=== PATIENT | male | born 1965 | race Caucasian/White ===

== ENCOUNTER 2017-04-04 15:56 | Inpatient (IN) | payer BC, OTHER ==
[2017-04-04] MEDS ORDERED: SODIUM CHLORIDE 0.9% 1,000 ML IV STA (15:59)
[2017-04-04 16:21] LABS: Basophils % (A) 1 %; CH 29.9; CHCM 32.4; Eosinophils # (A) 0.3 k/uL (0-0.7); Eosinophils % (A) 4 %; HCT 36.8 % (39.0-53.0); HDW 2.66; HGB 12.3 gm/dL (13.0-17.5); Luc # (Auto) 0.16; Luc % (Auto) 2; Lymphocytes # (A) 2.4 k/uL (1.0-4.8); Lymphocytes % (A) 33 %; MCHC 33.4 g/dL (31.0-37.0); MCV 92.6 fL (80.0-100.0); Mean Platelet Volume 8.9; Monocytes # (A) 0.3 k/uL (0-1.0); Monocytes % (A) 4 %; Neutrophils % (A) 56 %; RBC 3.97 m/uL (4.30-5.90); RDW 15.3 % (11.5-15.5); WBC 7.1 k/uL (3.8-10.6); WBC (Perox) 7.21
[2017-04-04 16:31] LABS: Prothrombin Time 10.4 sec (9.0-12.0)
[2017-04-04 16:39] LABS: Creatine Kinase 34 U/L (55-170)
[2017-04-04 16:41] LABS: ALT 45 U/L (21-72); AST 43 U/L (17-59); Alkaline Phosphatase 102 U/L (38-126); Anion Gap 13 mmol/L; Blood Urea Nitrogen 21 mg/dL (9-20); Calcium 9.8 mg/dL (8.4-10.2); Carbon Dioxide 24 mmol/L (22-30); Chloride 104 mmol/L (98-107); Glucose 313 mg/dL (74-99); Magnesium 1.5 mg/dL (1.6-2.3); Non-African American GFR(MDRD) >60 (>60 ml/min/1.73 sqM); Potassium 4.3 mmol/L (3.5-5.1); Sodium 141 mmol/L (137-145); Total Bilirubin 0.4 mg/dL (0.2-1.3); Total Protein 6.8 g/dL (6.3-8.2)
--- NOTE | 2017-04-04 16:51 | CT ---
EXAMINATION TYPE: CT brain wo con DATE OF EXAM: 04/04/2017 COMPARISON: 08/04/2016 HISTORY: History of stroke. Increased weakness. CT DLP: 1108.20 mGycm Automated exposure control for dose reduction was used. FINDINGS: There is cerebral cortical atrophy. There is enlargement of the ventricles and more on the left side. There is old left parietal infarct. There is no mass effect norming line shift. There is no sign of intracranial hemorrhage. There is some hypodensity in the anterior left internal capsule. IMPRESSION: CEREBRAL ATROPHY. OLD LEFT PARIETAL LARGE CORTICAL INFARCT. OLD LACUNAR INFARCT LEFT INTERNAL CAPSULE . NO ACUTE INTRACRANIAL ABNORMALITY. NO ADVERSE CHANGE COMPARED TO OLD EXAM.
[2017-04-04 16:52] LABS: Creatine Kinase MB <0.2 ng/mL (0.0-2.4); Troponin I <0.012 ng/mL (0.000-0.034)
--- NOTE | 2017-04-04 16:52 | XR ---
EXAMINATION TYPE: XR chest 2V DATE OF EXAM: 04/04/2017 COMPARISON: 09/04/2016 HISTORY: Short of breath. Weakness. TECHNIQUE: Frontal and lateral views of the chest are obtained. FINDINGS: There is a poor inspiration. There is coarsening of interstitial markings. There is no tin ss heart failure. There are chest leads. I see no definite pleural effusion. IMPRESSION: Poor inspiration. There is clearing of the pulmonary vascular congestion compared to old exam.
[2017-04-04 17:37] LABS: Appearance,Urine Clear (Clear); Bilirubin,Urine Negative (Negative); Glucose,Urine (UA) 3+ (Negative); Ketones,Urine Negative (Negative); Leukocyte Esterase,Urine Negative (Negative); Nitrite,Urine Negative (Negative); PH, Urine 6.5 (5.0-8.0); Protein,Urine Trace (Negative); Specific Gravity,Urine 1.022 (1.001-1.035); UA Billing (MACRO vs. MICRO) CHEM
--- NOTE | 2017-04-04 17:50 | ED ---
Neuro HPI - General Chief Complaint: Neuro Symptoms/Deficit Stated Complaint: POSS CVA Time Seen by Provider: 04/04/17 15:56 Source: patient, family, EMS, RN notes reviewed, old records reviewed Mode of arrival: EMS - History of Present Illness Is the patient presenting with stroke symptoms?: No Last Known Well Date: 03/28/17 Initial Comments: This is a 51-year-old male with a history of 2 previous CVAs first one he had residual right-sided deficit psychological left-sided but was is deficits and cleared up except for expressive aphasia over last week or so she developed some lower extremity weakness. He had medications were changed recently for his dosages. This morning he was slumped over and was very weak and could not support his weight apparently. He has improved somewhat. He is noted have an increased pulse rate per his family. He also complained of a headache morning. No fevers chills sweats or other symptoms at this time. - Related Data Home Medications: Home Medications Medication Instructions Recorded Confirmed Furosemide [Lasix] 40 mg PO DAILY@0900 04/13/16 04/04/17 Metoprolol Tartrate [Lopressor] 25 mg PO BID 07/23/16 04/04/17 Polyethylene Glycol 3350 [Miralax] 17 gm PO HS 07/23/16 04/04/17 Atorvastatin [Lipitor] 20 mg PO HS 08/04/16 04/04/17 Rivaroxaban [Xarelto] 20 mg PO DAILY@1700 09/05/16 04/04/17 Aspirin EC [Ecotrin Low Dose] 81 mg PO DAILY 04/04/17 04/04/17 Docusate [Colace] 100 mg PO BID 04/04/17 04/04/17 Furosemide [Lasix] 20 mg PO DAILY@1400 04/04/17 04/04/17 HYDROcodone/APAP 10-325MG [[place] 1 tab PO Q4HR PRN 04/04/17 04/04/17 10-325] LORazepam [Ativan] 1 mg PO BID PRN 04/04/17 04/04/17 Lactulose 10 gm PO BID 04/04/17 04/04/17 Mirtazapine [Remeron] 15 mg PO HS 04/04/17 04/04/17 Potassium Chloride [Klor-Con 20] 20 meq PO DAILY 04/04/17 04/04/17 lamoTRIgine [LaMICtal] 100 mg PO DAILY@0900 04/04/17 04/04/17 metFORMIN HCL 1,000 mg PO BID 04/04/17 04/04/17 Allergies/Adverse Reactions: Allergies Allergy/AdvReac Type Severity Reaction Status Date / Time hydromorphone [From Dilaudid] AdvReac Confusion Verified 04/04/17 15:58 Review of Systems ROS Statement: Those systems with pertinent positive or pertinent negative responses have been documented in the HPI. ROS Other: All systems not noted in ROS Statement are negative. Limitations: ROS unobtainable due to patients medical condition General Exam - General Exam Comments Initial Comments: This is a well-developed well-nourished awake alert but somewhat lethargic male General appearance: alert, lethargic Head exam: Present: atraumatic, normocephalic, normal inspection Eye exam: Present: normal appearance, PERRL, EOMI. Absent: scleral icterus, conjunctival injection, periorbital swelling ENT exam: Present: mucous membranes dry Neck exam: Present: normal inspection, other (Well-healed left carotid endarterectomy scar). Absent: tenderness, meningismus, lymphadenopathy Respiratory exam: Present: normal lung sounds bilaterally. Absent: respiratory distress, wheezes, rales, rhonchi, stridor Cardiovascular Exam: Present: normal rhythm, tachycardia GI/Abdominal exam: Present: soft, normal bowel sounds. Absent: distended, tenderness, guarding, rebound, rigid Rectal exam: Present: deferred Extremities exam: Present: normal inspection, normal capillary refill. Absent: full ROM Back exam: Present: normal inspection Neurological exam: Present: alert, oriented X3, motor sensory deficit ( Consistent with the previous strokes). Absent: CN II-XII intact Psychiatric exam: Present: normal affect, normal mood Skin exam: Present: warm, dry, intact, normal color. Absent: rash Stroke MDM - Lab Data Result diagrams: 04/04/17 16:10 04/04/17 16:10 Lab Results 04/04/17 04/04/17 04/04/17 Range/Units 16:10 16:10 16:10 WBC 7.1 (3.8-10.6) k/uL RBC 3.97 L (4.30-5.90) m/uL Hgb 12.3 L (13.0-17.5) gm/dL Hct 36.8 L (39.0-53.0) % MCV 92.6 (80.0-100.0) fL MCH 31.0 (25.0-35.0) pg MCHC 33.4 (31.0-37.0) g/dL RDW 15.3 (11.5-15.5) % Plt Count 231 (150-450) k/uL Neutrophils % 56 % Lymphocytes % 33 % Monocytes % 4 % Eosinophils % 4 % Basophils % 1 % Neutrophils # 4.0 (1.3-7.7) k/uL Lymphocytes # 2.4 (1.0-4.8) k/uL Monocytes # 0.3 (0-1.0) k/uL Eosinophils # 0.3 (0-0.7) k/uL Basophils # 0.0 (0-0.2) k/uL PT (9.0-12.0) sec INR (<1.1) APTT (22.0-30.0) sec Sodium 141 (137-145) mmol/L Potassium 4.3 (3.5-5.1) mmol/L Chloride 104 (98-107) mmol/L Carbon Dioxide 24 (22-30) mmol/L Anion Gap 13 mmol/L BUN 21 H (9-20) mg/dL Creatinine 0.80 (0.66-1.25) mg/dL Est GFR (MDRD) Af Amer >60 (>60 ml/min/1.73 sqM) Est GFR (MDRD) Non-Af >60 (>60 ml/min/1.73 sqM) Glucose 313 H (74-99) mg/dL Calcium 9.8 (8.4-10.2) mg/dL Magnesium 1.5 L (1.6-2.3) mg/dL Total Bilirubin 0.4 (0.2-1.3) mg/dL AST 43 (17-59) U/L ALT 45 (21-72) U/L Alkaline Phosphatase 102 (38-126) U/L Total Creatine Kinase 34 L (55-170) U/L CK-MB (CK-2) <0.2 (0.0-2.4) ng/mL CK-MB (CK-2) Rel Index Troponin I <0.012 (0.000-0.034) ng/mL Total Protein 6.8 (6.3-8.2) g/dL Albumin 3.9 (3.5-5.0) g/dL Urine Color Urine Appearance (Clear) Urine pH (5.0-8.0) Ur Specific [place] (1.001-1.035) Urine Protein (Negative) Urine Glucose (UA) (Negative) Urine Ketones (Negative) Urine Blood (Negative) Urine Nitrite (Negative) Urine Bilirubin (Negative) Urine Urobilinogen (<2.0) mg/dL Ur Leukocyte Esterase (Negative) Acetone, Qual Negative (Negative) 04/04/17 04/04/17 Range/Units 16:10 17:31 WBC (3.8-10.6) k/uL RBC (4.30-5.90) m/uL Hgb (13.0-17.5) gm/dL Hct (39.0-53.0) % MCV (80.0-100.0) fL MCH (25.0-35.0) pg MCHC (31.0-37.0) g/dL RDW (11.5-15.5) % Plt Count (150-450) k/uL Neutrophils % % Lymphocytes % % Monocytes % % Eosinophils % % Basophils % % Neutrophils # (1.3-7.7) k/uL Lymphocytes # (1.0-4.8) k/uL Monocytes # (0-1.0) k/uL Eosinophils # (0-0.7) k/uL Basophils # (0-0.2) k/uL PT 10.4 (9.0-12.0) sec INR 1.0 (<1.1) APTT 22.0 (22.0-30.0) sec Sodium (137-145) mmol/L Potassium (3.5-5.1) mmol/L Chloride (98-107) mmol/L Carbon Dioxide (22-30) mmol/L Anion Gap mmol/L BUN (9-20) mg/dL Creatinine (0.66-1.25) mg/dL Est GFR (MDRD) Af Amer (>60 ml/min/1.73 sqM) Est GFR (MDRD) Non-Af (>60 ml/min/1.73 sqM) Glucose (74-99) mg/dL Calcium (8.4-10.2) mg/dL Magnesium (1.6-2.3) mg/dL Total Bilirubin (0.2-1.3) mg/dL AST (17-59) U/L ALT (21-72) U/L Alkaline Phosphatase (38-126) U/L Total Creatine Kinase (55-170) U/L CK-MB (CK-2) (0.0-2.4) ng/mL CK-MB (CK-2) Rel Index Troponin I (0.000-0.034) ng/mL Total Protein (6.3-8.2) g/dL Albumin (3.5-5.0) g/dL Urine Color Yellow Urine Appearance Clear (Clear) Urine pH 6.5 (5.0-8.0) Ur Specific [place] 1.022 (1.001-1.035) Urine Protein Trace H (Negative) Urine Glucose (UA) 3+ H (Negative) Urine Ketones Negative (Negative) Urine Blood Negative (Negative) Urine Nitrite Negative (Negative) Urine Bilirubin Negative (Negative) Urine Urobilinogen 2.0 (<2.0) mg/dL Ur Leukocyte Esterase Negative (Negative) Acetone, Qual (Negative) - NIH Stroke Scale 1a. Level of Consciousness: (0) alert 1b. LOC Questions: (1) answers 1 question correctly 1c. LOC Commands: (0) performs tasks correctly 2. Best Gaze: (0) normal 3. Visual: (0) no visual loss 4. Facial Palsy: (0) normal symmetrical movement 5a. Motor Arm Left: (0) no drift 5b. Motor Arm Right: (3) no gravity effort 6a. Motor Leg Left: (0) no drift 6b. Motor Leg Right: (4) no movement 7. Limb Ataxia: (1) present 1 limb 8. Sensory: (0) normal 9. Best Language: (1) mild/moderate aphasia 10. Dysarthria: (1) mild/moderate dysarthria 11. Extinction/Inattention: (0) no abnormality - Thrombolytic Inclusion/Exclusion Thrombolytic Exclusion Criteria: Symptom Onset > 3 Hours - Medical Decision Making Reevaluation patient reveals no overt change though he is improved per his . The current presentation is not consistent with an acute stroke. His neuro deficits currently are consistent with his earlier stroke. He will be admitted with neurological consultation. Patient does see Dr. Quintana. Past Medical History Past Medical History: Coronary Artery Disease (CAD), CVA/TIA, Diabetes Mellitus , GERD/Reflux, Hyperlipidemia, Hypertension Additional Past Medical History / Comment(s): hx polyps, osteoporosis, past hx. sepsis related to a fall-affected hip, had stroke 2015 after carotid surg.-partial paralysis right side, blood in stool, expressive aphasia History of Any Multi-Drug Resistant Organisms: None Reported Past Surgical History: Joint Replacement Additional Past Surgical History / Comment(s): Right-sided carotid endarterectomy, multiple surgeries hips-Right 3 times and left 1. right hip had a [place] resurfacing done-currently just a spacer in joint, colonoscopy 2, right hip I&D. Past Anesthesia/Blood Transfusion Reactions: Previous Problems w/ Anesthesia Additional Past Anesthesia/Blood Transfusion Reaction / Comment(s): woke during a procedure, some kind of swelling in throat during a surgery post intubation- thinks it might have been due to having been intubated for procedures close together Past Psychological History: No Psychological Hx Reported Smoking Status: Former smoker Past Alcohol Use History: Daily Past Drug Use History: None Reported - Past Family History Sister(s) Family Medical History: Cancer, CVA/TIA Brother(s) Family Medical History: Cancer, CVA/TIA, Liver Disease Additional Family Medical History / Comment(s): lung cancer Father Family Medical History: Diabetes Mellitus, Myocardial Infarction ([place]) Mother Family Medical History: CVA/TIA Course Vital Signs 04/04/17 04/04/17 04/04/17 15:58 16:12 16:28 Temperature 99.3 F Pulse Rate 104 H 96 103 H Respiratory 20 16 18 Rate Blood Pressure 148/75 141/75 135/75 O2 Sat by Pulse 93 L 94 L 100 Oximetry 04/04/17 04/04/17 16:58 17:13 Temperature Pulse Rate 101 H 101 H Respiratory 18 18 Rate Blood Pressure 123/72 133/73 O2 Sat by Pulse 100 95 Oximetry Disposition Clinical Impression: Transient cerebral ischemia, Weakness generalized Disposition: [facility] Condition: Stable Referrals: Waldemar Grey MD [Primary Care Provider] - 1-2 days
[2017-04-04] MEDS ORDERED: RIVAROXABAN 10 MG TAB PO STA (18:00)
[2017-04-04] MEDS ORDERED: METOPROLOL TARTRATE 25 MG TAB PO STA (18:00)
[2017-04-04] MEDS ORDERED: DOCUSATE 100 MG CAP PO STA (18:00)
[2017-04-04 20:38] VITALS: BMI 34.8
[2017-04-04] MEDS: POLYETHYLENE GLYCOL 3350 17 GM POWD.PACK PO SCH (20:40)
[2017-04-04] MEDS: DOCUSATE 100 MG CAP PO SCH (20:40)
[2017-04-04] MEDS: MIRTAZAPINE 15 MG TAB PO SCH (20:40)
[2017-04-04] MEDS: LACTULOSE 20 GM/30 ML CUP PO SCH (20:41)
[2017-04-04] MEDS: SODIUM CHLORIDE 0.9% 1,000 ML IV SCH (20:42)
[2017-04-04] MEDS: ATORVASTATIN 40 MG TAB PO SCH (20:42)
[2017-04-04] MEDS: HYDROcodone/APAP 10-325MG 1 EACH TAB PO PRN (20:44)
[2017-04-04] MEDS ORDERED: ATORVASTATIN 20 MG TAB PO SCH (21:00)
[2017-04-04 21:04] LABS: Glucose,Whole Blood 264 mg/dL (75-99)
[2017-04-04] MEDS: INSULIN LISPRO (humaLOG) 300 UNIT/3 ML VIAL SQ SCH (21:28)
[2017-04-05] MEDS: SODIUM CHLORIDE 0.9% 1,000 ML IV SCH ×2 (04:30→15:07)
[2017-04-05 05:59] LABS: Glucose,Whole Blood 166 mg/dL (75-99)
[2017-04-05] MEDS: INSULIN LISPRO (humaLOG) 300 UNIT/3 ML VIAL SQ SCH ×4 (06:20→20:52)
[2017-04-05 06:41] LABS: Cholesterol 171 mg/dL (<200); HDL Cholesterol 35 mg/dL (40-60); Triglycerides 220 mg/dL (<150)
[2017-04-05 08:18] LABS: Glucose,Whole Blood 283 mg/dL (75-99)
[2017-04-05] MEDS: DOCUSATE 100 MG CAP PO SCH ×2 (08:20→20:44)
[2017-04-05] MEDS: LACTULOSE 20 GM/30 ML CUP PO SCH ×2 (08:20→20:43)
[2017-04-05] MEDS: ASPIRIN 81 MG CHEW PO SCH (08:20)
[2017-04-05] MEDS: FUROSEMIDE 40 MG TAB PO SCH (08:20)
[2017-04-05] MEDS: lamoTRIgine 100 MG TAB PO SCH (08:20)
[2017-04-05] MEDS: METOPROLOL TARTRATE 25 MG TAB PO SCH ×2 (08:21→20:44)
[2017-04-05] MEDS: POTASSIUM CHLORIDE ER 20 MEQ TAB.ER PO SCH (08:21)
--- NOTE | 2017-04-05 09:36 | US ---
EXAMINATION TYPE: US carotid duplex BILAT DATE OF EXAM: 04/05/2017 COMPARISON: US CLINICAL HISTORY: 51-year-old male Stenosis. TIA, weakness, stenosis, known right ICA occlusion, exam done portable. TECHNIQUE: Carotid duplex ultrasound examination. Indirect Doppler criteria was utilized. FINDINGS: Redemonstrated occlusion of the right ICA just above the bulb. Moderate irregular apical scarring gris nges are present within the bulb. Postendarterectomy changes at the left bifurcation. EXAM MEASUREMENTS: RIGHT: Peak Systolic Velocity (PSV) cm/sec ----- Right CCA: 112.7 ----- Right ICA: --- ----- Right ECA: 141.9 ICA/CCA ratio: --- RIGHT: End Diastole cm/sec ----- Right CCA: 20.4 ----- Right ICA: --- ----- Right ECA: 21.6 LEFT: Peak Systolic Velocity (PSV) cm/sec ----- Left CCA: 66.1 ----- Left ICA: 148.3 ----- Left ECA: --- ICA/CCA ratio: 2.2 LEFT: End Diastole cm/sec ----- Left CCA: 27.9 ----- Left ICA: 43.2 ----- Left ECA: --- VERTEBRALS (direction of flow): Right Vertebral: Antegrade Left Vertebral: Antegrade SENIOR INFORMATION SECURITY CONSULTANT NOTES: Right side: ICA occluded, Left side: only one vessel seen coming from bulb, possible graft, with highest velocity within this v essel at 148.3cm/s, unable to visualize left ECA. IMPRESSION: 1. Redemonstrated occluded right ICA. 2. Post endarterectomy changes on the left. There are elevated velocities within the proximal left IC A that could reflect a moderate (50-69%) stenosis. Criteria for Assigning % of Stenosis / Diameter reduction (Estimation based on the indirect measurements of the internal carotid artery velocities (ICA PSV). 1. Normal (no stenosis)=ICA PSV < 125 cm/s: ratio < 2.0: ICA EDV<40 cm/s. 2. Less than 50% stenosis=ICA PSV < 125 cm/s: ratio < 2.0: ICA EDV<40 cm/s. 3. 50 to 69% stenosis=ICA PSV of 125 to 230 cm/s: ration 2.0 ? 4.0: ICA EDV 40-100 cm/s. 4. Greater than 70% stenosis to near occlusion= ICA PSV > 230 cm/s: ratio > 4.0: ICA EDV > 100 cm/s. 5. Near occlusion= ICA PSV velocities may be low or undetectable: variable ratio and ICA EDV. 6. Total occlusion=unable to detect flow.
[2017-04-05 12:02] LABS: Glucose,Whole Blood 245 mg/dL (75-99)
[2017-04-05 14:33] LABS: Hemoglobin A1C 8.7 % (4.2-6.1)
[2017-04-05] MEDS: HYDROcodone/APAP 10-325MG 1 EACH TAB PO PRN ×2 (15:03→20:45)
[2017-04-05] MEDS: FUROSEMIDE 20 MG TAB PO SCH (15:05)
--- NOTE | 2017-04-05 15:07 | P.CNNES ---
History of Present Illness Consult date: 04/05/17 Requesting physician: Tab Ash Reason for Consult: CVA History of Present Illness: Patient is a 51-year-old male who is being evaluated by the neurology service on 04/05/2017 per the request of Dr. Ash for CVA. Patient has a history of 2 previous CVAs for which he had residual right-sided deficit. Patient also had expressive aphasia and was pretty much bedbound in the home setting. Patient was working with physical therapy and speech therapy in the home setting. noticed patient to be weaker and poor emotional than usual. reports patient had recent medication changes which she noticed he was having reactions to. states patient was becoming very sedated with Remeron. Patient states he was weaker and slumped over in his chair and she decided he needed to be evaluated at [facility]. Vital signs on admission for pulse 96, respiratory rate 16, blood pressure 141/75, O2 sat 94% on 2 L nasal cannula. Labs on admission were hemoglobin 12.3, hematocrit 36.8, RBCs 3.97, and a PVC 7.1. Patient was taking Xarelto 20 mg daily in the home setting. Patient also is taking low-dose aspirin of 81 mg by mouth daily. CT of the brain was done on admission which showed cerebral atrophy. Also showed left parietal large cortical infarct. Old lacunar infarct left internal capsule. No acute intracranial abnormality. No adverse change compared to old exam. Carotid Dopplers were done and showed redemonstration of occluded right ICA. Carotid Doppler also showed post endarterectomy changes on the left. At the time of my exam patient is resting comfortably in bed and appears to be in no acute distress. Family is at the bedside. Review of Systems REVIEW OF SYSTEMS: Otherwise unremarkable and noncontributory. Past Medical History Past Medical History: Coronary Artery Disease (CAD), CVA/TIA, Diabetes Mellitus , GERD/Reflux, Hyperlipidemia, Hypertension Additional Past Medical History / Comment(s): hx polyps, osteoporosis, past hx. sepsis related to a fall-affected hip, had stroke 2015 after carotid surg.-partial paralysis right side, blood in stool, expressive aphasia History of Any Multi-Drug Resistant Organisms: None Reported Past Surgical History: Joint Replacement Additional Past Surgical History / Comment(s): Right-sided carotid endarterectomy, multiple surgeries hips-Right 3 times and left 1. right hip had a [place] resurfacing done-currently just a spacer in joint, colonoscopy 2, right hip I&D. Past Anesthesia/Blood Transfusion Reactions: Previous Problems w/ Anesthesia Additional Past Anesthesia/Blood Transfusion Reaction / Comment(s): woke during a procedure, some kind of swelling in throat during a surgery post intubation- thinks it might have been due to having been intubated for procedures close together Past Psychological History: No Psychological Hx Reported Smoking Status: Former smoker Past Alcohol Use History: Daily Past Drug Use History: None Reported - Past Family History Sister(s) Family Medical History: Cancer, CVA/TIA Brother(s) Family Medical History: Cancer, CVA/TIA, Liver Disease Additional Family Medical History / Comment(s): lung cancer Father Family Medical History: Diabetes Mellitus, Myocardial Infarction ([place]) Mother Family Medical History: CVA/TIA Medications and Allergies Home Medications Medication Instructions Recorded Confirmed Type Furosemide [Lasix] 40 mg PO DAILY@0900 04/13/16 04/04/17 History Metoprolol Tartrate [Lopressor] 25 mg PO BID 07/23/16 04/04/17 History Polyethylene Glycol 3350 [Miralax] 17 gm PO HS 07/23/16 04/04/17 History Atorvastatin [Lipitor] 20 mg PO HS 08/04/16 04/04/17 History Rivaroxaban [Xarelto] 20 mg PO DAILY@1700 09/05/16 04/04/17 History Aspirin EC [Ecotrin Low Dose] 81 mg PO DAILY 04/04/17 04/04/17 History Docusate [Colace] 100 mg PO BID 04/04/17 04/04/17 History Furosemide [Lasix] 20 mg PO DAILY@1400 04/04/17 04/04/17 History HYDROcodone/APAP 10-325MG [[place] 1 tab PO Q4HR PRN 04/04/17 04/04/17 History 10-325] LORazepam [Ativan] 1 mg PO BID PRN 04/04/17 04/04/17 History Lactulose 10 gm PO BID 04/04/17 04/04/17 History Mirtazapine [Remeron] 15 mg PO HS 04/04/17 04/04/17 History Potassium Chloride [Klor-Con 20] 20 meq PO DAILY 04/04/17 04/04/17 History lamoTRIgine [LaMICtal] 100 mg PO DAILY@0900 04/04/17 04/04/17 History metFORMIN HCL 1,000 mg PO BID 04/04/17 04/04/17 History Allergies Allergy/AdvReac Type Severity Reaction Status Date / Time hydromorphone [From Dilaudid] AdvReac Confusion Verified 04/04/17 15:58 Physical Examination - Vital Signs Vital Signs: Vital Signs Temp Pulse Pulse Resp BP BP Pulse Ox 04/05/17 04:00 97.1 F L 88 18 113/73 96 04/04/17 22:11 99 18 128/75 96 04/04/17 20:03 97.3 F L 86 18 132/76 04/04/17 18:40 85 20 125/78 96 04/04/17 18:00 101 H 20 129/76 04/04/17 17:13 101 H 18 133/73 95 04/04/17 16:58 101 H 18 123/72 100 04/04/17 16:28 103 H 18 135/75 100 04/04/17 16:12 96 16 141/75 94 L 04/04/17 15:58 99.3 F 104 H 20 148/75 93 L Intake and Output 04/04/17 04/05/17 04/05/17 22:59 06:59 14:59 Intake Total 700 185 Output Total 1900 400 Balance -1200 -215 Intake: IV 700 Sodium Chloride 0.9% 1, 700 000 ml @ 100 mls/hr IV . Q10H [facility] Rx#:[id number] Oral 185 Output: Urine 1900 400 Other: Voiding Method Urinal # Bowel Movements 1 Weight 113.398 kg 122.5 kg PHYSICAL EXAM: GENERAL APPEARANCE: Patient is a well-developed, male who appears to be in no acute distress. HEENT: Normocephalic, atraumatic, no facial asymmetry is seen. Neck is supple with no masses felt. CARDIOVASCULAR: Regular rate and rhythm. ABDOMEN: Nontender, nondistended. EXTREMITIES: Show no edema or clubbing. NEUROLOGICAL EXAM: Patient is awake, alert, and oriented 3. Speech is slowed and dysarthric. This is residual from prior stroke. Patient has right upper extremity weakness of 1/5 and 3+/5 in all other extremities. Sensory exam is normal to light touch in all 4 extremities. No facial asymmetry is noted on cranial nerve testing. No tremors or seizure-like activity is noted. Results - Laboratory Findings CBC and BMP: 04/04/17 16:10 04/04/17 16:10 Abnormal Lab Findings: Abnormal Labs 04/04/17 04/04/17 04/04/17 15:57 16:10 16:10 RBC 3.97 L Hgb 12.3 L Hct 36.8 L BUN Glucose POC Glucose (mg/dL) 283 H Magnesium Total Creatine Kinase 34 L Triglycerides HDL Cholesterol Urine Protein Urine Glucose (UA) 04/04/17 04/04/17 04/04/17 16:10 17:31 21:02 RBC Hgb Hct BUN 21 H Glucose 313 H POC Glucose (mg/dL) 264 H Magnesium 1.5 L Total Creatine Kinase Triglycerides HDL Cholesterol Urine Protein Trace H Urine Glucose (UA) 3+ H 04/05/17 04/05/17 04/05/17 05:54 06:11 12:00 RBC Hgb Hct BUN Glucose POC Glucose (mg/dL) 166 H 245 H Magnesium Total Creatine Kinase Triglycerides 220 H HDL Cholesterol 35 L Urine Protein Urine Glucose (UA) Assessment and Plan (1) Transient cerebral ischemia Status: Acute (2) Weakness generalized Status: Acute Plan: Patient was admitted for possible CVA. I do recall this patient from prior admission. Family is at the bedside. does say symptoms are unchanged from prior stroke. Upon my exam his neuro deficits are consistent with his earlier stroke. His emotional changes and increased weakness seems to be consistent with medication changes. Due to his significant history for CVA, I will order an MRI of the brain, and EEG, fasting lipid panel, and serum homocysteine level. As mentioned above, CT of the brain was consistent with prior CVA. No acute process was noted on CT. Carotid Dopplers were unchanged from last admission. I would continue Xarelto and aspirin. Continue neurological checks. I recommend PT OT to evaluate and treat. I recommend speech therapy for swallow eval. I will continue to follow with you. Further recommendations to follow. Thank you for allowing me to participate in the care of your patient. Feel free to call with any questions or concerns. I performed an examination of the patient and discussed the management with the QUILL REAMER. I have reviewed the QUILL REAMER notes and agree with the findings and plan of care.
--- NOTE | 2017-04-05 17:01 | MR ---
EXAMINATION TYPE: MR brain wo con DATE OF EXAM: 04/05/2017 COMPARISON: CT brain from yesterday. MRI brain April 14, 2016. HISTORY: Rt side weakness, history of stroke TECHNIQUE: Multiplanar, multisequence imaging of the brain and brainstem is performed without IV cont rast. FINDINGS: Diffusion weighted images demonstrate no evidence of a recent infarct or other diffusion abnormality. There is no new worrisome extra-axial fluid collection. There is redemonstration of diffuse ventricul ar prominence including prominent fourth ventricle without corresponding sulcal effacement suggesting fairly moderate hydrocephalus. There is ex vacuo dilatation of left sided ventricular system due to asymmetric occipital lobe atrophy or encephalomalacia. Old infarct superior left MCA distribution is redemonstrated. T2 hyperintense areas involving jennifer bilaterally slightly more prominent versus prior MRI without restricted diffusion suggesting progression of chronic small vessel ischemic change. Midline structures demonstrate marked thinning of the corpus callosum. The craniocervical junction a ppears within normal limits. Normal vascular flow voids are present. The visualized sinuses are clear and the globes are intact. IMPRESSION: 1. No evidence of a recent infarct. 2. Left-sided infarct redemonstrated. Suspect moderate underlying hydrocephalus redemonstrated. No si gnificant change in these findings from prior studies. Progression of chronic small vessel ischemic c hange in the jennifer is felt present.
[2017-04-05 17:11] LABS: Glucose,Whole Blood 173 mg/dL (75-99)
[2017-04-05] MEDS: RIVAROXABAN 10 MG TAB PO SCH (17:12)
--- NOTE | 2017-04-05 17:43 | P.HPIM ---
History of Present Illness H&P Date: 04/05/17 Chief Complaint: Weakness This is a pleasant 51-year-old patient of Dr. Grey. History is mainly obtained by the at the bedside. Patient has no rather extensive medical history. Chronic stable medical conditions include hypertension, hyperlipidemia , GERD, diabetes mellitus type 2, chronically occluded right carotid artery and obesity. The patient since January of this year has been home from an ECF. Patient chronically is got right arm weakness able to lift at some and some left -sided weakness from old stroke patient also got limited vision in the right eye.. Patient's speech is recovered some from therapy though patient sometimes still slow. Last couple of days patient had an episode of increasing heart rate , getting flushed. Yesterday patient became groggy and hunched over. Of late patient has been crying, getting rather depressed. Patient was noted to become more weak in his legs. Patient is able to walk about 15 feet with some support. Also of last couple days responded that patient may be choking. Most of the history is obtained by the at the bedside. Significant past medical history: Stroke with chronic weakness of the right arm left side, chronically occluded right carotid artery, chronically decreased vision in the right eye, dysarthria , diabetes type II, GERD, hyperlipidemia, essential hypertension, gait dysfunction. Review of Systems GEN.: Tired EYES: None HEENT: None NECK: None RESPIRATORY: None CARDIOVASCULAR: None GASTROINTESTINAL: As above GENITOURINARY: None MUSCULOSKELETAL: None LYMPHATICS: None HEMATOLOGICAL: None PSYCHIATRY: Depressed NEUROLOGICAL: As above Past Medical History Past Medical History: Coronary Artery Disease (CAD), CVA/TIA, Diabetes Mellitus , GERD/Reflux, Hyperlipidemia, Hypertension Additional Past Medical History / Comment(s): hx polyps, osteoporosis, past hx. sepsis related to a fall-affected hip, had stroke 2015 after carotid surg.-partial paralysis right side, blood in stool, expressive aphasia History of Any Multi-Drug Resistant Organisms: None Reported Past Surgical History: Joint Replacement Additional Past Surgical History / Comment(s): Right-sided carotid endarterectomy, multiple surgeries hips-Right 3 times and left 1. right hip had a [place] resurfacing done-currently just a spacer in joint, colonoscopy 2, right hip I&D. Past Anesthesia/Blood Transfusion Reactions: Previous Problems w/ Anesthesia Additional Past Anesthesia/Blood Transfusion Reaction / Comment(s): woke during a procedure, some kind of swelling in throat during a surgery post intubation- thinks it might have been due to having been intubated for procedures close together Past Psychological History: No Psychological Hx Reported Smoking Status: Former smoker Past Alcohol Use History: Daily Past Drug Use History: None Reported - Past Family History Sister(s) Family Medical History: Cancer, CVA/TIA Brother(s) Family Medical History: Cancer, CVA/TIA, Liver Disease Additional Family Medical History / Comment(s): lung cancer Father Family Medical History: Diabetes Mellitus, Myocardial Infarction ([place]) Mother Family Medical History: CVA/TIA Medications and Allergies Home Medications Medication Instructions Recorded Confirmed Type Furosemide [Lasix] 40 mg PO DAILY@0900 04/13/16 04/04/17 History Metoprolol Tartrate [Lopressor] 25 mg PO BID 07/23/16 04/04/17 History Polyethylene Glycol 3350 [Miralax] 17 gm PO HS 07/23/16 04/04/17 History Atorvastatin [Lipitor] 20 mg PO HS 08/04/16 04/04/17 History Rivaroxaban [Xarelto] 20 mg PO DAILY@1700 09/05/16 04/04/17 History Aspirin EC [Ecotrin Low Dose] 81 mg PO DAILY 04/04/17 04/04/17 History Docusate [Colace] 100 mg PO BID 04/04/17 04/04/17 History Furosemide [Lasix] 20 mg PO DAILY@1400 04/04/17 04/04/17 History HYDROcodone/APAP 10-325MG [[place] 1 tab PO Q4HR PRN 04/04/17 04/04/17 History 10-325] LORazepam [Ativan] 1 mg PO BID PRN 04/04/17 04/04/17 History Lactulose 10 gm PO BID 04/04/17 04/04/17 History Mirtazapine [Remeron] 15 mg PO HS 04/04/17 04/04/17 History Potassium Chloride [Klor-Con 20] 20 meq PO DAILY 04/04/17 04/04/17 History lamoTRIgine [LaMICtal] 100 mg PO DAILY@0900 04/04/17 04/04/17 History metFORMIN HCL 1,000 mg PO BID 04/04/17 04/04/17 History Allergies Allergy/AdvReac Type Severity Reaction Status Date / Time hydromorphone [From Dilaudid] AdvReac Confusion Verified 04/04/17 15:58 Physical Exam VITAL SIGNS: [Upon presentation, temperature 99.3, 104, respiration 20 140/75, 93% room air] GENERAL: [Average built, sitting up, comfortable]. EYES: [Pupils equal. Conjunctiva michael]l. HEENT: [External appearance of nose and ears normal, oral cavity grossly normal] . NECK: [JVD not raised; masses not palpable]. HEART: [First and second heart sounds are normal; no edema]. LUNGS:[ Respiratory rate normal; decreased breath sounds]. ABDOMEN: [Soft, nontender, liver spleen not palpable, no masses palpable]. LYMPHATICS: [No lymph nodes palpable in the axilla and neck]. PSYCH: [Alert and oriented x3; mood and affect low appearing]l. NEUROLOGICAL: [Cranial nerves grossly intact; , speech is slow, power in the right arm is 3/5 power in the left arm is 4 x 5, lower extremity weakness power 4/5, sensation grossly preserved Results CBC & Chem 7: 04/04/17 16:10 04/04/17 16:10 Labs: Labs: white count 7.1, hemoglobin 12.3, platelets 231, potassium 4.3, beer and 21, creatinine 0.8, Accu-Cheks noted Computed tomography scan of the brain shows old left parietal large cortical infarct, old lacunar infarct in the left internal capsule no new changes noted Carotid Doppler-occluded right ICA and post-endarterectomy changes on the left MRI brain-no new change reported Assessment and Plan Plan: Assessment: -New weakness in the lower extremity, otherwise acute stroke cannot be ruled out -Old strokes manifesting as weakness on the right arm left side Chronically occluded right internal carotid artery -Chronically decreased vision in the right eye new -Chronic 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 Plan: Neuro checks are in place. Neurology was consulted. Also will get a psychiatry evaluation. Care was discussed with the patient and at the bedside will also get a modified barium swallow in view of patient choking. Patient oriented aspirin Lipitor Xarelto continue with the same
[2017-04-05] MEDS: MAG HYDROX/AL HYDROX/SIMETH 30 ML CUP PO PRN (20:43)
[2017-04-05] MEDS: POLYETHYLENE GLYCOL 3350 17 GM POWD.PACK PO SCH (20:44)
[2017-04-05] MEDS: ATORVASTATIN 40 MG TAB PO SCH (20:44)
[2017-04-05] MEDS: MIRTAZAPINE 15 MG TAB PO SCH (20:45)
[2017-04-05 21:04] LABS: Glucose,Whole Blood 179 mg/dL (75-99)
[2017-04-06] MEDS: SODIUM CHLORIDE 0.9% 1,000 ML IV SCH ×3 (01:20→20:27)
[2017-04-06 06:33] LABS: Glucose,Whole Blood 165 mg/dL (75-99)
[2017-04-06] MEDS: INSULIN LISPRO (humaLOG) 300 UNIT/3 ML VIAL SQ SCH ×4 (07:03→20:24)
[2017-04-06] MEDS: DOCUSATE 100 MG CAP PO SCH ×2 (08:05→20:21)
[2017-04-06] MEDS: HYDROcodone/APAP 10-325MG 1 EACH TAB PO PRN ×4 (08:05→20:20)
[2017-04-06] MEDS: FUROSEMIDE 40 MG TAB PO SCH (08:06)
[2017-04-06] MEDS: METOPROLOL TARTRATE 25 MG TAB PO SCH ×2 (08:06→20:22)
[2017-04-06] MEDS: POTASSIUM CHLORIDE ER 20 MEQ TAB.ER PO SCH (08:07)
[2017-04-06] MEDS: ASPIRIN 81 MG CHEW PO SCH (08:07)
[2017-04-06] MEDS: lamoTRIgine 100 MG TAB PO SCH (08:15)
[2017-04-06] MEDS: LACTULOSE 20 GM/30 ML CUP PO SCH ×2 (08:15→20:21)
[2017-04-06 12:22] LABS: Glucose,Whole Blood 369 mg/dL (75-99)
[2017-04-06] MEDS: LORazepam 1 MG TAB PO PRN ×2 (14:07→14:12)
--- NOTE | 2017-04-06 14:48 | P.CN ---
Psychiatric Consult - . Consult date: 04/06/17 Consult:: 04/06/17 14:48 DATE OF SERVICE: 04/06/2017 IDENTIFYING DATA: This patient is a 51-year-old . male admitted to the medical floor after a possible CVA. Patient had been home since January after he was discharged from [facility]. Patient with history of 2 previous CVAs, the first stroke was October 2015, he was able to regain a significant amount of his weakness on the left side. He was in [facility] when he suffered his second CVA in June 2016. Patient has a phase and his gives the history although he will shake his head or current to some questions. . HISTORY OF PRESENT ILLNESS: The patient presents with [ states that patient has never been depressed in the past there is no history of bipolar disorder, anxiety. After the first CVA she reports that he was still doing okay he was laughing getting around with some difficulty but was not depressed. After his second CVA and after he came home in January she began to notice depression getting angry and crying. His primary care doctor put him on Lexapro but it was stopped when he was noted to be flushed and sweating. His primary care doctor was also worried about possible seizures during the night, and also whether or not he had developed bipolar disorder. He was started on Lamictal 100 mg daily , and Remeron 15 mg daily at bedtime. He has been assessed by neurology who is working him up for possible CVA, seizure disorder, with EEG pending. reports that prior to starting of Remeron he did have some problems but after Remeron was started on April 03 he was more sedated during the daytime and then on the day of admission he slumped over in his wheelchair, was weak was asking to be laid down. Asked patient if he was depressed and he cleared his throat, became red in the face, then asked if he had any thoughts of wanting to end his life and he choked up. PAST PSYCHIATRIC HISTORY: [By report of no past history PAST MEDICAL HISTORY: [Significant medical problems with 2 CVAs, CT of the brain shows cerebral atrophy ALLERGIES: [Hydromorphone CHEMICAL DEPENDENCY HISTORY: Unknown FAMILY PSYCHIATRIC HISTORY: Sisters have depression FAMILY CHEMICAL DEPENDENCY HISTORY: Unknown SOCIAL HISTORY: Patient is the youngest of 16 children. Patient lives with his Trina, they have adult children and grandchildren. 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 MENTAL STATUS EXAM: Unable to examine IMPRESSIONS: 51-year-old with extensive medical problems, 2 previous CVAs with residual right-sided deficit, expressive aphasia. Was bedbound in the home setting. over the past month according to he has become depressed, angry, and today possibly with thoughts of wanting to . No evidence of psychosis. It is unlikely that someone would develop a bipolar disorder at the age of 51, with no past history of depression or other psychiatric disorders. However there are a few case reports of patient's developing manic episodes after suffering strokes. This does not appear to be a manic episode. I will defer any recommendations regarding Lamictal to the neurologist, but with respect to depression, it is only indicated in Bipolar II, depression which is unlikely. Depression, due to medical illness PLAN: If EEG is negative for seizures, I would recommend a low dose of Welbutrin , 50mg qam, in part because the sweating and flushing with Lexapro could be nothing, but also could possibly have been serotonergic syndrome. Remeron is good for sleep but for depression would need to increase the dose. Will follow with you. 04/06/17 15:12
[2017-04-06] MEDS: FUROSEMIDE 20 MG TAB PO SCH (15:45)
[2017-04-06] MEDS: RIVAROXABAN 10 MG TAB PO SCH (15:46)
--- NOTE | 2017-04-06 15:54 | FL ---
MODIFIED SWALLOW / DEGLUTITION STUDY Total fluoroscopy time: 1.03 minutes. DATE OF EXAM: 04/06/2017 CLINICAL HISTORY: 51-year-old male with a recent strokes and trouble swallowing, recent choking. TECHNIQUE: Deglutition study is performed utilizing thin liquid barium, honey and nectar thick liqui d barium, barium thick applesauce, and barium coated cracker. COMPARISON: None. FINDINGS: The oral and pharyngeal phases show satisfactory initiation and propagation with all modalities teste d. However, there is sluggish epiglottic inversion and mild to moderate vallecular residuals. Normal mastication is seen with solid modalities tested. There is no evidence of penetration or aspiration with any modality tested. IMPRESSION: 1. Sluggish epiglottic inversion and mild to moderate vallecular residuals. 2. No evidence for penetration or aspiration. 3. Please refer to speech therapist notes for further details if necessary.
[2017-04-06 17:28] LABS: Glucose,Whole Blood 246 mg/dL (75-99)
--- NOTE | 2017-04-06 17:29 | P.PN ---
Progress Note - Text DATE OF SERVICE: 04/06/2017 PRESENTING COMPLAINT: Weakness INTERVAL HISTORY: Sulfa 51-year-old male who has chronic right arm weakness and some left-sided weakness from an old stroke also limited vision in the right eye. Over the previous days patient developed increasing heart rate and flushing, yesterday patient found groggy and hunched over. Concerns for acute stroke. 04/06/2017: Patient lying in bed appears comfortable, has a known history of aphasia and is able to speak some however not all of his thoughts and ideas cannot clearly. Became moderately angry and began swearing, as he wanted to be discharged. Follows simple commands, EEG performed await results, swallow eval also performed await results. REVIEW OF SYSTEMS: Done for constitutional ,cardiovascular, GI, pulmonary with relevant findings as above. CURRENT MEDICATIONS [place], Lipitor, Colace, aspirin, Lasix, Humalog, lactulose, Ativan, Xarelto PHYSICAL EXAM VITAL SIGNS: Temperature 98.3, pulse 81, respiratory rate 18, blood pressure 136/74, oxygen saturation 97% on room air. GENERAL APPEARANCE: Lying in bed, not in distress. EYES: Pupils equal. Conjunctiva normal. NECK: JVD not raised. Mass not palpable. RESPIRATORY: Respiratory effort normal. Lungs clear to auscultation. CARDIOVASCULAR: First and second sounds normal. No edema. ABDOMEN: Soft. Liver and spleen not palpable. No tenderness. No mass palpable. PSYCHIATRY: Alert and oriented x2-3. Mood and affect irritable. NEUROLOGICAL: Cranial nerves grossly intact. Speech is slow, known history of aphasia does have some difficulty with words, No facial asymmetry. Power in right arm is 3/5, power in the left arm is 4/5, lower extremity power 4/5 and sensation grossly served INVESTIGATIONS: LABS: None new Swallow evaluation: No evidence of penetration or aspiration. 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 PLAN: Continue with neuro checks, await additional input from neurology, await psychiatry evaluation. Plan of care discussed with the patient and the at the bedside, all questions answered. We'll follow closely JAVASCRIPT WEB DEVELOPER statement: Patient was seen and examined by nurse practitioner Anai Lorenzo and all elements of the case discussed with attending Dr. Ash
[2017-04-06] MEDS: MAG HYDROX/AL HYDROX/SIMETH 30 ML CUP PO PRN (20:20)
[2017-04-06] MEDS: ATORVASTATIN 40 MG TAB PO SCH (20:21)
[2017-04-06] MEDS: MIRTAZAPINE 15 MG TAB PO SCH (20:22)
[2017-04-06 20:32] LABS: Glucose,Whole Blood 256 mg/dL (75-99)
--- NOTE | 2017-04-06 21:00 | P.PN ---
Subjective Principal diagnosis: Possible CVA/altered mental status Patient is a 51-year-old male being followed by neurology for evaluation possible CVA. Patient has a history of 2 previous CVAs with residual right-sided deficits. Patient is known to have expressive aphasia and was confined to bed while in home. Physical therapy and speech therapy are actively treating the patient in the home setting. Spouse noted patient to be weaker physically with progressively declining mood while also becoming increasingly sedated with the addition of Remeron. The patient's weakness, demeanor and noted psychosocial changes, caused the spouse to have the patient evaluated in ED at [facility]. At admission patient's hemoglobin was 12.3, hematocrit 36.8, RBCs 3.97. Patient was on Xarelto 20 mg daily at home. He was also using [address] of the brain at admission showed cerebral atrophy, large left parietal cortical infarct. Old lacunar infarct left internal capsule. No acute intracranial abnormality. No adverse change compared to old exam. Carotid Dopplers were completed and showed redemonstration of occluded right ICA. Carotid Doppler also showed endarterectomy changes on the left. At the time of the exam patient was resting comfortably in bed and in no acute distress with his spouse at the bedside. Patient did have an MRI of the brain on April 05, 2017 which noted no evidence of recent infarct. Left-sided infarct redemonstrated. Radiology noted possible underlying hydrocephalus redemonstrated. No significant changes in findings from prior studies. Progression of chronic small vessel ischemic changes in the jennifer is felt present. MRI was reviewed by neurologist. Objective - Vital Signs Vital signs: Vital Signs Temp 98.3 F 04/06/17 16:00 Pulse 81 04/06/17 16:00 Resp 18 04/06/17 16:00 BP 136/74 04/06/17 16:00 Pulse Ox 97 04/06/17 16:00 Intake & Output 04/06/17 04/06/17 04/07/17 06:59 18:59 06:59 Intake Total 525 Output Total 1150 800 Balance -1150 -275 Weight 116 kg Intake: IV 50 Sodium Chloride 0.9% 1, 50 000 ml @ 100 mls/hr IV . Q10H SARA Rx#:[id number] Oral 475 Output: Urine 1150 800 Other: Voiding Method Urinal Urinal # Voids 2 - Exam Constitutional: AOx3, cooperative HEENT: NC/AT, no facial asymmetry is seen. Throat: Supple, no masses Respiratory: No increased work of breathing Cardiac: Regular rate and Rhythm GI: non tender, non distended Musculoskeletal: Patient Admitting Clerk strengths Are unequal bilaterally: Upper extremities right 1 out of 5, left 3 out of 5, lower extremities right 3 out of 5, left 3 out of 5 Neurological: AOx3, speech slow and dysarthric, unilateralizing weakness from previous stroke as noted., no seizure activity note on physical exam. Sensation was normal. Integementary: no rash, no erythema - Labs CBC & Chem 7: 04/04/17 16:10 04/04/17 16:10 Labs: Abnormal Lab Results - Last 24 Hours (Table) 04/05/17 04/06/17 04/06/17 Range/Units 20:51 06:18 12:08 POC Glucose (mg/dL) 179 H 165 H 369 H (75-99) mg/dL 04/06/17 04/06/17 Range/Units 17:11 20:07 POC Glucose (mg/dL) 246 H 256 H (75-99) mg/dL Assessment and Plan (1) Transient cerebral ischemia Status: Acute (2) Weakness generalized Status: Acute (3) Dysphagia Status: Acute (4) History of stroke Status: Acute Plan: Patient was admitted for possible CVA. Patient is known to previous practice provider managing patient's care. Symptoms appear to be unchanged from prior CVA. No deficits are consistent with earlier stroke. Emotional changes, increased weakness and associated psychosocial decline appeared to be associated with medication changes. Due to the history of multiple past CVAs, MRI of the brain was requested and revealed no acute intracranial process. Radiology noted possible hydrocephalus. MRI was reviewed by neurologist and further workup can be conducted outpatient for any valuation treatment for possible hydrocephalus. At this time the patient's symptoms do not appear consistent with hydrocephalus as previously stated. Serum homocysteine level is pending at this time. Patient did have swallow study which returned negative. Carotid Dopplers are noted to be unchanged from last admission. Continue on 81 mg aspirin daily, xarelto. Continue PT and OT evaluation and treatment both inpatient and in the outpatient setting. Patient's EEG was within normal limits. In the outpatient setting, we may need to consider pseudobulbar affect within the patient's long-term care plan. Further workup and evaluation for pseudobulbar can also be conducted in the outpatient setting. Additionally, patient's blood glucose levels are extremely high. Recommend surveillance by hospitalist and/or endocrinology for ongoing management. Status: From a neurological standpoint, the patient can be cleared to discharge to rehabilitation facility or home with continued care. Medications at discharge are continued consistent with the current medication regimen. Patient to follow up with our office within 10-14 days post discharge. I discussed the patient's pertinent medical information with Dr. Norton. He agrees with the plan of care as implemented.
[2017-04-06] MEDS: POLYETHYLENE GLYCOL 3350 17 GM POWD.PACK PO SCH (21:23)
[2017-04-06] MEDS ORDERED: NA PHOS,M-B/NA PHOS,DI-BA 133 ML ENEMA RECTAL STA (23:36)
--- NOTE | 2017-04-07 05:00 | EEG ---
DATE OF SERVICE: 04/06/2017 REASON FOR TESTING: Stroke. DESCRIPTION OF THE PROCEDURE: This EEG was performed using a 21 channel digital electroencephalograph, following international 10-20 system. DESCRIPTION OF THE RECORDING: From the beginning of the tracing, and with the patient's eyes closed, the background rhythm was mostly consisting of 8 Hz alpha frequency in the posterior occipital leads. No obvious asymmetry is seen. Frequent movement artifacts are seen. Photic stimulation was performed with a minimal driving response seen. No pathological waves were elicited. Hyperventilation was not performed. Occasional lead artifacts are seen. The patient remains awake throughout the tracing. No epileptiform discharges were seen. His EKG lead showed a regular rate and rhythm. INTERPRETATION: This awake EEG can be considered within normal limits. There was no asymmetry seen. No epileptiform discharges were noticed. The absence of epileptiform discharges does not rule out the diagnosis of epilepsy, therefore, clinical correlation is recommended. CAROLED
[2017-04-07 06:17] LABS: Glucose,Whole Blood 197 mg/dL (75-99)
[2017-04-07 06:38] LABS: Basophils % (A) 1 %; CH 29.7; CHCM 32.4; Eosinophils # (A) 0.3 k/uL (0-0.7); Eosinophils % (A) 4 %; HCT 35.7 % (39.0-53.0); HDW 2.57; HGB 12.3 gm/dL (13.0-17.5); Luc # (Auto) 0.15; Luc % (Auto) 2; Lymphocytes # (A) 2.2 k/uL (1.0-4.8); Lymphocytes % (A) 35 %; MCH 31.6 pg (25.0-35.0); MCHC 34.3 g/dL (31.0-37.0); Monocytes # (A) 0.4 k/uL (0-1.0); Monocytes % (A) 6 %; Neutrophils # (A) 3.4 k/uL (1.3-7.7); Neutrophils % (A) 53 %; RBC 3.88 m/uL (4.30-5.90); RDW 15.1 % (11.5-15.5); WBC 6.4 k/uL (3.8-10.6); WBC (Perox) 6.45
[2017-04-07 06:44] VITALS: TEMP 97.5
[2017-04-07 06:46] LABS: Anion Gap 10 mmol/L; Blood Urea Nitrogen 17 mg/dL (9-20); Calcium 9.7 mg/dL (8.4-10.2); Carbon Dioxide 25 mmol/L (22-30); Chloride 105 mmol/L (98-107); Glucose 200 mg/dL (74-99); Non-African American GFR(MDRD) >60 (>60 ml/min/1.73 sqM); Potassium 4.4 mmol/L (3.5-5.1); Sodium 140 mmol/L (137-145)
[2017-04-07] MEDS: INSULIN LISPRO (humaLOG) 300 UNIT/3 ML VIAL SQ SCH ×3 (06:46→17:22)
[2017-04-07] MEDS: HYDROcodone/APAP 10-325MG 1 EACH TAB PO PRN ×3 (09:42→17:27)
[2017-04-07] MEDS: METOPROLOL TARTRATE 25 MG TAB PO SCH (09:42)
[2017-04-07] MEDS: DOCUSATE 100 MG CAP PO SCH (09:42)
[2017-04-07] MEDS: LACTULOSE 20 GM/30 ML CUP PO SCH (09:43)
[2017-04-07] MEDS: lamoTRIgine 100 MG TAB PO SCH (09:43)
[2017-04-07] MEDS: POTASSIUM CHLORIDE ER 20 MEQ TAB.ER PO SCH (09:43)
[2017-04-07] MEDS: ASPIRIN 81 MG CHEW PO SCH (09:44)
[2017-04-07] MEDS: FUROSEMIDE 40 MG TAB PO SCH (09:44)
--- NOTE | 2017-04-07 09:53 | P.CN ---
Psychiatric Consult - . Consult date: 04/07/17 Consult:: Reviewed chart, EEG was normal no evidence of seizure activity. Met with patient and , spoke to about recommendations. She stated that the neurologist did not feel Lamictal was too high or started to high overdose so he does not see any problem with that. He also told her that he thought Kennedy may actually have pseudobulbar palsy. Agree with him that that's a very likely possibility and that there is certain medication for that that his neurologist would be able to start him on. Reviewed with her that since he does not have any seizure activity that a low dose Wellbutrin could be started in the morning to help with depressed mood as well as energy. He can continue taking the Remeron at bedtime for sleep as long as it is not too sedating form in the daytime. We wrote down the names of these medicines for her to discuss with her primary care/but she will be seeing the neurologist also. Patient is being discharged today Depression, unspecified R/O pseudobulbar palsy Consider WelbutrinIR 50mg QAM and if tolerates w/o increase of DBP or anxiety increase to 50mg AM and Qnoon, and then switch to Welbutrin SR 50-100mg bid. 04/07/17 09:49 04/07/17 09:52
[2017-04-07 11:33] LABS: Glucose,Whole Blood 292 mg/dL (75-99)
[2017-04-07] MEDS: SODIUM CHLORIDE 0.9% 1,000 ML IV SCH (12:17)
[2017-04-07 13:23] VITALS: BP 152/91; PULSE 80; RESP 16
--- NOTE | 2017-04-07 14:01 | PN ---
DATE OF SERVICE: 04/06/17 ATTENDING NOTE: This patient was seen and examined by me. I reviewed the note of nurse practitioner, Ms. Lorenzo, discussed additional findings as below. The patient admitted with what appears to be possible TIA. is at the bedside. Workup is in place. The patient looks a bit more rested today. On examination, blood pressure 133/74. Pulse ox 97% on room air. Some weakness in the lower extremities and old weakness in the right arm. INVESTIGATIONS: Modified barium swallow, did not show any obvious aspiration. MRI of the brain showed chronic changes, carotid Doppler showed chronically occluded right ICA. ASSESSMENT: 1. Possible transient ischemic attack. 2. Depression. PLAN: At this point, pending EEG as per psychiatry, the patient to be started on Wellbutrin if the EEG is negative. Care was discussed with the patient and . Await EEG. CAROLED
[2017-04-07 16:46] LABS: Glucose,Whole Blood 292 mg/dL (75-99)
[2017-04-07] MEDS: RIVAROXABAN 10 MG TAB PO SCH (17:21)
[2017-04-07] MEDS: FUROSEMIDE 20 MG TAB PO SCH (17:22)
--- NOTE | 2017-04-07 19:38 | P.DS ---
Providers Date of admission: 04/04/17 18:07 Expected date of discharge: 04/07/17 Attending physician: Tab Ash Consults: 04/04/17 18:01 Consult Physician Routine Consulting Provider: Savannah Montenegro Consult Reason/Comments: Weakness history of CVA possible TIA or recent med change Do you want consulting provider notified?: Yes 04/05/17 18:24 Consult Physician Routine Consulting Provider: Nan Huang Consult Reason/Comments: Depression Do you want consulting provider notified?: Yes Primary care physician: [facility] Course: FINAL DIAGNOSES: -New weakness in the lower extremity, possible acute stroke -Old strokes manifesting as weakness on the right arm left side -Chronically occluded right internal carotid artery -Chronically decreased vision in the right eye new -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 HOSPTIAL COURSE: This is a 51-year-old patient with history of stroke who presented with increasing heart rate flushing groggy and hunched over increased crying and episode of depression. Legs were significantly more weak, patient appeared to possibly be choking. Patient admitted with concerns for possibility of a new stroke. Neurology and psychiatry consulted. Carotid Doppler occluded right ICA ,, MRI no evidence of a recent infarct, although left-sided infarct is redemonstrated. Speech was consulted and performed a fluoroscopic swallow eval which revealed sluggish epiglottis no evidence for penetration or aspiration. EEG was within normal limits. Psychiatry suggested addition of Wellbutrin t, for which patient was reluctant to add another medication at this time, wanted to hold off until patient seen again by neurology and by primary care provider. Patient's mood improved, more participatory and more alert, tolerating his diet, and as such is stable for discharge. PHYSICAL EXAM: CARDIOVASCULAR: First and second sounds noted, no edema RESPIRATORY: Respiratory effort normal, diminished breath sounds bilaterally GI: Abdomen soft nontender liver and spleen not palpable MUSKULOSKELETAL: Right arm power is 3/5, left arm is 4/5 lower extremity weakness bilaterally is 4/5 NEUROLOGIC: Speech is slow, sensation grossly preserved, aphasic Patient was seen and examined by nurse practitioner Anai Lorenzo in all elements of the case discussed with attending Dr. Ash DISPOSITION: Discharge home to the care of his with home care Pertinent Studies: MRI of the brain: No evidence of a recent infarct, left-sided infarct redemonstrated. Carotid Doppler: Redemonstrated occlusion of the right ICA Swallowing evaluation: Sluggish epiglottis, no evidence of penetration or aspiration. EEG: Normal study Plan - Discharge Summary New Discharge Prescriptions: New Atorvastatin [Lipitor] 40 mg PO HS #30 tab Continue Furosemide [Lasix] 40 mg PO DAILY@0900 Polyethylene Glycol 3350 [Miralax] 17 gm PO HS Metoprolol Tartrate [Lopressor] 25 mg PO BID Rivaroxaban [Xarelto] 20 mg PO DAILY@1700 Mirtazapine [Remeron] 15 mg PO HS Potassium Chloride [Klor-Con 20] 20 meq PO DAILY Aspirin EC [Ecotrin Low Dose] 81 mg PO DAILY Furosemide [Lasix] 20 mg PO DAILY@1400 lamoTRIgine [LaMICtal] 100 mg PO DAILY@0900 Docusate [Colace] 100 mg PO BID Lactulose 10 gm PO BID HYDROcodone/APAP 10-325MG [[place] 10-325] 1 tab PO Q4HR PRN PRN Reason: Pain metFORMIN HCL 1,000 mg PO BID LORazepam [Ativan] 1 mg PO BID PRN PRN Reason: Agitation/Anxiety Discontinued Atorvastatin [Lipitor] 20 mg PO HS Discharge Medication List Furosemide [Lasix] 40 mg PO DAILY@0900 04/13/16 [History] Metoprolol Tartrate [Lopressor] 25 mg PO BID 07/23/16 [History] Polyethylene Glycol 3350 [Miralax] 17 gm PO HS 07/23/16 [History] Rivaroxaban [Xarelto] 20 mg PO DAILY@1700 09/05/16 [History] Aspirin EC [Ecotrin Low Dose] 81 mg PO DAILY 04/04/17 [History] Docusate [Colace] 100 mg PO BID 04/04/17 [History] Furosemide [Lasix] 20 mg PO DAILY@1400 04/04/17 [History] HYDROcodone/APAP 10-325MG [[place] 10-325] 1 tab PO Q4HR PRN 04/04/17 [History] LORazepam [Ativan] 1 mg PO BID PRN 04/04/17 [History] Lactulose 10 gm PO BID 04/04/17 [History] Mirtazapine [Remeron] 15 mg PO HS 04/04/17 [History] Potassium Chloride [Klor-Con 20] 20 meq PO DAILY 04/04/17 [History] lamoTRIgine [LaMICtal] 100 mg PO DAILY@0900 04/04/17 [History] metFORMIN HCL 1,000 mg PO BID 04/04/17 [History] Atorvastatin [Lipitor] 40 mg PO HS #30 tab 04/07/17 [Rx] Follow up Appointment(s)/Referral(s): [facility], [NON-STAFF] - As Needed Savannah Montenegro MD [STAFF PHYSICIAN] - 1 Week Waldemar Grey MD [Primary Care Provider] - 1-2 days Patient Instructions/Handouts: Transient Ischemic Attack (DC) Discharge Disposition: HOME WITH HOME HEALTH SERVICES
== END 2017-04-07 18:09 | disposition home health service (06) | DRG 65 ==
LOC: EC 15:56 → 6SEL 18:07
PROVIDERS: ADMIT Hospitalist; ATTEND Hospitalist
DX: I63.9 Cerebral infarction, unspecified (principal); G81.94 Hemiplegia, unspecified affecting left nondominant side; I69.354 Hemiplegia and hemiparesis following cerebral infarction affecting left non-dominant side; I10 Essential (primary) hypertension; E11.9 Type 2 diabetes mellitus without complications; E66.9 Obesity, unspecified; E78.5 Hyperlipidemia, unspecified; F32.9 Major depressive disorder, single episode, unspecified; I25.10 Atherosclerotic heart disease of native coronary artery without angina pectoris; K21.9 Gastro-esophageal reflux disease without esophagitis; M81.0 Age-related osteoporosis without current pathological fracture; R13.10 Dysphagia, unspecified; I69.920 Aphasia following unspecified cerebrovascular disease; I69.998 Other sequelae following unspecified cerebrovascular disease; H53.8 Other visual disturbances; R26.9 Unspecified abnormalities of gait and mobility; I69.922 Dysarthria following unspecified cerebrovascular disease; Z68.37 Body mass index [BMI] 37.0-37.9, adult; Z87.891 Personal history of nicotine dependence; Z96.60 Presence of unspecified orthopedic joint implant; Z79.01 Long term (current) use of anticoagulants; Z79.82 Long term (current) use of aspirin; Z79.899 Other long term (current) drug therapy; Z79.84 Long term (current) use of oral hypoglycemic drugs; Z88.5 Allergy status to narcotic agent; Z82.49 Family history of ischemic heart disease and other diseases of the circulatory system
CPT/HCPCS: 36415; 70450; 70551; 71020; 74230; 80048; 80053; 80061; 81003; 82009; 82550; 82553; 83036; 83090; 83735; 84484; 85025; 85610; 85730; 93005; 93880; 95819; 99285

== ENCOUNTER 2017-04-13 17:43 | Inpatient (IN) | payer OTHER ==
[2017-04-13] MEDS ORDERED: IPRATROPIUM-ALBUTEROL 3 ML NEB INHALATION STA (18:16)
--- NOTE | 2017-04-13 18:52 | ED ---
General Adult HPI - General Chief complaint: Weakness Stated complaint: weakness Time Seen by Provider: 04/13/17 18:06 Source: family, EMS Mode of arrival: EMS Limitations: altered mental status - History of Present Illness Initial comments: This 51-year-old white male presents with with a complaint of some low oxygenation. The relates that she has had physical therapy out as well as home visiting nursing and that they have noticed that his pulse oximeter runs down into the 88% area. He is had occasional cough with yellowish production. She states that he had a significant coughing episode this past evening in the middle of the night. He has a history of previous stroke with right-sided paralysis and aphasia and is unable to communicate well himself. All history is obtained per the . There is no known fever at home. There is no history of DVT or PE. There is no leg pain or swelling. There is no known associated chest pain. He was just in the hospital this past week for possible additional stroke. No other complaints or modifying factors. - Related Data Home Medications Medication Instructions Recorded Confirmed Furosemide [Lasix] 40 mg PO DAILY@0900 04/13/16 04/13/17 Metoprolol Tartrate [Lopressor] 25 mg PO BID@0900,1700 07/23/16 04/13/17 Polyethylene Glycol 3350 [Miralax] 17 gm PO HS 07/23/16 04/13/17 Rivaroxaban [Xarelto] 20 mg PO DAILY@1700 09/05/16 04/13/17 Aspirin EC [Ecotrin Low Dose] 81 mg PO DAILY@1400 04/04/17 04/13/17 Docusate [Colace] 100 mg PO BID 04/04/17 04/13/17 Furosemide [Lasix] 20 mg PO DAILY@1400 04/04/17 04/13/17 HYDROcodone/APAP 10-325MG [[employer] 1 tab PO Q4HR PRN 04/04/17 04/13/17 10-325] LORazepam [Ativan] 1 mg PO BID PRN 04/04/17 04/13/17 Lactulose 10 gm PO BID@0900,2100 04/04/17 04/13/17 Mirtazapine [Remeron] 15 mg PO HS 04/04/17 04/13/17 Potassium Chloride [Klor-Con 20] 20 meq PO DAILY@1400 07//17 07/18/17 metFORMIN HCL 1,000 mg PO BID@0700,2100 04/04/17 04/13/17 Atorvastatin [Lipitor] 40 mg PO HS@2100 04/13/17 04/13/17 Famotidine [Pepcid] 20 mg PO DAILY@0900 04/13/17 04/13/17 Allergies Allergy/AdvReac Type Severity Reaction Status Date / Time hydromorphone [From Dilaudid] AdvReac Confusion Verified 04/13/17 18:41 Review of Systems ROS Statement: Those systems with pertinent positive or pertinent negative responses have been documented in the HPI. ROS Other: All systems not noted in ROS Statement are negative. Past Medical History Past Medical History: Coronary Artery Disease (CAD), CVA/TIA, Diabetes Mellitus , GERD/Reflux, Hyperlipidemia, Hypertension Additional Past Medical History / Comment(s): hx polyps, osteoporosis, past hx. sepsis related to a fall-affected hip, had stroke 2015 after carotid surg.-partial paralysis right side, blood in stool, expressive aphasia History of Any Multi-Drug Resistant Organisms: None Reported Past Surgical History: Joint Replacement Additional Past Surgical History / Comment(s): Right-sided carotid endarterectomy, multiple surgeries hips-Right 3 times and left 1. right hip had a Kerkhoven resurfacing done-currently just a spacer in joint, colonoscopy 2, right hip I&D. Past Anesthesia/Blood Transfusion Reactions: Previous Problems w/ Anesthesia Additional Past Anesthesia/Blood Transfusion Reaction / Comment(s): woke during a procedure, some kind of swelling in throat during a surgery post intubation- thinks it might have been due to having been intubated for procedures close together Past Psychological History: No Psychological Hx Reported Smoking Status: Former smoker Past Alcohol Use History: Daily Past Drug Use History: None Reported - Past Family History Sister(s) Family Medical History: Cancer, CVA/TIA Brother(s) Family Medical History: Cancer, CVA/TIA, Liver Disease Additional Family Medical History / Comment(s): lung cancer Father Family Medical History: Diabetes Mellitus, Myocardial Infarction (DC) Mother Family Medical History: CVA/TIA General Exam - General Exam Comments Initial Comments: GENERAL: The patient is well nourished and well hydrated. VITAL SIGNS: Heart rate, blood pressure, respiratory rate reviewed as recorded in nurse's notes. EYES: Pupils are round and reactive. Extraocular movements are intact. No conjunctival / lid redness or swelling. ENT: No external evidence of injury, swelling, or ecchymosis. Airway is patent. Throat is clear. NECK: Nontender. No swelling or evidence of injury. No subcutaneous emphysema. Trachea is midline. No thyroid mass. HEART: Regular rate and rhythm. Good peripheral pulses. No leg swelling, tenderness, or edema. LUNGS/CHEST: Breath sounds clear and equal bilaterally. No rales, rhonchi, or wheezes. No ecchymosis, subcutaneous emphysema, or tenderness. ABDOMEN: Abdomen soft without tenderness. No palpable masses or organomegaly. No peritoneal signs. No abdominal wall swelling or ecchymosis. EXTREMITIES: No extremity tenderness. Normal muscle tone and function. No thoracolumbar tenderness. NEUROLOGIC: The patient has an aphasia and does not communicate well. He also has right-sided paralysis. SKIN: No abrasions or ecchymosis is noted. No induration or masses noted. There is mild skin breakdown in the decubitus region. PSYCHIATRIC: Alert and in no distress. Limitations: altered mental status Course Vital Signs 04/13/17 04/13/17 04/13/17 18:00 18:40 18:54 Temperature 99.1 F 99.1 F Pulse Rate 105 H 100 97 Respiratory 18 18 16 Rate Blood Pressure 165/115 141/87 157/96 O2 Sat by Pulse 95 96 98 Oximetry 04/13/17 04/13/17 04/13/17 19:15 19:21 19:33 Temperature Pulse Rate 84 85 89 Respiratory 18 Rate Blood Pressure 124/80 O2 Sat by Pulse 97 Oximetry Medical Decision Making - Medical Decision Making The patient was seen and examined. All diagnostics were reviewed. The EKG shows a normal sinus rhythm at a rate of 95. No acute ST-T wave changes are identified. The NH interval is 170, QRS duration is 96, and QTC intervals 457. The chest x-ray does not show any acute processes. There is a degree of poor inspiration. The patient is mildly anemic as well as mildly hyperglycemic. The exact cause of his current symptomatology is not definitively determined. An ABG was done in case the possibility of a hypercapnia is noted but his pCO2 is noted be 36. The remainder of the ABG is essentially normal. It is felt as though his symptoms certainly could be related to to some bronchitis. The possibility of some COPD certainly is possible as well. A d-dimer is negative. He will be started on some antibiotics and continued with breathing treatments and steroids. The family is agreeable with this plan. Case was discussed with internal medicine and he will be admitted for further treatment. - Lab Data Result diagrams: 04/13/17 18:30 04/13/17 18:30 Lab Results 04/13/17 04/13/17 04/13/17 Range/Units 18:30 18:30 18:30 WBC 7.9 (3.8-10.6) k/uL RBC 3.99 L (4.30-5.90) m/uL Hgb 12.2 L (13.0-17.5) gm/dL Hct 36.8 L (39.0-53.0) % MCV 92.2 (80.0-100.0) fL MCH 30.6 (25.0-35.0) pg MCHC 33.2 (31.0-37.0) g/dL RDW 15.4 (11.5-15.5) % Plt Count 237 (150-450) k/uL Neutrophils % 57 % Lymphocytes % 31 % Monocytes % 5 % Eosinophils % 5 % Basophils % 1 % Neutrophils # 4.5 (1.3-7.7) k/uL Lymphocytes # 2.4 (1.0-4.8) k/uL Monocytes # 0.4 (0-1.0) k/uL Eosinophils # 0.4 (0-0.7) k/uL Basophils # 0.1 (0-0.2) k/uL PT (9.0-12.0) sec INR (<1.2) APTT (22.0-30.0) sec D-Dimer (<0.60) mg/L FEU Sample Site ABG pH (7.35-7.45) ABG pCO2 (35-45) mmHg ABG pO2 (83-108) mmHg ABG HCO3 (21-25) mmol/L ABG Total CO2 (19-24) mmol/L ABG O2 Saturation (94-97) % ABG Base Excess mmol/L FiO2 % Sodium 138 (137-145) mmol/L Potassium 4.3 (3.5-5.1) mmol/L Chloride 100 (98-107) mmol/L Carbon Dioxide 25 (22-30) mmol/L Anion Gap 13 mmol/L BUN 15 (9-20) mg/dL Creatinine 0.71 (0.66-1.25) mg/dL Est GFR (MDRD) Af Amer >60 (>60 ml/min/1.73 sqM) Est GFR (MDRD) Non-Af >60 (>60 ml/min/1.73 sqM) Glucose 265 H (74-99) mg/dL Calcium 9.3 (8.4-10.2) mg/dL Total Bilirubin 0.6 (0.2-1.3) mg/dL AST 26 (17-59) U/L ALT 46 (21-72) U/L Alkaline Phosphatase 102 (38-126) U/L Total Creatine Kinase 46 L (55-170) U/L CK-MB (CK-2) 0.2 (0.0-2.4) ng/mL CK-MB (CK-2) Rel Index 0.4 Troponin I <0.012 (0.000-0.034) ng/mL NT-Pro-B Natriuret Pep pg/mL Total Protein 7.3 (6.3-8.2) g/dL Albumin 4.2 (3.5-5.0) g/dL 04/13/17 04/13/17 04/13/17 Range/Units 18:30 18:30 19:09 WBC (3.8-10.6) k/uL RBC (4.30-5.90) m/uL Hgb (13.0-17.5) gm/dL Hct (39.0-53.0) % MCV (80.0-100.0) fL MCH (25.0-35.0) pg MCHC (31.0-37.0) g/dL RDW (11.5-15.5) % Plt Count (150-450) k/uL Neutrophils % % Lymphocytes % % Monocytes % % Eosinophils % % Basophils % % Neutrophils # (1.3-7.7) k/uL Lymphocytes # (1.0-4.8) k/uL Monocytes # (0-1.0) k/uL Eosinophils # (0-0.7) k/uL Basophils # (0-0.2) k/uL PT 11.1 (9.0-12.0) sec INR 1.1 (<1.2) APTT 20.8 L (22.0-30.0) sec D-Dimer 0.48 (<0.60) mg/L FEU Sample Site rrad ABG pH 7.45 (7.35-7.45) ABG pCO2 36 (35-45) mmHg ABG pO2 105 (83-108) mmHg ABG HCO3 25 (21-25) mmol/L ABG Total CO2 26 H (19-24) mmol/L ABG O2 Saturation 98.0 H (94-97) % ABG Base Excess 1.5 mmol/L FiO2 32 % Sodium (137-145) mmol/L Potassium (3.5-5.1) mmol/L Chloride (98-107) mmol/L Carbon Dioxide (22-30) mmol/L Anion Gap mmol/L BUN (9-20) mg/dL Creatinine (0.66-1.25) mg/dL Est GFR (MDRD) Af Amer (>60 ml/min/1.73 sqM) Est GFR (MDRD) Non-Af (>60 ml/min/1.73 sqM) Glucose (74-99) mg/dL Calcium (8.4-10.2) mg/dL Total Bilirubin (0.2-1.3) mg/dL AST (17-59) U/L ALT (21-72) U/L Alkaline Phosphatase (38-126) U/L Total Creatine Kinase (55-170) U/L CK-MB (CK-2) (0.0-2.4) ng/mL CK-MB (CK-2) Rel Index Troponin I (0.000-0.034) ng/mL NT-Pro-B Natriuret Pep 14 pg/mL Total Protein (6.3-8.2) g/dL Albumin (3.5-5.0) g/dL Disposition Clinical Impression: Dyspnea, Hypertension, Anemia, Hyperglycemia, History of CVA (cerebrovascular accident), Hypoxia, Bronchitis Disposition: ADMITTED IP TO THIS [facility] Condition: Fair Time of Disposition: 19:47 Decision Date: 04/13/17 Decision Time: 19:47
[2017-04-13 18:58] LABS: Basophils # (A) 0.1 k/uL (0-0.2); Basophils % (A) 1 %; CH 30.2; CHCM 32.8; Eosinophils # (A) 0.4 k/uL (0-0.7); Eosinophils % (A) 5 %; HCT 36.8 % (39.0-53.0); HDW 2.73; HGB 12.2 gm/dL (13.0-17.5); Luc # (Auto) 0.15; Luc % (Auto) 2; Lymphocytes # (A) 2.4 k/uL (1.0-4.8); Lymphocytes % (A) 31 %; MCH 30.6 pg (25.0-35.0); MCHC 33.2 g/dL (31.0-37.0); MCV 92.2 fL (80.0-100.0); Mean Platelet Volume 8.3; Monocytes # (A) 0.4 k/uL (0-1.0); Monocytes % (A) 5 %; Neutrophils # (A) 4.5 k/uL (1.3-7.7); Neutrophils % (A) 57 %; RBC 3.99 m/uL (4.30-5.90); RDW 15.4 % (11.5-15.5); WBC 7.9 k/uL (3.8-10.6); WBC (Perox) 7.54
[2017-04-13 19:08] LABS: ALT 46 U/L (21-72); AST 26 U/L (17-59); Alkaline Phosphatase 102 U/L (38-126); Anion Gap 13 mmol/L; Blood Urea Nitrogen 15 mg/dL (9-20); Calcium 9.3 mg/dL (8.4-10.2); Carbon Dioxide 25 mmol/L (22-30); Chloride 100 mmol/L (98-107); Glucose 265 mg/dL (74-99); Non-African American GFR(MDRD) >60 (>60 ml/min/1.73 sqM); Potassium 4.3 mmol/L (3.5-5.1); Sodium 138 mmol/L (137-145); Total Bilirubin 0.6 mg/dL (0.2-1.3); Total Protein 7.3 g/dL (6.3-8.2)
[2017-04-13 19:09] LABS: INR 1.1 (<1.2); Partial Thromboplastin Time 20.8 sec (22.0-30.0); Prothrombin Time 11.1 sec (9.0-12.0)
--- NOTE | 2017-04-13 19:11 | XR ---
EXAMINATION TYPE: XR chest 1V portable DATE OF EXAM: 04/13/2017 COMPARISON: 04/04/2017 HISTORY: Weakness and short of breath TECHNIQUE: Single frontal view of the chest is obtained. FINDINGS: Heart and mediastinum are normal. Lungs are clear of consolidation. There are chest leads. There is no sign of pleural effusion. IMPRESSION: No active cardiopulmonary disease. Poor inspiration. There is improved inspiration norma red to last exam.
[2017-04-13 19:20] LABS: Creatine Kinase 46 U/L (55-170)
[2017-04-13 19:26] LABS: ABG Base Excess 1.5 mmol/L; ABG HCO3 25 mmol/L (21-25); ABG PCO2 36 mmHg (35-45); ABG PH 7.45 (7.35-7.45); ABG PO2 105 mmHg (83-108); ABG TCO2 26 mmol/L (19-24)
[2017-04-13 19:31] LABS: Creatine Kinase MB 0.2 ng/mL (0.0-2.4); Troponin I <0.012 ng/mL (0.000-0.034)
[2017-04-13] MEDS ORDERED: LEVOFLOXACIN 750MG-D5W PMX 750 MG in DEXTROSE/WATER 1 150ML.BAG IVPB STA (19:48)
[2017-04-13] MEDS ORDERED: methylPREDNISolone SOD SUCCI 125 MG/2 ML VIAL IV STA (19:49)
[2017-04-13] MEDS ORDERED: MIRTAZAPINE 15 MG TAB PO SCH (21:00)
[2017-04-13] MEDS ORDERED: ATORVASTATIN 40 MG TAB PO SCH (21:00)
[2017-04-13] MEDS ORDERED: POLYETHYLENE GLYCOL 3350 17 GM POWD.PACK PO SCH (21:00)
[2017-04-13 21:34] LABS: Glucose,Whole Blood 273 mg/dL (75-99)
[2017-04-13] MEDS: DOCUSATE 100 MG CAP PO SCH (21:38)
[2017-04-13] MEDS: LACTULOSE 20 GM/30 ML CUP PO SCH (21:38)
[2017-04-13] MEDS: INSULIN LISPRO (humaLOG) 300 UNIT/3 ML VIAL SQ SCH (21:38)
[2017-04-13] MEDS: metFORMIN 500 MG TAB PO SCH (21:39)
[2017-04-13 21:42] LABS: Hemoglobin A1C 8.6 % (4.2-6.1)
[2017-04-13] MEDS: HYDROcodone/APAP 10-325MG 1 EACH TAB PO PRN (21:43)
[2017-04-13 21:58] LABS: Appearance,Urine Clear (Clear); Bilirubin,Urine Negative (Negative); Glucose,Urine (UA) 2+ (Negative); Ketones,Urine Negative (Negative); Leukocyte Esterase,Urine Negative (Negative); Nitrite,Urine Negative (Negative); Protein,Urine Trace (Negative); Specific Gravity,Urine 1.024 (1.001-1.035); UA Billing (MACRO vs. MICRO) CHEM
[2017-04-13] MEDS: methylPREDNISolone SOD SUCCI 125 MG/2 ML VIAL IV SCH (23:21)
[2017-04-14] MEDS: LORazepam 1 MG TAB PO PRN ×3 (00:33→15:46)
[2017-04-14 00:53] LABS: Creatine Kinase 52 U/L (55-170)
[2017-04-14 01:07] LABS: Creatine Kinase MB 0.3 ng/mL (0.0-2.4); Troponin I <0.012 ng/mL (0.000-0.034)
[2017-04-14] MEDS: methylPREDNISolone SOD SUCCI 125 MG/2 ML VIAL IV SCH (06:17)
[2017-04-14 07:19] LABS: Glucose,Whole Blood 364 mg/dL (75-99)
[2017-04-14 07:27] LABS: Creatine Kinase 45 U/L (55-170)
[2017-04-14 07:39] LABS: Creatine Kinase MB 0.2 ng/mL (0.0-2.4); Troponin I <0.012 ng/mL (0.000-0.034)
[2017-04-14] MEDS: IPRATROPIUM-ALBUTEROL 3 ML NEB INHALATION PRN ×2 (07:43→11:52)
[2017-04-14] MEDS: INSULIN LISPRO (humaLOG) 300 UNIT/3 ML VIAL SQ SCH ×2 (08:04→13:06)
[2017-04-14] MEDS: metFORMIN 500 MG TAB PO SCH (08:05)
[2017-04-14] MEDS: DOCUSATE 100 MG CAP PO SCH (08:06)
[2017-04-14] MEDS: LACTULOSE 20 GM/30 ML CUP PO SCH (08:06)
[2017-04-14] MEDS: HYDROcodone/APAP 10-325MG 1 EACH TAB PO PRN ×2 (08:26→13:17)
[2017-04-14] MEDS ORDERED: FUROSEMIDE 40 MG TAB PO SCH (09:00)
[2017-04-14] MEDS ORDERED: FAMOTIDINE 20 MG TAB PO SCH (09:00)
[2017-04-14] MEDS ORDERED: METOPROLOL TARTRATE 25 MG TAB PO SCH (09:00)
[2017-04-14] MEDS ORDERED: INSULIN LISPRO (humaLOG) 300 UNIT/3 ML VIAL SQ ONE (09:52)
--- NOTE | 2017-04-14 11:24 | ECHOF ---
Referral Reason:sob MEASUREMENTS -------- HEIGHT: 182.9 cm WEIGHT: 122.5 kg BP: 123/71 IVSd: 1.4 cm (0.6 - 1.1) LVIDd: 3.9 cm (3.9 - 5.3) LVPWd: 1.3 cm (0.6 - 1.1) IVSs: 2.0 cm LVIDs: 1.5 cm LVPWs: 1.8 cm Ao Diam: 3.2 cm (2.0 - 3.7) AV Cusp: 1.4 cm (1.5 - 2.6) LA Diam: 3.4 cm (2.7 - 3.8) MV EXCURSION: 13.883 mm (> 18.000) MV EF SLOPE: 68 mm/s (70 - 150) EPSS: 0.2 cm MV E Serjio: 0.94 m/s MV DecT: 147 ms MV A Serjio: 0.47 m/s MV E/A Ratio: 1.98 RAP: 5.00 mmHg RVSP: 20.80 mmHg FINDINGS -------- Sinus rhythm. Resting tachycardia (HR>100bpm). This was a technically difficult study with suboptimal views. There is mild concentric left ventricular hypertrophy. Overall left ventricular systolic function is normal with, an EF between 55 - 60 %. The right ventricle is normal in size and function. The left atrium is normal in size. The right atrium is normal in size. 1.5mg of Definity was utilized for enhancement of images The aortic valve is trileaflet, and appears structurally normal. No aortic stenosis or regurgitation. The mitral valve is normal. Mild mitral regurgitation is present. Mild tricuspid regurgitation present. There is no evidence of pulmonary hypertension. The right ventricular systolic pressure, as measured by Doppler, is 20.80mmHg. There is no pulmonic regurgitation present. The aortic root size is normal. The pericardium is normal. CONCLUSIONS -------- 1. Sinus rhythm. 2. Mild tricuspid regurgitation present. 3. There is no pulmonic regurgitation present. 4. The aortic root size is normal. 5. The pericardium is normal. 6. Resting tachycardia (HR>100bpm). 7. This was a technically difficult study with suboptimal views. 8. There is mild concentric left ventricular hypertrophy. 9. Overall left ventricular systolic function is normal with, an EF between 55 - 60 %. 10. The left atrium is normal in size. 11. 1.5mg of Definity was utilized for enhancement of images 12. The aortic valve is trileaflet, and appears structurally normal. No aortic stenosis or regurgitation. 13. Mild mitral regurgitation is present. [employer] MANAGER: Dee Pascal RDCS
[2017-04-14 11:46] LABS: Glucose,Whole Blood 381 mg/dL (75-99)
[2017-04-14] MEDS ORDERED: METOPROLOL TARTRATE 50 MG TAB PO SCH (13:00)
[2017-04-14] MEDS ORDERED: POTASSIUM CHLORIDE ER 20 MEQ TAB.ER PO SCH (14:00)
[2017-04-14] MEDS ORDERED: methylPREDNISolone SOD SUCCI 40 MG/ML 1 ML VIAL IV SCH (14:00)
[2017-04-14] MEDS ORDERED: FUROSEMIDE 20 MG TAB PO SCH (14:00)
[2017-04-14] MEDS ORDERED: ASPIRIN 81 MG CHEW PO SCH (14:00)
[2017-04-14 15:42] VITALS: BP 98/61; PULSE 110; RESP 20; TEMP 97.3
--- NOTE | 2017-04-14 16:04 | P.DS ---
Providers Date of admission: 04/13/17 19:52 Attending physician: Paris Erazo Primary care physician: [facility] Course: Please refer to HPI Patient Condition at Discharge: Fair Plan - Discharge Summary New Discharge Prescriptions: No Action Furosemide [Lasix] 40 mg PO DAILY@0900 Polyethylene Glycol 3350 [Miralax] 17 gm PO HS Metoprolol Tartrate [Lopressor] 25 mg PO BID@0900,1700 Rivaroxaban [Xarelto] 20 mg PO DAILY@1700 Mirtazapine [Remeron] 15 mg PO HS Potassium Chloride [Klor-Con 20] 20 meq PO DAILY@1400 Aspirin EC [Ecotrin Low Dose] 81 mg PO DAILY@1400 Furosemide [Lasix] 20 mg PO DAILY@1400 Docusate [Colace] 100 mg PO BID Lactulose 10 gm PO BID@0900,2100 HYDROcodone/APAP 10-325MG [[place] 10-325] 1 tab PO Q4HR PRN PRN Reason: Pain metFORMIN HCL 1,000 mg PO BID@0700,2100 LORazepam [Ativan] 1 mg PO BID PRN PRN Reason: Agitation/Anxiety Famotidine [Pepcid] 20 mg PO DAILY@0900 Atorvastatin [Lipitor] 40 mg PO HS@2100 Discharge Medication List Furosemide [Lasix] 40 mg PO DAILY@0900 04/13/16 [History] Metoprolol Tartrate [Lopressor] 25 mg PO BID@0900,1700 07/23/16 [History] Polyethylene Glycol 3350 [Miralax] 17 gm PO HS 07/23/16 [History] Rivaroxaban [Xarelto] 20 mg PO DAILY@1700 09/05/16 [History] Aspirin EC [Ecotrin Low Dose] 81 mg PO DAILY@1400 04/04/17 [History] Docusate [Colace] 100 mg PO BID 04/04/17 [History] Furosemide [Lasix] 20 mg PO DAILY@1400 04/04/17 [History] HYDROcodone/APAP 10-325MG [[place] 10-325] 1 tab PO Q4HR PRN 04/04/17 [History] LORazepam [Ativan] 1 mg PO BID PRN 04/04/17 [History] Lactulose 10 gm PO BID@0900,2100 04/04/17 [History] Mirtazapine [Remeron] 15 mg PO HS 04/04/17 [History] Potassium Chloride [Klor-Con 20] 20 meq PO DAILY@1400 04/04/17 [History] metFORMIN HCL 1,000 mg PO BID@0700,2100 04/04/17 [History] Atorvastatin [Lipitor] 40 mg PO HS@2100 04/13/17 [History] Famotidine [Pepcid] 20 mg PO DAILY@0900 04/13/17 [History] Follow up Appointment(s)/Referral(s): [facility], [NON-STAFF] - Waldemar Grey MD [Primary Care Provider] - 1 Week (Office closed, please call for appointment. ) Patient Instructions/Handouts: Acute Bronchitis (GEN) Activity/Diet/Wound Care/Special Instructions: Echocardiogram results showed Ejection Fraction 55-60% Cardiac, diabetic diet. Fall precautions, up with assist for transfers.
--- NOTE | 2017-04-14 16:04 | P.HPIM ---
History of Present Illness This 51-year-old white male presents with with a complaint of some low oxygenation. The relates that she has had physical therapy out as well as home visiting nursing and that they have noticed that his pulse oximeter runs down into the 88% area. He is had occasional cough with yellowish production. She states that he had a significant coughing episode this past evening in the middle of the night. He has a history of previous stroke with right-sided paralysis and aphasia and is unable to communicate well himself. All history is obtained per the . There is no known fever at home. There is no history of DVT or PE. There is no leg pain or swelling. There is no known associated chest pain. He was just in the hospital this past week for possible additional stroke. No other complaints or modifying factors. I had a I did get extensive history from the patient. Patient on exam does not appear to have any COPD exacerbation. Patient all the workup is negative. Patient never desaturated here in the hospital. Patient has normal echocardiac exam. Patient does not have any pulmonary edema on the chest x-ray. And patient does not have any pneumonia. Patient d-dimer is negative and patient is also on the anticoagulation with Xarelto. I believe his low oxygen saturations are secondary to nonfunctional pulse oximeter at home. Patient also is morbidly obese does may have sleep apnea. Patient will need sleep study. Patient will not need any antibiotics or any systemic steroids patient will be discharged today patient on exam has good air entry bilateral lung bailey. Family has concerns about her tachycardia patient is in metoprolol dose of which will be increased to 250 twice a day and patient will be discharged. From 25 twice a day. Patient had stroke on the right as well as left with residual weakness on both sides. And patient uses Lasix for peripheral edema. Review of Systems REVIEW OF SYSTEMS: CONSTITUTIONAL: No fever, no malaise, no fatigue. HEENT: No recent visual problems or hearing problems. Denied any sore throat. CARDIOVASCULAR: No chest pain, orthopnea, PND, no palpitations, no syncope. PULMONARY: No shortness of breath, no cough, no hemoptysis. GASTROINTESTINAL: No diarrhea, no nausea, no vomiting, no abdominal pain. Normoactive bowel sounds. NEUROLOGICAL: No headaches, no weakness, no numbness. HEMATOLOGICAL: Denies any bleeding or petechiae. GENITOURINARY: Denies any burning micturition, frequency, or urgency. MUSCULOSKELETAL/RHEUMATOLOGICAL: Denies any joint pain, swelling, or any muscle pain. ENDOCRINE: Denies any polyuria or polydipsia. The rest of the 14-point review of systems is negative. Past Medical History Past Medical History: Coronary Artery Disease (CAD), CVA/TIA, Diabetes Mellitus , GERD/Reflux, Hyperlipidemia, Hypertension Additional Past Medical History / Comment(s): hx polyps, osteoporosis, past hx. sepsis related to a fall-affected hip, had stroke 2015 after carotid surg.-partial paralysis right side, blood in stool, expressive aphasia History of Any Multi-Drug Resistant Organisms: None Reported Past Surgical History: Joint Replacement Additional Past Surgical History / Comment(s): Right-sided carotid endarterectomy, multiple surgeries hips-Right 3 times and left 1. right hip had a [place] resurfacing done-currently just a spacer in joint, colonoscopy 2, right hip I&D. Past Anesthesia/Blood Transfusion Reactions: Previous Problems w/ Anesthesia Additional Past Anesthesia/Blood Transfusion Reaction / Comment(s): woke during a procedure, some kind of swelling in throat during a surgery post intubation- thinks it might have been due to having been intubated for procedures close together Past Psychological History: Depression Smoking Status: Former smoker Past Alcohol Use History: Daily Past Drug Use History: None Reported - Past Family History Sister(s) Family Medical History: Cancer, CVA/TIA Brother(s) Family Medical History: Cancer, CVA/TIA, Liver Disease Additional Family Medical History / Comment(s): lung cancer Father Family Medical History: Diabetes Mellitus, Myocardial Infarction ([place]) Mother Family Medical History: CVA/TIA Medications and Allergies Home Medications Medication Instructions Recorded Confirmed Type Furosemide [Lasix] 40 mg PO DAILY@0900 04/13/16 04/13/17 History Metoprolol Tartrate [Lopressor] 25 mg PO BID@0900,1700 07/23/16 04/13/17 History Polyethylene Glycol 3350 [Miralax] 17 gm PO HS 07/23/16 04/13/17 History Rivaroxaban [Xarelto] 20 mg PO DAILY@1700 09/05/16 04/13/17 History Aspirin EC [Ecotrin Low Dose] 81 mg PO DAILY@1400 04/04/17 04/13/17 History Docusate [Colace] 100 mg PO BID 04/04/17 04/13/17 History Furosemide [Lasix] 20 mg PO DAILY@1400 04/04/17 04/13/17 History HYDROcodone/APAP 10-325MG [[place] 1 tab PO Q4HR PRN 04/04/17 04/13/17 History 10-325] LORazepam [Ativan] 1 mg PO BID PRN 04/04/17 04/13/17 History Lactulose 10 gm PO BID@0900,2100 04/04/17 04/13/17 History Mirtazapine [Remeron] 15 mg PO HS 04/04/17 04/13/17 History Potassium Chloride [Klor-Con 20] 20 meq PO DAILY@1400 04/04/17 04/13/17 History metFORMIN HCL 1,000 mg PO BID@0700,2100 04/04/17 04/13/17 History Atorvastatin [Lipitor] 40 mg PO HS@2100 04/13/17 04/13/17 History Famotidine [Pepcid] 20 mg PO DAILY@0900 04/13/17 04/13/17 History Allergies Allergy/AdvReac Type Severity Reaction Status Date / Time hydromorphone [From Dilaudid] AdvReac Confusion Verified 04/13/17 18:41 Physical Exam Vitals: Vital Signs Temp Pulse Pulse Resp BP BP Pulse Ox 04/14/17 15:00 97.3 F L 110 H 20 98/61 93 L 04/14/17 12:05 88 04/14/17 11:53 88 04/14/17 07:55 96 04/14/17 07:43 98 04/14/17 07:00 97.1 F L 115 H 14 135/81 94 L 04/13/17 23:00 20 98 04/13/17 21:26 97.9 F 87 18 123/71 97 04/13/17 20:19 97.4 F L 84 20 133/60 97 04/13/17 19:33 89 04/13/17 19:21 85 04/13/17 19:15 84 18 124/80 97 04/13/17 18:54 97 16 157/96 98 04/13/17 18:40 99.1 F 100 18 141/87 96 04/13/17 18:00 99.1 F 105 H 18 165/115 95 Intake and Output 04/14/17 04/14/17 04/14/17 06:59 14:59 22:59 Intake Total 350 200 Output Total 500 650 Balance -150 -450 Intake: Oral 350 200 Output: Urine 500 650 Other: Voiding Method Urinal # Voids 2 PHYSICAL EXAMINATION: GENERAL: The patient is alert and oriented x3, not in any acute distress. Well developed, well nourished. HEENT: Pupils are round and equally reacting to light. EOMI. No scleral icterus. No conjunctival pallor. Normocephalic, atraumatic. No pharyngeal erythema. No thyromegaly. CARDIOVASCULAR: S1 and S2 present. No murmurs, rubs, or gallops. PULMONARY: Chest is clear to auscultation, no wheezing or crackles. ABDOMEN: Soft, nontender, nondistended, normoactive bowel sounds. No palpable organomegaly. MUSCULOSKELETAL: No joint swelling or deformity. EXTREMITIES: No cyanosis, clubbing, or pedal edema. NEUROLOGICAL: Gross neurological examination did not reveal any new focal deficits. SKIN: No rashes. Results CBC & Chem 7: 04/13/17 18:30 04/13/17 18:30 Labs: Abnormal Lab Results - Last 24 Hours (Table) 04/13/17 04/13/17 04/13/17 Range/Units 18:30 18:30 18:30 RBC 3.99 L (4.30-5.90) m/uL Hgb 12.2 L (13.0-17.5) gm/dL Hct 36.8 L (39.0-53.0) % APTT (22.0-30.0) sec ABG Total CO2 (19-24) mmol/L ABG O2 Saturation (94-97) % Glucose 265 H (74-99) mg/dL POC Glucose (mg/dL) (75-99) mg/dL Hemoglobin A1c (4.2-6.1) % Total Creatine Kinase 46 L (55-170) U/L Urine Protein (Negative) Urine Glucose (UA) (Negative) 04/13/17 04/13/17 04/13/17 Range/Units 18:30 18:30 19:09 RBC (4.30-5.90) m/uL Hgb (13.0-17.5) gm/dL Hct (39.0-53.0) % APTT 20.8 L (22.0-30.0) sec ABG Total CO2 26 H (19-24) mmol/L ABG O2 Saturation 98.0 H (94-97) % Glucose (74-99) mg/dL POC Glucose (mg/dL) (75-99) mg/dL Hemoglobin A1c 8.6 H (4.2-6.1) % Total Creatine Kinase (55-170) U/L Urine Protein (Negative) Urine Glucose (UA) (Negative) 04/13/17 04/13/17 04/14/17 Range/Units 21:13 21:30 00:08 RBC (4.30-5.90) m/uL Hgb (13.0-17.5) gm/dL Hct (39.0-53.0) % APTT (22.0-30.0) sec ABG Total CO2 (19-24) mmol/L ABG O2 Saturation (94-97) % Glucose (74-99) mg/dL POC Glucose (mg/dL) 273 H (75-99) mg/dL Hemoglobin A1c (4.2-6.1) % Total Creatine Kinase 52 L (55-170) U/L Urine Protein Trace H (Negative) Urine Glucose (UA) 2+ H (Negative) 04/14/17 04/14/17 04/14/17 Range/Units 06:31 07:18 11:40 RBC (4.30-5.90) m/uL Hgb (13.0-17.5) gm/dL Hct (39.0-53.0) % APTT (22.0-30.0) sec ABG Total CO2 (19-24) mmol/L ABG O2 Saturation (94-97) % Glucose (74-99) mg/dL POC Glucose (mg/dL) 364 H 381 H (75-99) mg/dL Hemoglobin A1c (4.2-6.1) % Total Creatine Kinase 45 L (55-170) U/L Urine Protein (Negative) Urine Glucose (UA) (Negative) Microbiology - Last 24 Hours (Table) 04/13/17 21:30 Urine Culture - Preliminary Urine,Voided Thrombosis Risk Factor Assmnt - Choose All That Apply Each Factor Represents 1 point: Age 41-60 years, Obesity (BMI >25) Thrombosis Risk Factor Assessment Total Risk Factor Score: 2 Thrombosis Risk Factor Assessment Level: Low Risk Assessment and Plan Plan: 1 hypoxemia: Secondary to above-mentioned reasons in HPI. #2 sinus tachycardia: Due to his obesity. We will obtain TSH. Patient will be discharged on increased dose of metoprolol. 3 history of cerebrovascular accident: Physical therapy as an outpatient patient has a subdural weakness on both sides. #4 type 2 diabetes mellitus: Continue his home regimen. 5 hyperlipidemia 6 hypertension 7 gastroesophageal reflux disease.
[2017-04-14] MEDS ORDERED: RIVAROXABAN 10 MG TAB PO SCH (17:00)
[2017-04-14] MEDS ORDERED: LEVOFLOXACIN 750MG-D5W PMX 750 MG in DEXTROSE/WATER 1 150ML.BAG IVPB SCH (20:00)
[2017-04-15] MEDS ORDERED: LEVOFLOXACIN 750 MG TAB PO SCH (20:00)
== END 2017-04-14 16:17 | disposition home health service (06) | DRG 202 ==
LOC: EC 17:43 → 4MS4W 19:52
PROVIDERS: ADMIT Internal Medicine; ATTEND Internal Medicine
DX: J40 Bronchitis, not specified as acute or chronic (principal); I69.351 Hemiplegia and hemiparesis following cerebral infarction affecting right dominant side; E11.65 Type 2 diabetes mellitus with hyperglycemia; I10 Essential (primary) hypertension; R47.01 Aphasia; D64.9 Anemia, unspecified; E66.01 Morbid (severe) obesity due to excess calories; E78.5 Hyperlipidemia, unspecified; F32.9 Major depressive disorder, single episode, unspecified; I25.10 Atherosclerotic heart disease of native coronary artery without angina pectoris; K21.9 Gastro-esophageal reflux disease without esophagitis; M81.0 Age-related osteoporosis without current pathological fracture; R09.02 Hypoxemia; Z79.01 Long term (current) use of anticoagulants; Z79.899 Other long term (current) drug therapy; Z80.1 Family history of malignant neoplasm of trachea, bronchus and lung; Z82.49 Family history of ischemic heart disease and other diseases of the circulatory system; Z83.3 Family history of diabetes mellitus; Z87.891 Personal history of nicotine dependence; Z79.82 Long term (current) use of aspirin
CPT/HCPCS: 36415; 36600; 71010; 80053; 81003; 82550; 82553; 82805; 83036; 83880; 84484; 85025; 85379; 85610; 85730; 87040; 87086; 93005; 93306; 94640; 96365; 96375; 99285

== ENCOUNTER 2017-05-06 19:53 | Inpatient (IN) | payer OTHER ==
[2017-05-06] MEDS ORDERED: ONDANSETRON 4 MG/2 ML VIAL IVP STA (20:05)
[2017-05-06] MEDS ORDERED: SODIUM CHLORIDE 0.9% 500 ML IV STA (20:05)
[2017-05-06] MEDS ORDERED: MORPHINE SULFATE 4 MG/ML SYRINGE IV STA ×2 (20:06→22:19)
[2017-05-06] MEDS ORDERED: RX INFO: IV CONTRAST WAS GIVEN 1 EACH MISC MISCELLANE PRN (20:06)
--- NOTE | 2017-05-06 20:35 | ED ---
General Adult HPI - General Source: EMS, RN notes reviewed Mode of arrival: EMS <Nina Decker - Last Filed: 05/06/17 23:49> <Shaw Wu - Last Filed: 05/07/17 07:26> - General Chief complaint: Abdominal Pain Stated complaint: abd pain Time Seen by Provider: 05/06/17 19:55 - History of Present Illness Initial comments: 51 yo male presents to the emergency Department chief complaint of abdominal pain. Patient had this abdominal pain about one week ago when his accidentally touched his abdomen that side. Then the pain resolved. Tonight he said the pain reoccurred and he had episodes of vomiting. Patient does suffer from aphasia his legs gave most of the history. He has had multiple strokes in the past. Denies abdominal surgeries. They state he's been struggling with a lot of gas and constipation recently but this was different due to the vomiting. They were concerned due to his symptoms without that they should be evaluated. They state they have visiting nurses who states that his abdomen is more distended than they are used to. Per the . Patient is requesting pain medication.Patient denies any recent fever, chills, shortness of breath, chest pain, back pain, numbness or tingling, dysuria or hematuria, constipation or diarrhea, headaches or visual changes, or any other current symptoms. (Nina Decker) - Related Data Home Medications Medication Instructions Recorded Confirmed Metoprolol Tartrate [Lopressor] 25 mg PO BID@0900,1700 07/23/16 05/06/17 Polyethylene Glycol 3350 [Miralax] 17 gm PO HS 07/23/16 05/06/17 Rivaroxaban [Xarelto] 20 mg PO DAILY@1700 09/05/16 05/06/17 Aspirin EC [Ecotrin Low Dose] 81 mg PO DAILY@1400 04/04/17 05/06/17 Docusate [Colace] 100 mg PO BID@0900,1700 04/04/17 05/06/17 Furosemide [Lasix] 20 mg PO DAILY@1400 04/04/17 05/06/17 HYDROcodone/APAP 10-325MG [[place] 1 tab PO Q4HR PRN 04/04/17 05/06/17 10-325] LORazepam [Ativan] 1 mg PO BID PRN 04/04/17 05/06/17 Lactulose 10 gm PO BID@0900,2100 04/04/17 05/06/17 Potassium Chloride [Klor-Con 20] 20 meq PO DAILY@1400 04/04/17 05/06/17 Atorvastatin [Lipitor] 40 mg PO HS@2100 04/13/17 05/06/17 Famotidine [Pepcid] 20 mg PO DAILY@0900 04/13/17 05/06/17 Furosemide [Lasix] 40 mg PO DAILY@0900 05/06/17 05/06/17 buPROPion XL [Wellbutrin Xl] 150 mg PO DAILY@0700 05/06/17 05/06/17 metFORMIN HCL [Glucophage] 500 mg PO BID@0700,2100 05/06/17 05/06/17 Allergies Allergy/AdvReac Type Severity Reaction Status Date / Time metformin [From Sepumet] Allergy Unknown Verified 05/06/17 20:13 sitagliptin [From Janumet] Allergy Unknown Verified 05/06/17 20:13 hydromorphone [From Dilaudid] AdvReac Confusion Verified 05/06/17 20:13 Review of Systems ROS Other: All systems not noted in ROS Statement are negative. <Nina Decker - Last Filed: 05/06/17 23:49> ROS Other: All systems not noted in ROS Statement are negative. <Shaw Wu - Last Filed: 05/07/17 07:26> ROS Statement: Those systems with pertinent positive or pertinent negative responses have been documented in the HPI. Past Medical History Past Medical History: Coronary Artery Disease (CAD), CVA/TIA, Diabetes Mellitus , GERD/Reflux, Hyperlipidemia, Hypertension Additional Past Medical History / Comment(s): hx polyps, osteoporosis, past hx. sepsis related to a fall-affected hip, had stroke 2015 after carotid surg.-partial paralysis right side, blood in stool, expressive aphasia History of Any Multi-Drug Resistant Organisms: None Reported Past Surgical History: Joint Replacement Additional Past Surgical History / Comment(s): Right-sided carotid endarterectomy, multiple surgeries hips-Right 3 times and left 1. right hip had a [place] resurfacing done-currently just a spacer in joint, colonoscopy 2, right hip I&D. Past Anesthesia/Blood Transfusion Reactions: Previous Problems w/ Anesthesia Additional Past Anesthesia/Blood Transfusion Reaction / Comment(s): woke during a procedure, some kind of swelling in throat during a surgery post intubation- thinks it might have been due to having been intubated for procedures close together Past Psychological History: Depression Smoking Status: Former smoker Past Alcohol Use History: Daily Past Drug Use History: None Reported - Past Family History Sister(s) Family Medical History: Cancer, CVA/TIA Brother(s) Family Medical History: Cancer, CVA/TIA, Liver Disease Additional Family Medical History / Comment(s): lung cancer Father Family Medical History: Diabetes Mellitus, Myocardial Infarction ([place]) Mother Family Medical History: CVA/TIA <Nina Decker - Last Filed: 05/06/17 23:49> General Exam <Nina Decker - Last Filed: 05/06/17 23:49> <Shaw Wu - Last Filed: 05/07/17 07:26> - General Exam Comments Initial Comments: General: The patient is awake and alert, in no distress, and does not appear acutely ill. Eye: Pupils are equal, round and reactive to light, extra-ocular movements are intact; there is normal conjunctiva bilaterally. No signs of icterus. Ears, nose, mouth and throat: There are moist mucous membranes. Neck: The neck is supple, there is no tenderness. Cardiovascular: There is a regular rate and rhythm. No murmur, rub or gallop is appreciated. Respiratory: Lungs are clear to auscultation, respirations are non-labored, breath sounds are equal. No wheezes, stridor, rales, or rhonchi. Gastrointestinal: distended, non-tender abdomen without masses or organomegaly noted. There is no rebound or guarding present. No CVA tenderness. Bowel sounds are unremarkable. Back: There is no tenderness to palpation in the midline. There is no obvious deformity. No rashes noted. Musculoskeletal: Normal ROM, no tenderness, There is no pedal edema. There is no calf tenderness or swelling. Sensation intact. Pulses equal bilaterally 2+. Neurological: CN II-XII intact, There are no obvious motor or sensory deficits. Coordination appears grossly intact. Speech is normal. Skin: Skin is warm and dry and no rashes or lesions are noted. Psychiatric: Cooperative, appropriate mood & affect, normal judgment. (Nina Decker) EKG Findings - EKG Comments: EKG Findings:: normal sinus rhythm 69 bpm, normal axis, no atopy, no S-T depressions or elevations, <Nina Decker - Last Filed: 05/06/17 23:49> Medical Decision Making - Lab Data Result diagrams: 05/06/17 21:09 05/06/17 21:09 - Radiology Data Radiology results: report reviewed, image reviewed <Nina Decker - Last Filed: 05/06/17 23:49> - Lab Data Result diagrams: 05/06/17 21:09 05/06/17 21:09 <Shaw Wu - Last Filed: 05/07/17 07:26> - Medical Decision Making 51-year-old male presents emergency 5 chief complaint of right-sided abdominal pain. This time patient's lab work and imaging is reviewed. There is concern for some fluid on the lung at this time. This time due to patient's acute pancreatitis he does require fluid hydration. We will give him a bolus and then we will call at a more relaxed face of fluids. Patient does appear to have acute pancreatitis. We will acute pain and nausea medication. There is sludge in the gallbladder we did contact the on-call surgery regardless or for any recommendations. This time we will admit the patient to [facility] and have Dr. Smith on consult. Family and patient are negative plan. (Nina Decker) I saw this patient in conjunction with the physician sales assistant displays. I performed independent history and physical exam. Agree with case management. (Shaw Wu) - Lab Data Lab Results 05/06/17 05/06/17 05/06/17 Range/Units 20:45 21:09 21:09 WBC (3.8-10.6) k/uL RBC (4.30-5.90) m/uL Hgb (13.0-17.5) gm/dL Hct (39.0-53.0) % MCV (80.0-100.0) fL MCH (25.0-35.0) pg MCHC (31.0-37.0) g/dL RDW (11.5-15.5) % Plt Count (150-450) k/uL Neutrophils % % Lymphocytes % % Monocytes % % Eosinophils % % Basophils % % Neutrophils # (1.3-7.7) k/uL Lymphocytes # (1.0-4.8) k/uL Monocytes # (0-1.0) k/uL Eosinophils # (0-0.7) k/uL Basophils # (0-0.2) k/uL PT (9.0-12.0) sec INR (<1.2) APTT (22.0-30.0) sec Sodium 139 (137-145) mmol/L Potassium 4.0 (3.5-5.1) mmol/L Chloride 98 (98-107) mmol/L Carbon Dioxide 27 (22-30) mmol/L Anion Gap 14 mmol/L BUN 19 (9-20) mg/dL Creatinine 0.76 (0.66-1.25) mg/dL Est GFR (MDRD) Af Amer >60 (>60 ml/min/1.73 sqM) Est GFR (MDRD) Non-Af >60 (>60 ml/min/1.73 sqM) Glucose 281 H (74-99) mg/dL Calcium 9.8 (8.4-10.2) mg/dL Magnesium 1.2 L (1.6-2.3) mg/dL Total Bilirubin 0.7 (0.2-1.3) mg/dL AST 182 H (17-59) U/L ALT 111 H (21-72) U/L Alkaline Phosphatase 132 H (38-126) U/L Total Creatine Kinase 27 L (55-170) U/L CK-MB (CK-2) <0.2 (0.0-2.4) ng/mL CK-MB (CK-2) Rel Index Troponin I <0.012 (0.000-0.034) ng/mL NT-Pro-B Natriuret Pep pg/mL Total Protein 7.3 (6.3-8.2) g/dL Albumin 4.3 (3.5-5.0) g/dL Amylase 2618 H* (30-110) U/L Lipase >93344 H (23-300) U/L Urine Color Yellow Urine Appearance Clear (Clear) Urine pH 5.5 (5.0-8.0) Ur Specific [place] 1.013 (1.001-1.035) Urine Protein 2+ H (Negative) Urine Glucose (UA) Negative (Negative) Urine Ketones Negative (Negative) Urine Blood Negative (Negative) Urine Nitrite Negative (Negative) Urine Bilirubin Negative (Negative) Urine Urobilinogen <2.0 (<2.0) mg/dL Ur Leukocyte Esterase Negative (Negative) Urine WBC 2 (0-5) /hpf Urine Mucus Rare H (None) /hpf Urine Sperm Rare (None) /hpf 05/06/17 05/06/17 05/06/17 Range/Units 21:09 21:09 21:09 WBC 14.2 H (3.8-10.6) k/uL RBC 4.34 (4.30-5.90) m/uL Hgb 13.1 (13.0-17.5) gm/dL Hct 40.5 (39.0-53.0) % MCV 93.2 (80.0-100.0) fL MCH 30.3 (25.0-35.0) pg MCHC 32.5 (31.0-37.0) g/dL RDW 15.3 (11.5-15.5) % Plt Count 284 (150-450) k/uL Neutrophils % 81 % Lymphocytes % 12 % Monocytes % 4 % Eosinophils % 2 % Basophils % 0 % Neutrophils # 11.5 H (1.3-7.7) k/uL Lymphocytes # 1.7 (1.0-4.8) k/uL Monocytes # 0.6 (0-1.0) k/uL Eosinophils # 0.2 (0-0.7) k/uL Basophils # 0.1 (0-0.2) k/uL PT 10.7 (9.0-12.0) sec INR 1.1 (<1.2) APTT 21.4 L (22.0-30.0) sec Sodium (137-145) mmol/L Potassium (3.5-5.1) mmol/L Chloride (98-107) mmol/L Carbon Dioxide (22-30) mmol/L Anion Gap mmol/L BUN (9-20) mg/dL Creatinine (0.66-1.25) mg/dL Est GFR (MDRD) Af Amer (>60 ml/min/1.73 sqM) Est GFR (MDRD) Non-Af (>60 ml/min/1.73 sqM) Glucose (74-99) mg/dL Calcium (8.4-10.2) mg/dL Magnesium (1.6-2.3) mg/dL Total Bilirubin (0.2-1.3) mg/dL AST (17-59) U/L ALT (21-72) U/L Alkaline Phosphatase (38-126) U/L Total Creatine Kinase (55-170) U/L CK-MB (CK-2) (0.0-2.4) ng/mL CK-MB (CK-2) Rel Index Troponin I (0.000-0.034) ng/mL NT-Pro-B Natriuret Pep 33 pg/mL Total Protein (6.3-8.2) g/dL Albumin (3.5-5.0) g/dL Amylase (30-110) U/L Lipase (23-300) U/L Urine Color Urine Appearance (Clear) Urine pH (5.0-8.0) Ur Specific [place] (1.001-1.035) Urine Protein (Negative) Urine Glucose (UA) (Negative) Urine Ketones (Negative) Urine Blood (Negative) Urine Nitrite (Negative) Urine Bilirubin (Negative) Urine Urobilinogen (<2.0) mg/dL Ur Leukocyte Esterase (Negative) Urine WBC (0-5) /hpf Urine Mucus (None) /hpf Urine Sperm (None) /hpf Disposition Time of Disposition: 23:33 Decision Date: 05/06/17 Decision Time: 23:33 <Nina Decker - Last Filed: 05/06/17 23:49> <Shaw Wu - Last Filed: 05/07/17 07:26> Clinical Impression: Acute pancreatitis, Sludge in gallbladder Disposition: ADMITTED IP TO THIS [facility] Condition: Stable
[2017-05-06 20:58] LABS: Appearance,Urine Clear (Clear); Bilirubin,Urine Negative (Negative); Glucose,Urine (UA) Negative (Negative); Ketones,Urine Negative (Negative); Leukocyte Esterase,Urine Negative (Negative); Mucus,Urine Rare /hpf; Nitrite,Urine Negative (Negative); PH, Urine 5.5 (5.0-8.0); Particle Count 1170; Protein,Urine 2+ (Negative); Specific Gravity,Urine 1.013 (1.001-1.035); Sperm,Urine Rare /hpf; UA Billing (MACRO vs. MICRO) MICRO; Urobilinogen,Urine <2.0 mg/dL (<2.0); WBC,Urine 2 /hpf (0-5)
[2017-05-06 21:18] LABS: Basophils # (A) 0.1 k/uL (0-0.2); Basophils % (A) 0 %; CH 30.7; Eosinophils # (A) 0.2 k/uL (0-0.7); Eosinophils % (A) 2 %; HCT 40.5 % (39.0-53.0); HDW 2.78; HGB 13.1 gm/dL (13.0-17.5); Luc # (Auto) 0.15; Luc % (Auto) 1; Lymphocytes # (A) 1.7 k/uL (1.0-4.8); Lymphocytes % (A) 12 %; MCH 30.3 pg (25.0-35.0); MCHC 32.5 g/dL (31.0-37.0); MCV 93.2 fL (80.0-100.0); Mean Platelet Volume 9.2; Monocytes # (A) 0.6 k/uL (0-1.0); Monocytes % (A) 4 %; Neutrophils # (A) 11.5 k/uL (1.3-7.7); Neutrophils % (A) 81 %; RBC 4.34 m/uL (4.30-5.90); RDW 15.3 % (11.5-15.5); WBC 14.2 k/uL (3.8-10.6); WBC (Perox) 14.29
[2017-05-06 21:27] LABS: INR 1.1 (<1.2); Prothrombin Time 10.7 sec (9.0-12.0)
[2017-05-06 21:32] LABS: ALT 111 U/L (21-72); AST 182 U/L (17-59); Alkaline Phosphatase 132 U/L (38-126); Anion Gap 14 mmol/L; Blood Urea Nitrogen 19 mg/dL (9-20); Calcium 9.8 mg/dL (8.4-10.2); Carbon Dioxide 27 mmol/L (22-30); Chloride 98 mmol/L (98-107); Glucose 281 mg/dL (74-99); Magnesium 1.2 mg/dL (1.6-2.3); Non-African American GFR(MDRD) >60 (>60 ml/min/1.73 sqM); Sodium 139 mmol/L (137-145); Total Bilirubin 0.7 mg/dL (0.2-1.3); Total Protein 7.3 g/dL (6.3-8.2)
[2017-05-06 21:41] LABS: Creatine Kinase 27 U/L (55-170)
[2017-05-06 21:50] LABS: Partial Thromboplastin Time 21.4 sec (22.0-30.0)
[2017-05-06 21:54] LABS: Creatine Kinase MB <0.2 ng/mL (0.0-2.4); Troponin I <0.012 ng/mL (0.000-0.034)
[2017-05-06 22:16] LABS: Amylase 2618 U/L (30-110)
[2017-05-06] MEDS ORDERED: METOCLOPRAMIDE 5 MG/ML 2 ML VIAL IVP STA (22:19)
[2017-05-06] MEDS ORDERED: SODIUM CHLORIDE 0.9% 1,000 ML IV STA (22:19)
--- NOTE | 2017-05-06 22:19 | XR ---
EXAMINATION TYPE: XR chest 2V DATE OF EXAM: 05/06/2017 COMPARISON: 04/13/2017 HISTORY: Pain TECHNIQUE: Frontal and lateral views of the chest are obtained. FINDINGS: There is a fine reticular pattern of increased density bilaterally and symmetrically, moder ately obscuring the pulmonary vasculature when compared to the prior study. These findings are consis tent with mild interstitial phase coronary edema, presumably cardiogenic given the mild/moderate enla rgement of the cardiac silhouette. The mediastinum is midline. There are no abnormal gas collections evident. Hemidiaphragms are elevated consistent with relatively low lung inflation state at the moment of x-ra y exposure. IMPRESSION: INTERVAL DEVELOPMENT OF MILD/MODERATE INTERSTITIAL PHASE PULMONARY EDEMA, PRESUMABLY CARD IOGENIC ETIOLOGY.
--- NOTE | 2017-05-06 23:21 | CT ---
EXAM: CT Abdomen and Pelvis With Intravenous Contrast CLINICAL HISTORY: Reason: Pain TECHNIQUE: Axial computed tomography images of the abdomen and pelvis with intravenous contrast. CTDI is 42.91 mGy and DLP is 2067 mGy-cm. This CT exam was performed using one or more of the following dose reduction techniques: automated exposure control, adjustment of the mA and/or kV according to patient size, and/or use of iterative reconstruction technique. Coronal and sagittal reconstructions are performed COMPARISON: No relevant prior studies available. FINDINGS: Lower thorax: No acute findings. ABDOMEN: Liver: Unremarkable. No mass. Gallbladder and bile ducts: 1 cm layer of sludge, possibly mixed with tiny stones in the dependent portion of gallbladder. Pancreas: Moderate amount of mesenteric inflammatory change surrounding the pancreas, suggest acute pancreatitis. Spleen: Unremarkable. No splenomegaly. Adrenals: Unremarkable. No mass. Kidneys and ureters: Unremarkable. No solid mass. No hydronephrosis. Stomach and bowel: Unremarkable. No obstruction. No mucosal thickening. Appendix: Normal appendix. PELVIS: Bladder: Unremarkable. No mass. Reproductive: Unremarkable as visualized. ABDOMEN and PELVIS: Intraperitoneal space: Unremarkable. No free air. No significant fluid collection. Bones/joints: Mild degenerative changes in the visualized osseous structures. Bilateral total hip replacement prosthesis cause large amount of streak artifact, decreases the sensitivity on associated images. No acute fracture. No dislocation. Soft tissues: Unremarkable. Vasculature: Unremarkable. No abdominal aortic aneurysm. Lymph nodes: Unremarkable. No enlarged lymph nodes. IMPRESSION: 1. Moderate amount of mesenteric inflammatory change surrounding the pancreas, suggest acute pancreatitis. Please correlate with clinical and laboratory findings. 2. 1 cm layer of sludge, possibly mixed with tiny stones in the dependent portion of gallbladder.
[2017-05-06] MEDS ORDERED: NALOXONE 0.4 MG/ML 1 ML VIAL IV PRN (23:50)
[2017-05-06] MEDS ORDERED: ONDANSETRON 4 MG/2 ML VIAL IVP PRN (23:50)
[2017-05-07] MEDS: SODIUM CHLORIDE 0.9% 1,000 ML IV SCH ×2 (00:47→12:18)
[2017-05-07] MEDS: HYDROcodone/APAP 10-325MG 1 EACH TAB PO PRN ×2 (01:50→19:14)
[2017-05-07] MEDS: LORazepam 1 MG TAB PO PRN ×2 (01:50→12:17)
[2017-05-07 04:57] LABS: Creatine Kinase 23 U/L (55-170)
[2017-05-07 05:08] LABS: Creatine Kinase MB <0.2 ng/mL (0.0-2.4); Troponin I <0.012 ng/mL (0.000-0.034)
[2017-05-07 07:30] LABS: Glucose,Whole Blood 324 mg/dL (75-99)
[2017-05-07] MEDS: buPROPion XL 150 MG TAB.ER.24H PO SCH (08:12)
[2017-05-07] MEDS: METOPROLOL TARTRATE 25 MG TAB PO SCH ×2 (08:12→17:35)
[2017-05-07] MEDS: DOCUSATE 100 MG CAP PO SCH ×2 (08:12→17:35)
[2017-05-07] MEDS: FUROSEMIDE 20 MG TAB PO SCH (08:12)
[2017-05-07] MEDS: metFORMIN 500 MG TAB PO SCH ×2 (08:12→22:25)
[2017-05-07] MEDS: FAMOTIDINE 20 MG TAB PO SCH (08:12)
[2017-05-07] MEDS: LACTULOSE 20 GM/30 ML CUP PO SCH (08:12)
[2017-05-07] MEDS: INSULIN LISPRO (humaLOG) 300 UNIT/3 ML VIAL SQ SCH ×3 (09:16→17:36)
[2017-05-07] MEDS: MORPHINE SULFATE 4 MG/ML SYRINGE IV PRN ×2 (09:32→14:56)
[2017-05-07 09:45] LABS: Basophils % (A) 0 %; CH 29.6; CHCM 31.6; Eosinophils % (A) 0 %; HCT 39.2 % (39.0-53.0); HDW 2.67; HGB 12.8 gm/dL (13.0-17.5); Hypochromasia Slight; Luc # (Auto) 0.07; Luc % (Auto) 1; Lymphocytes % (A) 9 %; MCH 30.8 pg (25.0-35.0); MCHC 32.7 g/dL (31.0-37.0); Mean Platelet Volume 8.1; Monocytes # (A) 0.3 k/uL (0-1.0); Monocytes % (A) 3 %; Neutrophils # (A) 9.4 k/uL (1.3-7.7); Neutrophils % (A) 87 %; RBC 4.17 m/uL (4.30-5.90); RDW 14.6 % (11.5-15.5); WBC 10.9 k/uL (3.8-10.6)
[2017-05-07 09:54] LABS: ALT 89 U/L (21-72); AST 60 U/L (17-59); Alkaline Phosphatase 106 U/L (38-126); Anion Gap 14 mmol/L; Blood Urea Nitrogen 16 mg/dL (9-20); Calcium 9.3 mg/dL (8.4-10.2); Carbon Dioxide 25 mmol/L (22-30); Chloride 101 mmol/L (98-107); Glucose 341 mg/dL (74-99); Non-African American GFR(MDRD) >60 (>60 ml/min/1.73 sqM); Potassium 4.8 mmol/L (3.5-5.1); Sodium 140 mmol/L (137-145); Total Bilirubin 0.6 mg/dL (0.2-1.3); Total Protein 6.9 g/dL (6.3-8.2)
[2017-05-07 09:59] LABS: Amylase 341 U/L (30-110)
[2017-05-07 10:03] LABS: Creatine Kinase 23 U/L (55-170)
[2017-05-07 10:16] LABS: Creatine Kinase MB <0.2 ng/mL (0.0-2.4); Troponin I <0.012 ng/mL (0.000-0.034)
[2017-05-07 11:44] LABS: Glucose,Whole Blood 290 mg/dL (75-99)
--- NOTE | 2017-05-07 11:58 | P.PN ---
Progress Note - Text Patient's at the bedside indicate that they have seen Dr. Judge in the past are requesting Dr. Judge be evaluated if there is any surgical issues patient will not be seen by Dr. Andre defer to Dr. Judge service if needed
[2017-05-07 12:34] LABS: Hemoglobin A1C 9.8 % (4.2-6.1)
[2017-05-07] MEDS: amLODIPine 5 MG TAB PO SCH (13:06)
[2017-05-07] MEDS ORDERED: FUROSEMIDE 20 MG TAB PO SCH (14:00)
--- NOTE | 2017-05-07 14:08 | P.CRDCN ---
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 He also has a history of hypertension, peripheral vascular disease, left carotid endarterectomy, coronary artery disease, diabetes mellitus, GERD, hyperlipidemia and is currently admitted for pancreatitis. We have been consulted due to the patient's history of diastolic heart failure. He had a echocardiogram done within the previous month shows an ejection fraction of 55-60% with mild MR, mild TR and mild concentric left ventricular hypertrophy. Upon examination and discussion with the he has no complaints of chest pain, shortness of breath, dizziness, palpitations or increased swelling. His blood pressure has been elevated since admission this morning 170/97. Patient is currently nothing by mouth awaiting surgical evaluation ProBNP is 33. Troponins negative 3. Review of Systems REVIEW OF SYSTEMS: Patient denies any chest discomfort. No shortness of breath. No diaphoresis. Denies headache, dizziness, blurred vision, double vision. No dyspnea on exertion. No hematochezia. No hematemesis. Denies any black stools or blood in his stools. No syncope. No palpitations. No cough. No recent fever or chills. Denies dysuria or hematuria. No muscle weakness or numbness. Past Medical History Past Medical History: Coronary Artery Disease (CAD), CVA/TIA, Diabetes Mellitus , GERD/Reflux, Hyperlipidemia, Hypertension Additional Past Medical History / Comment(s): hx polyps, osteoporosis, past hx. sepsis related to a fall-affected hip, had stroke 2015 after carotid surg.-partial paralysis right side, blood in stool, expressive aphasia History of Any Multi-Drug Resistant Organisms: None Reported Past Surgical History: Joint Replacement Additional Past Surgical History / Comment(s): Right-sided carotid endarterectomy, multiple surgeries hips-Right 3 times and left 1. right hip had a [place] resurfacing done-currently just a spacer in joint, colonoscopy 2, right hip I&D. Past Anesthesia/Blood Transfusion Reactions: Previous Problems w/ Anesthesia Additional Past Anesthesia/Blood Transfusion Reaction / Comment(s): woke during a procedure, some kind of swelling in throat during a surgery post intubation- thinks it might have been due to having been intubated for procedures close together Past Psychological History: Depression Smoking Status: Former smoker Past Alcohol Use History: Daily Additional Past Alcohol Use History / Comment(s): quit drinking and smoking 2015, Prior to that he was a 1- 1.5 pack a day smoker and drank approximately 3 drinks per day. Past Drug Use History: None Reported - Past Family History Sister(s) Family Medical History: Cancer, CVA/TIA Brother(s) Family Medical History: Cancer, CVA/TIA, Liver Disease Additional Family Medical History / Comment(s): lung cancer Father Family Medical History: Diabetes Mellitus, Myocardial Infarction ([place]) Mother Family Medical History: CVA/TIA Medications and Allergies Home Medications Medication Instructions Recorded Confirmed Type Metoprolol Tartrate [Lopressor] 25 mg PO BID@0900,1700 07/23/16 05/06/17 History Polyethylene Glycol 3350 [Miralax] 17 gm PO HS 07/23/16 05/06/17 History Rivaroxaban [Xarelto] 20 mg PO DAILY@17009/05/16 05/06/17 History Aspirin EC [Ecotrin Low Dose] 81 mg PO DAILY@139904/04/17 05/06/17 History Docusate [Colace] 100 mg PO BID@0900,1700 04/04/17 05/06/17 History Furosemide [Lasix] 20 mg PO DAILY@139904/04/17 05/06/17 History HYDROcodone/APAP 10-325MG [[place] 1 tab PO Q4HR PRN 04/04/17 05/06/17 History 10-325] LORazepam [Ativan] 1 mg PO BID PRN 04/04/17 05/06/17 History Lactulose 10 gm PO BID@0900,209904/04/17 05/06/17 History Potassium Chloride [Klor-Con 20] 20 meq PO DAILY@139904/04/17 05/06/17 History Atorvastatin [Lipitor] 40 mg PO HS@209904/13/17 05/06/17 History Famotidine [Pepcid] 20 mg PO DAILY@89904/13/17 05/06/17 History Furosemide [Lasix] 40 mg PO DAILY@89905/06/17 05/06/17 History buPROPion XL [Wellbutrin Xl] 150 mg PO DAILY@69905/06/17 05/06/17 History metFORMIN HCL [Glucophage] 500 mg PO BID@0700,2100 05/06/17 05/06/17 History Allergies Allergy/AdvReac Type Severity Reaction Status Date / Time metformin [From Sepumet] Allergy Unknown Verified 05/06/17 20:13 sitagliptin [From Janumet] Allergy Unknown Verified 05/06/17 20:13 hydromorphone [From Dilaudid] AdvReac Confusion Verified 05/06/17 20:13 Physical Exam Vitals: Vital Signs Temp Pulse Pulse Resp BP BP Pulse Ox 05/07/17 10:28 170/97 93 L 05/07/17 07:55 98.2 F 83 16 182/85 95 05/07/17 03:00 90 163/76 05/07/17 02:15 96.1 F L 81 20 172/94 93 L 05/07/17 02:00 20 05/07/17 00:03 98.8 F 92 17 167/95 98 05/06/17 22:38 86 16 163/92 96 05/06/17 20:02 97.8 F 70 16 160/102 98 Intake and Output 05/06/17 05/07/17 05/07/17 22:59 06:59 14:59 Intake Total 480 Output Total 452 Balance 28 Intake: Intake, IV Titration 480 Amount Sodium Chloride 0.9% 1, 480 000 ml @ 80 mls/hr IV . [id number] [facility] Rx#:[id number] Output: Urine 152 Other 300 Other: Voiding Method Urinal Urinal # Voids 1 Weight 113.398 kg GENERAL: This is a 51-year-old male in no apparent distress at the time of my examination. HEENT: Head is atraumatic, normocephalic. Pupils are equal, round. Sclerae anicteric. Conjunctivae are clear. Mucous membranes of the mouth are moist. Neck is supple. There is no jugular venous distention. No carotid bruit is heard. LUNGS: Clear to auscultation no wheezes, rales or rhonchi. No chest wall tenderness is noted on palpation or with deep breathing. HEART: Regular rate and rhythm with mild systolic murmur, no rubs or gallops. S1 and S2 heard. ABDOMEN: Soft, tender. Bowel sounds are heard. No organomegaly noted. EXTREMITIES: 2+ peripheral pulses with evidence of mild peripheral edema and no calf tenderness noted. NEUROLOGIC: Patient is awake, alert and oriented x3. Results 05/07/17 09:16 05/07/17 09:16 Cardiac Enzymes 05/06/17 05/06/17 05/07/17 Range/Units 21:09 21:09 03:29 AST 182 H (17-59) U/L CK-MB (CK-2) <0.2 <0.2 (0.0-2.4) ng/mL Troponin I <0.012 <0.012 (0.000-0.034) ng/mL 05/07/17 05/07/17 Range/Units 09:16 09:21 AST 60 H (17-59) U/L CK-MB (CK-2) <0.2 (0.0-2.4) ng/mL Troponin I <0.012 (0.000-0.034) ng/mL Coagulation 05/06/17 Range/Units 21:09 PT 10.7 (9.0-12.0) sec APTT 21.4 L (22.0-30.0) sec CBC 05/06/17 05/07/17 Range/Units 21:09 09:16 WBC 14.2 H 10.9 H (3.8-10.6) k/uL RBC 4.34 4.17 L (4.30-5.90) m/uL Hgb 13.1 12.8 L (13.0-17.5) gm/dL Hct 40.5 39.2 (39.0-53.0) % Plt Count 284 261 (150-450) k/uL Comprehensive Metabolic Panel 05/06/17 05/07/17 Range/Units 21:09 09:16 Sodium 139 140 (137-145) mmol/L Potassium 4.0 4.8 (3.5-5.1) mmol/L Chloride 98 101 (98-107) mmol/L Carbon Dioxide 27 25 (22-30) mmol/L BUN 19 16 (9-20) mg/dL Creatinine 0.76 0.81 (0.66-1.25) mg/dL Glucose 281 H 341 H (74-99) mg/dL Calcium 9.8 9.3 (8.4-10.2) mg/dL AST 182 H 60 H (17-59) U/L ALT 111 H 89 H (21-72) U/L Alkaline Phosphatase 132 H 106 (38-126) U/L Total Protein 7.3 6.9 (6.3-8.2) g/dL Albumin 4.3 4.0 (3.5-5.0) g/dL Current Medications Generic Name Dose Route Start Last Admin Trade Name Freq PRN Reason Stop Dose Admin Hydrocodone Bitart/Acetaminophen 1 each 05/07/17 00:04 05/07/17 01:50 Harned 10 PO 1 each Q4HR PRN Administration MODERATE Pain Amlodipine Besylate 5 mg 05/07/17 13:00 05/07/17 13:06 Norvasc PO 5 mg DAILY SARA Administration Aspirin 81 mg 05/07/17 14:00 Aspirin PO DAILY@1400 [facility] Atorvastatin Calcium 40 mg 05/07/17 21:00 Lipitor PO HS@2100 SARA Bupropion HCl 150 mg 05/07/17 07:00 05/07/17 08:12 Wellbutrin Xl PO 150 mg DAILY@0700 [facility] Administration Docusate Sodium 100 mg 05/07/17 09:00 05/07/17 08:12 Colace PO 100 mg BID@0900,1700 [facility] Administration Famotidine 20 mg 05/07/17 09:00 05/07/17 08:12 Pepcid PO 20 mg DAILY@0900 SARA Administration Furosemide 20 mg 05/07/17 14:00 Lasix PO DAILY@1400 SARA Furosemide 40 mg 05/07/17 09:00 05/07/17 08:12 Lasix PO 40 mg DAILY@0900 [facility] Administration Sodium Chloride 1,000 mls @ 80 mls/hr 05/06/17 23:45 05/07/17 12:18 Saline 0.9% IV Not Given .[id number] [facility] Insulin Human Lispro 0 unit 05/07/17 09:05 05/07/17 13:06 Humalog SQ 7 unit ACHS [facility] Administration Protocol Lactulose 10 gm 05/07/17 09:00 05/07/17 08:12 Cephulac PO 10 gm BID@0900,2100 [facility] Administration Lorazepam 1 mg 05/07/17 00:04 05/07/17 12:17 Ativan PO 1 mg BID PRN Administration Agitation/Anxiety Metformin HCl 500 mg 05/07/17 07:00 05/07/17 08:12 Glucophage PO 500 mg BID@0700,2100 SARA Administration Metoprolol Tartrate 25 mg 05/07/17 09:00 05/07/17 08:12 Lopressor PO 25 mg BID@0900,1700 SARA Administration Miscellaneous Information 1 each 05/06/17 20:06 Rx Info: Iv Contrast Was Given MISCELLANE 05/08/17 20:06 DAILY PRN Per Protocol Morphine Sulfate 4 mg 05/06/17 23:50 05/07/17 09:32 Morphine Sulfate (Inj) IV 4 mg Q4HR PRN Administration Severe Pain Naloxone HCl 0.2 mg 05/06/17 23:50 Narcan IV Q2M PRN Opioid Reversal Ondansetron HCl 4 mg 05/06/17 23:50 Zofran IVP Q8HR PRN Nausea And Vomiting Polyethylene Glycol 17 gm 05/07/17 21:00 Miralax PO HS [facility] Potassium Chloride 20 meq 05/07/17 14:00 K-Dur 20 PO DAILY@1400 SARA Rivaroxaban 20 mg 05/07/17 17:00 Xarelto PO DAILY@1700 [facility] Intake and Output 05/06/17 05/07/17 05/07/17 22:59 06:59 14:59 Intake Total 480 Output Total 452 Balance 28 Intake: Intake, IV Titration 480 Amount Sodium Chloride 0.9% 1, 480 000 ml @ 80 mls/hr IV . [id number] [facility] Rx#:[id number] Output: Urine 152 Other 300 Other: Voiding Method Urinal Urinal # Voids 1 Weight 113.398 kg 05/07/17 09:16 05/07/17 09:16 Assessment and Plan Plan: ASSESSMENT 1. Essential hypertension 2. Acute pancreatitis with biliary sludge 3. History of CVA 2 with right-sided paralysis 4. History of diabetes mellitus 5. History of diastolic heart failure PLAN We will add Norvasc 5 mg by mouth daily to optimize blood pressure control. The patient shows no overt signs of heart failure at this time with a normal echocardiogram in March. Thank you for this consultation. We will continue to see the patient on an as-needed basis. Nurse Practitioner note has been reviewed, I agree with a documented findings and plan of care. Patient was seen and examined.
--- NOTE | 2017-05-07 15:31 | P.HPIM ---
History of Present Illness Patient is a pleasant 51-year-old gentleman came in with complaints of abdominal pain epigastric area unsure of the exact duration. As patient is a poor historian. Patient the pain appears to be has been going on for about a week multiple episodes of nausea vomiting yesterday. Patient is found to have highly elevated lipase. Patient still has his gallbladder. Patient is not an alcohol. Patient's abdomen is mildly distended. Inpatient the has pulmonary edema on the chest x-ray. Because of his IV fluids of dyspnea and patient was restarted back on his home insulin. Patient does have chronic diastolic dysfunction. Review of Systems REVIEW OF SYSTEMS: CONSTITUTIONAL: No fever, no malaise, no fatigue. HEENT: No recent visual problems or hearing problems. Denied any sore throat. CARDIOVASCULAR: No chest pain, orthopnea, PND, no palpitations, no syncope. PULMONARY: No shortness of breath, no cough, no hemoptysis. GASTROINTESTINAL: As in HPI NEUROLOGICAL: No headaches, no weakness, no numbness. HEMATOLOGICAL: Denies any bleeding or petechiae. GENITOURINARY: Denies any burning micturition, frequency, or urgency. MUSCULOSKELETAL/RHEUMATOLOGICAL: Denies any joint pain, swelling, or any muscle pain. ENDOCRINE: Denies any polyuria or polydipsia. The rest of the 14-point review of systems is negative. Past Medical History Past Medical History: Coronary Artery Disease (CAD), CVA/TIA, Diabetes Mellitus , GERD/Reflux, Hyperlipidemia, Hypertension Additional Past Medical History / Comment(s): hx polyps, osteoporosis, past hx. sepsis related to a fall-affected hip, had stroke 2015 after carotid surg.-partial paralysis right side, blood in stool, expressive aphasia History of Any Multi-Drug Resistant Organisms: None Reported Past Surgical History: Joint Replacement Additional Past Surgical History / Comment(s): Right-sided carotid endarterectomy, multiple surgeries hips-Right 3 times and left 1. right hip had a Roland resurfacing done-currently just a spacer in joint, colonoscopy 2, right hip I&D. Past Anesthesia/Blood Transfusion Reactions: Previous Problems w/ Anesthesia Additional Past Anesthesia/Blood Transfusion Reaction / Comment(s): woke during a procedure, some kind of swelling in throat during a surgery post intubation- thinks it might have been due to having been intubated for procedures close together Past Psychological History: Depression Smoking Status: Former smoker Past Alcohol Use History: Daily Additional Past Alcohol Use History / Comment(s): quit drinking and smoking 2015, Prior to that he was a 1- 1.5 pack a day smoker and drank approximately 3 drinks per day. Past Drug Use History: None Reported - Past Family History Sister(s) Family Medical History: Cancer, CVA/TIA Brother(s) Family Medical History: Cancer, CVA/TIA, Liver Disease Additional Family Medical History / Comment(s): lung cancer Father Family Medical History: Diabetes Mellitus, Myocardial Infarction ([place]) Mother Family Medical History: CVA/TIA Medications and Allergies Home Medications Medication Instructions Recorded Confirmed Type Metoprolol Tartrate [Lopressor] 25 mg PO BID@0900,1700 07/23/16 05/06/17 History Polyethylene Glycol 3350 [Miralax] 17 gm PO HS 07/23/16 05/06/17 History Rivaroxaban [Xarelto] 20 mg PO DAILY@169909/05/16 05/06/17 History Aspirin EC [Ecotrin Low Dose] 81 mg PO DAILY@139904/04/17 05/06/17 History Docusate [Colace] 100 mg PO BID@0900,1700 04/04/17 05/06/17 History Furosemide [Lasix] 20 mg PO DAILY@139904/04/17 05/06/17 History HYDROcodone/APAP 10-325MG [[place] 1 tab PO Q4HR PRN 04/04/17 05/06/17 History 10-325] LORazepam [Ativan] 1 mg PO BID PRN 04/04/17 05/06/17 History Lactulose 10 gm PO BID@0900,209904/04/17 05/06/17 History Potassium Chloride [Klor-Con 20] 20 meq PO DAILY@139904/04/17 05/06/17 History Atorvastatin [Lipitor] 40 mg PO HS@209904/13/17 05/06/17 History Famotidine [Pepcid] 20 mg PO DAILY@89904/13/17 05/06/17 History Furosemide [Lasix] 40 mg PO DAILY@89905/06/17 05/06/17 History buPROPion XL [Wellbutrin Xl] 150 mg PO DAILY@0700 05/06/17 05/06/17 History metFORMIN HCL [Glucophage] 500 mg PO BID@0700,2100 05/06/17 05/06/17 History Allergies Allergy/AdvReac Type Severity Reaction Status Date / Time metformin [From Sepumet] Allergy Unknown Verified 05/06/17 20:13 sitagliptin [From Janumet] Allergy Unknown Verified 05/06/17 20:13 hydromorphone [From Dilaudid] AdvReac Confusion Verified 05/06/17 20:13 Physical Exam Vitals: Vital Signs Temp Pulse Pulse Resp BP BP Pulse Ox 05/07/17 10:28 170/97 93 L 05/07/17 07:55 98.2 F 83 16 182/85 95 05/07/17 03:00 90 163/76 05/07/17 02:15 96.1 F L 81 20 172/94 93 L 05/07/17 02:00 20 05/07/17 00:03 98.8 F 92 17 167/95 98 05/06/17 22:38 86 16 163/92 96 05/06/17 20:02 97.8 F 70 16 160/102 98 Intake and Output 05/07/17 05/07/17 05/07/17 06:59 14:59 22:59 Intake Total 480 Output Total 452 Balance 28 Intake: Intake, IV Titration 480 Amount Sodium Chloride 0.9% 1, 480 000 ml @ 80 mls/hr IV . [id number] [facility] Rx#:[id number] Output: Urine 152 Other 300 Other: Voiding Method Urinal Urinal # Voids 1 PHYSICAL EXAMINATION: GENERAL: The patient is alert and oriented x3, not in any acute distress. Well developed, well nourished. HEENT: Pupils are round and equally reacting to light. EOMI. No scleral icterus. No conjunctival pallor. Normocephalic, atraumatic. No pharyngeal erythema. No thyromegaly. CARDIOVASCULAR: S1 and S2 present. No murmurs, rubs, or gallops. PULMONARY: Chest is clear to auscultation, no wheezing or crackles. ABDOMEN: Distended, tympanic no rebound or rigidity minimal epigastric abdominal tenderness was appreciated. MUSCULOSKELETAL: No joint swelling or deformity. EXTREMITIES: No cyanosis, clubbing, or pedal edema. NEUROLOGICAL: Gross neurological examination did not reveal any focal deficits. SKIN: No rashes. Results CBC & Chem 7: 05/07/17 09:16 05/07/17 09:16 Labs: Abnormal Lab Results - Last 24 Hours (Table) 05/06/17 05/06/17 05/06/17 Range/Units 20:45 21:09 21:09 WBC (3.8-10.6) k/uL RBC (4.30-5.90) m/uL Hgb (13.0-17.5) gm/dL Neutrophils # (1.3-7.7) k/uL APTT (22.0-30.0) sec Glucose 281 H (74-99) mg/dL POC Glucose (mg/dL) (75-99) mg/dL Hemoglobin A1c (4.2-6.1) % Magnesium 1.2 L (1.6-2.3) mg/dL AST 182 H (17-59) U/L ALT 111 H (21-72) U/L Alkaline Phosphatase 132 H (38-126) U/L Total Creatine Kinase 27 L (55-170) U/L Amylase 2618 H* (30-110) U/L Lipase >58627 H (23-300) U/L Urine Protein 2+ H (Negative) Urine Mucus Rare H (None) /hpf 05/06/17 05/06/17 05/07/17 Range/Units 21:09 21:09 03:29 WBC 14.2 H (3.8-10.6) k/uL RBC (4.30-5.90) m/uL Hgb (13.0-17.5) gm/dL Neutrophils # 11.5 H (1.3-7.7) k/uL APTT 21.4 L (22.0-30.0) sec Glucose (74-99) mg/dL POC Glucose (mg/dL) (75-99) mg/dL Hemoglobin A1c (4.2-6.1) % Magnesium (1.6-2.3) mg/dL AST (17-59) U/L ALT (21-72) U/L Alkaline Phosphatase (38-126) U/L Total Creatine Kinase 23 L (55-170) U/L Amylase (30-110) U/L Lipase (23-300) U/L Urine Protein (Negative) Urine Mucus (None) /hpf 05/07/17 05/07/17 05/07/17 Range/Units 07:26 09:16 09:16 WBC 10.9 H (3.8-10.6) k/uL RBC 4.17 L (4.30-5.90) m/uL Hgb 12.8 L (13.0-17.5) gm/dL Neutrophils # 9.4 H (1.3-7.7) k/uL APTT (22.0-30.0) sec Glucose 341 H (74-99) mg/dL POC Glucose (mg/dL) 324 H (75-99) mg/dL Hemoglobin A1c (4.2-6.1) % Magnesium (1.6-2.3) mg/dL AST 60 H (17-59) U/L ALT 89 H (21-72) U/L Alkaline Phosphatase (38-126) U/L Total Creatine Kinase (55-170) U/L Amylase 341 H* (30-110) U/L Lipase 2456 H (23-300) U/L Urine Protein (Negative) Urine Mucus (None) /hpf 05/07/17 05/07/17 05/07/17 Range/Units 09:16 09:21 09:21 WBC (3.8-10.6) k/uL RBC (4.30-5.90) m/uL Hgb (13.0-17.5) gm/dL Neutrophils # (1.3-7.7) k/uL APTT (22.0-30.0) sec Glucose (74-99) mg/dL POC Glucose (mg/dL) (75-99) mg/dL Hemoglobin A1c 9.8 H (4.2-6.1) % Magnesium 1.3 L (1.6-2.3) mg/dL AST (17-59) U/L ALT (21-72) U/L Alkaline Phosphatase (38-126) U/L Total Creatine Kinase 23 L (55-170) U/L Amylase (30-110) U/L Lipase (23-300) U/L Urine Protein (Negative) Urine Mucus (None) /hpf 05/07/17 Range/Units 11:37 WBC (3.8-10.6) k/uL RBC (4.30-5.90) m/uL Hgb (13.0-17.5) gm/dL Neutrophils # (1.3-7.7) k/uL APTT (22.0-30.0) sec Glucose (74-99) mg/dL POC Glucose (mg/dL) 290 H (75-99) mg/dL Hemoglobin A1c (4.2-6.1) % Magnesium (1.6-2.3) mg/dL AST (17-59) U/L ALT (21-72) U/L Alkaline Phosphatase (38-126) U/L Total Creatine Kinase (55-170) U/L Amylase (30-110) U/L Lipase (23-300) U/L Urine Protein (Negative) Urine Mucus (None) /hpf Thrombosis Risk Factor Assmnt - Choose All That Apply Any of the Below Risk Factors Present?: Yes Each Factor Represents 1 point: Age 41-60 years, Obesity (BMI >25) Thrombosis Risk Factor Assessment Total Risk Factor Score: 2 Thrombosis Risk Factor Assessment Level: Low Risk Assessment and Plan Plan: 1 abdominal pain: Related to pancreatitis: Will opt cannot is unavailable gallbladder to assess for any cholelithiasis. And the patient will be on pain medications patient nausea improved patient will be started on clear liquid diet advance as tolerated. Patient will be resumed on oral medications. #2 congestive heart failure chronic diastolic dysfunction with minimal exacerbation patient was resumed on oral Lasix IV fluids were dyspnea. #3 history of previous stroke with the residual weakness in the right side. 4 type 2 diabetes mellitus: Continue with his home regimen along with sliding scale insulin. Hyperlipidemia Hypertension gastric esophageal reflux disease For above-mentioned chronic medical problems patient will continued on home medications. Will advance her diet as tolerated and possibility of discharge tomorrow if he is able to tolerate oral light.
--- NOTE | 2017-05-07 15:36 | US ---
EXAMINATION TYPE: US gallbladder DATE OF EXAM: 05/07/2017 COMPARISON: CT from yesterday. CLINICAL HISTORY: r/o gall stones. EXAM MEASUREMENTS: Liver Length: 18.3 cm Gallbladder Wall: 0.1 cm CBD: 0.3 cm Right Kidney: 11.3 x 6.9 x 6.4 cm Pancreas: Obscured by bowel gas Liver: Obscured by overlying bowel gas, Increased attenuation Gallbladder: with sludge and tiny echogenic foci Evidence for sonographic Dunn's sign: No CBD: wnl Right Kidney: wnl Sup optimal and limited exam overall due to large body habitus, patient unable to obey commands, and large amounts of bowel gas. Exam noted suboptimal per technologist's as detailed above. Visualized liver is heterogeneously hyper echoic in appearance consistent with diffuse fatty infiltration. No gross hydronephrosis is seen in t he right kidney. Corresponding to CT there are nonshadowing mobile hyperechoic foci dependently in ga llbladder felt to reflect small stones or gallbladder sludge. There is no pericholecystic fluid colle ction or abnormal gallbladder wall thickening. IMPRESSION: Gallbladder sludge or small stones is confirmed. There is no secondary ultrasound evidenc e for acute cholecystitis. Diffuse fatty infiltration of liver is redemonstrated.
[2017-05-07] MEDS: ASPIRIN 81 MG CHEW PO SCH (15:40)
[2017-05-07] MEDS: POTASSIUM CHLORIDE ER 20 MEQ TAB.ER PO SCH (15:40)
[2017-05-07 16:48] LABS: Glucose,Whole Blood 249 mg/dL (75-99)
[2017-05-07] MEDS: RIVAROXABAN 10 MG TAB PO SCH (17:35)
[2017-05-07] MEDS ORDERED: FUROSEMIDE 10 MG/ML 4 ML VIAL IV STA (21:35)
[2017-05-07] MEDS ORDERED: RX INFO: IV CONTRAST WAS GIVEN 1 EACH MISC MISCELLANE PRN (21:36)
[2017-05-07] MEDS ORDERED: LORazepam 2 MG/ML SYRINGE ONE (21:41)
[2017-05-07 22:30] LABS: Glucose,Whole Blood 261 mg/dL (75-99)
[2017-05-07 22:54] LABS: CH 30.8; CHCM 32.7; HDW 2.62; HGB 13.2 gm/dL (13.0-17.5); MCH 30.5 pg (25.0-35.0); MCHC 32.2 g/dL (31.0-37.0); MCV 94.7 fL (80.0-100.0); Mean Platelet Volume 8.6; RBC 4.33 m/uL (4.30-5.90); RDW 15.7 % (11.5-15.5); WBC 14.8 k/uL (3.8-10.6)
[2017-05-07 23:04] LABS: Anion Gap 16 mmol/L; Blood Urea Nitrogen 14 mg/dL (9-20); Calcium 9.3 mg/dL (8.4-10.2); Carbon Dioxide 24 mmol/L (22-30); Chloride 98 mmol/L (98-107); Glucose 278 mg/dL (74-99); Non-African American GFR(MDRD) >60 (>60 ml/min/1.73 sqM); Potassium 4.4 mmol/L (3.5-5.1); Sodium 138 mmol/L (137-145)
--- NOTE | 2017-05-07 23:06 | CT ---
EXAM: CT Abdomen and Pelvis With Intravenous Contrast CLINICAL HISTORY: abdominal distention,pain,shortness of breath TECHNIQUE: Axial computed tomography images of the abdomen and pelvis with intravenous contrast. CTDI is 72.90 mGy and DLP is 3308.70 mGy-cm. This CT exam was performed using one or more of the following dose reduction techniques: automated exposure control, adjustment of the mA and/or kV according to patient size, and/or use of iterative reconstruction technique. COMPARISON: CT of the abdomen/pelvis dated 05/06/2017 FINDINGS: Lower thorax: Dependent atelectasis is seen involving both lower lobes, interval worsening since prior study. Cannot exclude the possibility of superimposed infection. Trace new left pleural effusion, new since prior study. ABDOMEN: Liver: Evidence of hepatic steatosis. Gallbladder and bile ducts: Vicarious excretion of contrast is seen within the gallbladder from prior study. No calcified stones. No ductal dilation. Pancreas: Moderate amount of mesenteric inflammatory changes are again seen surrounding the pancreas, slight interval worsening is suggested, consistent with acute pancreatitis. No ductal dilation. Spleen: Unremarkable. No splenomegaly. Adrenals: Unremarkable. No mass. Kidneys and ureters: Unremarkable. No solid mass. No hydronephrosis. Stomach and bowel: Unremarkable. No obstruction. No mucosal thickening. Appendix: No findings to suggest acute appendicitis. PELVIS: Bladder: Unremarkable. No mass. Reproductive: Unremarkable as visualized. ABDOMEN and PELVIS: Intraperitoneal space: Mild ascites is present, likely secondary to the pancreatic findings. No free air. Bones/joints: Patient is status post bilateral total hip replacements. Degenerative changes. No acute fracture. No dislocation. Soft tissues: Bilateral small fat-containing inguinal hernias, left greater than right. Vasculature: Mild atherosclerotic vascular calcifications are seen in the aorta and its proximal branches. No abdominal aortic aneurysm. Lymph nodes: Unremarkable. No enlarged lymph nodes. IMPRESSION: 1. Moderate amount of mesenteric inflammatory changes are again seen surrounding the pancreas, slight interval worsening is suggested, consistent with acute pancreatitis. Correlate with clinical and laboratory findings. 2. Dependent atelectasis involving both lower lobes, interval worsening since prior study. Trace new left pleural effusion. Cannot exclude the possibility of superimposed infection.
[2017-05-08] MEDS: LACTULOSE 20 GM/30 ML CUP PO SCH ×3 (00:34→20:06)
[2017-05-08] MEDS: ATORVASTATIN 40 MG TAB PO SCH ×2 (00:34→20:06)
[2017-05-08] MEDS: POLYETHYLENE GLYCOL 3350 17 GM POWD.PACK PO SCH ×2 (00:35→20:07)
[2017-05-08 00:53] LABS: Glucose,Whole Blood 271 mg/dL (75-99)
[2017-05-08] MEDS: INSULIN LISPRO (humaLOG) 300 UNIT/3 ML VIAL SQ SCH ×4 (00:57→20:05)
[2017-05-08] MEDS: PIPERACILLIN-TAZOBACTAM 3.375 GM in DEXTROSE/WATER 1 50ML.BAG IVPB SCH ×4 (01:07→23:26)
[2017-05-08] MEDS: ALBUTEROL NEBULIZED 2.5 MG/3 ML INHALATION PRN ×2 (01:15→08:19)
[2017-05-08] MEDS ORDERED: Magnesium Replacement Protocol 1 EACH MISC MISCELLANE PRN (02:28)
[2017-05-08] MEDS: MORPHINE SULFATE 4 MG/ML SYRINGE IV PRN (02:48)
[2017-05-08] MEDS: SODIUM CHLORIDE 0.9% 500 ML IV SCH ×3 (02:50→05:54)
[2017-05-08] MEDS: MAGNESIUM SULFATE-D5W PMX 1 GM in DEXTROSE/WATER 1 100ML.BAG IVPB SCH ×3 (02:54→05:53)
[2017-05-08 06:12] LABS: Glucose,Whole Blood 275 mg/dL (75-99)
[2017-05-08] MEDS: HYDROcodone/APAP 10-325MG 1 EACH TAB PO PRN ×4 (06:13→20:12)
[2017-05-08 06:49] LABS: CH 30.6; CHCM 31.7; HCT 40.8 % (39.0-53.0); HDW 2.52; HGB 12.3 gm/dL (13.0-17.5); Hypochromasia Slight; MCH 29.3 pg (25.0-35.0); MCHC 30.3 g/dL (31.0-37.0); MCV 96.8 fL (80.0-100.0); Mean Platelet Volume 8.2; RBC 4.21 m/uL (4.30-5.90); RDW 15.5 % (11.5-15.5); WBC 13.2 k/uL (3.8-10.6)
[2017-05-08 07:04] LABS: Anion Gap 12 mmol/L; Blood Urea Nitrogen 10 mg/dL (9-20); Calcium 8.5 mg/dL (8.4-10.2); Carbon Dioxide 22 mmol/L (22-30); Chloride 103 mmol/L (98-107); Glucose 288 mg/dL (74-99); Non-African American GFR(MDRD) >60 (>60 ml/min/1.73 sqM); Potassium 3.8 mmol/L (3.5-5.1); Sodium 137 mmol/L (137-145)
[2017-05-08] MEDS: metFORMIN 500 MG TAB PO SCH (07:04)
[2017-05-08] MEDS: buPROPion XL 150 MG TAB.ER.24H PO SCH (07:05)
[2017-05-08] MEDS: amLODIPine 5 MG TAB PO SCH (08:02)
[2017-05-08] MEDS: FAMOTIDINE 20 MG TAB PO SCH (08:02)
[2017-05-08] MEDS: DOCUSATE 100 MG CAP PO SCH ×2 (08:02→16:45)
[2017-05-08] MEDS: FUROSEMIDE 20 MG TAB PO SCH (08:02)
[2017-05-08] MEDS: METOPROLOL TARTRATE 50 MG TAB PO SCH ×2 (08:18→20:07)
[2017-05-08] MEDS ORDERED: LORazepam 2 MG/ML SYRINGE IV SCH (09:00)
[2017-05-08 10:02] LABS: Glucose,Whole Blood 311 mg/dL (75-99)
--- NOTE | 2017-05-08 10:17 | XR ---
EXAMINATION TYPE: XR chest 1V DATE OF EXAM: 05/08/2017 COMPARISON: 05/06/2017 HISTORY: 51 year-old male shortness of breath TECHNIQUE: Single frontal view of the chest is obtained. FINDINGS: Lung volumes are low. NG tube is present. Heart appears borderline to mildly enlarged. Diffuse inters titial and vascular prominence. Some patchy bibasilar opacities are present. Dextroconvex scoliosis. IMPRESSION: 1. Hypoventilatory changes. 2. Correlate for CHF and pulmonary vascular congestion/interstitial edema 3. Patchy bibasilar atelectasis/infiltrates.
--- NOTE | 2017-05-08 11:00 | P.GSCN ---
History of Present Illness Consult date: 05/08/17 Reason for Consult: Pancreatitis History of present illness: this is a 51-year-old male who was admitted to the medical service for treatment of pericarditis. The patient had complaints of increased abdominal pain and shortness of breath. I was called by the nurses morning and transfer him to the ICU. Patient is unable to give any significant medical history. He is noted to have large and gallstones on ultrasound Past Medical History Past Medical History: Coronary Artery Disease (CAD), CVA/TIA, Diabetes Mellitus , GERD/Reflux, Hyperlipidemia, Hypertension Additional Past Medical History / Comment(s): hx polyps, osteoporosis, past hx. sepsis related to a fall-affected hip, had stroke 2015 after carotid surg.-partial paralysis right side, blood in stool, expressive aphasia History of Any Multi-Drug Resistant Organisms: None Reported Past Surgical History: Joint Replacement Additional Past Surgical History / Comment(s): Right-sided carotid endarterectomy, multiple surgeries hips-Right 3 times and left 1. right hip had a [employer] resurfacing done-currently just a spacer in joint, colonoscopy 2, right hip I&D. Past Anesthesia/Blood Transfusion Reactions: Previous Problems w/ Anesthesia Additional Past Anesthesia/Blood Transfusion Reaction / Comm: woke during a procedure, some kind of swelling in throat during a surgery post intubation- thinks it might have been due to having been intubated for procedures close together Past Psychological History: Depression Smoking Status: Former smoker Past Alcohol Use History: Daily Additional Past Alcohol Use History / Comment(s): quit drinking and smoking 2015, Prior to that he was a 1- 1.5 pack a day smoker and drank approximately 3 drinks per day. Past Drug Use History: None Reported - Past Family History Sister(s) Family Medical History: Cancer, CVA/TIA Brother(s) Family Medical History: Cancer, CVA/TIA, Liver Disease Additional Family Medical History / Comment(s): lung cancer Father Family Medical History: Diabetes Mellitus, Myocardial Infarction ([place]) Mother Family Medical History: CVA/TIA Medications and Allergies Home Medications Medication Instructions Recorded Confirmed Type Metoprolol Tartrate [Lopressor] 25 mg PO BID@0900,1700 07/23/16 05/06/17 History Polyethylene Glycol 3350 [Miralax] 17 gm PO HS 07/23/16 05/06/17 History Rivaroxaban [Xarelto] 20 mg PO DAILY@1700 09/05/16 05/06/17 History Aspirin EC [Ecotrin Low Dose] 81 mg PO DAILY@1400 04/04/17 05/06/17 History Docusate [Colace] 100 mg PO BID@0900,1700 04/04/17 05/06/17 History Furosemide [Lasix] 20 mg PO DAILY@1400 04/04/17 05/06/17 History HYDROcodone/APAP 10-325MG [[place] 1 tab PO Q4HR PRN 04/04/17 05/06/17 History 10-325] LORazepam [Ativan] 1 mg PO BID PRN 04/04/17 05/06/17 History Lactulose 10 gm PO BID@0900,209904/04/17 05/06/17 History Potassium Chloride [Klor-Con 20] 20 meq PO DAILY@1400 04/04/17 05/06/17 History Atorvastatin [Lipitor] 40 mg PO HS@209904/13/17 05/06/17 History Famotidine [Pepcid] 20 mg PO DAILY@0900 04/13/17 05/06/17 History Furosemide [Lasix] 40 mg PO DAILY@0900 05/06/17 05/06/17 History buPROPion XL [Wellbutrin Xl] 150 mg PO DAILY@0700 05/06/17 05/06/17 History metFORMIN HCL [Glucophage] 500 mg PO BID@0700,2100 05/06/17 05/06/17 History Allergies Allergy/AdvReac Type Severity Reaction Status Date / Time metformin [From Sepumet] Allergy Unknown Verified 05/06/17 20:13 sitagliptin [From Janumet] Allergy Unknown Verified 05/06/17 20:13 hydromorphone [From Dilaudid] AdvReac Confusion Verified 05/06/17 20:13 Surgical - Exam Vital Signs Temp Pulse Resp BP Pulse Ox 97.8 F 70 16 160/102 98 05/06/17 20:02 05/06/17 20:02 05/06/17 20:02 05/06/17 20:02 05/06/17 20:02 - General well developed, no distress - Eyes PERRL - ENT normal pinna - Respiratory normal expansion - Abdomen There is mild epigastric tenderness. There is no rebound or guarding. Her some mild abdominal distention. Abdomen: soft Results - Labs 05/08/17 06:20 05/08/17 06:20 Abnormal Lab Results - Last 24 Hours (Table) 05/07/17 05/07/17 05/07/17 Range/Units 09:16 09:21 11:37 WBC (3.8-10.6) k/uL RBC (4.30-5.90) m/uL Hgb (13.0-17.5) gm/dL MCHC (31.0-37.0) g/dL RDW (11.5-15.5) % Glucose (74-99) mg/dL POC Glucose (mg/dL) 290 H (75-99) mg/dL Hemoglobin A1c 9.8 H (4.2-6.1) % Plasma Lactic Acid Tomi (0.7-2.0) mmol/L Magnesium 1.3 L (1.6-2.3) mg/dL 05/07/17 05/07/17 05/07/17 Range/Units 16:47 22:27 22:45 WBC 14.8 H (3.8-10.6) k/uL RBC (4.30-5.90) m/uL Hgb (13.0-17.5) gm/dL MCHC (31.0-37.0) g/dL RDW 15.7 H (11.5-15.5) % Glucose (74-99) mg/dL POC Glucose (mg/dL) 249 H 261 H (75-99) mg/dL Hemoglobin A1c (4.2-6.1) % Plasma Lactic Acid Tomi (0.7-2.0) mmol/L Magnesium (1.6-2.3) mg/dL 05/07/17 05/07/17 05/08/17 Range/Units 22:45 22:45 00:52 WBC (3.8-10.6) k/uL RBC (4.30-5.90) m/uL Hgb (13.0-17.5) gm/dL MCHC (31.0-37.0) g/dL RDW (11.5-15.5) % Glucose 278 H (74-99) mg/dL POC Glucose (mg/dL) 271 H (75-99) mg/dL Hemoglobin A1c (4.2-6.1) % Plasma Lactic Acid Tomi 3.3 H* (0.7-2.0) mmol/L Magnesium (1.6-2.3) mg/dL 05/08/17 05/08/17 05/08/17 Range/Units 02:47 06:10 06:20 WBC 13.2 H (3.8-10.6) k/uL RBC 4.21 L (4.30-5.90) m/uL Hgb 12.3 L (13.0-17.5) gm/dL MCHC 30.3 L (31.0-37.0) g/dL RDW (11.5-15.5) % Glucose (74-99) mg/dL POC Glucose (mg/dL) 275 H (75-99) mg/dL Hemoglobin A1c (4.2-6.1) % Plasma Lactic Acid Tomi 2.7 H* (0.7-2.0) mmol/L Magnesium (1.6-2.3) mg/dL 05/08/17 05/08/17 Range/Units 06:20 10:00 WBC (3.8-10.6) k/uL RBC (4.30-5.90) m/uL Hgb (13.0-17.5) gm/dL MCHC (31.0-37.0) g/dL RDW (11.5-15.5) % Glucose 288 H (74-99) mg/dL POC Glucose (mg/dL) 311 H (75-99) mg/dL Hemoglobin A1c (4.2-6.1) % Plasma Lactic Acid Tomi (0.7-2.0) mmol/L Magnesium (1.6-2.3) mg/dL Diabetes panel 05/07/17 05/07/17 05/08/17 Range/Units 09:21 22:45 06:20 Sodium 138 137 (137-145) mmol/L Potassium 4.4 3.8 (3.5-5.1) mmol/L Chloride 98 103 (98-107) mmol/L Carbon Dioxide 24 22 (22-30) mmol/L BUN 14 10 (9-20) mg/dL Creatinine 0.70 0.78 (0.66-1.25) mg/dL Glucose 278 H 288 H (74-99) mg/dL Hemoglobin A1c 9.8 H (4.2-6.1) % Calcium 9.3 8.5 (8.4-10.2) mg/dL Calcium panel 05/07/17 05/08/17 Range/Units 22:45 06:20 Calcium 9.3 8.5 (8.4-10.2) mg/dL Pituitary panel 05/07/17 05/08/17 Range/Units 22:45 06:20 Sodium 138 137 (137-145) mmol/L Potassium 4.4 3.8 (3.5-5.1) mmol/L Chloride 98 103 (98-107) mmol/L Carbon Dioxide 24 22 (22-30) mmol/L BUN 14 10 (9-20) mg/dL Creatinine 0.70 0.78 (0.66-1.25) mg/dL Glucose 278 H 288 H (74-99) mg/dL Calcium 9.3 8.5 (8.4-10.2) mg/dL Adrenal panel 05/07/17 05/08/17 Range/Units 22:45 06:20 Sodium 138 137 (137-145) mmol/L Potassium 4.4 3.8 (3.5-5.1) mmol/L Chloride 98 103 (98-107) mmol/L Carbon Dioxide 24 22 (22-30) mmol/L BUN 14 10 (9-20) mg/dL Creatinine 0.70 0.78 (0.66-1.25) mg/dL Glucose 278 H 288 H (74-99) mg/dL Calcium 9.3 8.5 (8.4-10.2) mg/dL - Imaging US - abdomen: pending (gall stones) Assessment and Plan Plan: Gallstone pancreas. Patient will undergo laparoscopic cholecystectomy when stable.
[2017-05-08] MEDS: LORazepam 2 MG/ML SYRINGE IV SCH ×2 (11:30→20:10)
[2017-05-08] MEDS: SODIUM CHLORIDE 0.9% 1,000 ML IV SCH ×2 (11:30→20:06)
[2017-05-08] MEDS: INSULIN GLARGINE 100 UNIT/ML 10 ML VIAL SQ SCH ×2 (11:35→20:10)
[2017-05-08 12:01] LABS: Amylase 156 U/L (30-110)
[2017-05-08 12:12] LABS: ABG HCO3 22 mmol/L (21-25); ABG PCO2 32 mmHg (35-45); ABG PH 7.46 (7.35-7.45); ABG PO2 88 mmHg (83-108); ABG TCO2 23 mmol/L (19-24)
[2017-05-08 13:42] LABS: Glucose,Whole Blood 280 mg/dL (75-99)
--- NOTE | 2017-05-08 13:57 | P.CNPUL ---
History of Present Illness Consult date: 05/08/17 Reason for consult: dyspnea Chief complaint: Shortness of breath, acute pancreatitis History of present illness: A 51-year-old male patient, a young male patient with multiple medical problems and comorbidities who is currently suffering from right-sided hemiplegia and expressive aphasia. 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 The patient also is known to have coronary artery disease, diabetes mellitus hypertension and hyperlipidemia. The patient is an ex-smoker. The patient started developing abdominal pain and distention and he was unable to tolerate his feeds. At one point he got nauseated and he threw up and there is a potential also respiration. Based on that he was brought into the hospital and immediately he was diagnosed having an acute pancreatitis. Amylase lipase were significantly elevated. This confirmed the diagnosis. Based on this, a CAT scan of the abdomen and pelvis was done that showed moderate amount of mesenteric inflammatory changes around the pancreas consistent with an acute pancreatitis. This is in accordance with his clinical history. There is also dependent atelectasis involving the lower lung lobes and a tiny left-sided pleural effusion. Ultrasound of the gallbladder was done and showed no dilatation of the common bile duct. There is evidence of bilious sludge and small stones are confirmed. There is no radiographic evidence of an acute pancreatitis. The patient was diagnosed having a gallstone pancreatitis. He is not an alcohol drinker. NG tube was inserted. Output is minimal at this point. Abdomen is slightly distended and it remains tender. This morning, the patient got further as transferred to the intensive care unit as the patient was having he shortness of breath. He was placed on 40s about 2 by nasal cannula. He is awake and alert. He is having some noisy breathing and I suspect an underlying obstructive sleep apnea based on clinical grounds. His chest x-ray shows pulmonary vessel congestion and some infiltration of the lung bases bilaterally. No. Fever. Slightly tachycardic. Blood pressure is well maintained. His blood gases was performed and it showed a pH of 7.46 with a pCO2 of 32 and pO2 of 88. Elevated lipase of declining. Amylase is down to 156. Lipase is down to 519. His serum ammonia level is less than 9. Blood sugars are elevated and the most recent blood sugar readings at 280. Denies having any chest pain at this point. He is on IV Zosyn covering for an aspiration pneumonia. Review of Systems Constitutional: Reports fatigue, Reports lethargy, Reports malaise, Reports weakness Eyes: denies blurred vision, denies bulging eye, denies decreased vision Ears: deny: decreased hearing, ear discharge, earache Ears, nose, mouth and throat: Reports as per HPI Cardiovascular: Reports shortness of breath Respiratory: Reports cough, Reports dyspnea Gastrointestinal: Reports abdominal pain, Reports nausea, Reports vomiting Genitourinary: Reports as per HPI Musculoskeletal: Denies myalgias Musculoskeletal: absent: ankle pain, ankle stiffness, ankle swelling Integumentary: Denies pruritus, Denies rash Neurological: Reports aphasia, Reports gait dysfunction, Reports paralysis, Reports spasticity, Reports weakness Psychiatric: Reports depression, Reports mood swings Endocrine: Denies fatigue, Denies weight change Past Medical History Past Medical History: Coronary Artery Disease (CAD), CVA/TIA, Diabetes Mellitus , GERD/Reflux, Hyperlipidemia, Hypertension Additional Past Medical History / Comment(s): Coronary artery disease, CVA with right-sided hemiplegia and expressive aphasia, diabetes mellitus, hypertension, hyperlipidemia, obesity , polyps, osteoporosis, past hx. sepsis related to a fall-affected hip, had stroke 2015 after carotid surg.-partial paralysis right side, peripheral vascular disease, cardiac artery disease, History of Any Multi-Drug Resistant Organisms: None Reported Past Surgical History: Joint Replacement Additional Past Surgical History / Comment(s): Right-sided carotid endarterectomy, multiple surgeries hips-Right 3 times and left 1. right hip had a [employer] resurfacing done-currently just a spacer in joint, colonoscopy 2, right hip I&D. Past Anesthesia/Blood Transfusion Reactions: Previous Problems w/ Anesthesia Additional Past Anesthesia/Blood Transfusion Reaction / Comment(s): woke during a procedure, some kind of swelling in throat during a surgery post intubation- thinks it might have been due to having been intubated for procedures close together Past Psychological History: Depression Smoking Status: Former smoker Past Alcohol Use History: Daily Additional Past Alcohol Use History / Comment(s): quit drinking and smoking 2015, Prior to that he was a 1- 1.5 pack a day smoker and drank approximately 3 drinks per day. Past Drug Use History: None Reported - Past Family History Sister(s) Family Medical History: Cancer, CVA/TIA Brother(s) Family Medical History: Cancer, CVA/TIA, Liver Disease Additional Family Medical History / Comment(s): lung cancer Father Family Medical History: Diabetes Mellitus, Myocardial Infarction ([place]) Mother Family Medical History: CVA/TIA Medications and Allergies Home Medications Medication Instructions Recorded Confirmed Type Metoprolol Tartrate [Lopressor] 25 mg PO BID@0900,1700 07/23/16 05/06/17 History Polyethylene Glycol 3350 [Miralax] 17 gm PO HS 07/23/16 05/06/17 History Rivaroxaban [Xarelto] 20 mg PO DAILY@1700 09/05/16 05/06/17 History Aspirin EC [Ecotrin Low Dose] 81 mg PO DAILY@1400 04/04/17 05/06/17 History Docusate [Colace] 100 mg PO BID@0900,1700 04/04/17 05/06/17 History Furosemide [Lasix] 20 mg PO DAILY@1400 04/04/17 05/06/17 History HYDROcodone/APAP 10-325MG [[place] 1 tab PO Q4HR PRN 04/04/17 05/06/17 History 10-325] LORazepam [Ativan] 1 mg PO BID PRN 04/04/17 05/06/17 History Lactulose 10 gm PO BID@0900,2100 04/04/17 05/06/17 History Potassium Chloride [Klor-Con 20] 20 meq PO DAILY@1400 04/04/17 05/06/17 History Atorvastatin [Lipitor] 40 mg PO HS@209904/13/17 05/06/17 History Famotidine [Pepcid] 20 mg PO DAILY@0900 04/13/17 05/06/17 History Furosemide [Lasix] 40 mg PO DAILY@0900 05/06/17 05/06/17 History buPROPion XL [Wellbutrin Xl] 150 mg PO DAILY@0700 05/06/17 05/06/17 History metFORMIN HCL [Glucophage] 500 mg PO BID@0700,2100 05/06/17 05/06/17 History Allergies Allergy/AdvReac Type Severity Reaction Status Date / Time metformin [From Janumet] Allergy Unknown Verified 05/06/17 20:13 sitagliptin [From Janumet] Allergy Unknown Verified 05/06/17 20:13 hydromorphone [From Dilaudid] AdvReac Confusion Verified 05/06/17 20:13 Physical Exam Vitals: Vital Signs Temp Pulse Pulse Resp BP BP Pulse Ox 05/08/17 13:00 107 H 23 143/76 96 05/08/17 12:00 98.9 F 106 H 22 145/78 96 05/08/17 11:00 107 H 26 H 150/88 96 05/08/17 10:30 108 H 22 136/86 96 05/08/17 10:15 113 H 26 H 136/86 96 05/08/17 08:33 150 H 05/08/17 08:24 146 H 92 L 05/08/17 08:00 20 05/08/17 07:58 97.0 F L 156 H 20 164/97 88 L 05/08/17 04:00 98.5 F 106 H 17 176/88 93 L 05/08/17 01:41 138 H 05/08/17 01:40 99.1 F 140 H 20 169/89 94 L 05/08/17 01:28 135 H 20 151/89 94 L 05/08/17 01:25 97.4 F L 130 H 28 H 151/89 97 05/08/17 01:16 130 H 05/07/17 22:30 99.1 F 109 H 18 166/85 05/07/17 20:02 99.3 F 95 16 165/83 95 05/07/17 20:00 20 05/07/17 17:50 95 05/07/17 15:54 97.6 F 89 16 165/93 95 Intake and Output 05/07/17 05/08/17 05/08/17 22:59 06:59 14:59 Intake Total 3300 750 Output Total 425 Balance 3300 325 Intake: IV 350 Piperacillin-Tazobactam 3 50 .375 gm In Dextrose/Water 1 50ml.bag @ 12.5 mls/hr IVPB Q8HR [facility] Rx#: [id number] Sodium Chloride 0.9% 1, 300 000 ml @ 100 mls/hr IV . Q10H [facility] Rx#:[id number] Intake, IV Titration 3300 Amount Magnesium Sulfate-D5w Pmx 300 1 gm In Dextrose/Water 1 100ml.bag @ 100 mls/hr IVPB Q1H [facility] Rx#: [id number] Sodium Chloride 0.9% 500 3000 ml @ 2000 mls/hr IV Q20M COUNTS INCLUDE 234 BEDS AT THE [facility] Rx#:[id number] Oral 400 Output: Urine 425 Other: Voiding Method Urinal Urinal Urinal Weight 113.398 kg Patient Weight 05/09/17 06:59 Weight 113.398 kg Obese, calm, and mild degree of respiratory distress.Head exam was generally normal. There was no scleral icterus or corneal arcus. Mucous membranes were moist. Neck is short and supple and there is significant crowding of the posterior oropharynx and there is a facial asymmetry related to previous CVA. Neck is supple and there is no JVDs no goiter or neck masses. Mallampati class IV. Lung sounds are diminished bilaterally along with that there is some soft crackles in lung bases bilaterally.Cardiac exam revealed the PMI to be normally situated and sized. The rhythm was regular and no extrasystoles were noted during several minutes of auscultation. The first and second heart sounds were normal and physiologic splitting of the second heart sound was noted. There were no murmurs, rubs, clicks, or gallops. Abdomen is distended and bowel sounds are hypoactive. NG tube is in place. Mild direct tenderness. No rebound tensile guarding. Extremities reveal trace edema no cyanosis or clubbing. Neurologically the patient has expressive aphasia, facial asymmetry and right-sided hemiplegia with contractures and spasticity. He is nonambulatory at this point. Results - Laboratory Findings CBC and BMP: 05/08/17 06:20 05/08/17 06:20 ABG ABG pH 7.46 (7.35-7.45) H 05/08/17 11:33 ABG pCO2 32 mmHg (35-45) L 05/08/17 11:33 ABG pO2 88 mmHg (83-108) 05/08/17 11:33 ABG O2 Saturation 97.0 % (94-97) 05/08/17 11:33 PT/INR, D-dimer PT 10.7 sec (9.0-12.0) 05/06/17 21:09 INR 1.1 (<1.2) 05/06/17 21:09 Abnormal lab findings: Abnormal Labs 05/06/17 05/06/17 05/06/17 20:45 21:09 21:09 WBC RBC Hgb MCHC RDW Neutrophils # APTT ABG pH ABG pCO2 Glucose 281 H POC Glucose (mg/dL) Hemoglobin A1c Plasma Lactic Acid Tomi Magnesium 1.2 L AST 182 H ALT 111 H Alkaline Phosphatase 132 H Total Creatine Kinase 27 L Amylase 2618 H* Lipase >43437 H Urine Protein 2+ H Urine Mucus Rare H 05/06/17 05/06/17 05/07/17 21:09 21:09 03:29 WBC 14.2 H RBC Hgb MCHC RDW Neutrophils # 11.5 H APTT 21.4 L ABG pH ABG pCO2 Glucose POC Glucose (mg/dL) Hemoglobin A1c Plasma Lactic Acid Tomi Magnesium AST ALT Alkaline Phosphatase Total Creatine Kinase 23 L Amylase Lipase Urine Protein Urine Mucus 05/07/17 05/07/17 05/07/17 07:26 09:16 09:16 WBC 10.9 H RBC 4.17 L Hgb 12.8 L MCHC RDW Neutrophils # 9.4 H APTT ABG pH ABG pCO2 Glucose 341 H POC Glucose (mg/dL) 324 H Hemoglobin A1c Plasma Lactic Acid Tomi Magnesium AST 60 H ALT 89 H Alkaline Phosphatase Total Creatine Kinase Amylase 341 H* Lipase 2456 H Urine Protein Urine Mucus 05/07/17 05/07/17 05/07/17 09:16 09:21 09:21 WBC RBC Hgb MCHC RDW Neutrophils # APTT ABG pH ABG pCO2 Glucose POC Glucose (mg/dL) Hemoglobin A1c 9.8 H Plasma Lactic Acid Tomi Magnesium 1.3 L AST ALT Alkaline Phosphatase Total Creatine Kinase 23 L Amylase Lipase Urine Protein Urine Mucus 05/07/17 05/07/17 05/07/17 11:37 16:47 22:27 WBC RBC Hgb MCHC RDW Neutrophils # APTT ABG pH ABG pCO2 Glucose POC Glucose (mg/dL) 290 H 249 H 261 H Hemoglobin A1c Plasma Lactic Acid Tomi Magnesium AST ALT Alkaline Phosphatase Total Creatine Kinase Amylase Lipase Urine Protein Urine Mucus 05/07/17 05/07/17 05/07/17 22:45 22:45 22:45 WBC 14.8 H RBC Hgb MCHC RDW 15.7 H Neutrophils # APTT ABG pH ABG pCO2 Glucose 278 H POC Glucose (mg/dL) Hemoglobin A1c Plasma Lactic Acid Tomi 3.3 H* Magnesium AST ALT Alkaline Phosphatase Total Creatine Kinase Amylase Lipase Urine Protein Urine Mucus 05/08/17 05/08/17 05/08/17 00:52 02:47 06:10 WBC RBC Hgb MCHC RDW Neutrophils # APTT ABG pH ABG pCO2 Glucose POC Glucose (mg/dL) 271 H 275 H Hemoglobin A1c Plasma Lactic Acid Tomi 2.7 H* Magnesium AST ALT Alkaline Phosphatase Total Creatine Kinase Amylase Lipase Urine Protein Urine Mucus 05/08/17 05/08/17 05/08/17 06:20 06:20 10:00 WBC 13.2 H RBC 4.21 L Hgb 12.3 L MCHC 30.3 L RDW Neutrophils # APTT ABG pH ABG pCO2 Glucose 288 H POC Glucose (mg/dL) 311 H Hemoglobin A1c Plasma Lactic Acid Tomi Magnesium AST ALT Alkaline Phosphatase Total Creatine Kinase Amylase Lipase Urine Protein Urine Mucus 05/08/17 05/08/17 05/08/17 11:15 11:33 13:42 WBC RBC Hgb MCHC RDW Neutrophils # APTT ABG pH 7.46 H ABG pCO2 32 L Glucose POC Glucose (mg/dL) 280 H Hemoglobin A1c Plasma Lactic Acid Tomi Magnesium AST ALT Alkaline Phosphatase Total Creatine Kinase Amylase 156 H Lipase 590 H Urine Protein Urine Mucus - Diagnostic Findings Chest x-ray: image reviewed Assessment and Plan Plan: Assessment 1 acute pancreatitis. This is likely a gallstone pancreatitis nontender the patient has shown evidence of biliary sludge and small gallbladder stones. The patient has no dilatation of the common bile duct. The liver function tests are within normal limits and the amylase and lipase are improving. Currently nothing by mouth. NG tube is in place. 2 acute hypoxic respiratory failure. The patient is having progressive increasing dyspnea. Rule out aspiration. Rule out a component of an acute lung injury in the setting of an acute pancreatitis. 3 CVA with right-sided hemiplegia and expressive aphasia. 4 carotid artery disease with a previous endarterectomy on the left 5 obesity with clinical features of obstructive sleep apnea 6 diabetes was poorly controlled blood sugar. 7 coronary artery disease 8 hypertension 9 hyperlipidemia 10 suspected episode of aspiration, rule out underlying aspiration pneumonia Plan Keep the patient by mouth. Keep NG tube in place. Continue fluid resuscitation. May need Lasix if the patient is found to be more short of breath or going into fluid overload. Continue IV Zosyn. Monitor amylase and lipase. Blood gases was noted and there is no signs of any respiratory acidosis or significant hypoxemia. Repeat chest x-ray with next 24 hours. General surgeries on the case. Start the patient on Lantus 15 units along with sliding scale insulin coverage every 4 hours. Rest of the oral medication be continued including the antihypertensive medication and anticoagulants. The family was explained on his condition. His condition is critical and the patient will be kept in ICU for now. General surgeries on the case. Gastroenterology was also consulted. Cholecystectomy once the patient is fully recovered based on cholelithiasis and history of pancreatitis. We'll check a lipid profile in a.m. in addition.
[2017-05-08] MEDS: POTASSIUM CHLORIDE ER 20 MEQ TAB.ER PO SCH (16:00)
[2017-05-08] MEDS: RIVAROXABAN 10 MG TAB PO SCH (16:44)
[2017-05-08] MEDS: ASPIRIN 81 MG CHEW PO SCH (16:44)
[2017-05-08 16:56] LABS: Glucose,Whole Blood 243 mg/dL (75-99)
--- NOTE | 2017-05-08 17:29 | P.PN ---
Subjective Patient was admitted with with pancreatitis. Pancreatic that is improved patient had abdominal distention. Because of which patient underwent repeat CAT scan patient had cholelithiasis as well possibly of cholecystitis patient had lactic acidosis with the tachypnea tachycardia subsequently transferred to ICU for possibility of severe sepsis secondary to cholecystitis. Patient was started on Zosyn. Patient had an NG tube now. Patient's Lasix was discontinued and patient was started on IV normal saline. Patient does have some pulmonary edema on the acute lung injury. We will get much of the history from the patient although he feels little bit better than earlier today. Objective - Vital Signs Vital signs: Vital Signs Temp 98.9 F 05/08/17 12:00 Pulse 107 H 05/08/17 13:00 Resp 23 05/08/17 13:00 BP 143/76 05/08/17 13:00 Pulse Ox 96 05/08/17 13:00 Intake & Output 05/07/17 05/08/17 05/08/17 18:59 06:59 18:59 Intake Total 3300 750 Output Total 425 Balance 3300 325 Weight 113.398 kg Intake: IV 350 Piperacillin-Tazobactam 3 50 .375 gm In Dextrose/Water 1 50ml.bag @ 12.5 mls/hr IVPB Q8HR [facility] Rx#: [id number] Sodium Chloride 0.9% 1, 300 000 ml @ 100 mls/hr IV . Q10H [facility] Rx#:[id number] Intake, IV Titration 3300 Amount Magnesium Sulfate-D5w Pmx 300 1 gm In Dextrose/Water 1 100ml.bag @ 100 mls/hr IVPB Q1H [facility] Rx#: [id number] Sodium Chloride 0.9% 500 3000 ml @ 2000 mls/hr IV Q20M [facility] Rx#:[id number] Oral 400 Output: Urine 425 Other: Voiding Method Urinal Urinal Urinal # Voids 3 - Exam GENERAL: The patient is alert and oriented x3, not in any acute distress. Well developed, well nourished. HEENT: Pupils are round and equally reacting to light. EOMI. No scleral icterus. No conjunctival pallor. Normocephalic, atraumatic. No pharyngeal erythema. No thyromegaly. CARDIOVASCULAR: S1 and S2 present. No murmurs, rubs, or gallops. PULMONARY: Chest is clear to auscultation, no wheezing or crackles. ABDOMEN: Distended, tympanic no rebound or rigidity minimal epigastric abdominal tenderness was appreciated. MUSCULOSKELETAL: No joint swelling or deformity. EXTREMITIES: No cyanosis, clubbing, or pedal edema. NEUROLOGICAL: Gross neurological examination did not reveal any focal deficits. SKIN: No rashes. - Labs CBC & Chem 7: 05/08/17 06:20 05/08/17 06:20 Labs: Abnormal Lab Results - Last 24 Hours (Table) 05/07/17 05/07/17 05/07/17 Range/Units 22:27 22:45 22:45 WBC 14.8 H (3.8-10.6) k/uL RBC (4.30-5.90) m/uL Hgb (13.0-17.5) gm/dL MCHC (31.0-37.0) g/dL RDW 15.7 H (11.5-15.5) % ABG pH (7.35-7.45) ABG pCO2 (35-45) mmHg Glucose 278 H (74-99) mg/dL POC Glucose (mg/dL) 261 H (75-99) mg/dL Plasma Lactic Acid Tomi (0.7-2.0) mmol/L Amylase (30-110) U/L Lipase (23-300) U/L 05/07/17 05/08/17 05/08/17 Range/Units 22:45 00:52 02:47 WBC (3.8-10.6) k/uL RBC (4.30-5.90) m/uL Hgb (13.0-17.5) gm/dL MCHC (31.0-37.0) g/dL RDW (11.5-15.5) % ABG pH (7.35-7.45) ABG pCO2 (35-45) mmHg Glucose (74-99) mg/dL POC Glucose (mg/dL) 271 H (75-99) mg/dL Plasma Lactic Acid Tomi 3.3 H* 2.7 H* (0.7-2.0) mmol/L Amylase (30-110) U/L Lipase (23-300) U/L 05/08/17 05/08/17 05/08/17 Range/Units 06:10 06:20 06:20 WBC 13.2 H (3.8-10.6) k/uL RBC 4.21 L (4.30-5.90) m/uL Hgb 12.3 L (13.0-17.5) gm/dL MCHC 30.3 L (31.0-37.0) g/dL RDW (11.5-15.5) % ABG pH (7.35-7.45) ABG pCO2 (35-45) mmHg Glucose 288 H (74-99) mg/dL POC Glucose (mg/dL) 275 H (75-99) mg/dL Plasma Lactic Acid Tomi (0.7-2.0) mmol/L Amylase (30-110) U/L Lipase (23-300) U/L 05/08/17 05/08/17 05/08/17 Range/Units 10:00 11:15 11:33 WBC (3.8-10.6) k/uL RBC (4.30-5.90) m/uL Hgb (13.0-17.5) gm/dL MCHC (31.0-37.0) g/dL RDW (11.5-15.5) % ABG pH 7.46 H (7.35-7.45) ABG pCO2 32 L (35-45) mmHg Glucose (74-99) mg/dL POC Glucose (mg/dL) 311 H (75-99) mg/dL Plasma Lactic Acid Tomi (0.7-2.0) mmol/L Amylase 156 H (30-110) U/L Lipase 590 H (23-300) U/L 05/08/17 05/08/17 Range/Units 13:42 16:55 WBC (3.8-10.6) k/uL RBC (4.30-5.90) m/uL Hgb (13.0-17.5) gm/dL MCHC (31.0-37.0) g/dL RDW (11.5-15.5) % ABG pH (7.35-7.45) ABG pCO2 (35-45) mmHg Glucose (74-99) mg/dL POC Glucose (mg/dL) 280 H 243 H (75-99) mg/dL Plasma Lactic Acid Tomi (0.7-2.0) mmol/L Amylase (30-110) U/L Lipase (23-300) U/L Assessment and Plan Plan: 1 abdominal pain: Secondary to gallstone pancreatitis, I cannot rule out cholecystitis and sepsis related to cholecystitis. #2 congestive heart failure chronic diastolic dysfunction patient does have pulmonary edema not sure whether it secondary to acute lung injury R Romero pulmonary edema. Anyways because of lactic acidosis we cannot continue Lasix patient will require IV fluids which will be continued and patient will need is close clinical monitoring and his overall clinical condition is extremely guarded #3 history of previous stroke with the residual weakness in the right side. 4 type 2 diabetes mellitus: Continue with his home regimen along with sliding scale insulin and Lantus. Hyperlipidemia Hypertension gastric esophageal reflux disease possible obstructive sleep apnea For above-mentioned chronic medical problems patient will continued on home medications. Critical care time spent is about 35 minutes
[2017-05-08 20:05] LABS: Glucose,Whole Blood 218 mg/dL (75-99)
[2017-05-08] MEDS ORDERED: ACETAMINOPHEN IV (For NPO) 1,000 MG in EMPTY BAG 1 BAG IVPB ONE (21:59)
[2017-05-09] MEDS: HYDROcodone/APAP 10-325MG 1 EACH TAB PO PRN ×4 (00:15→22:14)
[2017-05-09] MEDS: INSULIN LISPRO (humaLOG) 300 UNIT/3 ML VIAL SQ SCH ×7 (00:19→23:55)
[2017-05-09 00:21] LABS: Glucose,Whole Blood 164 mg/dL (75-99)
[2017-05-09 04:47] LABS: Glucose,Whole Blood 162 mg/dL (75-99)
[2017-05-09] MEDS: SODIUM CHLORIDE 0.9% 1,000 ML IV SCH ×2 (04:53→17:57)
[2017-05-09] MEDS ORDERED: ACETAMINOPHEN TAB 325 MG TAB PO STA (05:00)
[2017-05-09 05:19] LABS: Basophils % (A) 0 %; CH 30.5; CHCM 31.3; Eosinophils # (A) 0.2 k/uL (0-0.7); Eosinophils % (A) 2 %; HCT 34.8 % (39.0-53.0); HDW 2.54; HGB 10.8 gm/dL (13.0-17.5); Hypochromasia Slight; Luc # (Auto) 0.15; Luc % (Auto) 1; Lymphocytes # (A) 1.4 k/uL (1.0-4.8); Lymphocytes % (A) 13 %; MCH 30.2 pg (25.0-35.0); MCHC 30.9 g/dL (31.0-37.0); MCV 97.8 fL (80.0-100.0); Mean Platelet Volume 8.4; Monocytes # (A) 0.6 k/uL (0-1.0); Monocytes % (A) 6 %; Neutrophils # (A) 8.6 k/uL (1.3-7.7); Neutrophils % (A) 79 %; RBC 3.56 m/uL (4.30-5.90); RDW 15.6 % (11.5-15.5); WBC (Perox) 11.89
[2017-05-09 05:32] LABS: Amylase 46 U/L (30-110); Anion Gap 11 mmol/L; Blood Urea Nitrogen 12 mg/dL (9-20); Calcium 8.2 mg/dL (8.4-10.2); Carbon Dioxide 24 mmol/L (22-30); Chloride 106 mmol/L (98-107); Glucose 173 mg/dL (74-99); Magnesium 1.8 mg/dL (1.6-2.3); Non-African American GFR(MDRD) >60 (>60 ml/min/1.73 sqM); Phosphorous 2.8 mg/dL (2.5-4.5); Potassium 3.4 mmol/L (3.5-5.1); Sodium 141 mmol/L (137-145)
[2017-05-09] MEDS ORDERED: Potassium Replacement Protocol 1 EACH MISC MISCELLANE PRN (06:11)
[2017-05-09] MEDS ORDERED: Magnesium Replacement Protocol 1 EACH MISC MISCELLANE PRN (06:12)
[2017-05-09] MEDS: MAGNESIUM SULFATE-D5W PMX 1 GM in DEXTROSE/WATER 1 100ML.BAG IVPB SCH ×2 (07:12→08:13)
[2017-05-09] MEDS: POTASSIUM CHLORIDE ORAL LIQUID 40 MEQ/30 ML CUP NG-TUBE SCH ×2 (07:12→08:14)
--- NOTE | 2017-05-09 08:00 | XR ---
EXAMINATION TYPE: XR chest 1V DATE OF EXAM: 05/09/2017 COMPARISON: 05/08/2017 HISTORY: 51-year-old male pneumonia TECHNIQUE: Single frontal view of the chest is obtained. FINDINGS: NG tube is present. Heart upper limits of normal in size. Mild diffuse interstitial prominence shows improvement from prior exam. Patchy bibasilar capacities persist. No significant pleural effusion. IMPRESSION: 1. Improving interstitial densities. 2. Residual patchy bibasilar atelectasis and/or infiltrates.
[2017-05-09 08:10] LABS: Glucose,Whole Blood 207 mg/dL (75-99)
[2017-05-09] MEDS: buPROPion XL 150 MG TAB.ER.24H PO SCH (08:14)
[2017-05-09] MEDS: PANTOPRAZOLE 40 MG/10 ML VIAL IV SCH (08:15)
[2017-05-09] MEDS: amLODIPine 5 MG TAB PO SCH (08:15)
[2017-05-09] MEDS: LACTULOSE 20 GM/30 ML CUP PO SCH ×2 (08:16→20:23)
[2017-05-09] MEDS: METOPROLOL TARTRATE 50 MG TAB PO SCH ×2 (08:16→20:23)
[2017-05-09] MEDS: DOCUSATE 100 MG CAP PO SCH (08:16)
[2017-05-09] MEDS: LORazepam 2 MG/ML SYRINGE IV SCH ×2 (08:25→23:11)
[2017-05-09 09:30] LABS: Appearance,Urine Turbid (Clear); Bacteria,Urine Rare /hpf; Bilirubin,Urine Negative (Negative); Glucose,Urine (UA) 4+ (Negative); Ketones,Urine Negative (Negative); Leukocyte Esterase,Urine Small (Negative); Nitrite,Urine Negative (Negative); PH, Urine 7.5 (5.0-8.0); Particle Count 60301; Protein,Urine 1+ (Negative); RBC,Urine 146 /hpf (0-5); Specific Gravity,Urine 1.014 (1.001-1.035); Squamous Epithelial Cell,Urine 1 /hpf (0-4); UA Billing (MACRO vs. MICRO) MICRO; Urobilinogen,Urine <2.0 mg/dL (<2.0); WBC,Urine 6 /hpf (0-5)
[2017-05-09] MEDS: PIPERACILLIN-TAZOBACTAM 3.375 GM in DEXTROSE/WATER 1 50ML.BAG IVPB SCH ×3 (09:33→23:55)
--- NOTE | 2017-05-09 10:07 | P.PN ---
Subjective A 51-year-old male patient, a young male patient with multiple medical problems and comorbidities who is currently suffering from right-sided hemiplegia and expressive aphasia. 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 The patient also is known to have coronary artery disease, diabetes mellitus hypertension and hyperlipidemia. The patient is an ex-smoker. The patient started developing abdominal pain and distention and he was unable to tolerate his feeds. At one point he got nauseated and he threw up and there is a potential also respiration. Based on that he was brought into the hospital and immediately he was diagnosed having an acute pancreatitis. Amylase lipase were significantly elevated. This confirmed the diagnosis. Based on this, a CAT scan of the abdomen and pelvis was done that showed moderate amount of mesenteric inflammatory changes around the pancreas consistent with an acute pancreatitis. This is in accordance with his clinical history. There is also dependent atelectasis involving the lower lung lobes and a tiny left-sided pleural effusion. Ultrasound of the gallbladder was done and showed no dilatation of the common bile duct. There is evidence of bilious sludge and small stones are confirmed. There is no radiographic evidence of an acute pancreatitis. The patient was diagnosed having a gallstone pancreatitis. He is not an alcohol drinker. NG tube was inserted. Output is minimal at this point. Abdomen is slightly distended and it remains tender. This morning, the patient got further as transferred to the intensive care unit as the patient was having he shortness of breath. He was placed on 40s about 2 by nasal cannula. He is awake and alert. He is having some noisy breathing and I suspect an underlying obstructive sleep apnea based on clinical grounds. His chest x-ray shows pulmonary vessel congestion and some infiltration of the lung bases bilaterally. No. Fever. Slightly tachycardic. Blood pressure is well maintained. His blood gases was performed and it showed a pH of 7.46 with a pCO2 of 32 and pO2 of 88. Elevated lipase of declining. Amylase is down to 156. Lipase is down to 519. His serum ammonia level is less than 9. Blood sugars are elevated and the most recent blood sugar readings at 280. Denies having any chest pain at this point. He is on IV Zosyn covering for an aspiration pneumonia. On 05/09/2017 the patient is being seen in follow-up. Breathing improved considerably compared to yesterday. He is currently on room air. NG tube still in place. This be kept in place for another 24 hours as the patient's abdomen is still distended and the bowel sounds are hypoactive and he is not passing any gas yet. Meanwhile, he is hemodynamically stable. Amylase lipase have been dropping. Abdomen is less tender compared to yesterday. He is awake and alert. He is producing adequate amount of urine output. Lipase is down to 163, amylase is down to 46, he is on IV Zosyn, hemoglobin is at 10.8, he is on IV fluids and is receiving normal saline at the rate of 100 mL an hour. Rest x- ray from today shows atelectatic changes in lung bases bilaterally. Blood sugars are better control. He was started on Lantus insulin 15 units daily basis along with a sliding scale coverage. Objective - Vital Signs Vital signs: Vital Signs Temp 97.8 F 05/09/17 08:00 Pulse 81 05/09/17 09:00 Resp 18 05/09/17 09:00 BP 164/68 05/09/17 09:00 Pulse Ox 93 L 05/09/17 09:00 Intake & Output 05/08/17 05/09/17 05/09/17 18:59 06:59 18:59 Intake Total 1300 1250.0 400 Output Total 905 795 400 Balance 395 455.0 0 Weight 113.398 kg 114 kg Intake: IV 900 1250.0 400 Magnesium Sulfate-D5w Pmx 100 1 gm In Dextrose/Water 1 100ml.bag @ 100 mls/hr IVPB Q1H [facility] Rx#: [id number] Piperacillin-Tazobactam 3 100 50.0 .375 gm In Dextrose/Water 1 50ml.bag @ 12.5 mls/hr IVPB Q8HR [facility] Rx#: [id number] Sodium Chloride 0.9% 1, 800 1200 300 000 ml @ 100 mls/hr IV . Q10H [facility] Rx#:[id number] Oral 400 Output: Gastric Drainage 200 200 Urine 905 595 200 Other: Voiding Method Indwelling Catheter Indwelling Catheter Indwelling Catheter - Exam Obese, calm, and mild degree of respiratory distress.Head exam was generally normal. There was no scleral icterus or corneal arcus. Mucous membranes were moist. Neck is short and supple and there is significant crowding of the posterior oropharynx and there is a facial asymmetry related to previous CVA. Neck is supple and there is no JVDs no goiter or neck masses. Mallampati class IV. Lung sounds are diminished bilaterally along with that there is some soft crackles in lung bases bilaterally.Cardiac exam revealed the PMI to be normally situated and sized. The rhythm was regular and no extrasystoles were noted during several minutes of auscultation. The first and second heart sounds were normal and physiologic splitting of the second heart sound was noted. There were no murmurs, rubs, clicks, or gallops. Abdomen is distended and bowel sounds are hypoactive. NG tube is in place. Mild direct tenderness. No rebound tensile guarding. Extremities reveal trace edema no cyanosis or clubbing. Neurologically the patient has expressive aphasia, facial asymmetry and right-sided hemiplegia with contractures and spasticity. He is nonambulatory at this point. - Labs CBC & Chem 7: 05/09/17 04:37 05/09/17 04:37 Labs: Abnormal Lab Results - Last 24 Hours (Table) 05/08/17 05/08/17 05/08/17 Range/Units 09:11 10:00 11:15 WBC (3.8-10.6) k/uL RBC (4.30-5.90) m/uL Hgb (13.0-17.5) gm/dL Hct (39.0-53.0) % MCHC (31.0-37.0) g/dL RDW (11.5-15.5) % Neutrophils # (1.3-7.7) k/uL ABG pH (7.35-7.45) ABG pCO2 (35-45) mmHg Potassium (3.5-5.1) mmol/L Glucose (74-99) mg/dL POC Glucose (mg/dL) 311 H (75-99) mg/dL Calcium (8.4-10.2) mg/dL Amylase 156 H (30-110) U/L Lipase 590 H (23-300) U/L Urine Protein 1+ H (Negative) Urine Glucose (UA) 4+ H (Negative) Urine Blood Moderate H (Negative) Ur Leukocyte Esterase Small H (Negative) Urine RBC 146 H (0-5) /hpf Urine WBC 6 H (0-5) /hpf Urine Bacteria Rare H (None) /hpf 05/08/17 05/08/17 05/08/17 Range/Units 11:33 13:42 16:55 WBC (3.8-10.6) k/uL RBC (4.30-5.90) m/uL Hgb (13.0-17.5) gm/dL Hct (39.0-53.0) % MCHC (31.0-37.0) g/dL RDW (11.5-15.5) % Neutrophils # (1.3-7.7) k/uL ABG pH 7.46 H (7.35-7.45) ABG pCO2 32 L (35-45) mmHg Potassium (3.5-5.1) mmol/L Glucose (74-99) mg/dL POC Glucose (mg/dL) 280 H 243 H (75-99) mg/dL Calcium (8.4-10.2) mg/dL Amylase (30-110) U/L Lipase (23-300) U/L Urine Protein (Negative) Urine Glucose (UA) (Negative) Urine Blood (Negative) Ur Leukocyte Esterase (Negative) Urine RBC (0-5) /hpf Urine WBC (0-5) /hpf Urine Bacteria (None) /hpf 05/08/17 05/09/17 05/09/17 Range/Units 20:04 00:19 04:37 WBC (3.8-10.6) k/uL RBC (4.30-5.90) m/uL Hgb (13.0-17.5) gm/dL Hct (39.0-53.0) % MCHC (31.0-37.0) g/dL RDW (11.5-15.5) % Neutrophils # (1.3-7.7) k/uL ABG pH (7.35-7.45) ABG pCO2 (35-45) mmHg Potassium 3.4 L (3.5-5.1) mmol/L Glucose 173 H (74-99) mg/dL POC Glucose (mg/dL) 218 H 164 H (75-99) mg/dL Calcium 8.2 L (8.4-10.2) mg/dL Amylase (30-110) U/L Lipase (23-300) U/L Urine Protein (Negative) Urine Glucose (UA) (Negative) Urine Blood (Negative) Ur Leukocyte Esterase (Negative) Urine RBC (0-5) /hpf Urine WBC (0-5) /hpf Urine Bacteria (None) /hpf 05/09/17 05/09/17 05/09/17 Range/Units 04:37 04:45 08:09 WBC 11.0 H (3.8-10.6) k/uL RBC 3.56 L (4.30-5.90) m/uL Hgb 10.8 L (13.0-17.5) gm/dL Hct 34.8 L (39.0-53.0) % MCHC 30.9 L (31.0-37.0) g/dL RDW 15.6 H (11.5-15.5) % Neutrophils # 8.6 H (1.3-7.7) k/uL ABG pH (7.35-7.45) ABG pCO2 (35-45) mmHg Potassium (3.5-5.1) mmol/L Glucose (74-99) mg/dL POC Glucose (mg/dL) 162 H 207 H (75-99) mg/dL Calcium (8.4-10.2) mg/dL Amylase (30-110) U/L Lipase (23-300) U/L Urine Protein (Negative) Urine Glucose (UA) (Negative) Urine Blood (Negative) Ur Leukocyte Esterase (Negative) Urine RBC (0-5) /hpf Urine WBC (0-5) /hpf Urine Bacteria (None) /hpf Assessment and Plan Plan: Assessment 1 acute pancreatitis. This is likely a gallstone pancreatitis nontender the patient has shown evidence of biliary sludge and small gallbladder stones. The patient has no dilatation of the common bile duct. The liver function tests are within normal limits and the amylase and lipase are improving. Currently nothing by mouth. NG tube is in place. On 05/09/2017 the NG tube will be kept in place. The patient is clinically improving. Amylase lipase have dropped. Awaiting lipid panel. He is stable. We'll keep NG tube in place for another 24 hours. 2 acute hypoxic respiratory failure. The patient is having progressive increasing dyspnea. Rule out aspiration. Rule out a component of an acute lung injury in the setting of an acute pancreatitis. On 05/09/2017, respiratory status improved. Chest x-ray shows some minimal atelectatic changes. No evidence of any aspiration pneumonia. The patient is on room air oxygen. 3 CVA with right-sided hemiplegia and expressive aphasia. 4 carotid artery disease with a previous endarterectomy on the left 5 obesity with clinical features of obstructive sleep apnea 6 diabetes was poorly controlled blood sugar. The patient is using Lantus insulin 15 units along with a slight scale coverage. 7 coronary artery disease 8 hypertension 9 hyperlipidemia 10 suspected episode of aspiration, rule out underlying aspiration pneumonia, currently inactive in stable Plan Keep the patient by mouth. Keep NG tube in place. Continue fluid resuscitation. Continue IV Zosyn. Monitor amylase and lipase. Blood gases was noted and there is no signs of any respiratory acidosis or significant hypoxemia. Repeat chest x-ray with next 24 hours. General surgeries on the case. S General surgeries on the case. Gastroenterology was also consulted. Cholecystectomy once the patient is fully recovered based on cholelithiasis and history of pancreatitis. We'll check a lipid profile in a.m. in addition. Overall rest or status is more stable. We'll keep the patient ICU for another 24 hours. Monitor the bowel activity. Provide an incentive spirometer. We'll continue to follow.
[2017-05-09 10:46] LABS: Cholesterol 143 mg/dL (<200); HDL Cholesterol 40 mg/dL (40-60)
--- NOTE | 2017-05-09 12:06 | P.PN ---
Progress Note - Text The patient feels better today. He still has significant abdominal distention. His NG tube output has had some bilious drainage On exam is lesser stable his abdomen is soft with less distention. There is mild tenderness throughout the epigastric area. Amylase and lipase have both decreased significantly. Gallstone. His. Patient will reevaluate by Dr. Guillen tomorrow
[2017-05-09 12:29] LABS: Glucose,Whole Blood 186 mg/dL (75-99)
[2017-05-09] MEDS: POTASSIUM CHLORIDE ER 20 MEQ TAB.ER PO SCH (13:42)
[2017-05-09] MEDS: ASPIRIN 81 MG CHEW PO SCH (13:42)
--- NOTE | 2017-05-09 14:52 | P.PN ---
Subjective Patient was admitted with with pancreatitis. Pancreatic that is improved patient had abdominal distention. Because of which patient underwent repeat CAT scan patient had cholelithiasis as well possibly of cholecystitis patient had lactic acidosis with the tachypnea tachycardia subsequently transferred to ICU for possibility of severe sepsis secondary to cholecystitis. Patient was started on Zosyn. Patient had an NG tube now. Patient's Lasix was discontinued and patient was started on IV normal saline. Patient does have some pulmonary edema on the acute lung injury. 05/09/2017 Patient's lactic acidosis improved tachycardia improved patient overall looks much better today. Patient has an NG tube not draining much today. Patient had low-grade fever is on Zosyn for possibility of infection possibly being intra-abdominal source. Patient also has acute lung injury. Patient is off Lasix is continued to be on IV normal saline at 100 mL per hour. Patient denied any abdominal pain today Denied any abdominal pain, nausea, lightheadedness although patient has an NG tube in place, dysuria, cough Objective - Vital Signs Vital signs: Vital Signs Temp 98.8 F 05/09/17 12:00 Pulse 93 05/09/17 14:00 Resp 27 H 05/09/17 14:00 BP 150/75 05/09/17 14:00 Pulse Ox 90 L 05/09/17 14:00 Intake & Output 05/08/17 05/09/17 05/09/17 18:59 06:59 18:59 Intake Total 1300 1250.0 950 Output Total 905 795 935 Balance 395 455.0 15 Weight 113.398 kg 114 kg Intake: IV 900 1250.0 950 Magnesium Sulfate-D5w Pmx 100 1 gm In Dextrose/Water 1 100ml.bag @ 100 mls/hr IVPB Q1H [facility] Rx#: [id number] Piperacillin-Tazobactam 3 100 50.0 50 .375 gm In Dextrose/Water 1 50ml.bag @ 12.5 mls/hr IVPB Q8HR [facility] Rx#: [id number] Sodium Chloride 0.9% 1, 800 1200 800 000 ml @ 100 mls/hr IV . Q10H [facility] Rx#:[id number] Oral 400 Output: Gastric Drainage 200 200 Urine 905 595 735 Other: Voiding Method Indwelling Catheter Indwelling Catheter Indwelling Catheter - Exam GENERAL: The patient is alert and oriented x3, not in any acute distress. Well developed, well nourished. HEENT: Pupils are round and equally reacting to light. EOMI. No scleral icterus. No conjunctival pallor. Normocephalic, atraumatic. No pharyngeal erythema. No thyromegaly. CARDIOVASCULAR: S1 and S2 present. No murmurs, rubs, or gallops. PULMONARY: Chest is clear to auscultation, no wheezing or crackles. ABDOMEN: Distended,no rebound or rigidity minimal epigastric abdominal tenderness was appreciated. NG tube in place MUSCULOSKELETAL: No joint swelling or deformity. EXTREMITIES: No cyanosis, clubbing, or pedal edema. NEUROLOGICAL: Gross neurological examination did not reveal any focal deficits. SKIN: No rashes. - Labs CBC & Chem 7: 05/09/17 04:37 05/09/17 04:37 Labs: Abnormal Lab Results - Last 24 Hours (Table) 05/08/17 05/08/17 05/08/17 Range/Units 09:11 16:55 20:04 WBC (3.8-10.6) k/uL RBC (4.30-5.90) m/uL Hgb (13.0-17.5) gm/dL Hct (39.0-53.0) % MCHC (31.0-37.0) g/dL RDW (11.5-15.5) % Neutrophils # (1.3-7.7) k/uL Potassium (3.5-5.1) mmol/L Glucose (74-99) mg/dL POC Glucose (mg/dL) 243 H 218 H (75-99) mg/dL Calcium (8.4-10.2) mg/dL Urine Protein 1+ H (Negative) Urine Glucose (UA) 4+ H (Negative) Urine Blood Moderate H (Negative) Ur Leukocyte Esterase Small H (Negative) Urine RBC 146 H (0-5) /hpf Urine WBC 6 H (0-5) /hpf Urine Bacteria Rare H (None) /hpf 05/09/17 05/09/17 05/09/17 Range/Units 00:19 04:37 04:37 WBC 11.0 H (3.8-10.6) k/uL RBC 3.56 L (4.30-5.90) m/uL Hgb 10.8 L (13.0-17.5) gm/dL Hct 34.8 L (39.0-53.0) % MCHC 30.9 L (31.0-37.0) g/dL RDW 15.6 H (11.5-15.5) % Neutrophils # 8.6 H (1.3-7.7) k/uL Potassium 3.4 L (3.5-5.1) mmol/L Glucose 173 H (74-99) mg/dL POC Glucose (mg/dL) 164 H (75-99) mg/dL Calcium 8.2 L (8.4-10.2) mg/dL Urine Protein (Negative) Urine Glucose (UA) (Negative) Urine Blood (Negative) Ur Leukocyte Esterase (Negative) Urine RBC (0-5) /hpf Urine WBC (0-5) /hpf Urine Bacteria (None) /hpf 05/09/17 05/09/17 05/09/17 Range/Units 04:45 08:09 12:27 WBC (3.8-10.6) k/uL RBC (4.30-5.90) m/uL Hgb (13.0-17.5) gm/dL Hct (39.0-53.0) % MCHC (31.0-37.0) g/dL RDW (11.5-15.5) % Neutrophils # (1.3-7.7) k/uL Potassium (3.5-5.1) mmol/L Glucose (74-99) mg/dL POC Glucose (mg/dL) 162 H 207 H 186 H (75-99) mg/dL Calcium (8.4-10.2) mg/dL Urine Protein (Negative) Urine Glucose (UA) (Negative) Urine Blood (Negative) Ur Leukocyte Esterase (Negative) Urine RBC (0-5) /hpf Urine WBC (0-5) /hpf Urine Bacteria (None) /hpf Assessment and Plan Plan: 1 abdominal pain: Secondary to gallstone pancreatitis, I cannot rule out cholecystitis and sepsis related to cholecystitis. The stylet is is probably the source of sepsis as well. No other source of infection was appreciated blood cultures are pending #2 congestive heart failure chronic diastolic dysfunction patient does have pulmonary edema not sure whether it secondary to acute lung injury R cardiogenic pulmonary edema. She has lactic acid improved and respiratory status actually improved with IV fluids because of which IV fluids will be continued at this time close clinical monitoring #3 history of previous stroke with the residual weakness in the right side. 4 type 2 diabetes mellitus: Continue with his home regimen along with sliding scale insulin and Lantus. Hyperlipidemia Hypertension gastric esophageal reflux disease possible obstructive sleep apnea For above-mentioned chronic medical problems patient will continued on home medications.
[2017-05-09 16:11] LABS: Glucose,Whole Blood 176 mg/dL (75-99)
[2017-05-09] MEDS: RIVAROXABAN 10 MG TAB PO SCH (18:59)
[2017-05-09 20:02] LABS: Glucose,Whole Blood 144 mg/dL (75-99)
[2017-05-09] MEDS: POLYETHYLENE GLYCOL 3350 17 GM POWD.PACK PO SCH (20:22)
[2017-05-09] MEDS: ATORVASTATIN 40 MG TAB PO SCH (20:23)
[2017-05-09] MEDS: INSULIN GLARGINE 100 UNIT/ML 10 ML VIAL SQ SCH (20:26)
[2017-05-10 00:05] LABS: Glucose,Whole Blood 163 mg/dL (75-99)
[2017-05-10 04:24] LABS: Glucose,Whole Blood 154 mg/dL (75-99)
[2017-05-10] MEDS: INSULIN LISPRO (humaLOG) 300 UNIT/3 ML VIAL SQ SCH ×5 (04:26→21:25)
[2017-05-10] MEDS: SODIUM CHLORIDE 0.9% 1,000 ML IV SCH ×3 (04:28→23:21)
[2017-05-10 04:52] LABS: Basophils % (A) 0 %; CH 30.6; CHCM 31.9; Eosinophils # (A) 0.2 k/uL (0-0.7); Eosinophils % (A) 2 %; HCT 33.4 % (39.0-53.0); HDW 2.64; HGB 10.2 gm/dL (13.0-17.5); Luc # (Auto) 0.17; Luc % (Auto) 2; Lymphocytes # (A) 1.5 k/uL (1.0-4.8); Lymphocytes % (A) 13 %; MCH 29.3 pg (25.0-35.0); MCHC 30.4 g/dL (31.0-37.0); MCV 96.2 fL (80.0-100.0); Mean Platelet Volume 8.6; Monocytes # (A) 0.6 k/uL (0-1.0); Monocytes % (A) 5 %; Neutrophils # (A) 8.9 k/uL (1.3-7.7); Neutrophils % (A) 78 %; RBC 3.47 m/uL (4.30-5.90); RDW 15.4 % (11.5-15.5); WBC 11.5 k/uL (3.8-10.6); WBC (Perox) 11.68
[2017-05-10 05:08] LABS: Anion Gap 10 mmol/L; Blood Urea Nitrogen 10 mg/dL (9-20); Calcium 8.4 mg/dL (8.4-10.2); Carbon Dioxide 22 mmol/L (22-30); Chloride 106 mmol/L (98-107); Glucose 147 mg/dL (74-99); Magnesium 1.9 mg/dL (1.6-2.3); Non-African American GFR(MDRD) >60 (>60 ml/min/1.73 sqM); Phosphorous 2.7 mg/dL (2.5-4.5); Potassium 3.9 mmol/L (3.5-5.1); Sodium 138 mmol/L (137-145)
[2017-05-10] MEDS ORDERED: Magnesium Replacement Protocol 1 EACH MISC MISCELLANE PRN (05:27)
[2017-05-10] MEDS ORDERED: Potassium Replacement Protocol 1 EACH MISC MISCELLANE PRN (05:27)
[2017-05-10] MEDS: POTASSIUM CHLORIDE 10 MEQ, LIDOCAINE 2% INJ 10 MG in SODIUM CHLORIDE 0.9% 100 ML IV SCH ×2 (06:35→08:29)
[2017-05-10] MEDS: MAGNESIUM SULFATE-D5W PMX 1 GM in DEXTROSE/WATER 1 100ML.BAG IVPB SCH ×2 (06:35→08:29)
[2017-05-10] MEDS: buPROPion XL 150 MG TAB.ER.24H PO SCH (06:44)
[2017-05-10 08:02] LABS: Glucose,Whole Blood 169 mg/dL (75-99)
--- NOTE | 2017-05-10 08:13 | XR ---
EXAMINATION TYPE: XR chest 1V DATE OF EXAM: 05/10/2017 HISTORY: Shortness of breath. COMPARISON: May 09, 2017 TECHNIQUE: Single view of the chest is submitted. FINDINGS: Demonstrated are scattered senescent parenchymal change. Patchy perihilar infiltrates persist greatest at the right lung base. Continued diminished lung volum es. NG tube has been removed. The heart is stable. Hilar and mediastinal structures are within normal limits. Degenerative changes are seen of the dorsal spine. IMPRESSION: 1. Patchy perihilar infiltrates persist greatest at the right lung base. Continued diminished lung v olumes.
[2017-05-10] MEDS: PANTOPRAZOLE 40 MG/10 ML VIAL IV SCH (08:29)
[2017-05-10] MEDS: amLODIPine 5 MG TAB PO SCH (08:30)
[2017-05-10] MEDS: LACTULOSE 20 GM/30 ML CUP PO SCH ×2 (08:30→21:26)
[2017-05-10] MEDS: LORazepam 2 MG/ML SYRINGE IV SCH (08:30)
[2017-05-10] MEDS: METOPROLOL TARTRATE 50 MG TAB PO SCH ×2 (08:31→21:27)
[2017-05-10] MEDS: PIPERACILLIN-TAZOBACTAM 3.375 GM in DEXTROSE/WATER 1 50ML.BAG IVPB SCH ×2 (08:33→17:05)
[2017-05-10] MEDS ORDERED: DOCUSATE ORAL SOLN 100 MG/10 ML CUP PO SCH (09:00)
[2017-05-10] MEDS: DOCUSATE 100 MG CAP PO SCH ×3 (09:30→21:26)
--- NOTE | 2017-05-10 10:06 | XR ---
EXAMINATION TYPE: XR KUB portable DATE OF EXAM: 05/10/2017 9:57 AM CLINICAL HISTORY: Constipation and abdominal distention TECHNIQUE: Single supine KUB image of the abdomen is obtained. COMPARISON: CT abdomen pelvis dated 05/07/2017. FINDINGS: Numerous prominent air-filled small bowel loops are centralized with an air-filled mildly d ilated ascending colon. Air is seen within the remainder the colon as well as in the rectosigmoid rafa ction. Evaluation for air-fluid levels is limited on the supine image. No evidence of gastrectasis. T he lung bases demonstrate bibasilar atelectasis and the osseous structures are intact. Bilateral femo ral acetabular arthroplasties are noted. Degenerative changes of the lumbosacral junction are seen as intervertebral disc space narrowing, facet arthropathy and bony productive changes. IMPRESSION: Mildly dilated large and small bowel with centralization of the small bowel. Air is seen throughout t he entirety of the colon. Findings suggest adynamic ileus.
[2017-05-10] MEDS: HYDROcodone/APAP 10-325MG 1 EACH TAB PO PRN ×3 (11:07→21:32)
--- NOTE | 2017-05-10 11:43 | P.PN ---
Subjective Principal diagnosis: Acute pancreatitis. A 51-year-old male patient, a young male patient with multiple medical problems and comorbidities who is currently suffering from right-sided hemiplegia and expressive aphasia. 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 The patient also is known to have coronary artery disease, diabetes mellitus hypertension and hyperlipidemia. The patient is an ex-smoker. The patient started developing abdominal pain and distention and he was unable to tolerate his feeds. At one point he got nauseated and he threw up and there is a potential also respiration. Based on that he was brought into the hospital and immediately he was diagnosed having an acute pancreatitis. Amylase lipase were significantly elevated. This confirmed the diagnosis. Based on this, a CAT scan of the abdomen and pelvis was done that showed moderate amount of mesenteric inflammatory changes around the pancreas consistent with an acute pancreatitis. This is in accordance with his clinical history. There is also dependent atelectasis involving the lower lung lobes and a tiny left-sided pleural effusion. Ultrasound of the gallbladder was done and showed no dilatation of the common bile duct. There is evidence of bilious sludge and small stones are confirmed. There is no radiographic evidence of an acute pancreatitis. The patient was diagnosed having a gallstone pancreatitis. He is not an alcohol drinker. NG tube was inserted. Output is minimal at this point. Abdomen is slightly distended and it remains tender. This morning, the patient got further as transferred to the intensive care unit as the patient was having he shortness of breath. He was placed on 40s about 2 by nasal cannula. He is awake and alert. He is having some noisy breathing and I suspect an underlying obstructive sleep apnea based on clinical grounds. His chest x-ray shows pulmonary vessel congestion and some infiltration of the lung bases bilaterally. No. Fever. Slightly tachycardic. Blood pressure is well maintained. His blood gases was performed and it showed a pH of 7.46 with a pCO2 of 32 and pO2 of 88. Elevated lipase of declining. Amylase is down to 156. Lipase is down to 519. His serum ammonia level is less than 9. Blood sugars are elevated and the most recent blood sugar readings at 280. Denies having any chest pain at this point. He is on IV Zosyn covering for an aspiration pneumonia. On 05/09/2017 the patient is being seen in follow-up. Breathing improved considerably compared to yesterday. He is currently on room air. NG tube still in place. This be kept in place for another 24 hours as the patient's abdomen is still distended and the bowel sounds are hypoactive and he is not passing any gas yet. Meanwhile, he is hemodynamically stable. Amylase lipase have been dropping. Abdomen is less tender compared to yesterday. He is awake and alert. He is producing adequate amount of urine output. Lipase is down to 163, amylase is down to 46, he is on IV Zosyn, hemoglobin is at 10.8, he is on IV fluids and is receiving normal saline at the rate of 100 mL an hour. Rest x- ray from today shows atelectatic changes in lung bases bilaterally. Blood sugars are better control. He was started on Lantus insulin 15 units daily basis along with a sliding scale coverage. On 05/10/2017, patient remains in the intensive care unit, and overall the patient is doing well except he continues to have some abdominal distention, and his abdominal film is consistent with possible adynamic ileus. Chest x-ray showed perihilar atelectasis, possible infiltrates. Right more so than left. CBC is relatively unremarkable basic metabolic profile is normal. Last amylase was 46 yesterday, and last lipase was 163 yesterday. Objective - Vital Signs Vital signs: Vital Signs Temp 98.4 F 05/10/17 08:00 Pulse 82 05/10/17 10:00 Resp 25 H 05/10/17 10:00 BP 153/74 05/10/17 10:00 Pulse Ox 93 L 05/10/17 10:00 Intake & Output 05/09/17 05/10/17 05/10/17 18:59 06:59 18:59 Intake Total 1450 1150 550 Output Total 1665 1170 325 Balance -215 -20 225 Weight 121 kg Intake: IV 1450 1150 550 Magnesium Sulfate-D5w Pmx 100 100 1 gm In Dextrose/Water 1 100ml.bag @ 100 mls/hr IVPB Q1H [facility] Rx#: [id number] Piperacillin-Tazobactam 3 50 50 50 .375 gm In Dextrose/Water 1 50ml.bag @ 12.5 mls/hr IVPB Q8HR [facility] Rx#: [id number] Potassium Chloride 10 meq 100 Lidocaine 2% Inj 10 mg In Sodium Chloride 0.9% 100 ml @ 100 mls/hr IV Q1HR [facility] Rx#:[id number] Sodium Chloride 0.9% 1, 1300 1100 300 000 ml @ 100 mls/hr IV . Q10H [facility] Rx#:[id number] Output: Gastric Drainage 450 Urine 1215 1170 325 Other: Voiding Method Indwelling Catheter Indwelling Catheter Indwelling Catheter # Voids 3 0 - Exam Obese, calm, and mild degree of respiratory distress.Head exam was generally normal. There was no scleral icterus or corneal arcus. Mucous membranes were moist. Neck is short and supple and there is significant crowding of the posterior oropharynx and there is a facial asymmetry related to previous CVA. Neck is supple and there is no JVDs no goiter or neck masses. Mallampati class IV. Lung sounds are diminished bilaterally along with that there is some soft crackles in lung bases bilaterally.Cardiac exam revealed the PMI to be normally situated and sized. The rhythm was regular and no extrasystoles were noted during several minutes of auscultation. The first and second heart sounds were normal and physiologic splitting of the second heart sound was noted. There were no murmurs, rubs, clicks, or gallops. Abdomen is distended and bowel sounds are hypoactive. NG tube is in place. Mild direct tenderness. No rebound tensile guarding. Extremities reveal trace edema no cyanosis or clubbing. Neurologically the patient has expressive aphasia, facial asymmetry and right-sided hemiplegia with contractures and spasticity. He is nonambulatory at this point. - Labs CBC & Chem 7: 05/10/17 04:07 05/10/17 04:07 Labs: Abnormal Lab Results - Last 24 Hours (Table) 05/09/17 05/09/17 05/09/17 Range/Units 12:27 16:09 19:59 WBC (3.8-10.6) k/uL RBC (4.30-5.90) m/uL Hgb (13.0-17.5) gm/dL Hct (39.0-53.0) % MCHC (31.0-37.0) g/dL Neutrophils # (1.3-7.7) k/uL Creatinine (0.66-1.25) mg/dL Glucose (74-99) mg/dL POC Glucose (mg/dL) 186 H 176 H 144 H (75-99) mg/dL 05/09/17 05/10/17 05/10/17 Range/Units 23:51 04:07 04:07 WBC 11.5 H (3.8-10.6) k/uL RBC 3.47 L (4.30-5.90) m/uL Hgb 10.2 L (13.0-17.5) gm/dL Hct 33.4 L (39.0-53.0) % MCHC 30.4 L (31.0-37.0) g/dL Neutrophils # 8.9 H (1.3-7.7) k/uL Creatinine 0.62 L (0.66-1.25) mg/dL Glucose 147 H (74-99) mg/dL POC Glucose (mg/dL) 163 H (75-99) mg/dL 05/10/17 05/10/17 Range/Units 04:22 08:01 WBC (3.8-10.6) k/uL RBC (4.30-5.90) m/uL Hgb (13.0-17.5) gm/dL Hct (39.0-53.0) % MCHC (31.0-37.0) g/dL Neutrophils # (1.3-7.7) k/uL Creatinine (0.66-1.25) mg/dL Glucose (74-99) mg/dL POC Glucose (mg/dL) 154 H 169 H (75-99) mg/dL Microbiology - Last 24 Hours (Table) 05/09/17 07:20 Blood Culture - Preliminary Blood No Growth after 24 hours 05/08/17 09:11 Urine Culture - Preliminary Urine,Catheterized Assessment and Plan Plan: 1 acute pancreatitis. This is likely a gallstone pancreatitis nontender the patient has shown evidence of biliary sludge and small gallbladder stones. The patient has no dilatation of the common bile duct. The liver function tests are within normal limits and the amylase and lipase are improving. Currently nothing by mouth. NG tube has been removed but they have to be placed back and considering his adynamic ileus. On 05/09/2017 the NG tube will be kept in place. The patient is clinically improving. Amylase lipase have dropped. Awaiting lipid panel. He is stable. We'll keep NG tube in place for another 24 hours. On 05/10/2017, patient is clinically improving, however he continues to have significant ileus and flat plate of the abdomen was reviewed. Patient is yet to be seen today by general surgery for follow-up of his abdominal picture. 2 acute hypoxic respiratory failure. The patient is having progressive increasing dyspnea. Rule out aspiration. Rule out a component of an acute lung injury in the setting of an acute pancreatitis. On 05/09/2017, respiratory status improved. Chest x-ray shows some minimal atelectatic changes. No evidence of any aspiration pneumonia. The patient is on room air oxygen. 3 CVA with right-sided hemiplegia and expressive aphasia. 4 carotid artery disease with a previous endarterectomy on the left 5 obesity with clinical features of obstructive sleep apnea 6 diabetes was poorly controlled blood sugar. The patient is using Lantus insulin 15 units along with a slight scale coverage. 7 coronary artery disease 8 hypertension 9 hyperlipidemia 10 suspected episode of aspiration, rule out underlying aspiration pneumonia, currently inactive in stable Recommendation: Consider placement of a nasogastric tube again, continue IV antibiotics, patient could be transferred out of the ICU to a regular medical floor, and we'll continue to follow closely. Eventually the patient may require cholecystectomy, but clearly he is not clinically stable for surgery at this point. Continue to follow. Time with Patient: Less than 30
[2017-05-10 12:27] LABS: Glucose,Whole Blood 170 mg/dL (75-99)
[2017-05-10] MEDS: POTASSIUM CHLORIDE ER 20 MEQ TAB.ER PO SCH (14:27)
[2017-05-10] MEDS: ASPIRIN 81 MG CHEW PO SCH (14:28)
[2017-05-10] MEDS: RIVAROXABAN 10 MG TAB PO SCH (16:03)
[2017-05-10 17:24] LABS: Glucose,Whole Blood 122 mg/dL (75-99)
--- NOTE | 2017-05-10 18:06 | P.PN ---
Subjective Principal diagnosis: Gallstone pancreatitis Patient is a phasic. Denies abdominal pain with a head nod. No vomiting. Labs were reviewed. Objective - Vital Signs Vital signs: Vital Signs Temp 99.2 F 05/10/17 15:00 Pulse 77 05/10/17 15:00 Resp 20 05/10/17 15:00 BP 142/82 05/10/17 15:00 Pulse Ox 96 05/10/17 15:00 Intake & Output 05/09/17 05/10/17 05/10/17 18:59 06:59 18:59 Intake Total 1450 1150 550 Output Total 1665 1170 325 Balance -215 -20 225 Weight 121 kg Intake: IV 1450 1150 550 Magnesium Sulfate-D5w Pmx 100 100 1 gm In Dextrose/Water 1 100ml.bag @ 100 mls/hr IVPB Q1H [facility] Rx#: [id number] Piperacillin-Tazobactam 3 50 50 50 .375 gm In Dextrose/Water 1 50ml.bag @ 12.5 mls/hr IVPB Q8HR [facility] Rx#: [id number] Potassium Chloride 10 meq 100 Lidocaine 2% Inj 10 mg In Sodium Chloride 0.9% 100 ml @ 100 mls/hr IV Q1HR [facility] Rx#:[id number] Sodium Chloride 0.9% 1, 1300 1100 300 000 ml @ 100 mls/hr IV . Q10H [facility] Rx#:[id number] Output: Gastric Drainage 450 Urine 1215 1170 325 Other: Voiding Method Indwelling Catheter Indwelling Catheter Indwelling Catheter # Voids 3 1 - Exam Abdomen: Soft, slight distention, mild upper abdominal tenderness - Labs CBC & Chem 7: 05/10/17 04:07 05/10/17 04:07 Labs: Abnormal Lab Results - Last 24 Hours (Table) 05/09/17 05/09/17 05/10/17 Range/Units 19:59 23:51 04:07 WBC 11.5 H (3.8-10.6) k/uL RBC 3.47 L (4.30-5.90) m/uL Hgb 10.2 L (13.0-17.5) gm/dL Hct 33.4 L (39.0-53.0) % MCHC 30.4 L (31.0-37.0) g/dL Neutrophils # 8.9 H (1.3-7.7) k/uL Creatinine (0.66-1.25) mg/dL Glucose (74-99) mg/dL POC Glucose (mg/dL) 144 H 163 H (75-99) mg/dL 05/10/17 05/10/17 05/10/17 Range/Units 04:07 04:22 08:01 WBC (3.8-10.6) k/uL RBC (4.30-5.90) m/uL Hgb (13.0-17.5) gm/dL Hct (39.0-53.0) % MCHC (31.0-37.0) g/dL Neutrophils # (1.3-7.7) k/uL Creatinine 0.62 L (0.66-1.25) mg/dL Glucose 147 H (74-99) mg/dL POC Glucose (mg/dL) 154 H 169 H (75-99) mg/dL 05/10/17 05/10/17 Range/Units 12:25 17:22 WBC (3.8-10.6) k/uL RBC (4.30-5.90) m/uL Hgb (13.0-17.5) gm/dL Hct (39.0-53.0) % MCHC (31.0-37.0) g/dL Neutrophils # (1.3-7.7) k/uL Creatinine (0.66-1.25) mg/dL Glucose (74-99) mg/dL POC Glucose (mg/dL) 170 H 122 H (75-99) mg/dL Microbiology - Last 24 Hours (Table) 05/08/17 09:11 Urine Culture - Final Urine,Catheterized 05/09/17 07:20 Blood Culture - Preliminary Blood No Growth after 24 hours Assessment and Plan (1) Gall stone pancreatitis Narrative/Plan: Continue nothing by mouth. Recheck labs in a.m. Will require interval cholecystectomy if the patient's family desires. Status: Acute
[2017-05-10 20:08] LABS: Glucose,Whole Blood 132 mg/dL (75-99)
[2017-05-10] MEDS: ATORVASTATIN 40 MG TAB PO SCH (21:26)
[2017-05-10] MEDS: POLYETHYLENE GLYCOL 3350 17 GM POWD.PACK PO SCH (21:27)
--- NOTE | 2017-05-10 23:52 | P.PN ---
Subjective Principal diagnosis: Acute gallstone pancreatitis Patient was admitted with with pancreatitis. Pancreatic that is improved patient had abdominal distention. Because of which patient underwent repeat CAT scan patient had cholelithiasis as well possibly of cholecystitis patient had lactic acidosis with the tachypnea tachycardia subsequently transferred to ICU for possibility of severe sepsis secondary to cholecystitis. Patient was started on Zosyn. Patient had an NG tube now. Patient's Lasix was discontinued and patient was started on IV normal saline. Patient does have some pulmonary edema on the acute lung injury. 05/09/2017 Patient's lactic acidosis improved tachycardia improved patient overall looks much better today. Patient has an NG tube not draining much today. Patient had low-grade fever is on Zosyn for possibility of infection possibly being intra-abdominal source. Patient also has acute lung injury. Patient is off Lasix is continued to be on IV normal saline at 100 mL per hour. Patient denied any abdominal pain today On 05/10/2017 Patient is still having abdominal pain but improved. Chest x-ray showed perihilar atelectasis. General surgery ligaments cholecystectomy if family is agreeable. Patient is being transferred to surgical floor today. Denied any worsening abdominal pain, nausea, lightheadedness Objective - Vital Signs Vital signs: Vital Signs Temp 99.2 F 05/10/17 15:00 Pulse 77 05/10/17 15:00 Resp 20 05/10/17 15:00 BP 142/82 05/10/17 15:00 Pulse Ox 96 05/10/17 15:00 Intake & Output 05/10/17 05/10/17 05/11/17 06:59 18:59 06:59 Intake Total 1150 550 Output Total 1170 325 Balance -20 225 Weight 121 kg Intake: IV 1150 550 Magnesium Sulfate-D5w Pmx 100 1 gm In Dextrose/Water 1 100ml.bag @ 100 mls/hr IVPB Q1H [facility] Rx#: [id number] Piperacillin-Tazobactam 3 50 50 .375 gm In Dextrose/Water 1 50ml.bag @ 12.5 mls/hr IVPB Q8HR [facility] Rx#: [id number] Potassium Chloride 10 meq 100 Lidocaine 2% Inj 10 mg In Sodium Chloride 0.9% 100 ml @ 100 mls/hr IV Q1HR [facility] Rx#:[id number] Sodium Chloride 0.9% 1, 1100 300 000 ml @ 100 mls/hr IV . Q10H [facility] Rx#:[id number] Output: Urine 1170 325 Other: Voiding Method Indwelling Catheter Incontinent # Voids 3 1 - Exam GENERAL: The patient is alert and oriented x3, not in any acute distress. Well developed, well nourished. HEENT: Pupils are round and equally reacting to light. EOMI. No scleral icterus. No conjunctival pallor. Normocephalic, atraumatic. No pharyngeal erythema. No thyromegaly. CARDIOVASCULAR: S1 and S2 present. No murmurs, rubs, or gallops. PULMONARY: Chest is clear to auscultation, no wheezing or crackles. ABDOMEN: Distended,no rebound or rigidity minimal epigastric abdominal tenderness was appreciated. MUSCULOSKELETAL: No joint swelling or deformity. EXTREMITIES: No cyanosis, clubbing, or pedal edema. NEUROLOGICAL: Gross neurological examination did not reveal any focal deficits. SKIN: No rashes. - Labs CBC & Chem 7: 05/10/17 04:07 05/10/17 04:07 Labs: Abnormal Lab Results - Last 24 Hours (Table) 05/09/17 05/10/17 05/10/17 Range/Units 23:51 04:07 04:07 WBC 11.5 H (3.8-10.6) k/uL RBC 3.47 L (4.30-5.90) m/uL Hgb 10.2 L (13.0-17.5) gm/dL Hct 33.4 L (39.0-53.0) % MCHC 30.4 L (31.0-37.0) g/dL Neutrophils # 8.9 H (1.3-7.7) k/uL Creatinine 0.62 L (0.66-1.25) mg/dL Glucose 147 H (74-99) mg/dL POC Glucose (mg/dL) 163 H (75-99) mg/dL 05/10/17 05/10/17 05/10/17 Range/Units 04:22 08:01 12:25 WBC (3.8-10.6) k/uL RBC (4.30-5.90) m/uL Hgb (13.0-17.5) gm/dL Hct (39.0-53.0) % MCHC (31.0-37.0) g/dL Neutrophils # (1.3-7.7) k/uL Creatinine (0.66-1.25) mg/dL Glucose (74-99) mg/dL POC Glucose (mg/dL) 154 H 169 H 170 H (75-99) mg/dL 05/10/17 05/10/17 Range/Units 17:22 20:05 WBC (3.8-10.6) k/uL RBC (4.30-5.90) m/uL Hgb (13.0-17.5) gm/dL Hct (39.0-53.0) % MCHC (31.0-37.0) g/dL Neutrophils # (1.3-7.7) k/uL Creatinine (0.66-1.25) mg/dL Glucose (74-99) mg/dL POC Glucose (mg/dL) 122 H 132 H (75-99) mg/dL Microbiology - Last 24 Hours (Table) 05/08/17 09:11 Urine Culture - Final Urine,Catheterized 05/09/17 07:20 Blood Culture - Preliminary Blood No Growth after 24 hours Assessment and Plan Plan: abdominal pain: Secondary to acute gallstone pancreatitis, I cannot rule out cholecystitis and sepsis related to cholecystitis. The stylet is is probably the source of sepsis as well. No other source of infection was appreciated blood cultures no growth so far. Ileus. Patient was on NG tube which was discontinued. Improving Acute hypoxic respiratory failure. congestive heart failure chronic diastolic dysfunction patient does have pulmonary edema not sure whether it secondary to acute lung injury R cardiogenic pulmonary edema. Sh has lactic acid improved and respiratory status actually improved with IV fluids because of which IV fluids will be continued at this time close clinical monitoring Suspected aspiration pneumonia History of CVA with right-sided hemiplegia and expressive aphasia. carotid artery disease with a previous endarterectomy on the left type 2 diabetes mellitus: Continue with his home regimen along with sliding scale insulin and Lantus. Hyperlipidemia Hypertension gastric esophageal reflux disease possible obstructive sleep apnea Plan: Patient will be continued on IV hydration and IV antibiotics and follow closely patient is being transferred to medical floor.. Eventually patient will require cholecystectomy. General surgery and pulmonary is following this patient. Prognosis is guarded. Time with Patient: Greater than 30
[2017-05-11 00:26] LABS: Glucose,Whole Blood 171 mg/dL (75-99)
[2017-05-11] MEDS: INSULIN GLARGINE 100 UNIT/ML 10 ML VIAL SQ SCH ×2 (00:30→22:01)
[2017-05-11] MEDS: INSULIN LISPRO (humaLOG) 300 UNIT/3 ML VIAL SQ SCH ×7 (00:31→21:53)
[2017-05-11] MEDS: PIPERACILLIN-TAZOBACTAM 3.375 GM in DEXTROSE/WATER 1 50ML.BAG IVPB SCH ×3 (00:44→17:01)
[2017-05-11] MEDS: HYDROcodone/APAP 10-325MG 1 EACH TAB PO PRN ×4 (01:37→18:52)
[2017-05-11] MEDS: LORazepam 2 MG/ML SYRINGE IV SCH ×3 (02:57→22:02)
[2017-05-11 04:08] LABS: Glucose,Whole Blood 140 mg/dL (75-99)
[2017-05-11 07:15] LABS: Glucose,Whole Blood 138 mg/dL (75-99)
--- NOTE | 2017-05-11 08:42 | XR ---
EXAMINATION TYPE: XR abdomen 2V DATE OF EXAM: 05/11/2017 HISTORY: Pain. Technique: 4 views of the abdomen are submitted. Comparison: None. Findings: There is no convincing evidence of pneumoperitoneum. Persistent distention of small and large bowel felt to reflect ileus. No significant interval change appreciated. No sizable air-fluid levels are seen. No mass effects are noted. No renal calcifications are identified. IMPRESSION: 1. Persistent distention of small and large bowel felt to reflect ileus. No significant interval [place] ge appreciated.
[2017-05-11] MEDS: DOCUSATE 100 MG CAP PO SCH ×2 (10:04→21:50)
[2017-05-11] MEDS: METOPROLOL TARTRATE 50 MG TAB PO SCH ×2 (10:04→21:52)
[2017-05-11] MEDS: LACTULOSE 20 GM/30 ML CUP PO SCH ×2 (10:05→21:51)
[2017-05-11] MEDS: amLODIPine 5 MG TAB PO SCH (10:06)
[2017-05-11] MEDS: buPROPion XL 150 MG TAB.ER.24H PO SCH (10:06)
[2017-05-11] MEDS: PANTOPRAZOLE 40 MG/10 ML VIAL IV SCH (10:06)
[2017-05-11 10:07] LABS: Basophils % (A) 0 %; CH 29.6; CHCM 31.5; Eosinophils # (A) 0.3 k/uL (0-0.7); Eosinophils % (A) 3 %; HCT 31.8 % (39.0-53.0); HDW 2.64; HGB 10.3 gm/dL (13.0-17.5); Hypochromasia Slight; Luc # (Auto) 0.19; Luc % (Auto) 2; Lymphocytes # (A) 1.1 k/uL (1.0-4.8); Lymphocytes % (A) 9 %; MCH 30.6 pg (25.0-35.0); MCHC 32.4 g/dL (31.0-37.0); MCV 94.4 fL (80.0-100.0); Mean Platelet Volume 7.5; Monocytes # (A) 0.6 k/uL (0-1.0); Monocytes % (A) 5 %; Neutrophils # (A) 9.6 k/uL (1.3-7.7); Neutrophils % (A) 81 %; RBC 3.37 m/uL (4.30-5.90); RDW 14.5 % (11.5-15.5); WBC 11.8 k/uL (3.8-10.6); WBC (Perox) 12.68
[2017-05-11 10:23] LABS: Anion Gap 11 mmol/L; Blood Urea Nitrogen 11 mg/dL (9-20); Calcium 8.5 mg/dL (8.4-10.2); Carbon Dioxide 21 mmol/L (22-30); Chloride 104 mmol/L (98-107); Glucose 150 mg/dL (74-99); Magnesium 1.9 mg/dL (1.6-2.3); Non-African American GFR(MDRD) >60 (>60 ml/min/1.73 sqM); Phosphorous 3.1 mg/dL (2.5-4.5); Sodium 136 mmol/L (137-145)
[2017-05-11] MEDS: SODIUM CHLORIDE 0.9% 1,000 ML IV SCH ×2 (11:06→18:44)
[2017-05-11 12:13] LABS: Glucose,Whole Blood 156 mg/dL (75-99)
[2017-05-11] MEDS: BISACODYL 10 MG SUPP RECTAL SCH (13:47)
[2017-05-11] MEDS: ASPIRIN 81 MG CHEW PO SCH (13:47)
[2017-05-11] MEDS: POTASSIUM CHLORIDE ER 20 MEQ TAB.ER PO SCH (13:47)
--- NOTE | 2017-05-11 14:22 | P.PN ---
Subjective Principal diagnosis: Acute pancreatitis A 51-year-old male patient, a young male patient with multiple medical problems and comorbidities who is currently suffering from right-sided hemiplegia and expressive aphasia. 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 The patient also is known to have coronary artery disease, diabetes mellitus hypertension and hyperlipidemia. The patient is an ex-smoker. The patient started developing abdominal pain and distention and he was unable to tolerate his feeds. At one point he got nauseated and he threw up and there is a potential also respiration. Based on that he was brought into the hospital and immediately he was diagnosed having an acute pancreatitis. Amylase lipase were significantly elevated. This confirmed the diagnosis. Based on this, a CAT scan of the abdomen and pelvis was done that showed moderate amount of mesenteric inflammatory changes around the pancreas consistent with an acute pancreatitis. This is in accordance with his clinical history. There is also dependent atelectasis involving the lower lung lobes and a tiny left-sided pleural effusion. Ultrasound of the gallbladder was done and showed no dilatation of the common bile duct. There is evidence of bilious sludge and small stones are confirmed. There is no radiographic evidence of an acute pancreatitis. The patient was diagnosed having a gallstone pancreatitis. He is not an alcohol drinker. NG tube was inserted. Output is minimal at this point. Abdomen is slightly distended and it remains tender. This morning, the patient got further as transferred to the intensive care unit as the patient was having he shortness of breath. He was placed on 40s about 2 by nasal cannula. He is awake and alert. He is having some noisy breathing and I suspect an underlying obstructive sleep apnea based on clinical grounds. His chest x-ray shows pulmonary vessel congestion and some infiltration of the lung bases bilaterally. No. Fever. Slightly tachycardic. Blood pressure is well maintained. His blood gases was performed and it showed a pH of 7.46 with a pCO2 of 32 and pO2 of 88. Elevated lipase of declining. Amylase is down to 156. Lipase is down to 519. His serum ammonia level is less than 9. Blood sugars are elevated and the most recent blood sugar readings at 280. Denies having any chest pain at this point. He is on IV Zosyn covering for an aspiration pneumonia. On 05/09/2017 the patient is being seen in follow-up. Breathing improved considerably compared to yesterday. He is currently on room air. NG tube still in place. This be kept in place for another 24 hours as the patient's abdomen is still distended and the bowel sounds are hypoactive and he is not passing any gas yet. Meanwhile, he is hemodynamically stable. Amylase lipase have been dropping. Abdomen is less tender compared to yesterday. He is awake and alert. He is producing adequate amount of urine output. Lipase is down to 163, amylase is down to 46, he is on IV Zosyn, hemoglobin is at 10.8, he is on IV fluids and is receiving normal saline at the rate of 100 mL an hour. Rest x- ray from today shows atelectatic changes in lung bases bilaterally. Blood sugars are better control. He was started on Lantus insulin 15 units daily basis along with a sliding scale coverage. On 05/10/2017, patient remains in the intensive care unit, and overall the patient is doing well except he continues to have some abdominal distention, and his abdominal film is consistent with possible adynamic ileus. Chest x-ray showed perihilar atelectasis, possible infiltrates. Right more so than left. CBC is relatively unremarkable basic metabolic profile is normal. Last amylase was 46 yesterday, and last lipase was 163 yesterday. The patient is seen again today 05/11/2017 the regular medical floor. He is breathing easier today as compared to yesterday. He is maintaining good O2 saturations in the upper 90s on room air. His been afebrile. Hemodynamically stable. His is at the bedside and feels he is better as well. His abdomen remains somewhat distended. A flat plate revealed persistent distention of small and large bowels felt reflected of ileus. Surgical services on the case and has ordered Dulcolax suppositories. Objective - Vital Signs Vital signs: Vital Signs Temp 98.7 F 05/11/17 07:00 Pulse 97 05/11/17 07:00 Resp 18 05/11/17 07:00 BP 149/94 05/11/17 07:00 Pulse Ox 97 05/11/17 07:00 Intake & Output 05/10/17 05/11/17 05/11/17 18:59 06:59 18:59 Intake Total 550 Output Total 325 Balance 225 Intake: IV 550 Magnesium Sulfate-D5w Pmx 100 1 gm In Dextrose/Water 1 100ml.bag @ 100 mls/hr IVPB Q1H [facility] Rx#: [id number] Piperacillin-Tazobactam 3 50 .375 gm In Dextrose/Water 1 50ml.bag @ 12.5 mls/hr IVPB Q8HR [facility] Rx#: [id number] Potassium Chloride 10 meq 100 Lidocaine 2% Inj 10 mg In Sodium Chloride 0.9% 100 ml @ 100 mls/hr IV Q1HR [facility] Rx#:[id number] Sodium Chloride 0.9% 1, 300 000 ml @ 100 mls/hr IV . Q10H [facility] Rx#:[id number] Output: Urine 325 Other: Voiding Method Incontinent Urinal Diaper # Voids 1 1 1 - Exam Obese, calm, and mild degree of respiratory distress.Head exam was generally normal. There was no scleral icterus or corneal arcus. Mucous membranes were moist. Neck is short and supple and there is significant crowding of the posterior oropharynx and there is a facial asymmetry related to previous CVA. Neck is supple and there is no JVDs no goiter or neck masses. Mallampati class IV. Lung sounds are diminished bilaterally along with that there is some soft crackles in lung bases bilaterally.Cardiac exam revealed the PMI to be normally situated and sized. The rhythm was regular and no extrasystoles were noted during several minutes of auscultation. The first and second heart sounds were normal and physiologic splitting of the second heart sound was noted. There were no murmurs, rubs, clicks, or gallops. Abdomen is distended and bowel sounds are hypoactive. NG tube is in place. Mild direct tenderness. No rebound tensile guarding. Extremities reveal trace edema no cyanosis or clubbing. Neurologically the patient has expressive aphasia, facial asymmetry and right-sided hemiplegia with contractures and spasticity. He is nonambulatory at this point. - Labs CBC & Chem 7: 05/11/17 09:27 05/11/17 09:27 Labs: Abnormal Lab Results - Last 24 Hours (Table) 05/10/17 05/10/17 05/11/17 Range/Units 17:22 20:05 00:22 WBC (3.8-10.6) k/uL RBC (4.30-5.90) m/uL Hgb (13.0-17.5) gm/dL Hct (39.0-53.0) % Neutrophils # (1.3-7.7) k/uL Sodium (137-145) mmol/L Carbon Dioxide (22-30) mmol/L Glucose (74-99) mg/dL POC Glucose (mg/dL) 122 H 132 H 171 H (75-99) mg/dL 05/11/17 05/11/17 05/11/17 Range/Units 04:06 07:06 09:27 WBC 11.8 H (3.8-10.6) k/uL RBC 3.37 L (4.30-5.90) m/uL Hgb 10.3 L (13.0-17.5) gm/dL Hct 31.8 L (39.0-53.0) % Neutrophils # 9.6 H (1.3-7.7) k/uL Sodium (137-145) mmol/L Carbon Dioxide (22-30) mmol/L Glucose (74-99) mg/dL POC Glucose (mg/dL) 140 H 138 H (75-99) mg/dL 05/11/17 05/11/17 Range/Units 09:27 12:10 WBC (3.8-10.6) k/uL RBC (4.30-5.90) m/uL Hgb (13.0-17.5) gm/dL Hct (39.0-53.0) % Neutrophils # (1.3-7.7) k/uL Sodium 136 L (137-145) mmol/L Carbon Dioxide 21 L (22-30) mmol/L Glucose 150 H (74-99) mg/dL POC Glucose (mg/dL) 156 H (75-99) mg/dL Microbiology - Last 24 Hours (Table) 05/09/17 07:20 Blood Culture - Preliminary Blood No Growth after 48 hours 05/08/17 09:11 Urine Culture - Final Urine,Catheterized Assessment and Plan Plan: 1 acute pancreatitis. This is likely a gallstone pancreatitis nontender the patient has shown evidence of biliary sludge and small gallbladder stones. The patient has no dilatation of the common bile duct. The liver function tests are within normal limits and the amylase and lipase are improving. Currently nothing by mouth. NG tube has been removed but may have to be placed back considering his ileus. Dulcolax suppository has been ordered. On 05/09/2017 the NG tube will be kept in place. The patient is clinically improving. Amylase lipase have dropped. Awaiting lipid panel. He is stable. We'll keep NG tube in place for another 24 hours. On 05/10/2017, patient is clinically improving, however he continues to have significant ileus and flat plate of the abdomen was reviewed. Patient is yet to be seen today by general surgery for follow-up of his abdominal picture. On 05/11/2017 the patient is on the regular medical floor now. Maintaining good O2 saturations in the 90s on room air. Abdominal flat plate continues to show small large bowel ileus. Dulcolax his been ordered per surgical services. 2 acute hypoxic respiratory failure. The patient is having progressive increasing dyspnea. Rule out aspiration. Rule out a component of an acute lung injury in the setting of an acute pancreatitis. Improved. 3 CVA with right-sided hemiplegia and expressive aphasia. 4 carotid artery disease with a previous endarterectomy on the left 5 obesity with clinical features of obstructive sleep apnea 6 diabetes was poorly controlled blood sugar. The patient is using Lantus insulin 15 units along with a slight scale coverage. 7 coronary artery disease 8 hypertension 9 hyperlipidemia 10 suspected episode of aspiration, rule out underlying aspiration pneumonia, currently inactive in stable Plan: The patient was seen by Dr. Noriega. He remains stable from the pulmonary and critical care standpoint. We will await further input from surgical services. We'll continue to follow.
[2017-05-11] MEDS: ALBUTEROL NEBULIZED 2.5 MG/3 ML INHALATION PRN (15:56)
[2017-05-11 16:06] LABS: Glucose,Whole Blood 134 mg/dL (75-99)
[2017-05-11] MEDS: RIVAROXABAN 10 MG TAB PO SCH (17:01)
--- NOTE | 2017-05-11 17:54 | P.PN ---
Subjective Principal diagnosis: Gallstone pancreatitis Patient's family is present at the bedside today. No significant bowel function since yesterday. No nausea or vomiting. Pain seems to be improved. White blood cell count 11.8. Flat plate is showing dilated small and large bowel. Objective - Vital Signs Vital signs: Vital Signs Temp 97.2 F L 05/11/17 15:00 Pulse 83 05/11/17 16:04 Resp 16 05/11/17 16:04 BP 140/81 05/11/17 15:00 Pulse Ox 95 05/11/17 15:00 Intake & Output 05/10/17 05/11/17 05/11/17 18:59 06:59 18:59 Intake Total 550 Output Total 325 Balance 225 Weight 121 kg Intake: IV 550 Magnesium Sulfate-D5w Pmx 100 1 gm In Dextrose/Water 1 100ml.bag @ 100 mls/hr IVPB Q1H [facility] Rx#: [id number] Piperacillin-Tazobactam 3 50 .375 gm In Dextrose/Water 1 50ml.bag @ 12.5 mls/hr IVPB Q8HR [facility] Rx#: [id number] Potassium Chloride 10 meq 100 Lidocaine 2% Inj 10 mg In Sodium Chloride 0.9% 100 ml @ 100 mls/hr IV Q1HR [facility] Rx#:[id number] Sodium Chloride 0.9% 1, 300 000 ml @ 100 mls/hr IV . Q10H [facility] Rx#:[id number] Output: Urine 325 Other: Voiding Method Incontinent Urinal Urinal Diaper Diaper # Voids 1 1 3 # Bowel Movements 1 - Exam Abdomen: Soft, slightly less distended, remains tympanic, mild epigastric tenderness - Labs CBC & Chem 7: 05/11/17 09:27 05/11/17 09:27 Labs: Abnormal Lab Results - Last 24 Hours (Table) 05/10/17 05/11/17 05/11/17 Range/Units 20:05 00:22 04:06 WBC (3.8-10.6) k/uL RBC (4.30-5.90) m/uL Hgb (13.0-17.5) gm/dL Hct (39.0-53.0) % Neutrophils # (1.3-7.7) k/uL Sodium (137-145) mmol/L Carbon Dioxide (22-30) mmol/L Glucose (74-99) mg/dL POC Glucose (mg/dL) 132 H 171 H 140 H (75-99) mg/dL 05/11/17 05/11/17 05/11/17 Range/Units 07:06 09:27 09:27 WBC 11.8 H (3.8-10.6) k/uL RBC 3.37 L (4.30-5.90) m/uL Hgb 10.3 L (13.0-17.5) gm/dL Hct 31.8 L (39.0-53.0) % Neutrophils # 9.6 H (1.3-7.7) k/uL Sodium 136 L (137-145) mmol/L Carbon Dioxide 21 L (22-30) mmol/L Glucose 150 H (74-99) mg/dL POC Glucose (mg/dL) 138 H (75-99) mg/dL 05/11/17 05/11/17 Range/Units 12:10 16:03 WBC (3.8-10.6) k/uL RBC (4.30-5.90) m/uL Hgb (13.0-17.5) gm/dL Hct (39.0-53.0) % Neutrophils # (1.3-7.7) k/uL Sodium (137-145) mmol/L Carbon Dioxide (22-30) mmol/L Glucose (74-99) mg/dL POC Glucose (mg/dL) 156 H 134 H (75-99) mg/dL Microbiology - Last 24 Hours (Table) 05/09/17 07:20 Blood Culture - Preliminary Blood No Growth after 48 hours Assessment and Plan (1) Gall stone pancreatitis Narrative/Plan: Begin sips of water. Recheck lab work tomorrow. Dulcolax suppositories ordered. Status: Acute
[2017-05-11 20:31] LABS: Glucose,Whole Blood 180 mg/dL (75-99)
[2017-05-11] MEDS: ATORVASTATIN 40 MG TAB PO SCH (21:50)
[2017-05-11] MEDS: POLYETHYLENE GLYCOL 3350 17 GM POWD.PACK PO SCH (21:52)
[2017-05-12] MEDS: PIPERACILLIN-TAZOBACTAM 3.375 GM in DEXTROSE/WATER 1 50ML.BAG IVPB SCH ×3 (00:26→17:16)
--- NOTE | 2017-05-12 00:28 | P.PN ---
Subjective Principal diagnosis: Acute gallstone pancreatitis Patient was admitted with with pancreatitis. Pancreatic that is improved patient had abdominal distention. Because of which patient underwent repeat CAT scan patient had cholelithiasis as well possibly of cholecystitis patient had lactic acidosis with the tachypnea tachycardia subsequently transferred to ICU for possibility of severe sepsis secondary to cholecystitis. Patient was started on Zosyn. Patient had an NG tube now. Patient's Lasix was discontinued and patient was started on IV normal saline. Patient does have some pulmonary edema on the acute lung injury. 05/09/2017 Patient's lactic acidosis improved tachycardia improved patient overall looks much better today. Patient has an NG tube not draining much today. Patient had low-grade fever is on Zosyn for possibility of infection possibly being intra-abdominal source. Patient also has acute lung injury. Patient is off Lasix is continued to be on IV normal saline at 100 mL per hour. Patient denied any abdominal pain today On 05/10/2017 Patient is still having abdominal pain but improved. Chest x-ray showed perihilar atelectasis. General surgery recommends cholecystectomy if family is agreeable. Patient is being transferred to surgical floor today. Denied any worsening abdominal pain, nausea, lightheadedness 05/11/2017. Patient's breathing status is much improved today. Abdominal x-ray showed small and large bowel distention with ileus. Patient was started on clear liquid diet and advance as tolerated. Denied any abdominal pain, nausea or vomiting. Objective - Vital Signs Vital signs: Vital Signs Temp 97.2 F L 05/11/17 15:00 Pulse 83 05/11/17 16:04 Resp 16 05/11/17 16:04 BP 140/81 05/11/17 15:00 Pulse Ox 95 05/11/17 15:00 Intake & Output 05/11/17 05/11/17 05/12/17 06:59 18:59 06:59 Output Total 100 Balance -100 Weight 121 kg Output: Urine 100 Other: Voiding Method Urinal Urinal Diaper Diaper # Voids 1 3 2 # Bowel Movements 1 - Exam GENERAL: The patient is alert and oriented x3, not in any acute distress. Well developed, well nourished. HEENT: Pupils are round and equally reacting to light. EOMI. No scleral icterus. No conjunctival pallor. Normocephalic, atraumatic. No pharyngeal erythema. No thyromegaly. CARDIOVASCULAR: S1 and S2 present. No murmurs, rubs, or gallops. PULMONARY: Chest is clear to auscultation, no wheezing or crackles. ABDOMEN: Distended,no rebound or rigidity minimal epigastric abdominal tenderness was appreciated. MUSCULOSKELETAL: No joint swelling or deformity. EXTREMITIES: No cyanosis, clubbing, or pedal edema. NEUROLOGICAL: Gross neurological examination did not reveal any focal deficits. SKIN: No rashes. - Labs CBC & Chem 7: 05/11/17 09:27 05/11/17 09:27 Labs: Abnormal Lab Results - Last 24 Hours (Table) 05/11/17 05/11/17 05/11/17 Range/Units 00:22 04:06 07:06 WBC (3.8-10.6) k/uL RBC (4.30-5.90) m/uL Hgb (13.0-17.5) gm/dL Hct (39.0-53.0) % Neutrophils # (1.3-7.7) k/uL Sodium (137-145) mmol/L Carbon Dioxide (22-30) mmol/L Glucose (74-99) mg/dL POC Glucose (mg/dL) 171 H 140 H 138 H (75-99) mg/dL 05/11/17 05/11/17 05/11/17 Range/Units 09:27 09:27 12:10 WBC 11.8 H (3.8-10.6) k/uL RBC 3.37 L (4.30-5.90) m/uL Hgb 10.3 L (13.0-17.5) gm/dL Hct 31.8 L (39.0-53.0) % Neutrophils # 9.6 H (1.3-7.7) k/uL Sodium 136 L (137-145) mmol/L Carbon Dioxide 21 L (22-30) mmol/L Glucose 150 H (74-99) mg/dL POC Glucose (mg/dL) 156 H (75-99) mg/dL 05/11/17 05/11/17 Range/Units 16:03 20:29 WBC (3.8-10.6) k/uL RBC (4.30-5.90) m/uL Hgb (13.0-17.5) gm/dL Hct (39.0-53.0) % Neutrophils # (1.3-7.7) k/uL Sodium (137-145) mmol/L Carbon Dioxide (22-30) mmol/L Glucose (74-99) mg/dL POC Glucose (mg/dL) 134 H 180 H (75-99) mg/dL Microbiology - Last 24 Hours (Table) 05/09/17 07:20 Blood Culture - Preliminary Blood No Growth after 48 hours Assessment and Plan Plan: abdominal pain: Secondary to acute gallstone pancreatitis, I cannot rule out cholecystitis and sepsis related to cholecystitis. No other source of infection was appreciated blood cultures no growth so far. Ileus. Patient was on NG tube which was discontinued. Improving. Started on liquid diet. Acute hypoxic respiratory failure. congestive heart failure chronic diastolic dysfunction patient does have pulmonary edema not sure whether it secondary to acute lung injury R cardiogenic pulmonary edema. Sh has lactic acid improved and respiratory status actually improved with IV fluids because of which IV fluids will be continued at this time close clinical monitoring Suspected aspiration pneumonia History of CVA with right-sided hemiplegia and expressive aphasia. carotid artery disease with a previous endarterectomy on the left type 2 diabetes mellitus: Continue with his home regimen along with sliding scale insulin and Lantus. Hyperlipidemia Hypertension gastric esophageal reflux disease possible obstructive sleep apnea Plan: Patient will be continued on IV hydration and IV antibiotics and follow closely patient is being transferred to medical floor.. Eventually patient will require cholecystectomy. General surgery and pulmonary is following this patient. Prognosis is guarded. Time with Patient: Greater than 30
[2017-05-12] MEDS: INSULIN LISPRO (humaLOG) 300 UNIT/3 ML VIAL SQ SCH ×5 (01:09→21:41)
[2017-05-12] MEDS: SODIUM CHLORIDE 0.9% 1,000 ML IV SCH ×2 (06:14→14:04)
[2017-05-12] MEDS: buPROPion XL 150 MG TAB.ER.24H PO SCH (08:17)
[2017-05-12 08:18] LABS: Glucose,Whole Blood 156 mg/dL (75-99)
[2017-05-12] MEDS: BISACODYL 10 MG SUPP RECTAL SCH (08:18)
[2017-05-12] MEDS: DOCUSATE 100 MG CAP PO SCH ×2 (08:18→21:41)
[2017-05-12] MEDS: amLODIPine 5 MG TAB PO SCH (08:18)
[2017-05-12] MEDS: PANTOPRAZOLE 40 MG/10 ML VIAL IV SCH (08:19)
[2017-05-12] MEDS: METOPROLOL TARTRATE 50 MG TAB PO SCH ×2 (08:19→21:41)
[2017-05-12] MEDS: LACTULOSE 20 GM/30 ML CUP PO SCH ×3 (08:19→21:42)
[2017-05-12] MEDS: LORazepam 2 MG/ML SYRINGE IV SCH ×2 (08:26→21:47)
[2017-05-12 09:20] LABS: Basophils % (A) 0 %; CH 29.2; CHCM 30.7; Eosinophils # (A) 0.3 k/uL (0-0.7); Eosinophils % (A) 3 %; HCT 30.5 % (39.0-53.0); HDW 2.61; HGB 9.8 gm/dL (13.0-17.5); Hypochromasia Moderate; Luc # (Auto) 0.21; Luc % (Auto) 2; Lymphocytes # (A) 0.9 k/uL (1.0-4.8); Lymphocytes % (A) 8 %; MCH 30.5 pg (25.0-35.0); MCV 95.2 fL (80.0-100.0); Mean Platelet Volume 7.4; Monocytes # (A) 0.4 k/uL (0-1.0); Monocytes % (A) 4 %; Neutrophils # (A) 8.9 k/uL (1.3-7.7); Neutrophils % (A) 82 %; RDW 14.4 % (11.5-15.5); WBC 10.8 k/uL (3.8-10.6); WBC (Perox) 11.13
[2017-05-12 09:46] LABS: ALT 41 U/L (21-72); AST 40 U/L (17-59); Alkaline Phosphatase 88 U/L (38-126); Amylase 38 U/L (30-110); Anion Gap 12 mmol/L; Blood Urea Nitrogen 10 mg/dL (9-20); Calcium 8.5 mg/dL (8.4-10.2); Carbon Dioxide 19 mmol/L (22-30); Chloride 104 mmol/L (98-107); Glucose 234 mg/dL (74-99); Non-African American GFR(MDRD) >60 (>60 ml/min/1.73 sqM); Phosphorous 3.2 mg/dL (2.5-4.5); Sodium 135 mmol/L (137-145); Total Bilirubin 0.8 mg/dL (0.2-1.3); Total Protein 5.7 g/dL (6.3-8.2)
--- NOTE | 2017-05-12 10:51 | P.PN ---
Subjective Principal diagnosis: Acute pancreatitis A 51-year-old male patient, a young male patient with multiple medical problems and comorbidities who is currently suffering from right-sided hemiplegia and expressive aphasia. 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 The patient also is known to have coronary artery disease, diabetes mellitus hypertension and hyperlipidemia. The patient is an ex-smoker. The patient started developing abdominal pain and distention and he was unable to tolerate his feeds. At one point he got nauseated and he threw up and there is a potential also respiration. Based on that he was brought into the hospital and immediately he was diagnosed having an acute pancreatitis. Amylase lipase were significantly elevated. This confirmed the diagnosis. Based on this, a CAT scan of the abdomen and pelvis was done that showed moderate amount of mesenteric inflammatory changes around the pancreas consistent with an acute pancreatitis. This is in accordance with his clinical history. There is also dependent atelectasis involving the lower lung lobes and a tiny left-sided pleural effusion. Ultrasound of the gallbladder was done and showed no dilatation of the common bile duct. There is evidence of bilious sludge and small stones are confirmed. There is no radiographic evidence of an acute pancreatitis. The patient was diagnosed having a gallstone pancreatitis. He is not an alcohol drinker. NG tube was inserted. Output is minimal at this point. Abdomen is slightly distended and it remains tender. This morning, the patient got further as transferred to the intensive care unit as the patient was having he shortness of breath. He was placed on 40s about 2 by nasal cannula. He is awake and alert. He is having some noisy breathing and I suspect an underlying obstructive sleep apnea based on clinical grounds. His chest x-ray shows pulmonary vessel congestion and some infiltration of the lung bases bilaterally. No. Fever. Slightly tachycardic. Blood pressure is well maintained. His blood gases was performed and it showed a pH of 7.46 with a pCO2 of 32 and pO2 of 88. Elevated lipase of declining. Amylase is down to 156. Lipase is down to 519. His serum ammonia level is less than 9. Blood sugars are elevated and the most recent blood sugar readings at 280. Denies having any chest pain at this point. He is on IV Zosyn covering for an aspiration pneumonia. On 05/09/2017 the patient is being seen in follow-up. Breathing improved considerably compared to yesterday. He is currently on room air. NG tube still in place. This be kept in place for another 24 hours as the patient's abdomen is still distended and the bowel sounds are hypoactive and he is not passing any gas yet. Meanwhile, he is hemodynamically stable. Amylase lipase have been dropping. Abdomen is less tender compared to yesterday. He is awake and alert. He is producing adequate amount of urine output. Lipase is down to 163, amylase is down to 46, he is on IV Zosyn, hemoglobin is at 10.8, he is on IV fluids and is receiving normal saline at the rate of 100 mL an hour. Rest x- ray from today shows atelectatic changes in lung bases bilaterally. Blood sugars are better control. He was started on Lantus insulin 15 units daily basis along with a sliding scale coverage. On 05/10/2017, patient remains in the intensive care unit, and overall the patient is doing well except he continues to have some abdominal distention, and his abdominal film is consistent with possible adynamic ileus. Chest x-ray showed perihilar atelectasis, possible infiltrates. Right more so than left. CBC is relatively unremarkable basic metabolic profile is normal. Last amylase was 46 yesterday, and last lipase was 163 yesterday. The patient is seen again today 05/11/2017 the regular medical floor. He is breathing easier today as compared to yesterday. He is maintaining good O2 saturations in the upper 90s on room air. His been afebrile. Hemodynamically stable. His is at the bedside and feels he is better as well. His abdomen remains somewhat distended. A flat plate revealed persistent distention of small and large bowels felt reflected of ileus. Surgical services is on the case and has ordered Dulcolax suppositories. The patient is seen again today 05/12/2017 in follow-up on the regular medical floor. He is currently resting quite comfortably in bed. He's had no pulmonary complaints. He continues to maintain good O2 saturations in the 90s on room air. He did have one bowel movement following the Dulcolax suppository yesterday. His abdomen is still slightly distended but soft. Bowel sounds are present. His amylase and lipase are within normal limits. White count 10.8. Hemoglobin 9.8. Objective - Vital Signs Vital signs: Vital Signs Temp 98.9 F 05/12/17 07:00 Pulse 88 05/12/17 07:00 Resp 16 05/12/17 07:00 BP 144/74 05/12/17 07:00 Pulse Ox 96 05/12/17 07:00 Intake & Output 05/11/17 05/12/17 05/12/17 18:59 06:59 18:59 Output Total 100 Balance -100 Weight 121 kg Output: Urine 100 Other: Voiding Method Urinal Urinal Urinal Diaper Diaper Diaper # Voids 3 2 # Bowel Movements 1 - Exam Obese, calm, in no respiratory distress. Head exam was generally normal. There was no scleral icterus or corneal arcus. Mucous membranes were moist. Neck is short and supple and there is significant crowding of the posterior oropharynx and there is a facial asymmetry related to previous CVA. Neck is supple and there is no JVDs no goiter or neck masses. Mallampati class IV. Lung sounds are diminished bilaterally, clear. Cardiac exam revealed the PMI to be normally situated and sized. The rhythm was regular and no extrasystoles were noted during several minutes of auscultation. The first and second heart sounds were normal and physiologic splitting of the second heart sound was noted. There were no murmurs, rubs, clicks, or gallops. Abdomen is distended and bowel sounds are hypoactive.No rebound tensile guarding. Extremities reveal trace edema no cyanosis or clubbing. Neurologically the patient has expressive aphasia, facial asymmetry and right-sided hemiplegia with contractures and spasticity. He is nonambulatory at this point. - Labs CBC & Chem 7: 05/12/17 08:47 05/12/17 08:42 Labs: Abnormal Lab Results - Last 24 Hours (Table) 05/11/17 05/11/17 05/11/17 Range/Units 12:10 16:03 20:29 WBC (3.8-10.6) k/uL RBC (4.30-5.90) m/uL Hgb (13.0-17.5) gm/dL Hct (39.0-53.0) % Neutrophils # (1.3-7.7) k/uL Lymphocytes # (1.0-4.8) k/uL Sodium (137-145) mmol/L Carbon Dioxide (22-30) mmol/L Creatinine (0.66-1.25) mg/dL Glucose (74-99) mg/dL POC Glucose (mg/dL) 156 H 134 H 180 H (75-99) mg/dL Total Protein (6.3-8.2) g/dL Albumin (3.5-5.0) g/dL 05/12/17 05/12/17 05/12/17 Range/Units 07:58 08:42 08:47 WBC 10.8 H (3.8-10.6) k/uL RBC 3.20 L (4.30-5.90) m/uL Hgb 9.8 L (13.0-17.5) gm/dL Hct 30.5 L (39.0-53.0) % Neutrophils # 8.9 H (1.3-7.7) k/uL Lymphocytes # 0.9 L (1.0-4.8) k/uL Sodium 135 L (137-145) mmol/L Carbon Dioxide 19 L (22-30) mmol/L Creatinine 0.60 L (0.66-1.25) mg/dL Glucose 234 H (74-99) mg/dL POC Glucose (mg/dL) 156 H (75-99) mg/dL Total Protein 5.7 L (6.3-8.2) g/dL Albumin 2.8 L (3.5-5.0) g/dL Microbiology - Last 24 Hours (Table) 05/09/17 07:20 Blood Culture - Preliminary Blood No Growth after 72 hours Assessment and Plan Plan: 1 acute pancreatitis. This is likely a gallstone pancreatitis nontender the patient has shown evidence of biliary sludge and small gallbladder stones. The patient has no dilatation of the common bile duct. The liver function tests are within normal limits and the amylase and lipase are improving. Currently nothing by mouth. He did have a bowel movement following the Dulcolax suppository. On 05/09/2017 the NG tube will be kept in place. The patient is clinically improving. Amylase lipase have dropped. Awaiting lipid panel. He is stable. We'll keep NG tube in place for another 24 hours. On 05/10/2017, patient is clinically improving, however he continues to have significant ileus and flat plate of the abdomen was reviewed. Patient is yet to be seen today by general surgery for follow-up of his abdominal picture. On 05/11/2017 the patient is on the regular medical floor now. Maintaining good O2 saturations in the 90s on room air. Abdominal flat plate continues to show small large bowel ileus. Dulcolax his been ordered per surgical services. On 05/12/2017 patient is seen on the regular medical floor. He did have a bowel movement following a Dulcolax suppository yesterday. Less grimacing on abdominal palpation. Bowel sounds are present. No pulmonary concerns. He remains on Zosyn. 2 acute hypoxic respiratory failure. The patient is having progressive increasing dyspnea. Suspect a component of an acute lung injury in the setting of an acute pancreatitis. Improved. 3 CVA with right-sided hemiplegia and expressive aphasia. Anticoagulated with Xarelto. 4 carotid artery disease with a previous endarterectomy on the left 5 obesity with clinical features of obstructive sleep apnea 6 diabetes was poorly controlled blood sugar. The patient is using Lantus insulin 15 units along with a slight scale coverage. 7 coronary artery disease 8 hypertension 9 hyperlipidemia 10 suspected episode of aspiration, rule out underlying aspiration pneumonia, currently inactive in stable Plan: The patient was seen by Dr. Noriega. He remains stable from the pulmonary standpoint. Maintaining good O2 saturations in the mid 90s on room air. We'll follow the patient on an as-needed basis.
[2017-05-12 12:30] LABS: Glucose,Whole Blood 196 mg/dL (75-99)
[2017-05-12] MEDS: POTASSIUM CHLORIDE ER 20 MEQ TAB.ER PO SCH (14:04)
[2017-05-12] MEDS: ASPIRIN 81 MG CHEW PO SCH (14:04)
[2017-05-12] MEDS: HYDROcodone/APAP 10-325MG 1 EACH TAB PO PRN ×2 (14:08→19:38)
[2017-05-12] MEDS: RIVAROXABAN 10 MG TAB PO SCH (17:16)
[2017-05-12 17:19] LABS: Glucose,Whole Blood 155 mg/dL (75-99)
--- NOTE | 2017-05-12 18:48 | P.PN ---
Subjective Principal diagnosis: Gallstone pancreatitis Patient is asking for more to eat. He did have 2 loose bowel movements today. Remains distended however. Denies pain currently. Labs are improved. Objective - Vital Signs Vital signs: Vital Signs Temp 98.4 F 05/12/17 15:00 Pulse 85 05/12/17 15:00 Resp 20 05/12/17 15:00 BP 166/85 05/12/17 15:00 Pulse Ox 96 05/12/17 15:00 Intake & Output 05/11/17 05/12/17 05/12/17 18:59 06:59 18:59 Intake Total 320 Output Total 100 Balance -100 320 Weight 121 kg Intake: Oral 320 Output: Urine 100 Other: Voiding Method Urinal Urinal Urinal Diaper Diaper Diaper # Voids 3 2 2 # Bowel Movements 1 1 - Exam Abdomen: Soft, mild distention, nontender - Labs CBC & Chem 7: 05/12/17 08:47 05/12/17 08:42 Labs: Abnormal Lab Results - Last 24 Hours (Table) 05/11/17 05/12/17 05/12/17 Range/Units 20:29 07:58 08:42 WBC (3.8-10.6) k/uL RBC (4.30-5.90) m/uL Hgb (13.0-17.5) gm/dL Hct (39.0-53.0) % Neutrophils # (1.3-7.7) k/uL Lymphocytes # (1.0-4.8) k/uL Sodium 135 L (137-145) mmol/L Carbon Dioxide 19 L (22-30) mmol/L Creatinine 0.60 L (0.66-1.25) mg/dL Glucose 234 H (74-99) mg/dL POC Glucose (mg/dL) 180 H 156 H (75-99) mg/dL Total Protein 5.7 L (6.3-8.2) g/dL Albumin 2.8 L (3.5-5.0) g/dL 05/12/17 05/12/17 05/12/17 Range/Units 08:47 12:25 17:17 WBC 10.8 H (3.8-10.6) k/uL RBC 3.20 L (4.30-5.90) m/uL Hgb 9.8 L (13.0-17.5) gm/dL Hct 30.5 L (39.0-53.0) % Neutrophils # 8.9 H (1.3-7.7) k/uL Lymphocytes # 0.9 L (1.0-4.8) k/uL Sodium (137-145) mmol/L Carbon Dioxide (22-30) mmol/L Creatinine (0.66-1.25) mg/dL Glucose (74-99) mg/dL POC Glucose (mg/dL) 196 H 155 H (75-99) mg/dL Total Protein (6.3-8.2) g/dL Albumin (3.5-5.0) g/dL Microbiology - Last 24 Hours (Table) 05/09/17 07:20 Blood Culture - Preliminary Blood No Growth after 72 hours Assessment and Plan (1) Gall stone pancreatitis Narrative/Plan: Begin full liquid diet. Recheck abdominal x-rays tomorrow. Continue stool softeners for now. Status: Acute
[2017-05-12 21:16] LABS: Glucose,Whole Blood 193 mg/dL (75-99)
[2017-05-12] MEDS: ATORVASTATIN 40 MG TAB PO SCH (21:41)
[2017-05-12] MEDS: POLYETHYLENE GLYCOL 3350 17 GM POWD.PACK PO SCH (21:42)
[2017-05-12] MEDS: INSULIN GLARGINE 100 UNIT/ML 10 ML VIAL SQ SCH (21:47)
[2017-05-13] MEDS: PIPERACILLIN-TAZOBACTAM 3.375 GM in DEXTROSE/WATER 1 50ML.BAG IVPB SCH ×4 (00:51→23:21)
[2017-05-13] MEDS: SODIUM CHLORIDE 0.9% 1,000 ML IV SCH ×3 (00:52→20:24)
--- NOTE | 2017-05-13 02:10 | P.PN ---
Subjective Principal diagnosis: Acute gallstone pancreatitis Patient was admitted with with pancreatitis. Pancreatic that is improved patient had abdominal distention. Because of which patient underwent repeat CAT scan patient had cholelithiasis as well possibly of cholecystitis patient had lactic acidosis with the tachypnea tachycardia subsequently transferred to ICU for possibility of severe sepsis secondary to cholecystitis. Patient was started on Zosyn. Patient had an NG tube now. Patient's Lasix was discontinued and patient was started on IV normal saline. Patient does have some pulmonary edema on the acute lung injury. 05/09/2017 Patient's lactic acidosis improved tachycardia improved patient overall looks much better today. Patient has an NG tube not draining much today. Patient had low-grade fever is on Zosyn for possibility of infection possibly being intra-abdominal source. Patient also has acute lung injury. Patient is off Lasix is continued to be on IV normal saline at 100 mL per hour. Patient denied any abdominal pain today On 05/10/2017 Patient is still having abdominal pain but improved. Chest x-ray showed perihilar atelectasis. General surgery recommends cholecystectomy if family is agreeable. Patient is being transferred to surgical floor today. Denied any worsening abdominal pain, nausea, lightheadedness 05/11/2017. Patient's breathing status is much improved today. Abdominal x-ray showed small and large bowel distention with ileus. Patient was started on clear liquid diet and advance as tolerated. Denied any abdominal pain, nausea or vomiting. 05/12/2017 Patient is tolerating liquid diet yesterday. Patient is improving clinically. No fever no chills. No chest pain no shoulder breath. No acute bone or tissues. Objective - Vital Signs Vital signs: Vital Signs Temp 98.4 F 05/12/17 15:00 Pulse 85 05/12/17 15:00 Resp 20 05/12/17 15:00 BP 166/85 05/12/17 15:00 Pulse Ox 96 05/12/17 15:00 Intake & Output 05/12/17 05/12/17 05/13/17 06:59 18:59 06:59 Intake Total 320 Balance 320 Intake: Oral 320 Other: Voiding Method Urinal Urinal Diaper Diaper # Voids 2 2 # Bowel Movements 1 - Exam GENERAL: The patient is alert and oriented x3, not in any acute distress. Well developed, well nourished. HEENT: Pupils are round and equally reacting to light. EOMI. No scleral icterus. No conjunctival pallor. Normocephalic, atraumatic. No pharyngeal erythema. No thyromegaly. CARDIOVASCULAR: S1 and S2 present. No murmurs, rubs, or gallops. PULMONARY: Chest is clear to auscultation, no wheezing or crackles. ABDOMEN: Distended,no rebound or rigidity minimal epigastric abdominal tenderness was appreciated. MUSCULOSKELETAL: No joint swelling or deformity. EXTREMITIES: No cyanosis, clubbing, or pedal edema. NEUROLOGICAL: Gross neurological examination did not reveal any focal deficits. SKIN: No rashes. - Labs CBC & Chem 7: 05/12/17 08:47 05/12/17 08:42 Labs: Abnormal Lab Results - Last 24 Hours (Table) 05/12/17 05/12/17 05/12/17 Range/Units 07:58 08:42 08:47 WBC 10.8 H (3.8-10.6) k/uL RBC 3.20 L (4.30-5.90) m/uL Hgb 9.8 L (13.0-17.5) gm/dL Hct 30.5 L (39.0-53.0) % Neutrophils # 8.9 H (1.3-7.7) k/uL Lymphocytes # 0.9 L (1.0-4.8) k/uL Sodium 135 L (137-145) mmol/L Carbon Dioxide 19 L (22-30) mmol/L Creatinine 0.60 L (0.66-1.25) mg/dL Glucose 234 H (74-99) mg/dL POC Glucose (mg/dL) 156 H (75-99) mg/dL Total Protein 5.7 L (6.3-8.2) g/dL Albumin 2.8 L (3.5-5.0) g/dL 05/12/17 05/12/17 05/12/17 Range/Units 12:25 17:17 21:10 WBC (3.8-10.6) k/uL RBC (4.30-5.90) m/uL Hgb (13.0-17.5) gm/dL Hct (39.0-53.0) % Neutrophils # (1.3-7.7) k/uL Lymphocytes # (1.0-4.8) k/uL Sodium (137-145) mmol/L Carbon Dioxide (22-30) mmol/L Creatinine (0.66-1.25) mg/dL Glucose (74-99) mg/dL POC Glucose (mg/dL) 196 H 155 H 193 H (75-99) mg/dL Total Protein (6.3-8.2) g/dL Albumin (3.5-5.0) g/dL Microbiology - Last 24 Hours (Table) 05/09/17 07:20 Blood Culture - Preliminary Blood No Growth after 72 hours Assessment and Plan Plan: abdominal pain: Secondary to acute gallstone pancreatitis, cannot rule out cholecystitis and sepsis related to cholecystitis. No other source of infection was appreciated blood cultures no growth so far. Continue with Zosyn Ileus. Patient was on NG tube which was discontinued. Improving. Started on liquid diet. Slowly tolerating well. Acute hypoxic respiratory failure. congestive heart failure chronic diastolic dysfunction. patient does have pulmonary edema not sure whether it secondary to acute lung injury or cardiogenic pulmonary edema. lactic acid improved and respiratory status improved. 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 carotid artery disease with a previous endarterectomy on the left type 2 diabetes mellitus: Continue with his home regimen along with sliding scale insulin and Lantus. Hyperlipidemia Hypertension gastric esophageal reflux disease possible obstructive sleep apnea Plan: Patient will be continued on IV hydration and IV antibiotics and follow closely patient is being transferred to medical floor.. Eventually patient will require cholecystectomy. General surgery and pulmonary is following this patient. Prognosis is guarded. Encourage oral diet.
[2017-05-13] MEDS: HYDROcodone/APAP 10-325MG 1 EACH TAB PO PRN ×5 (02:14→20:09)
--- NOTE | 2017-05-13 07:42 | XR ---
EXAMINATION TYPE: XR abdomen 2V DATE OF EXAM: 05/13/2017 CLINICAL DATA: 51-year-old male follow-up ileus. COMPARISON: 05/11/2017 FINDINGS: On the upright view, there is no evidence for free intraperitoneal air. There is decreasing number of air distended small and large bowel loops. A few small bowel loops tom cially in the right abdomen remain dilated measuring up to 4.6 cm. Air is seen distally into the pelv is. Large bowel shows decreasing air distention. Possible 5 mm left renal calculus. IMPRESSION: Decreasing number of air distended small and large bowel loops. Some central small bowel loops remain similarly dilated up to 4.6 cm. The large bowel shows shows improving appearance. Findin gs suggest gradually improving ileus.
[2017-05-13 07:55] LABS: Glucose,Whole Blood 166 mg/dL (75-99)
[2017-05-13] MEDS: BISACODYL 10 MG SUPP RECTAL SCH (08:04)
[2017-05-13] MEDS: LORazepam 2 MG/ML SYRINGE IV SCH ×2 (08:12→20:10)
[2017-05-13] MEDS: INSULIN LISPRO (humaLOG) 300 UNIT/3 ML VIAL SQ SCH ×4 (08:14→20:27)
[2017-05-13] MEDS: LACTULOSE 20 GM/30 ML CUP PO SCH ×2 (08:21→20:14)
[2017-05-13] MEDS: amLODIPine 5 MG TAB PO SCH (08:21)
[2017-05-13] MEDS: PANTOPRAZOLE 40 MG TABLET PO SCH (08:21)
[2017-05-13] MEDS: buPROPion XL 150 MG TAB.ER.24H PO SCH (08:21)
[2017-05-13] MEDS: DOCUSATE 100 MG CAP PO SCH ×2 (08:21→20:14)
[2017-05-13] MEDS: METOPROLOL TARTRATE 50 MG TAB PO SCH ×2 (08:22→20:15)
[2017-05-13 08:34] LABS: Basophils % (A) 0 %; CH 30.3; CHCM 31.9; Eosinophils # (A) 0.4 k/uL (0-0.7); Eosinophils % (A) 4 %; HCT 31.2 % (39.0-53.0); HDW 2.64; HGB 9.7 gm/dL (13.0-17.5); Luc # (Auto) 0.24; Luc % (Auto) 3; Lymphocytes # (A) 1.1 k/uL (1.0-4.8); Lymphocytes % (A) 11 %; MCH 29.8 pg (25.0-35.0); MCHC 31.2 g/dL (31.0-37.0); MCV 95.4 fL (80.0-100.0); Mean Platelet Volume 8.1; Monocytes # (A) 0.5 k/uL (0-1.0); Monocytes % (A) 5 %; Neutrophils # (A) 7.7 k/uL (1.3-7.7); Neutrophils % (A) 77 %; RBC 3.27 m/uL (4.30-5.90); WBC 9.9 k/uL (3.8-10.6)
[2017-05-13 08:50] LABS: Anion Gap 11 mmol/L; Blood Urea Nitrogen 11 mg/dL (9-20); Carbon Dioxide 21 mmol/L (22-30); Chloride 107 mmol/L (98-107); Glucose 159 mg/dL (74-99); Non-African American GFR(MDRD) >60 (>60 ml/min/1.73 sqM); Phosphorous 3.3 mg/dL (2.5-4.5); Potassium 3.7 mmol/L (3.5-5.1); Sodium 139 mmol/L (137-145)
--- NOTE | 2017-05-13 11:25 | XR ---
EXAMINATION TYPE: XR chest 1V portable DATE OF EXAM: 05/13/2017 Comparison: 05/10/2017 Clinical History: 51 year-old male shortness of breath, possible Aspiration Findings: Low lung volumes with crowded vascular markings. There is some mild peribronchial cuffing present. St anupama atelectasis in the lower lungs. Heart upper limits of normal in size. No consolidation or pleur al effusion. Impression: Hypoventilatory changes. Additional chronic changes, possible chronic bronchitis/asthma. No acute pro cess seen.
--- NOTE | 2017-05-13 11:27 | P.PN ---
Subjective Principal diagnosis: Acute pancreatitis A 51-year-old male patient, a young male patient with multiple medical problems and comorbidities who is currently suffering from right-sided hemiplegia and expressive aphasia. 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 The patient also is known to have coronary artery disease, diabetes mellitus hypertension and hyperlipidemia. The patient is an ex-smoker. The patient started developing abdominal pain and distention and he was unable to tolerate his feeds. At one point he got nauseated and he threw up and there is a potential also respiration. Based on that he was brought into the hospital and immediately he was diagnosed having an acute pancreatitis. Amylase lipase were significantly elevated. This confirmed the diagnosis. Based on this, a CAT scan of the abdomen and pelvis was done that showed moderate amount of mesenteric inflammatory changes around the pancreas consistent with an acute pancreatitis. This is in accordance with his clinical history. There is also dependent atelectasis involving the lower lung lobes and a tiny left-sided pleural effusion. Ultrasound of the gallbladder was done and showed no dilatation of the common bile duct. There is evidence of bilious sludge and small stones are confirmed. There is no radiographic evidence of an acute pancreatitis. The patient was diagnosed having a gallstone pancreatitis. He is not an alcohol drinker. NG tube was inserted. Output is minimal at this point. Abdomen is slightly distended and it remains tender. This morning, the patient got further as transferred to the intensive care unit as the patient was having he shortness of breath. He was placed on 40s about 2 by nasal cannula. He is awake and alert. He is having some noisy breathing and I suspect an underlying obstructive sleep apnea based on clinical grounds. His chest x-ray shows pulmonary vessel congestion and some infiltration of the lung bases bilaterally. No. Fever. Slightly tachycardic. Blood pressure is well maintained. His blood gases was performed and it showed a pH of 7.46 with a pCO2 of 32 and pO2 of 88. Elevated lipase of declining. Amylase is down to 156. Lipase is down to 519. His serum ammonia level is less than 9. Blood sugars are elevated and the most recent blood sugar readings at 280. Denies having any chest pain at this point. He is on IV Zosyn covering for an aspiration pneumonia. On 05/09/2017 the patient is being seen in follow-up. Breathing improved considerably compared to yesterday. He is currently on room air. NG tube still in place. This be kept in place for another 24 hours as the patient's abdomen is still distended and the bowel sounds are hypoactive and he is not passing any gas yet. Meanwhile, he is hemodynamically stable. Amylase lipase have been dropping. Abdomen is less tender compared to yesterday. He is awake and alert. He is producing adequate amount of urine output. Lipase is down to 163, amylase is down to 46, he is on IV Zosyn, hemoglobin is at 10.8, he is on IV fluids and is receiving normal saline at the rate of 100 mL an hour. Rest x- ray from today shows atelectatic changes in lung bases bilaterally. Blood sugars are better control. He was started on Lantus insulin 15 units daily basis along with a sliding scale coverage. On 05/10/2017, patient remains in the intensive care unit, and overall the patient is doing well except he continues to have some abdominal distention, and his abdominal film is consistent with possible adynamic ileus. Chest x-ray showed perihilar atelectasis, possible infiltrates. Right more so than left. CBC is relatively unremarkable basic metabolic profile is normal. Last amylase was 46 yesterday, and last lipase was 163 yesterday. The patient is seen again today 05/11/2017 the regular medical floor. He is breathing easier today as compared to yesterday. He is maintaining good O2 saturations in the upper 90s on room air. His been afebrile. Hemodynamically stable. His is at the bedside and feels he is better as well. His abdomen remains somewhat distended. A flat plate revealed persistent distention of small and large bowels felt reflected of ileus. Surgical services is on the case and has ordered Dulcolax suppositories. The patient is seen again today 05/12/2017 in follow-up on the regular medical floor. He is currently resting quite comfortably in bed. He's had no pulmonary complaints. He continues to maintain good O2 saturations in the 90s on room air. He did have one bowel movement following the Dulcolax suppository yesterday. His abdomen is still slightly distended but soft. Bowel sounds are present. His amylase and lipase are within normal limits. White count 10.8. Hemoglobin 9.8. The patient is seen again today 05/13/2017 in follow-up on the regular medical floor. He is currently resting comfortably in bed. He is maintaining good O2 saturations in the 90s on room air. He has not had any issues with shortness of breath, cough or congestion. His did had some concerns regarding possible aspiration as he was having trouble with Jell-O and fluids last evening. Chest x-ray today does not reveal any evidence of aspiration pneumonia. His abdominal x-ray is showing improvement in the ileus as well. He 's had 2 bowel movements since yesterday. White count 9.9. Hemoglobin stable at 9.7. Objective - Vital Signs Vital signs: Vital Signs Temp 100.1 F H 05/13/17 07:00 Pulse 88 05/13/17 08:00 Resp 22 05/13/17 08:00 BP 166/97 05/13/17 07:00 Pulse Ox 98 05/13/17 07:00 Intake & Output 05/12/17 05/13/17 05/13/17 18:59 06:59 18:59 Intake Total 320 Balance 320 Weight 118 kg Intake: Oral 320 Other: Voiding Method Urinal Urinal Urinal Diaper Diaper Diaper # Voids 2 4 # Bowel Movements 1 - Exam Obese, calm, in no respiratory distress. Head exam was generally normal. There was no scleral icterus or corneal arcus. Mucous membranes were moist. Neck is short and supple and there is significant crowding of the posterior oropharynx and there is a facial asymmetry related to previous CVA. Neck is supple and there is no JVDs no goiter or neck masses. Mallampati class IV. Lung sounds are diminished bilaterally, clear. Cardiac exam revealed the PMI to be normally situated and sized. The rhythm was regular and no extrasystoles were noted during several minutes of auscultation. The first and second heart sounds were normal and physiologic splitting of the second heart sound was noted. There were no murmurs, rubs, clicks, or gallops. Abdomen is distended and bowel sounds are hypoactive.No rebound tensile guarding. Extremities reveal trace edema no cyanosis or clubbing. Neurologically the patient has expressive aphasia, facial asymmetry and right-sided hemiplegia with contractures and spasticity. He is nonambulatory at this point. - Labs CBC & Chem 7: 05/13/17 07:57 05/13/17 07:57 Labs: Abnormal Lab Results - Last 24 Hours (Table) 05/12/17 05/12/17 05/12/17 Range/Units 12:25 17:17 21:10 RBC (4.30-5.90) m/uL Hgb (13.0-17.5) gm/dL Hct (39.0-53.0) % Carbon Dioxide (22-30) mmol/L Creatinine (0.66-1.25) mg/dL Glucose (74-99) mg/dL POC Glucose (mg/dL) 196 H 155 H 193 H (75-99) mg/dL 05/13/17 05/13/17 05/13/17 Range/Units 07:52 07:57 07:57 RBC 3.27 L (4.30-5.90) m/uL Hgb 9.7 L (13.0-17.5) gm/dL Hct 31.2 L (39.0-53.0) % Carbon Dioxide 21 L (22-30) mmol/L Creatinine 0.64 L (0.66-1.25) mg/dL Glucose 159 H (74-99) mg/dL POC Glucose (mg/dL) 166 H (75-99) mg/dL Microbiology - Last 24 Hours (Table) 05/09/17 07:20 Blood Culture - Preliminary Blood No Growth after 96 hours Assessment and Plan Plan: 1 acute pancreatitis. This is likely a gallstone pancreatitis nontender the patient has shown evidence of biliary sludge and small gallbladder stones. The patient has no dilatation of the common bile duct. The liver function tests are within normal limits and the amylase and lipase are improving. Currently nothing by mouth. He did have a bowel movement following the Dulcolax suppository. On 05/09/2017 the NG tube will be kept in place. The patient is clinically improving. Amylase lipase have dropped. Awaiting lipid panel. He is stable. We'll keep NG tube in place for another 24 hours. On 05/10/2017, patient is clinically improving, however he continues to have significant ileus and flat plate of the abdomen was reviewed. Patient is yet to be seen today by general surgery for follow-up of his abdominal picture. On 05/11/2017 the patient is on the regular medical floor now. Maintaining good O2 saturations in the 90s on room air. Abdominal flat plate continues to show small large bowel ileus. Dulcolax his been ordered per surgical services. On 05/12/2017 patient is seen on the regular medical floor. He did have a bowel movement following a Dulcolax suppository yesterday. Less grimacing on abdominal palpation. Bowel sounds are present. No pulmonary concerns. He remains on Zosyn. On 05/13/2017 the patient is seen again on the regular medical floor. His chest x-ray today shows no evidence of aspiration. No acute pneumonia. His abdominal x-ray does show improvement in the ileus. He's had 2 more bowel movements. No pulmonary complaints. 2 acute hypoxic respiratory failure. The patient is having progressive increasing dyspnea. Suspect a component of an acute lung injury in the setting of an acute pancreatitis. Improved. 3 CVA with right-sided hemiplegia and expressive aphasia. Anticoagulated with Xarelto. 4 carotid artery disease with a previous endarterectomy on the left 5 obesity with clinical features of obstructive sleep apnea 6 diabetes was poorly controlled blood sugar. The patient is using Lantus insulin 15 units along with a slight scale coverage. 7 coronary artery disease 8 hypertension 9 hyperlipidemia 10 suspected episode of aspiration, rule out underlying aspiration pneumonia, currently inactive in stable Plan: The patient was seen by Dr. Noriega. His chest x-ray and labs were reviewed. He remains stable from the pulmonary standpoint. Maintaining good O2 saturations in the mid 90s on room air. We'll follow the patient on an as- needed basis.
[2017-05-13 12:14] LABS: Glucose,Whole Blood 219 mg/dL (75-99)
[2017-05-13] MEDS: ASPIRIN 81 MG CHEW PO SCH (13:11)
[2017-05-13] MEDS: POTASSIUM CHLORIDE ER 20 MEQ TAB.ER PO SCH (13:11)
--- NOTE | 2017-05-13 14:21 | P.PN ---
Subjective Principal diagnosis: Gallstone pancreatitis Patient seems to be doing better. Denies abdominal pain. Tolerating full liquids. He did have a low-grade fever of 100.1. No bowel movement since yesterday. Objective - Vital Signs Vital signs: Vital Signs Temp 100.1 F H 05/13/17 07:00 Pulse 88 05/13/17 08:00 Resp 22 05/13/17 08:00 BP 166/97 05/13/17 07:00 Pulse Ox 98 05/13/17 07:00 Intake & Output 05/12/17 05/13/17 05/13/17 18:59 06:59 18:59 Intake Total 320 130 Balance 320 130 Weight 118 kg Intake: IV 130 Piperacillin-Tazobactam 3 50 .375 gm In Dextrose/Water 1 50ml.bag @ 12.5 mls/hr IVPB Q8HR [facility] Rx#: [id number] Sodium Chloride 0.9% 1, 80 000 ml @ 100 mls/hr IV . Q10H [facility] Rx#:[id number] Oral 320 Other: Voiding Method Urinal Urinal Urinal Diaper Diaper Diaper # Voids 2 4 # Bowel Movements 1 - Exam Abdomen: Soft, slightly distended, nontender - Labs CBC & Chem 7: 05/13/17 07:57 05/13/17 07:57 Labs: Abnormal Lab Results - Last 24 Hours (Table) 05/12/17 05/12/17 05/13/17 Range/Units 17: 21:10 07:52 RBC (4.30-5.90) m/uL Hgb (13.0-17.5) gm/dL Hct (39.0-53.0) % Carbon Dioxide (22-30) mmol/L Creatinine (0.66-1.25) mg/dL Glucose (74-99) mg/dL POC Glucose (mg/dL) 155 H 193 H 166 H (75-99) mg/dL 05/13/17 05/13/17 05/13/17 Range/Units 07:57 07:57 12:11 RBC 3.27 L (4.30-5.90) m/uL Hgb 9.7 L (13.0-17.5) gm/dL Hct 31.2 L (39.0-53.0) % Carbon Dioxide 21 L (22-30) mmol/L Creatinine 0.64 L (0.66-1.25) mg/dL Glucose 159 H (74-99) mg/dL POC Glucose (mg/dL) 219 H (75-99) mg/dL Microbiology - Last 24 Hours (Table) 05/09/17 07:20 Blood Culture - Preliminary Blood No Growth after 96 hours Assessment and Plan (1) Gall stone pancreatitis Narrative/Plan: Will advance diet for dinner. Monitor low-grade fevers. Repeat labs tomorrow. Probable discharge in 24-48 hours with plans for outpatient cholecystectomy. Status: Acute
[2017-05-13 15:46] VITALS: BMI 36.3
[2017-05-13 17:04] LABS: Glucose,Whole Blood 178 mg/dL (75-99)
[2017-05-13] MEDS: RIVAROXABAN 10 MG TAB PO SCH (17:44)
[2017-05-13] MEDS: ALBUTEROL NEBULIZED 2.5 MG/3 ML INHALATION PRN (19:49)
[2017-05-13] MEDS: ATORVASTATIN 40 MG TAB PO SCH (20:14)
[2017-05-13] MEDS: POLYETHYLENE GLYCOL 3350 17 GM POWD.PACK PO SCH (20:15)
[2017-05-13 20:28] LABS: Glucose,Whole Blood 198 mg/dL (75-99)
[2017-05-13] MEDS: INSULIN GLARGINE 100 UNIT/ML 10 ML VIAL SQ SCH (20:28)
[2017-05-14] MEDS: SODIUM CHLORIDE 0.9% 1,000 ML IV SCH ×2 (04:55→16:26)
[2017-05-14] MEDS: HYDROcodone/APAP 10-325MG 1 EACH TAB PO PRN ×4 (04:57→22:09)
[2017-05-14 07:16] LABS: Glucose,Whole Blood 183 mg/dL (75-99)
[2017-05-14] MEDS: amLODIPine 5 MG TAB PO SCH (08:12)
[2017-05-14] MEDS: INSULIN LISPRO (humaLOG) 300 UNIT/3 ML VIAL SQ SCH ×4 (08:12→22:10)
[2017-05-14] MEDS: buPROPion XL 150 MG TAB.ER.24H PO SCH (08:12)
[2017-05-14] MEDS: PANTOPRAZOLE 40 MG TABLET PO SCH (08:12)
[2017-05-14] MEDS: PIPERACILLIN-TAZOBACTAM 3.375 GM in DEXTROSE/WATER 1 50ML.BAG IVPB SCH ×3 (08:12→23:44)
[2017-05-14] MEDS: METOPROLOL TARTRATE 50 MG TAB PO SCH ×2 (08:13→22:08)
[2017-05-14] MEDS: DOCUSATE 100 MG CAP PO SCH ×2 (08:13→22:11)
[2017-05-14] MEDS: LACTULOSE 20 GM/30 ML CUP PO SCH ×2 (08:13→22:11)
[2017-05-14] MEDS: BISACODYL 10 MG SUPP RECTAL SCH (08:13)
[2017-05-14] MEDS: LORazepam 2 MG/ML SYRINGE IV SCH ×2 (08:19→23:43)
[2017-05-14 08:28] LABS: ALT 63 U/L (21-72); AST 51 U/L (17-59); Alkaline Phosphatase 95 U/L (38-126); Amylase 45 U/L (30-110); Anion Gap 11 mmol/L; Blood Urea Nitrogen 10 mg/dL (9-20); Calcium 8.7 mg/dL (8.4-10.2); Carbon Dioxide 20 mmol/L (22-30); Chloride 106 mmol/L (98-107); Glucose 187 mg/dL (74-99); Non-African American GFR(MDRD) >60 (>60 ml/min/1.73 sqM); Potassium 4.1 mmol/L (3.5-5.1); Sodium 137 mmol/L (137-145); Total Bilirubin 0.3 mg/dL (0.2-1.3); Total Protein 5.8 g/dL (6.3-8.2)
[2017-05-14 10:35] LABS: Basophils % (A) 0 %; CH 30.2; CHCM 31.3; Eosinophils # (A) 0.4 k/uL (0-0.7); Eosinophils % (A) 4 %; HCT 31.4 % (39.0-53.0); HDW 2.56; Hypochromasia Slight; Luc # (Auto) 0.21; Luc % (Auto) 2; Lymphocytes # (A) 1.4 k/uL (1.0-4.8); Lymphocytes % (A) 16 %; MCH 30.9 pg (25.0-35.0); MCHC 31.9 g/dL (31.0-37.0); MCV 96.9 fL (80.0-100.0); Mean Platelet Volume 8.2; Monocytes # (A) 0.5 k/uL (0-1.0); Monocytes % (A) 5 %; Neutrophils # (A) 6.6 k/uL (1.3-7.7); Neutrophils % (A) 72 %; RBC 3.24 m/uL (4.30-5.90); RDW 14.9 % (11.5-15.5); WBC 9.1 k/uL (3.8-10.6); WBC (Perox) 9.61
[2017-05-14 11:54] LABS: Glucose,Whole Blood 242 mg/dL (75-99)
[2017-05-14] MEDS: ASPIRIN 81 MG CHEW PO SCH (13:26)
[2017-05-14] MEDS: POTASSIUM CHLORIDE ER 20 MEQ TAB.ER PO SCH (13:26)
--- NOTE | 2017-05-14 16:11 | P.PN ---
Subjective Principal diagnosis: Gallstone pancreatitis Patient seems to be doing quite well at this time. The family states that this morning he did have issues regarding abdominal pain on the right side. He did have a bowel movement. He is tolerating his diet. Labs from today appear normal. Objective - Vital Signs Vital signs: Vital Signs Temp 97.7 F 05/14/17 15:00 Pulse 75 05/14/17 15:00 Resp 18 05/14/17 15:00 BP 136/74 05/14/17 15:00 Pulse Ox 97 05/14/17 15:00 Intake & Output 05/13/17 05/14/17 05/14/17 18:59 06:59 18:59 Intake Total 130 Balance 130 Weight 118 kg 116.5 kg Intake: IV 130 Piperacillin-Tazobactam 3 50 .375 gm In Dextrose/Water 1 50ml.bag @ 12.5 mls/hr IVPB Q8HR [facility] Rx#: [id number] Sodium Chloride 0.9% 1, 80 000 ml @ 100 mls/hr IV . Q10H [facility] Rx#:[id number] Other: Voiding Method Urinal Urinal Incontinent Diaper Diaper # Voids 1 2 # Bowel Movements 1 - Exam Abdomen: Soft, less distended, nontender - Labs CBC & Chem 7: 05/14/17 07:34 05/14/17 07:34 Labs: Abnormal Lab Results - Last 24 Hours (Table) 05/13/17 05/13/17 05/14/17 Range/Units 17:02 20:22 07:06 RBC (4.30-5.90) m/uL Hgb (13.0-17.5) gm/dL Hct (39.0-53.0) % Carbon Dioxide (22-30) mmol/L Creatinine (0.66-1.25) mg/dL Glucose (74-99) mg/dL POC Glucose (mg/dL) 178 H 198 H 183 H (75-99) mg/dL Total Protein (6.3-8.2) g/dL Albumin (3.5-5.0) g/dL 05/14/17 05/14/17 05/14/17 Range/Units 07:34 07:34 11:53 RBC 3.24 L (4.30-5.90) m/uL Hgb 10.0 L (13.0-17.5) gm/dL Hct 31.4 L (39.0-53.0) % Carbon Dioxide 20 L (22-30) mmol/L Creatinine 0.59 L (0.66-1.25) mg/dL Glucose 187 H (74-99) mg/dL POC Glucose (mg/dL) 242 H (75-99) mg/dL Total Protein 5.8 L (6.3-8.2) g/dL Albumin 2.9 L (3.5-5.0) g/dL Microbiology - Last 24 Hours (Table) 05/09/17 07:20 Blood Culture - Preliminary Blood No Growth after 120 hours Assessment and Plan (1) Gall stone pancreatitis Narrative/Plan: Gradually advance diet. Anticipate discharge home with outpatient plans for cholecystectomy. Status: Acute
[2017-05-14] MEDS: RIVAROXABAN 10 MG TAB PO SCH (16:27)
[2017-05-14 16:59] LABS: Glucose,Whole Blood 208 mg/dL (75-99)
[2017-05-14 21:03] LABS: Glucose,Whole Blood 220 mg/dL (75-99)
[2017-05-14] MEDS: ATORVASTATIN 40 MG TAB PO SCH (22:08)
[2017-05-14] MEDS: INSULIN GLARGINE 100 UNIT/ML 10 ML VIAL SQ SCH (22:09)
[2017-05-14] MEDS: POLYETHYLENE GLYCOL 3350 17 GM POWD.PACK PO SCH (22:11)
--- NOTE | 2017-05-14 23:48 | P.PN ---
Subjective Principal diagnosis: Acute gallstone pancreatitis Patient was admitted with with pancreatitis. Pancreatic that is improved patient had abdominal distention. Because of which patient underwent repeat CAT scan patient had cholelithiasis as well possibly of cholecystitis patient had lactic acidosis with the tachypnea tachycardia subsequently transferred to ICU for possibility of severe sepsis secondary to cholecystitis. Patient was started on Zosyn. Patient had an NG tube now. Patient's Lasix was discontinued and patient was started on IV normal saline. Patient does have some pulmonary edema on the acute lung injury. 05/09/2017 Patient's lactic acidosis improved tachycardia improved patient overall looks much better today. Patient has an NG tube not draining much today. Patient had low-grade fever is on Zosyn for possibility of infection possibly being intra-abdominal source. Patient also has acute lung injury. Patient is off Lasix is continued to be on IV normal saline at 100 mL per hour. Patient denied any abdominal pain today On 05/10/2017 Patient is still having abdominal pain but improved. Chest x-ray showed perihilar atelectasis. General surgery recommends cholecystectomy if family is agreeable. Patient is being transferred to surgical floor today. Denied any worsening abdominal pain, nausea, lightheadedness 05/11/2017. Patient's breathing status is much improved today. Abdominal x-ray showed small and large bowel distention with ileus. Patient was started on clear liquid diet and advance as tolerated. Denied any abdominal pain, nausea or vomiting. 05/12/2017 Patient is tolerating liquid diet yesterday. Patient is improving clinically. No fever no chills. No chest pain no shoulder breath. No acute bone or tissues. 05/13/2017 Patient's abdominal pain is much improved. Tolerating liquid diet. Denied any fever or chills. Saturating well on room air. No complaints of chest pain or short of breath. Otherwise no acute overnight issues. Objective - Vital Signs Vital signs: Vital Signs Temp 97.8 F 05/13/17 15:00 Pulse 84 05/13/17 20:00 Resp 22 05/13/17 16:00 BP 139/73 05/13/17 15:00 Pulse Ox 96 05/13/17 15:00 Intake & Output 05/13/17 05/13/17 05/14/17 06:59 18:59 06:59 Intake Total 130 Balance 130 Weight 118 kg 118 kg Intake: IV 130 Piperacillin-Tazobactam 3 50 .375 gm In Dextrose/Water 1 50ml.bag @ 12.5 mls/hr IVPB Q8HR [facility] Rx#: [id number] Sodium Chloride 0.9% 1, 80 000 ml @ 100 mls/hr IV . Q10H [facility] Rx#:[id number] Other: Voiding Method Urinal Urinal Diaper Diaper # Voids 4 - Exam GENERAL: The patient is alert and oriented x3, not in any acute distress. Well developed, well nourished. HEENT: Pupils are round and equally reacting to light. EOMI. No scleral icterus. No conjunctival pallor. Normocephalic, atraumatic. No pharyngeal erythema. No thyromegaly. CARDIOVASCULAR: S1 and S2 present. No murmurs, rubs, or gallops. PULMONARY: Chest is clear to auscultation, no wheezing or crackles. ABDOMEN: Non-Distended,no rebound or rigidity. minimal epigastric abdominal tenderness was appreciated. MUSCULOSKELETAL: No joint swelling or deformity. EXTREMITIES: No cyanosis, clubbing, or pedal edema. NEUROLOGICAL: Rectal and oriented 3. Patient does have sided weakness from previous CVA SKIN: No rashes. - Labs CBC & Chem 7: 05/14/17 07:34 05/14/17 07:34 Labs: Abnormal Lab Results - Last 24 Hours (Table) 05/13/17 05/13/17 05/13/17 Range/Units 07:52 07:57 07:57 RBC 3.27 L (4.30-5.90) m/uL Hgb 9.7 L (13.0-17.5) gm/dL Hct 31.2 L (39.0-53.0) % Carbon Dioxide 21 L (22-30) mmol/L Creatinine 0.64 L (0.66-1.25) mg/dL Glucose 159 H (74-99) mg/dL POC Glucose (mg/dL) 166 H (75-99) mg/dL 05/13/17 05/13/17 05/13/17 Range/Units 12:11 17:02 20:22 RBC (4.30-5.90) m/uL Hgb (13.0-17.5) gm/dL Hct (39.0-53.0) % Carbon Dioxide (22-30) mmol/L Creatinine (0.66-1.25) mg/dL Glucose (74-99) mg/dL POC Glucose (mg/dL) 219 H 178 H 198 H (75-99) mg/dL Microbiology - Last 24 Hours (Table) 05/09/17 07:20 Blood Culture - Preliminary Blood No Growth after 96 hours Assessment and Plan Plan: abdominal pain: Secondary to acute gallstone pancreatitis, cannot rule out cholecystitis and sepsis related to cholecystitis. No other source of infection was appreciated blood cultures no growth so far. Continue with Zosyn. Patient needs cholecystectomy eventually. Ileus. Patient was on NG tube which was discontinued. Improving. Started on liquid diet. Slowly tolerating well. Acute hypoxic respiratory failure. congestive heart failure chronic diastolic dysfunction. patient does have pulmonary edema not sure whether it secondary to acute lung injury or cardiogenic pulmonary edema. lactic acid improved and respiratory status improved. 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 carotid artery disease with a previous endarterectomy on the left type 2 diabetes mellitus: Continue with his home regimen along with sliding scale insulin and Lantus. Hyperlipidemia Hypertension gastric esophageal reflux disease possible obstructive sleep apnea Plan: Patient will be continued on IV hydration and IV antibiotics and follow closely on medical floor.. Eventually patient will require cholecystectomy. General surgery and pulmonary is following this patient. Prognosis is guarded. Encourage oral diet.
--- NOTE | 2017-05-14 23:51 | P.PN ---
Subjective Principal diagnosis: Acute gallstone pancreatitis Patient was admitted with with pancreatitis. Pancreatic that is improved patient had abdominal distention. Because of which patient underwent repeat CAT scan patient had cholelithiasis as well possibly of cholecystitis patient had lactic acidosis with the tachypnea tachycardia subsequently transferred to ICU for possibility of severe sepsis secondary to cholecystitis. Patient was started on Zosyn. Patient had an NG tube now. Patient's Lasix was discontinued and patient was started on IV normal saline. Patient does have some pulmonary edema on the acute lung injury. 05/09/2017 Patient's lactic acidosis improved tachycardia improved patient overall looks much better today. Patient has an NG tube not draining much today. Patient had low-grade fever is on Zosyn for possibility of infection possibly being intra-abdominal source. Patient also has acute lung injury. Patient is off Lasix is continued to be on IV normal saline at 100 mL per hour. Patient denied any abdominal pain today On 05/10/2017 Patient is still having abdominal pain but improved. Chest x-ray showed perihilar atelectasis. General surgery recommends cholecystectomy if family is agreeable. Patient is being transferred to surgical floor today. Denied any worsening abdominal pain, nausea, lightheadedness 05/11/2017. Patient's breathing status is much improved today. Abdominal x-ray showed small and large bowel distention with ileus. Patient was started on clear liquid diet and advance as tolerated. Denied any abdominal pain, nausea or vomiting. 05/12/2017 Patient is tolerating liquid diet yesterday. Patient is improving clinically. No fever no chills. No chest pain no shoulder breath. No acute bone or tissues. 05/13/2017 Patient's abdominal pain is much improved. Tolerating liquid diet. Denied any fever or chills. Saturating well on room air. No complaints of chest pain or short of breath. Otherwise no acute overnight issues. 05/14/2017 Patient says that his having abdominal cramping has switched in the lower abdomen. On the right side. Tolerating liquid diet which is being advanced. No fever no chills. No acute overnight issues. Patient did have bowel movement. Objective - Vital Signs Vital signs: Vital Signs Temp 97.7 F 05/14/17 15:00 Pulse 75 05/14/17 15:00 Resp 18 05/14/17 15:00 BP 136/74 05/14/17 15:00 Pulse Ox 97 08/18/17 15:00 Intake & Output 05/14/17 05/14/17 05/15/17 06:59 18:59 06:59 Weight 116.5 kg Other: Voiding Method Urinal Incontinent Diaper # Voids 1 2 # Bowel Movements 1 - Exam GENERAL: The patient is alert and oriented x3, not in any acute distress. Well developed, well nourished. HEENT: Pupils are round and equally reacting to light. EOMI. No scleral icterus. No conjunctival pallor. Normocephalic, atraumatic. No pharyngeal erythema. No thyromegaly. CARDIOVASCULAR: S1 and S2 present. No murmurs, rubs, or gallops. PULMONARY: Chest is clear to auscultation, no wheezing or crackles. ABDOMEN: Non-Distended,no rebound or rigidity. minimal epigastric abdominal tenderness was appreciated. MUSCULOSKELETAL: No joint swelling or deformity. EXTREMITIES: No cyanosis, clubbing, or pedal edema. NEUROLOGICAL: Rectal and oriented 3. Patient does have right sided weakness from previous CVA SKIN: No rashes. - Labs CBC & Chem 7: 05/14/17 07:34 05/14/17 07:34 Labs: Abnormal Lab Results - Last 24 Hours (Table) 05/14/17 05/14/17 05/14/17 Range/Units 07:06 07:34 07:34 RBC 3.24 L (4.30-5.90) m/uL Hgb 10.0 L (13.0-17.5) gm/dL Hct 31.4 L (39.0-53.0) % Carbon Dioxide 20 L (22-30) mmol/L Creatinine 0.59 L (0.66-1.25) mg/dL Glucose 187 H (74-99) mg/dL POC Glucose (mg/dL) 183 H (75-99) mg/dL Total Protein 5.8 L (6.3-8.2) g/dL Albumin 2.9 L (3.5-5.0) g/dL 05/14/17 05/14/17 05/14/17 Range/Units 11:53 16:56 21:01 RBC (4.30-5.90) m/uL Hgb (13.0-17.5) gm/dL Hct (39.0-53.0) % Carbon Dioxide (22-30) mmol/L Creatinine (0.66-1.25) mg/dL Glucose (74-99) mg/dL POC Glucose (mg/dL) 242 H 208 H 220 H (75-99) mg/dL Total Protein (6.3-8.2) g/dL Albumin (3.5-5.0) g/dL Microbiology - Last 24 Hours (Table) 05/09/17 07:20 Blood Culture - Preliminary Blood No Growth after 120 hours Assessment and Plan Plan: abdominal pain: Secondary to acute gallstone pancreatitis, cannot rule out cholecystitis and sepsis related to cholecystitis. No other source of infection was appreciated blood cultures no growth so far. Continue with Zosyn. Patient needs cholecystectomy eventually. Ileus. Patient was on NG tube which was discontinued. Improving. Started on liquid diet. Slowly tolerating well. Acute hypoxic respiratory failure. congestive heart failure chronic diastolic dysfunction. patient does have pulmonary edema not sure whether it secondary to acute lung injury or cardiogenic pulmonary edema. lactic acid improved and respiratory status improved. 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 carotid artery disease with a previous endarterectomy on the left type 2 diabetes mellitus: Continue with his home regimen along with sliding scale insulin and Lantus. Hyperlipidemia Hypertension gastric esophageal reflux disease possible obstructive sleep apnea Plan: Patient will be continued on IV hydration and IV antibiotics and follow closely on medical floor.. Eventually patient will require cholecystectomy. Needs outpatient surgery follow-up. General surgery and pulmonary is following this patient. Prognosis is guarded. Encourage oral diet.
[2017-05-15 07:30] LABS: Glucose,Whole Blood 199 mg/dL (75-99)
[2017-05-15] MEDS: HYDROcodone/APAP 10-325MG 1 EACH TAB PO PRN ×3 (08:04→15:26)
[2017-05-15] MEDS: METOPROLOL TARTRATE 50 MG TAB PO SCH (08:05)
[2017-05-15] MEDS: buPROPion XL 150 MG TAB.ER.24H PO SCH (08:05)
[2017-05-15] MEDS: INSULIN LISPRO (humaLOG) 300 UNIT/3 ML VIAL SQ SCH ×2 (08:05→13:33)
[2017-05-15] MEDS: SODIUM CHLORIDE 0.9% 1,000 ML IV SCH ×2 (08:05→13:33)
[2017-05-15] MEDS: DOCUSATE 100 MG CAP PO SCH (08:06)
[2017-05-15] MEDS: PANTOPRAZOLE 40 MG TABLET PO SCH (08:06)
[2017-05-15] MEDS: BISACODYL 10 MG SUPP RECTAL SCH (08:06)
[2017-05-15] MEDS: LACTULOSE 20 GM/30 ML CUP PO SCH (08:06)
[2017-05-15] MEDS: amLODIPine 5 MG TAB PO SCH (08:06)
[2017-05-15] MEDS: PIPERACILLIN-TAZOBACTAM 3.375 GM in DEXTROSE/WATER 1 50ML.BAG IVPB SCH (08:06)
[2017-05-15] MEDS: LORazepam 2 MG/ML SYRINGE IV SCH (08:07)
--- NOTE | 2017-05-15 09:29 | P.PN ---
Progress Note - Text The patient is stable. Tolerated a full breakfast this morning. Was found to have the acute gallstone pancreatitis. Denies any abdominal pain nausea or vomiting. His abdomen is soft and rounded no significant tenderness. No guarding or rebound. No mass or organomegaly noted. Labs from yesterday was reviewed. WBC is normal. Amylase and lipase are normal. Impression. Resolving the acute gallstone pancreatitis cholelithiasis. Recommendation. Per Dr. Cooper laparoscopic cholecystectomy will be scheduled as an outpatient. He will follow up with Dr. Cooper in his office. He can be discharged from a surgical standpoint today.
[2017-05-15 12:32] LABS: Glucose,Whole Blood 253 mg/dL (75-99)
[2017-05-15] MEDS: POTASSIUM CHLORIDE ER 20 MEQ TAB.ER PO SCH (13:33)
[2017-05-15] MEDS: ASPIRIN 81 MG CHEW PO SCH (13:33)
[2017-05-15 14:33] VITALS: BP 134/80; PULSE 76; RESP 18; TEMP 97.8
--- NOTE | 2017-05-16 01:45 | P.DS ---
Providers Date of admission: 05/07/17 00:23 Expected date of discharge: 05/15/17 Attending physician: Jenny Saba Consults: 05/06/17 23:33 Consult Physician Routine Consulting Provider: Aaron Brown Consult Reason/Comments: hx of CHF Do you want consulting provider notified?: Yes, Notify in am 05/08/17 08:27 Consult Physician Urgent Consulting Provider: Bill Judge Consult Reason/Comments: acute pancreatitis, abodminal pain Do you want consulting provider notified?: Yes 05/08/17 09:46 Consult Physician Urgent Consulting Provider: Alpesh Dc Consult Reason/Comments: icu management Do you want consulting provider notified?: Yes Primary care physician: Waldemar Grey [facility] Course: Discharged diagnoses abdominal pain: Secondary to acute gallstone pancreatitis, cannot rule out cholecystitis and sepsis related to cholecystitis. No other source of infection was appreciated blood cultures no growth so far. Continued with Zosyn. Change to Levaquin for 7 more days. Patient needs cholecystectomy eventually. Ileus. Patient was on NG tube which was discontinued. Improving. Started on liquid diet. Slowly tolerating well. Acute hypoxic respiratory failure. congestive heart failure chronic diastolic dysfunction. patient does have pulmonary edema not sure whether it secondary to acute lung injury or cardiogenic pulmonary edema. lactic acid improved and respiratory status improved. 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 carotid artery disease with a previous endarterectomy on the left type 2 diabetes mellitus: Continue with his home regimen along with sliding scale insulin and Lantus. Hyperlipidemia Hypertension gastric esophageal reflux disease possible obstructive sleep apnea Hospital course Patient was admitted with with pancreatitis. Pancreatic that is improved patient had abdominal distention. Because of which patient underwent repeat CAT scan patient had cholelithiasis as well possibly of cholecystitis patient had lactic acidosis with the tachypnea tachycardia subsequently transferred to ICU for possibility of severe sepsis secondary to cholecystitis. Patient was started on Zosyn. Patient had an NG tube now. Patient's Lasix was discontinued and patient was started on IV normal saline. Patient does have some pulmonary edema on the acute lung injury. 05/09/2017 Patient's lactic acidosis improved tachycardia improved patient overall looks much better today. Patient has an NG tube not draining much today. Patient had low-grade fever is on Zosyn for possibility of infection possibly being intra-abdominal source. Patient also has acute lung injury. Patient is off Lasix is continued to be on IV normal saline at 100 mL per hour. Patient denied any abdominal pain today On 05/10/2017 Patient is still having abdominal pain but improved. Chest x-ray showed perihilar atelectasis. General surgery recommends cholecystectomy if family is agreeable. Patient is being transferred to surgical floor today. Denied any worsening abdominal pain, nausea, lightheadedness 05/11/2017. Patient's breathing status is much improved today. Abdominal x-ray showed small and large bowel distention with ileus. Patient was started on clear liquid diet and advance as tolerated. Denied any abdominal pain, nausea or vomiting. 05/12/2017 Patient is tolerating liquid diet yesterday. Patient is improving clinically. No fever no chills. No chest pain no shoulder breath. No acute bone or tissues. 05/13/2017 Patient's abdominal pain is much improved. Tolerating liquid diet. Denied any fever or chills. Saturating well on room air. No complaints of chest pain or short of breath. Otherwise no acute overnight issues. 05/14/2017 Patient says that his having abdominal cramping has switched in the lower abdomen. On the right side. Tolerating liquid diet which is being advanced. No fever no chills. No acute overnight issues. Patient did have bowel movement. 05/15/2017. Patient denied any new complaints. Continues to tolerate diet very well. Patient was advised to follow with Dr. Guillen is an outpatient for outpatient cholecystectomy. Saturating well on room air. no acute overnight issues. Patient was continued on IV hydration and IV antibiotics and follow closely on medical floor.. Eventually patient will require cholecystectomy. Needs outpatient surgery follow-up. General surgery and pulmonary has seen this patient. Patient is tolerating by mouth diet.. Physical examination GENERAL: The patient is alert and oriented x3, not in any acute distress. Well developed, well nourished. HEENT: Pupils are round and equally reacting to light. EOMI. No scleral icterus. No conjunctival pallor. Normocephalic, atraumatic. No pharyngeal erythema. No thyromegaly. CARDIOVASCULAR: S1 and S2 present. No murmurs, rubs, or gallops. PULMONARY: Chest is clear to auscultation, no wheezing or crackles. ABDOMEN: Non-Distended,no rebound or rigidity. minimal epigastric abdominal tenderness was appreciated. MUSCULOSKELETAL: No joint swelling or deformity. EXTREMITIES: No cyanosis, clubbing, or pedal edema. NEUROLOGICAL: Rectal and oriented 3. Patient does have right sided weakness from previous CVA Patient Condition at Discharge: Stable Plan - Discharge Summary New Discharge Prescriptions: New amLODIPine [Norvasc] 5 mg PO DAILY #30 tab Levofloxacin [Levaquin] 500 mg PO DAILY #7 tab Metoprolol Tartrate [Lopressor] 50 mg PO BID #60 tab Continue Polyethylene Glycol 3350 [Miralax] 17 gm PO HS Rivaroxaban [Xarelto] 20 mg PO DAILY@1700 Potassium Chloride [Klor-Con 20] 20 meq PO DAILY@1400 Aspirin EC [Ecotrin Low Dose] 81 mg PO DAILY@1400 Docusate [Colace] 100 mg PO BID@0900,1700 Lactulose 10 gm PO BID@0900,2100 HYDROcodone/APAP 10-325MG [[place] 10-325] 1 tab PO Q4HR PRN PRN Reason: Pain LORazepam [Ativan] 1 mg PO BID PRN PRN Reason: Agitation/Anxiety Famotidine [Pepcid] 20 mg PO DAILY@0900 Atorvastatin [Lipitor] 40 mg PO HS@2100 metFORMIN HCL [Glucophage] 500 mg PO BID@0700,2100 buPROPion XL [Wellbutrin XL] 150 mg PO DAILY@0700 Changed Furosemide [Lasix] 20 mg PO DAILY@0900 #30 Discontinued Metoprolol Tartrate [Lopressor] 25 mg PO BID@0900,1700 Furosemide [Lasix] 20 mg PO DAILY@1400 Discharge Medication List Polyethylene Glycol 3350 [Miralax] 17 gm PO HS 07/23/16 [History] Rivaroxaban [Xarelto] 20 mg PO DAILY@1700 09/05/16 [History] Aspirin EC [Ecotrin Low Dose] 81 mg PO DAILY@1400 04/04/17 [History] Docusate [Colace] 100 mg PO BID@0900,1700 04/04/17 [History] HYDROcodone/APAP 10-325MG [[place] 10-325] 1 tab PO Q4HR PRN 04/04/17 [History] LORazepam [Ativan] 1 mg PO BID PRN 04/04/17 [History] Lactulose 10 gm PO BID@0900,2100 04/04/17 [History] Potassium Chloride [Klor-Con 20] 20 meq PO DAILY@1400 04/04/17 [History] Atorvastatin [Lipitor] 40 mg PO HS@209904/13/17 [History] Famotidine [Pepcid] 20 mg PO DAILY@0900 04/13/17 [History] buPROPion XL [Wellbutrin XL] 150 mg PO DAILY@0700 05/06/17 [History] metFORMIN HCL [Glucophage] 500 mg PO BID@0700,209905/06/17 [History] Furosemide [Lasix] 20 mg PO DAILY@0900 #30 05/15/17 [Rx] Levofloxacin [Levaquin] 500 mg PO DAILY #7 tab 05/15/17 [Rx] Metoprolol Tartrate [Lopressor] 50 mg PO BID #60 tab 05/15/17 [Rx] amLODIPine [Norvasc] 5 mg PO DAILY #30 tab 05/15/17 [Rx] Follow up Appointment(s)/Referral(s): [facility], [NON-STAFF] - 1 Week Waldemar Grey MD [Primary Care Provider] - 1-2 days (office closed. please call to schedule an appointment) Patient Instructions/Handouts: Pancreatitis (DC) Discharge Disposition: HOME WITH HOME HEALTH SERVICES
== END 2017-05-15 15:44 | disposition home health service (06) | DRG 871 ==
LOC: EC 19:53 → 3SUR 05-07 00:23 → 6SEL 05-08 02:11 → 6ICU 05-08 09:55 → 4MS4W 05-10 12:17
PROVIDERS: ADMIT Hospitalist; ATTEND Hospitalist
DX: A41.9 Sepsis, unspecified organism (principal); J96.01 Acute respiratory failure with hypoxia; K85.10 Biliary acute pancreatitis without necrosis or infection; I50.32 Chronic diastolic (congestive) heart failure; K56.7 Ileus, unspecified; I69.351 Hemiplegia and hemiparesis following cerebral infarction affecting right dominant side; K80.10 Calculus of gallbladder with chronic cholecystitis without obstruction; J98.11 Atelectasis; I11.0 Hypertensive heart disease with heart failure; E11.51 Type 2 diabetes mellitus with diabetic peripheral angiopathy without gangrene; I08.1 Rheumatic disorders of both mitral and tricuspid valves; E66.9 Obesity, unspecified; E78.5 Hyperlipidemia, unspecified; F32.9 Major depressive disorder, single episode, unspecified; G47.33 Obstructive sleep apnea (adult) (pediatric); I25.10 Atherosclerotic heart disease of native coronary artery without angina pectoris; I69.320 Aphasia following cerebral infarction; K21.9 Gastro-esophageal reflux disease without esophagitis; M81.0 Age-related osteoporosis without current pathological fracture; R32 Unspecified urinary incontinence; Z79.01 Long term (current) use of anticoagulants; Z79.899 Other long term (current) drug therapy; Z79.82 Long term (current) use of aspirin; Z79.84 Long term (current) use of oral hypoglycemic drugs; Z87.891 Personal history of nicotine dependence; Z88.5 Allergy status to narcotic agent; Z88.8 Allergy status to other drugs, medicaments and biological substances; Z82.49 Family history of ischemic heart disease and other diseases of the circulatory system
CPT/HCPCS: 36415; 71010; 71020; 74000; 74020; 74177; 76705; 80048; 80053; 80061; 81001; 82140; 82150; 82550; 82553; 82805; 83036; 83605; 83690; 83735; 83880; 84100; 84132; 84484; 85025; 85027; 85610; 85730; 87040; 87086; 93005; 94640; 94760; 96361; 96374; 96375; 96376; 99285

== ENCOUNTER 2017-07-09 05:44 | Day surgery (SDC) | payer OTHER ==
[2017-07-06 09:16] VITALS: BMI 34.2
[~2017-07-09 05:44] MED LIST: HEPARIN SODIUM,PORCINE 5,000 UNIT/ML 1 ML VIAL SQ ONE; ceFAZolin 2 GM in SODIUM CHLORIDE 0.9% 100 ML IVPB ONE
[2017-07-09] MEDS ORDERED: ONDANSETRON 4 MG/2 ML VIAL IVP ONE (05:57)
[2017-07-09] MEDS ORDERED: SCOPOLAMINE 1.5MG/72HR PATCH TRANSDERM ONE (05:57)
[2017-07-09] MEDS ORDERED: DEXAMETHASONE SOD PHOSPHATE 10 MG/ML 1 ML VIAL IV ONE (05:57)
[2017-07-09] MEDS ORDERED: MIDAZOLAM 2 MG/2 ML VIAL IV PRN (05:57)
[2017-07-09] MEDS ORDERED: LACTATED RINGERS 1,000 ML IV ONE (06:15)
[2017-07-09 06:42] LABS: Glucose,Whole Blood 129 mg/dL (75-99)
--- NOTE | 2017-07-09 07:51 | P.GSHP ---
History of Present Illness H&P Date: 07/09/17 Chief Complaint: gallstone pancreatitis Patient was hospitalized in April with a fairly severe episode of gallstone pancreatitis. Patient opted for outpatient Cholecystectomy. His CAT scan showed inflammatory changes of the pancreas and also sludge or small stones within the gallbladder. Repeat liver enzymes since that time of the normal. Patient was recently seen as an outpatient by Dr. Chisholm and she was clearing him for surgery at that time. Patient has a history of previous CVA and is on blood thinners for that reason. His Xarelto was held for this procedure today. He complains currently of some intermittent gassy type pains and frequent belching and flatus but denies any upper abdominal pain that he was having during his course of pancreatitis. No recent change in color of his skin urine or stool. Past Medical History Past Medical History: Coronary Artery Disease (CAD), Heart Failure, CVA/TIA, Diabetes Mellitus, GERD/Reflux, Hyperlipidemia, Hypertension Additional Past Medical History / Comment(s): CVA with right-sided hemiplegia and expressive aphasia, uses wheelchair, and asst device to transfer, past hx. sepsis related to a fall-affected hip, had stroke 2015 after carotid surg.- partial paralysis right side, History of Any Multi-Drug Resistant Organisms: None Reported Past Surgical History: Joint Replacement Additional Past Surgical History / Comment(s): Right-sided carotid endarterectomy attempt, spouse states is blocked, left carotid x2, multiple surgeries hips-Right 4 times and left 1. mikey hip had a [place] resurfacing done- right hip I&D, mult times Past Anesthesia/Blood Transfusion Reactions: Previous Problems w/ Anesthesia Additional Past Anesthesia/Blood Transfusion Reaction / Comment(s): woke during a procedure, some kind of swelling in throat during a surgery post intubation- thinks it might have been due to having been intubated for procedures close together Smoking Status: Former smoker - Past Family History Sister(s) Family Medical History: Cancer, CVA/TIA Brother(s) Family Medical History: Cancer, CVA/TIA, Liver Disease Additional Family Medical History / Comment(s): lung cancer Father Family Medical History: Diabetes Mellitus, Myocardial Infarction ([place]) Mother Family Medical History: CVA/TIA Medications and Allergies Home Medications Medication Instructions Recorded Confirmed Type Polyethylene Glycol 3350 [Miralax] 17 gm PO BID 07/23/16 07/06/17 History Rivaroxaban [Xarelto] 20 mg PO DAILY@1700 09/05/16 07/06/17 History Aspirin EC [Ecotrin Low Dose] 81 mg PO DAILY@1400 04/04/17 07/06/17 History HYDROcodone/APAP 10-325MG [[place] 1 tab PO Q4HR PRN 04/04/17 07/06/17 History 10-325] LORazepam [Ativan] 1 mg PO BID PRN 04/04/17 07/06/17 History Potassium Chloride [Klor-Con 20] 20 meq PO DAILY@1400 04/04/17 07/06/17 History Atorvastatin [Lipitor] 40 mg PO HS@2100 04/13/17 07/06/17 History Famotidine [Pepcid] 20 mg PO DAILY@0900 04/13/17 07/06/17 History buPROPion XL [Wellbutrin XL] 150 mg PO DAILY@0700 05/06/17 07/06/17 History Metoprolol Tartrate [Lopressor] 50 mg PO BID #60 tab 05/15/17 07/06/17 Rx Furosemide [Lasix] 20 mg PO 1400 07/06/17 07/06/17 History Furosemide [Lasix] 40 mg PO DAILY@0900 07/06/17 07/06/17 History metFORMIN HCL 1,000 mg PO BID 07/06/17 07/06/17 History Allergies Allergy/AdvReac Type Severity Reaction Status Date / Time sitagliptin [From Janumet] Allergy GI UPSET Verified 07/06/17 09:04 hydromorphone [From Dilaudid] AdvReac Confusion Verified 07/06/17 09:04 Surgical - Exam Vital Signs Temp Pulse Resp BP Pulse Ox 98.1 F 82 18 134/88 98 07/09/17 06:14 07/09/17 06:14 07/09/17 06:14 07/09/17 06:14 07/09/17 06:14 Physical exam: General: Well-developed, well-nourished HEENT: Normocephalic, sclerae nonicteric Abdomen: Nontender, nondistended Extremities: No edema Neuro: positive aphasia, hemiplegia noted Results - Labs Abnormal Lab Results - Last 24 Hours (Table) 10/13/17 Range/Units 06:41 POC Glucose (mg/dL) 129 H (75-99) mg/dL Assessment and Plan (1) Gall stone pancreatitis Narrative/Plan: Will proceed with laparoscopic cholecystectomy, possible open cholecystectomy. Risks of bleeding, infection, biloma, bile duct injury, trocar-related injury, diarrhea, postoperative pain, scarring, hernia, retained common bile duct stone , and conversion to an open procedure were discussed. The patient and understand and wish for us to proceed. Status: Acute
[2017-07-09] MEDS ORDERED: NEOSTIGMINE 1 MG/ML 10 ML VIAL ONE (08:04)
[2017-07-09] MEDS ORDERED: fentaNYL (PF) 50 MCG/ML 2 ML AMP ONE (08:04)
[2017-07-09] MEDS ORDERED: PROPOFOL 10 MG/ML 20 ML VIAL IV ONE (08:04)
[2017-07-09] MEDS ORDERED: MIDAZOLAM 2 MG/2 ML VIAL ONE (08:04)
[2017-07-09] MEDS ORDERED: GLYCOPYRROLATE 0.2 MG/ML 2 ML VIAL ONE (08:04)
[2017-07-09] MEDS ORDERED: LIDOCAINE 1% INJ 10MG/ML (20 ML MDV) ONE (08:04)
[2017-07-09] MEDS ORDERED: LABETALOL 5 MG/ML VIAL MDV ONE (08:04)
[2017-07-09] MEDS ORDERED: PHENYLEPHRINE-0.9% NACL SYG 1 MG/10 ML SYRINGE ONE (08:04)
[2017-07-09] MEDS ORDERED: SUCCINYLCHOLINE CHLORIDE 100 MG/5 ML SYR IV ONE (08:04)
[2017-07-09] MEDS ORDERED: ROCURONIUM BROMIDE 10 MG/ML 10 ML VIAL IV ONE (08:04)
[2017-07-09] MEDS ORDERED: BUPIVACAINE (PF) 0.25% 30 ML VIAL SQ ONE ×2 (08:28)
[2017-07-09] MEDS ORDERED: NALOXONE 0.4 MG/ML 1 ML VIAL IV PRN (10:12)
[2017-07-09] MEDS ORDERED: ONDANSETRON 4 MG/2 ML VIAL IVP PRN (10:12)
--- NOTE | 2017-07-09 10:12 | P.OP ---
Date of Procedure: 07/09/17 Procedure(s) Performed: PREOPERATIVE DIAGNOSIS: Gallstone pancreatitis POSTOPERATIVE DIAGNOSIS: Same PROCEDURE: Laparoscopic cholecystectomy SURGEON: Nu EBL: Minimal see anesthesia record ANESTHESIA: Gen. COMPLICATIONS: None OPERATIVE PROCEDURE: The patient was brought and placed on the operating room table in the supine position. The patient was placed under general anesthesia at that time. The abdomen was prepped and draped in the usual sterile fashion. A small vertical infraumbilical incision was made. The fascia was grasped with the Conrad forceps. The fascia was retracted anteriorly. The Veress needle was advanced into the peritoneal cavity. The saline drop test was normal. Insufflation took place up to 15 mmHg. A 5 mm optical trocar was advanced and the peritoneal cavity. 2 additional 5 mm trochars were placed in the right upper quadrant under direct visualization. A 10 mm trocar was advanced into the epigastric incision site. This was later switched to a 12 mm trocar. The gallbladder was retracted superiorly and laterally. The peritoneum overlying the infundibulum was bluntly dissected. The wall of the patient's gallbladder particularly at the infundibulum was very thin in fact as we were using blunt dissection over the infundibulum was small opening was created in the lower aspect of the gallbladder. Through that bilious fluid with small flaky black stones were seen. As I further dissected along the infundibulum I approached the region of the anticipated junction of the common hepatic duct and common bile duct. The patient's cystic duct remained prominent in size at this point. I did not feel that dissecting further towards the junction was safe and divided the distended cystic duct using a 2-0 Ethibond and a tie knot to secure that. An additional 12 mm clip was also placed on the patient's side. The cystic artery was then divided using 12 mm clips as well. A small tubular structure midway up the gallbladder fossa measuring approximately 2 mm was divided using the clip software implementation specialist as well. The gallbladder was completely removed from the liver at that point using electrocautery. I decided place a drain in the gallbladder fossa exiting from the most lateral 5 mm trocar site. The gallbladder was removed using an Endo Catch bag. The defect was closed at the fascia using an 0 Vicryl Jj- Juan R stitch. The skin at all 3 sites was closed using a 4-0 Monocryl stitch. At the end of this procedure the sponge and needle counts were correct. DISPOSITION: Stable to the recovery room
[2017-07-09] MEDS: fentaNYL (PF) 50 MCG/ML 2 ML AMP IV PRN ×2 (10:21→10:35)
[2017-07-09 10:51] LABS: Glucose,Whole Blood 190 mg/dL (75-99)
[2017-07-09] MEDS: HYDROcodone/APAP 5-325MG 1 EACH TAB PO PRN ×2 (12:17→19:19)
[2017-07-09] MEDS: D5-0.45% NACL WITH KCL 20MEQ/L 1,000 ML IV SCH (12:19)
[2017-07-09 12:30] LABS: Glucose,Whole Blood 204 mg/dL (75-99)
[2017-07-09] MEDS: LACTATED RINGERS 1,000 ML IV SCH (12:31)
[2017-07-09] MEDS: INSULIN LISPRO (humaLOG) 300 UNIT/3 ML VIAL SQ SCH ×3 (12:43→20:13)
[2017-07-09] MEDS ORDERED: LORazepam 1 MG TAB PO PRN (16:06)
--- NOTE | 2017-07-09 16:38 | CONS ---
CONSULTATION REASON FOR CONSULTATION: Advice regarding CAD and CVA and other medical issues, requested by Dr. Judge. HISTORY OF PRESENT ILLNESS: This 51-year-old gentleman with a past medical history of CVA, CHF, diabetes mellitus, GERD, hypertension, hyperlipidemia, being followed by Dr. Grey in the outpatient setting, underwent laparoscopic cholecystectomy for gallstone pancreatitis by Dr. Judge. There is no history of any fever, rigor or chills. No history of headache, loss of consciousness, chest pain, palpitations, hematochezia or melena at this time. PAST MEDICAL HISTORY: 1. History of CAD. 2. History of CHF. 3. CVA, TIA. 4. GERD. 5. Diabetes mellitus. 6. Hypertension. 7. Hyperlipidemia. HOME MEDICATIONS: Home medications prior to admission include: 1. Metformin 1000 mg p.o. b.i.d. 2. Wellbutrin XL 150 mg p.o. daily. 3. Xarelto 20 mg daily. 4. K-Dur 20 mEq p.o. daily. 5. MiraLAX 17 grams p.o. b.i.d. 6. Lopressor 50 mg b.i.d. 7. Ativan 1 mg b.i.d. p.r.n. 8. Hydrocodone 10 mg q.4 p.r.n. 9. Lasix 20 mg at 2 p.m. and 40 mg p.o. daily. 10.Pepcid 20 mg daily. 11.Lipitor 40 mg at bedtime. 12.Ecotrin 81 mg daily. ALLERGIES: 1. JANUMET. 2. DILAUDID. FAMILY HISTORY: History of diabetes mellitus, myocardial infarction and lung cancer in the family. SOCIAL HISTORY: Previous history of smoking. No current smoking or alcohol intake. REVIEW OF SYSTEMS: ENT: No diminished hearing. No diminished vision. CARDIOVASCULAR SYSTEM: As mentioned earlier. RESPIRATORY SYSTEM: As mentioned earlier. GI: No nausea, vomiting. : No dysuria or retention. NERVOUS SYSTEM: No numbness, weakness. ALLERGY/IMMUNOLOGY: No asthma, hayfever. MUSCULOSKELETAL: As mentioned earlier. HEMATOLOGY/ONCOLOGY: No history of anemia. ENDOCRINE: No history of diabetes, hypothyroidism. CONSTITUTIONAL: As mentioned earlier. DERMATOLOGY: Negative. RHEUMATOLOGY: Negative. PSYCHIATRY: As mentioned earlier. PHYSICAL EXAMINATION: Alert and oriented x3. Pulse 95, blood pressure 137/706, respiration 20, temperature normal, pulse ox 96% on room air. HEENT: Conjunctivae normal. Oral mucosa moist. NECK: No jugular venous distention. No carotid bruit. No thyroid enlargement. CARDIOVASCULAR: S1, S2 muffled. No S3. No S4. RESPIRATORY SYSTEM: Breath sounds diminished at the bases. No rhonchi. No crackles. ABDOMEN: Soft. Status post surgery. No mass palpable. LEGS: No edema. No swelling. NERVOUS SYSTEM: No focal deficit. LABS AT THIS TIME: Accu-Cheks 190, 204. ASSESSMENT: 1. Status post laparoscopic cholecystectomy for gallstone pancreatitis. 2. History of coronary artery disease. 3. History of cerebrovascular accident, transient ischemic attack. 4. History of congestive heart failure. 5. Diabetes mellitus, type 2. 6. Hypertension. 7. Hyperlipidemia. 8. History of degenerative joint disease. 9. History of depression. RECOMMENDATIONS AND DISCUSSION: In this 51-year-old gentleman who presented with multiple complex medical issues., at this time I recommend to continue current medications, continue symptomatic treatment. The aspirin may be initiated today per recommendation of Cardiology and DVT prophylaxis. Xarelto may be initiated tomorrow. Also recommend repeat labs to ensure normalcy. Otherwise, Accu-Cheks before meals and at bedtime and scale. Metformin may be initiated once the patient is p.o. Incentive spirometry. DVT prophylaxis. We will follow the patient closely with you. Patient may be asked to follow up with his primary physician closely after discharge. Thank you, Dr. Judge, for letting us participate in the care of this patient. See orders for further details. Medication reconciliation done. Discussed with staff. MMODL / IJN: [id number] /
[2017-07-09 17:12] LABS: Glucose,Whole Blood 246 mg/dL (75-99)
[2017-07-09 17:47] LABS: Anion Gap 15 mmol/L; Blood Urea Nitrogen 14 mg/dL (9-20); Calcium 9.5 mg/dL (8.4-10.2); Carbon Dioxide 20 mmol/L (22-30); Chloride 102 mmol/L (98-107); Glucose 255 mg/dL (74-99); Non-African American GFR(MDRD) >60 (>60 ml/min/1.73 sqM); Potassium 5.3 mmol/L (3.5-5.1); Sodium 137 mmol/L (137-145)
[2017-07-09 20:10] LABS: Glucose,Whole Blood 252 mg/dL (75-99)
[2017-07-09] MEDS: FAMOTIDINE 20 MG TAB PO SCH (20:14)
[2017-07-09] MEDS: ATORVASTATIN 40 MG TAB PO SCH (20:14)
[2017-07-09] MEDS: METOPROLOL TARTRATE 50 MG TAB PO SCH (20:14)
[2017-07-09] MEDS: ASPIRIN 81 MG PO SCH (20:14)
[2017-07-10] MEDS: HYDROcodone/APAP 5-325MG 1 EACH TAB PO PRN ×5 (00:07→21:37)
[2017-07-10] MEDS: D5-0.45% NACL WITH KCL 20MEQ/L 1,000 ML IV SCH ×2 (00:08→09:39)
[2017-07-10 01:29] LABS: Hemoglobin A1C 7.8 % (4.2-6.1)
[2017-07-10] MEDS: LACTATED RINGERS 1,000 ML IV SCH (06:22)
[2017-07-10 07:13] LABS: Glucose,Whole Blood 178 mg/dL (75-99)
[2017-07-10 07:37] LABS: Basophils % (A) 0 %; CH 29.5; CHCM 31.1; Eosinophils # (A) 0.2 k/uL (0-0.7); Eosinophils % (A) 1 %; HDW 2.71; HGB 11.8 gm/dL (13.0-17.5); Hypochromasia Slight; Luc # (Auto) 0.23; Luc % (Auto) 2; Lymphocytes # (A) 2.2 k/uL (1.0-4.8); Lymphocytes % (A) 19 %; MCH 29.5 pg (25.0-35.0); MCV 95.1 fL (80.0-100.0); Mean Platelet Volume 7.9; Monocytes # (A) 0.6 k/uL (0-1.0); Monocytes % (A) 5 %; Neutrophils # (A) 8.5 k/uL (1.3-7.7); Neutrophils % (A) 73 %; RBC 3.99 m/uL (4.30-5.90); RDW 14.9 % (11.5-15.5); WBC 11.7 k/uL (3.8-10.6); WBC (Perox) 11.42
[2017-07-10 08:02] LABS: ALT 36 U/L (21-72); AST 24 U/L (17-59); Alkaline Phosphatase 82 U/L (38-126); Anion Gap 12 mmol/L; Blood Urea Nitrogen 12 mg/dL (9-20); Calcium 9.5 mg/dL (8.4-10.2); Carbon Dioxide 24 mmol/L (22-30); Chloride 103 mmol/L (98-107); Glucose 191 mg/dL (74-99); Non-African American GFR(MDRD) >60 (>60 ml/min/1.73 sqM); Potassium 4.7 mmol/L (3.5-5.1); Sodium 139 mmol/L (137-145); Total Bilirubin 0.4 mg/dL (0.2-1.3); Total Protein 6.7 g/dL (6.3-8.2)
[2017-07-10] MEDS: buPROPion XL 150 MG TAB.ER.24H PO SCH (09:39)
[2017-07-10] MEDS: metFORMIN 500 MG TAB PO SCH ×2 (09:40→17:17)
[2017-07-10] MEDS: ENOXAPARIN 40 MG/0.4 ML SYRINGE SQ SCH (09:40)
[2017-07-10] MEDS: METOPROLOL TARTRATE 50 MG TAB PO SCH ×2 (09:40→20:20)
[2017-07-10] MEDS: FUROSEMIDE 40 MG TAB PO SCH (09:40)
[2017-07-10] MEDS: FAMOTIDINE 20 MG TAB PO SCH ×2 (09:40→20:20)
[2017-07-10] MEDS: INSULIN LISPRO (humaLOG) 300 UNIT/3 ML VIAL SQ SCH ×4 (10:07→20:56)
[2017-07-10 10:08] LABS: Glucose,Whole Blood 236 mg/dL (75-99)
--- NOTE | 2017-07-10 11:17 | P.PN ---
Progress Note - Text Progress Note Date: 07/10/17 The patient is resting comfortably in his bed. He has some complaints of epigastric pain. On exam is lesser stable. His abdomen soft. There is some incisional pain. Status post lap was Cholestatic. Patient will hopefully be discharged home in the morning.
[2017-07-10 12:14] LABS: Glucose,Whole Blood 178 mg/dL (75-99)
[2017-07-10] MEDS: FUROSEMIDE 20 MG TAB PO SCH (16:28)
[2017-07-10 16:53] LABS: Glucose,Whole Blood 117 mg/dL (75-99)
[2017-07-10] MEDS ORDERED: NON-FORMULARY DRUG (Rivaroxaban [Xarelto] 20 MG) PO SCH (17:00)
--- NOTE | 2017-07-10 17:12 | PN ---
PROGRESS NOTE DATE OF SERVICE: 07/10/2017 INTERVAL HISTORY: This 51-year-old gentleman who was admitted after laparoscopic cholecystectomy is being closely monitored. No chest pain. No palpitations. No fever. PHYSICAL EXAM: Alert and oriented times three. Pulse 74, blood pressure 120/64, respiration 16, temperature 98.1, pulse ox 99% 2 L. HEENT: Conjunctivae normal. NECK: No jugular venous distention. CARDIOVASCULAR: S1, S2. Respiration: Breath sounds diminished in the bases. No rhonchi, no crackles. ABDOMEN: Soft, status post surgery. Legs are no edema. No swelling. Central nervous system: No focal deficits. LABS: WBC 11.6, hemoglobin 11.8. ASSESSMENT: 1. Status post laparoscopic cholecystectomy for gallstone pancreatitis. 2. History of coronary artery disease. 3. History of cerebrovascular accident, transient ischemic attack. 4. History of congestive heart failure. 5. History of diabetes type 2. 6. Hypertension. 7. Hyperlipidemia. 8. History of depression. 9. History of degenerative joint disease. RECOMMENDATIONS AND DISCUSSION: Recommend to continue current mediations, management and symptomatic treatment. Otherwise the patient has been started on aspirin already, Xarelto also could be restarted. Otherwise be started per surgical recommendations. Otherwise continue to monitor. Further recommendations recommendations to follow. MMODL / IJN: [id number] /
[2017-07-10 20:17] LABS: Glucose,Whole Blood 122 mg/dL (75-99)
[2017-07-10] MEDS: ATORVASTATIN 40 MG TAB PO SCH (20:20)
[2017-07-10] MEDS: ASPIRIN 81 MG PO SCH (20:20)
[2017-07-11] MEDS: HYDROcodone/APAP 5-325MG 1 EACH TAB PO PRN ×4 (02:50→20:11)
[2017-07-11] MEDS: D5-0.45% NACL WITH KCL 20MEQ/L 1,000 ML IV SCH ×5 (05:11→15:44)
[2017-07-11] MEDS: LACTATED RINGERS 1,000 ML IV SCH (05:16)
[2017-07-11 07:25] LABS: Glucose,Whole Blood 166 mg/dL (75-99)
[2017-07-11] MEDS: buPROPion XL 150 MG TAB.ER.24H PO SCH (07:54)
[2017-07-11] MEDS: INSULIN LISPRO (humaLOG) 300 UNIT/3 ML VIAL SQ SCH ×4 (07:55→20:12)
[2017-07-11] MEDS: ENOXAPARIN 40 MG/0.4 ML SYRINGE SQ SCH (07:56)
[2017-07-11] MEDS: METOPROLOL TARTRATE 50 MG TAB PO SCH ×2 (07:56→20:12)
[2017-07-11] MEDS: FAMOTIDINE 20 MG TAB PO SCH ×2 (07:56→20:12)
[2017-07-11] MEDS: FUROSEMIDE 40 MG TAB PO SCH (07:57)
[2017-07-11] MEDS ORDERED: MINERAL OIL 133 ML ENEMA RECTAL ONE (09:57)
[2017-07-11] MEDS ORDERED: METOPROLOL TARTRATE 50 MG TAB ONE ×2 (09:57)
[2017-07-11] MEDS ORDERED: FAMOTIDINE 20 MG TAB ONE ×2 (09:57)
[2017-07-11] MEDS ORDERED: FUROSEMIDE 40 MG TAB ONE (09:57)
[2017-07-11] MEDS ORDERED: buPROPion XL 150 MG TAB.ER.24H PO ONE (09:57)
[2017-07-11] MEDS ORDERED: ENOXAPARIN 40 MG/0.4 ML SYRINGE SQ ONE (09:57)
[2017-07-11] MEDS ORDERED: metFORMIN 500 MG TAB ONE ×2 (09:57)
[2017-07-11] MEDS ORDERED: FUROSEMIDE 20 MG TAB ONE (09:57)
[2017-07-11] MEDS ORDERED: ATORVASTATIN 40 MG TAB ONE (09:57)
[2017-07-11] MEDS ORDERED: HYDROcodone/APAP 5-325MG 1 EACH TAB ONE ×4 (09:57)
[2017-07-11] MEDS ORDERED: ASPIRIN 81 MG ONE (09:57)
[2017-07-11] MEDS ORDERED: POLYETHYLENE GLYCOL 3350 17 GM POWD.PACK PO ONE (09:57)
[2017-07-11] MEDS ORDERED: MINERAL OIL 133 ML ENEMA RECTAL STA (10:50)
--- NOTE | 2017-07-11 11:11 | P.PN ---
Progress Note - Text Progress Note Date: 07/11/17 The patient is resting in his bed. He has complaints of some crampy abdominal pain with some pelvic pressure. He feels like he has to have a bowel movement however he states he cannot go and is constipated. On exam is lesser stable. His abdomen is soft. Incision sites are clean dry tach. Postoperative constipation. Patient will be given a Fleet enema today.
[2017-07-11] MEDS: metFORMIN 500 MG TAB PO SCH ×2 (11:38→18:27)
[2017-07-11 12:00] LABS: Glucose,Whole Blood 148 mg/dL (75-99)
[2017-07-11] MEDS: POLYETHYLENE GLYCOL 3350 17 GM POWD.PACK PO SCH (13:11)
--- NOTE | 2017-07-11 16:31 | PN ---
PROGRESS NOTE DATE OF SERVICE: 07/11/2017. INTERVAL HISTORY: This 51-year-old gentleman who was admitted after laparoscopic cholecystectomy is being closely monitored at this time. The patient also had TIA and multiple other medical problems. No chest pain. No palpitations. No fever. PHYSICAL EXAM: Alert and oriented, times three. Pulse is 105. Blood pressure 140/99, respirations 16, temperature 97.4, pulse ox 94% on room air. HEENT: Conjunctivae normal. Oral mucosa moist. Neck is no jugular venous distention. No lymph node enlargement. No thyroid enlargement. Cardiovascular system: S1, S2 muffled. Respiratory: Breath sounds diminished in the bases. A few rhonchi. No crackles. ABDOMEN: Soft. Status post surgery. Legs no edema, no swelling. Central nervous system: No focal deficits. LABS: At this time which are reviewed and include glucose 140, 167 and 148. ASSESSMENT: 1. Status post laparoscopic cholecystectomy for gallstone pancreatitis. 2. History of coronary artery disease. 3. History of cerebrovascular accident, transient ischemic attack. 4. History of congestive heart failure. 5. History of diabetes type 2. 6. Hypertension. 7. Hyperlipidemia. 8. History of depression. 9. History of degenerative joint disease. RECOMMENDATIONS AND DISCUSSION: Recommend to continue current medications, management. Symptomatic treatment. Otherwise at this time, I would recommend continue with the current medications. Continue to follow closely with surgery. Further recommendations to follow. MMODL / IJN: [id number] /
[2017-07-11] MEDS: FUROSEMIDE 20 MG TAB PO SCH (16:59)
[2017-07-11 17:17] LABS: Glucose,Whole Blood 123 mg/dL (75-99)
[2017-07-11 20:05] LABS: Glucose,Whole Blood 133 mg/dL (75-99)
[2017-07-11] MEDS: ASPIRIN 81 MG PO SCH (20:12)
[2017-07-11] MEDS: ATORVASTATIN 40 MG TAB PO SCH (20:12)
[2017-07-11 21:34] VITALS: RESP 16
[2017-07-12] MEDS: HYDROcodone/APAP 5-325MG 1 EACH TAB PO PRN ×3 (03:44→16:04)
[2017-07-12] MEDS: LACTATED RINGERS 1,000 ML IV SCH (06:04)
[2017-07-12 06:59] LABS: Glucose,Whole Blood 122 mg/dL (75-99)
[2017-07-12] MEDS: INSULIN LISPRO (humaLOG) 300 UNIT/3 ML VIAL SQ SCH ×2 (07:30→12:06)
[2017-07-12] MEDS: POLYETHYLENE GLYCOL 3350 17 GM POWD.PACK PO SCH (09:03)
[2017-07-12] MEDS: buPROPion XL 150 MG TAB.ER.24H PO SCH (09:03)
[2017-07-12] MEDS: ENOXAPARIN 40 MG/0.4 ML SYRINGE SQ SCH (09:03)
[2017-07-12] MEDS: FUROSEMIDE 40 MG TAB PO SCH (09:04)
[2017-07-12] MEDS: metFORMIN 500 MG TAB PO SCH (09:04)
[2017-07-12] MEDS: FAMOTIDINE 20 MG TAB PO SCH (09:04)
[2017-07-12] MEDS: METOPROLOL TARTRATE 50 MG TAB PO SCH (09:04)
[2017-07-12] MEDS ORDERED: BISACODYL 10 MG SUPP RECTAL STA (09:12)
[2017-07-12 11:52] LABS: Glucose,Whole Blood 128 mg/dL (75-99)
[2017-07-12] MEDS: D5-0.45% NACL WITH KCL 20MEQ/L 1,000 ML IV SCH (12:50)
--- NOTE | 2017-07-12 14:13 | P.PN ---
<Jes Hi - Last Filed: 07/12/17 14:03> Subjective Progress Note Date: 07/12/17 51-year-old seen and examined at the bedside at bedside. Patient underwent on July 09 a laparoscopic cholecystectomy for gallstone pancreatitis by Dr. Judge. Patient denies any fever chills cough or shortness of breath. Patient stated that he did have a bowel movement this morning. Patient's tolerating diet pain medication effective for pain control Objective - Vital Signs Vital signs: Vital Signs Temp 97.6 F 07/12/17 07:00 Pulse 96 07/12/17 07:00 Resp 16 07/12/17 07:00 BP 105/73 07/12/17 07:00 Pulse Ox 96 07/12/17 07:00 Intake & Output 07/11/17 07/12/17 07/12/17 18:59 06:59 18:59 Intake Total 450 Balance 450 Intake: Oral 450 Other: Voiding Method Urinal Urinal Urinal # Voids 2 3 - Exam Physical exam 51-year-old gentleman resting in bed pleasant oriented 3 Lungs essentially clear adequate air movement on room air Heart S1-S2 audible regular urinating no difficulty Abdomen DAVID drain in place dressing to surgical sites dry soft surgical tenderness appropriate bowel tones present had a bowel movement this morning not distended reports no nausea vomiting Extremities no edema noted - Labs CBC & Chem 7: 07/10/17 07:13 07/10/17 07:13 Labs: Abnormal Lab Results - Last 24 Hours (Table) 07/11/17 07/11/17 07/12/17 Range/Units 17:07 20:03 06:48 POC Glucose (mg/dL) 123 H 133 H 122 H (75-99) mg/dL 07/12/17 Range/Units 11:50 POC Glucose (mg/dL) 128 H (75-99) mg/dL Assessment and Plan Plan: Impression Postop July 09 laparoscopic cholecystectomy for gallstone pancreatitis Prior history of a CVA on Xarelto with right side hemiplegia Chronic debility uses wheelchair and assist device to transfer Plan Prepped for discharge today Follow-up in the outpatient setting with Dr. Judge Pain control Home meds as appropriate The above impression and plan of care have been discussed and directed by signing physician. Jes Hi nurse practitioner acting as scribe for signing physician. <Bill Judge - Last Filed: 07/12/17 17:14> Objective - Vital Signs Vital signs: Vital Signs Temp 97.5 F L 07/12/17 15:05 Pulse 82 07/12/17 15:05 Resp 16 07/12/17 15:05 BP 125/80 07/12/17 15:05 Pulse Ox 94 L 07/12/17 15:05 Intake & Output 07/11/17 07/12/17 07/12/17 18:59 06:59 18:59 Intake Total 450 Output Total 30 Balance 450 -30 Intake: Oral 450 Output: Drainage 30 Anterior Abdomen 30 Other: Voiding Method Urinal Urinal Urinal # Voids 2 3 1 # Bowel Movements 1 - Labs CBC & Chem 7: 07/10/17 07:13 07/10/17 07:13 Labs: Abnormal Lab Results - Last 24 Hours (Table) 07/11/17 07/11/17 07/12/17 Range/Units 17:07 20:03 06:48 POC Glucose (mg/dL) 123 H 133 H 122 H (75-99) mg/dL 07/12/17 Range/Units 11:50 POC Glucose (mg/dL) 128 H (75-99) mg/dL Assessment and Plan (1) Gall stone pancreatitis Status: Acute Plan: As above see discharge summary
[2017-07-12 15:05] VITALS: BP 125/80; PULSE 82; TEMP 97.5
--- NOTE | 2017-07-12 15:06 | P.DS ---
<Jes Hi - Last Filed: 07/12/17 14:47> Providers Expected date of discharge: 07/12/17 Attending physician: Bill Judge Consults: 07/09/17 10:14 Consult Physician Routine Consulting Provider: Tab Ash Consult Reason/Comments: Medical management Do you want consulting provider notified?: Already Contacted Primary care physician: [facility] Course: 51-year-old who was hospitalized in April at that time was treated for gallstone pancreatitis. Patient opted for outpatient treatment cholecystectomy. a CAT scan showing inflammatory changes of the pancreas also sludge or small gallstones within the gallbladder. Patient was recently seen in the outpatient setting by Dr. Chisholm patient was cleared for surgery at that time. Patient has a history of a prior CVA on Xarelto. Xarelto was held the day of the procedure. Additionally patient has had a prior CVA with right side hemiplegia with expressive aphasia uses a wheelchair and assist device to transfer on July 09 the patient underwent a laparoscopic cholecystectomy for gallstone pancreatitis post procedure patient had some epigastric pain reportedly was having abdominal pain felt like he needed to have a bowel movement felt constipated. Patient was given a fleets enema patient had a bowel movement after the fleets enema abdominal discomfort resolved was anxious to take patient home Discharge diagnosis Postop July 09 laparoscopic cholecystectomy for gallstone pancreatitis Prior history of a CVA on Xarelto with right side hemiplegia Chronic debility uses wheelchair and assist device to transfer Hypertension Hyperlipidemia Type 2 diabetes Carotid artery disease with prior endarterectomy on the left The above impression and plan of care have been discussed and directed by signing physician. Jes Hi nurse practitioner acting as scribe for signing physician. Plan - Discharge Summary New Discharge Prescriptions: Continue Polyethylene Glycol 3350 [Miralax] 17 gm PO BID Rivaroxaban [Xarelto] 20 mg PO DAILY@1700 Potassium Chloride [Klor-Con 20] 20 meq PO DAILY@1400 Aspirin EC [Ecotrin Low Dose] 81 mg PO DAILY@1400 HYDROcodone/APAP 10-325MG [Lincoln 10-325] 1 tab PO Q4HR PRN PRN Reason: Pain LORazepam [Ativan] 1 mg PO BID PRN PRN Reason: Agitation/Anxiety Famotidine [Pepcid] 20 mg PO DAILY@0900 Atorvastatin [Lipitor] 40 mg PO HS@2100 buPROPion XL [Wellbutrin XL] 150 mg PO DAILY@0700 Metoprolol Tartrate [Lopressor] 50 mg PO BID #60 tab metFORMIN HCL 1,000 mg PO BID Furosemide [Lasix] 40 mg PO DAILY@0900 Furosemide [Lasix] 20 mg PO 1400 Discharge Medication List Polyethylene Glycol 3350 [Miralax] 17 gm PO BID 07/23/16 [History] Rivaroxaban [Xarelto] 20 mg PO DAILY@1700 09/05/16 [History] Aspirin EC [Ecotrin Low Dose] 81 mg PO DAILY@1400 04/04/17 [History] HYDROcodone/APAP 10-325MG [Lincoln 10-325] 1 tab PO Q4HR PRN 04/04/17 [History] LORazepam [Ativan] 1 mg PO BID PRN 04/04/17 [History] Potassium Chloride [Klor-Con 20] 20 meq PO DAILY@1400 04/04/17 [History] Atorvastatin [Lipitor] 40 mg PO HS@2100 04/13/17 [History] Famotidine [Pepcid] 20 mg PO DAILY@0900 04/13/17 [History] buPROPion XL [Wellbutrin XL] 150 mg PO DAILY@0700 05/06/17 [History] Metoprolol Tartrate [Lopressor] 50 mg PO BID #60 tab 05/15/17 [Rx] Furosemide [Lasix] 20 mg PO 1400 07/06/17 [History] Furosemide [Lasix] 40 mg PO DAILY@0900 07/06/17 [History] metFORMIN HCL 1,000 mg PO BID 07/06/17 [History] Follow up Appointment(s)/Referral(s): Bill Judge MD [Medical Doctor] - 07/21/17 2:50 pm [facility], [NON-STAFF] - 1 Week Patient Instructions/Handouts: Laparoscopic Cholecystectomy (DC) Activity/Diet/Wound Care/Special Instructions: No lifting over 4 pounds No tub bath May shower daily Notify Dr. Judge of any redness at surgical sites fever chills Wilner-Arguello drain instructions provided Discharge Disposition: HOME WITH HOME HEALTH SERVICES <Bill Judge - Last Filed: 07/12/17 17:15> - Discharge Diagnosis(es) (1) Gall stone pancreatitis Status: Acute Hospital Course: As above. Patient doing well postoperatively. Tolerating diet. Labs are within normal limits. DAVID drain is serosanguineous. We'll remove the Wilner- Arguello drain at this time. He will follow-up in the office in 1-2 weeks.
[2017-07-12] MEDS: FUROSEMIDE 20 MG TAB PO SCH (16:04)
--- NOTE | 2017-07-12 17:56 | PN ---
PROGRESS NOTE DATE OF SERVICE: July 12, 2017. PRESENTING COMPLAINT: Abdominal pain. HISTORY OF PRESENTING COMPLAINT: The patient is status post cholecystectomy. Tolerating a diet. Had a bowel movement. Lying in bed. No nausea or vomiting. REVIEW OF SYSTEMS: Done for constitutional, cardiovascular, GI, pulmonary, relevant findings as above. CURRENT MEDICATIONS: Reviewed, No antibiotic. PHYSICAL EXAMINATION: Temperature 97.6, pulse 96, respirations 16, blood pressure 105/73, pulse ox 96% on room air. General appearance: Lying in bed, comfortable. Eyes pupils equal. Conjunctivae normal. Neck JVD not raised. Mass not palpable. RESPIRATORY: Effort normal. LUNGS: Diminished breath sounds. CARDIOVASCULAR: First and second sounds normal. ABDOMEN: Soft. Minimal tenderness. Bowel sounds present. Psychiatry alert and oriented times three. Mood and affect normal. Neurological: Power on the right side is 0/5. INVESTIGATIONS: Accu-Cheks are noted. ASSESSMENT: 1. Status post gallstone cholecystitis followed by cholecystectomy. 2. Right hemiparesis from an old stroke. 3. Chronically occluded right internal carotid artery. 4. Chronically decreased vision in the right eye. 5. 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 6. Diabetes mellitus, type 2, on oral hypoglycemic. 7. Gastroesophageal reflux disease. 8. Hyperlipidemia. 9. Essential hypertension. 10.Obesity, body mass index greater than 30. 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 PLAN: Patient doing well. Home medications are to be continued. Care was discussed with the patient and at the bedside. Patient to be discharged when okay with surgery. MMODL / IJN: [id number] /
== END 2017-07-12 17:35 | disposition home health service (06) ==
LOC: OR 05:44 → 3SUR 09:48 → OR 07-12 17:35
PROVIDERS: ATTEND Surgery
DX: K80.10 Calculus of gallbladder with chronic cholecystitis without obstruction (principal); K85.10 Biliary acute pancreatitis without necrosis or infection; E11.9 Type 2 diabetes mellitus without complications; Z79.84 Long term (current) use of oral hypoglycemic drugs; K21.9 Gastro-esophageal reflux disease without esophagitis; I65.21 Occlusion and stenosis of right carotid artery; I25.10 Atherosclerotic heart disease of native coronary artery without angina pectoris; I11.0 Hypertensive heart disease with heart failure; I50.9 Heart failure, unspecified; Z87.891 Personal history of nicotine dependence; I69.320 Aphasia following cerebral infarction; I69.351 Hemiplegia and hemiparesis following cerebral infarction affecting right dominant side; E78.5 Hyperlipidemia, unspecified; Z80.1 Family history of malignant neoplasm of trachea, bronchus and lung; E66.9 Obesity, unspecified; Z68.34 Body mass index [BMI] 34.0-34.9, adult; F41.9 Anxiety disorder, unspecified; F32.9 Major depressive disorder, single episode, unspecified; M19.90 Unspecified osteoarthritis, unspecified site; Z79.01 Long term (current) use of anticoagulants; Z79.82 Long term (current) use of aspirin; Z79.899 Other long term (current) drug therapy; Z88.5 Allergy status to narcotic agent; Z88.8 Allergy status to other drugs, medicaments and biological substances
CPT/HCPCS: 47562; 88304; 80053; 80048; 83036; 85025; J2250; J1644; J1100; J2710; J0690; J2405; J2001; J1650 ×2; J3010; J2370; J0330; J2704

== ENCOUNTER 2018-05-02 19:06 | Inpatient (IN) | payer MEDICARE, OTHER ==
[2018-05-02] MEDS ORDERED: ACETAMINOPHEN TAB 500 MG TAB PO STA (19:43)
[2018-05-02] MEDS ORDERED: SODIUM CHLORIDE 0.9% 500 ML IV SCH (19:45)
[2018-05-02 19:51] LABS: Glucose,Whole Blood 137 mg/dL (75-99)
--- NOTE | 2018-05-02 19:51 | ED ---
General Adult HPI - General Chief complaint: Shortness of Breath Stated complaint: fever Time Seen by Provider: 05/02/18 19:27 Source: patient, family, RN notes reviewed Mode of arrival: wheelchair Limitations: altered mental status, physical limitation - History of Present Illness Initial comments: Patient is a pleasant 52-year-old male presenting to the emergency Department with fatigue and fever. Onset was around today. Patient did have elevated temperature at 102. Patient is a poor historian and majority of history comes from the . Patient has limited speech ability. Patient does have history of severe stroke in the past. Patient has not been able to transfer today even with assistance. Patient did seem somewhat short of breath. Patient has had a cough that seems weak. Patient did have some swelling of his left face earlier today. Patient had a Fall off his tooth and the swelling resolved. did talk to Dr. Eric who started patient on penicillin and first dose was given today. - Related Data Home Medications Medication Instructions Recorded Confirmed Rivaroxaban [Xarelto] 20 mg PO DAILY@1700 09/05/16 05/02/18 Aspirin EC [Ecotrin Low Dose] 81 mg PO DAILY@04/04/17 05/02/18 HYDROcodone/APAP 10-325MG [[place] 1 tab PO Q4HR PRN 04/04/17 05/02/18 10-325] LORazepam [Ativan] 1 mg PO BID PRN 04/04/17 05/02/18 Potassium Chloride [Klor-Con 20] 20 meq PO DAILY@1700 04/04/17 05/02/18 Atorvastatin [Lipitor] 40 mg PO HS@2100 04/13/17 05/02/18 Furosemide [Lasix] 20 mg PO DAILY@1400 PRN 07/06/17 05/02/18 metFORMIN HCL 1,000 mg PO BID@07/06/17 05/02/18 Cholecalciferol (Vitamin D3) 2,000 unit PO DAILY@1700 05/02/18 05/02/18 [Vitamin D3] Furosemide [Lasix] 40 mg PO DAILY@05/02/18 05/02/18 Metoprolol Tartrate [Lopressor] 50 mg PO BID@,05/02/18 05/02/18 Pantoprazole Sodium [Protonix] 20 mg PO DAILY@05/02/18 05/02/18 Penicillin V Potassium [Pen Vee K] 500 mg PO QID 05/02/18 05/02/18 Allergies Allergy/AdvReac Type Severity Reaction Status Date / Time sitagliptin [From Janumet] Allergy GI UPSET Verified 05/02/18 20:09 hydromorphone [From Dilaudid] AdvReac Confusion Verified 05/02/18 20:09 Review of Systems ROS Statement: Those systems with pertinent positive or pertinent negative responses have been documented in the HPI. ROS Other: All systems not noted in ROS Statement are negative. 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 sepsis related to a fall-affected hip, had stroke 2015 after carotid surg.- partial paralysis right side, History of Any Multi-Drug Resistant Organisms: None Reported Past Surgical History: Joint Replacement Additional Past Surgical History / Comment(s): Right-sided carotid endarterectomy attempt, spouse states is blocked, left carotid x2, multiple surgeries hips-Right 4 times and left 1. mikey hip had a Roland resurfacing done- right hip I&D, mult times Past Anesthesia/Blood Transfusion Reactions: Previous Problems w/ Anesthesia Additional Past Anesthesia/Blood Transfusion Reaction / Comment(s): woke during a procedure, some kind of swelling in throat during a surgery post intubation- thinks it might have been due to having been intubated for procedures close together Past Psychological History: Depression Smoking Status: Former smoker Past Alcohol Use History: None Reported Past Drug Use History: None Reported - Past Family History Sister(s) Family Medical History: Cancer, CVA/TIA Brother(s) Family Medical History: Cancer, CVA/TIA, Liver Disease Additional Family Medical History / Comment(s): lung cancer Father Family Medical History: Diabetes Mellitus, Myocardial Infarction ([place]) Mother Family Medical History: CVA/TIA General Exam Limitations: no limitations General appearance: alert, in no apparent distress, obese Head exam: Present: atraumatic Eye exam: Present: normal appearance, PERRL ENT exam: Present: normal oropharynx, other (No obvious dental abscess or facial swelling is present. There is left upper dental decay.) Neck exam: Present: normal inspection Respiratory exam: Present: rales (Mild right base) Cardiovascular Exam: Present: regular rate, normal rhythm GI/Abdominal exam: Present: soft. Absent: tenderness Extremities exam: Present: normal inspection Neurological exam: Present: alert Expanded Motor strength exam: RUE: 2/1, LUE: 5, RLE: 2/1, LLE: 2/1 Psychiatric exam: Present: normal affect, normal mood Skin exam: Present: normal color, other (Stage I sacral skin breakdown) Course Vital Signs 05/02/18 05/02/18 05/02/18 19:13 20:04 21:10 Temperature 100.9 F H 101.4 F H Pulse Rate 100 96 Respiratory 24 20 18 Rate Blood Pressure 114/79 142/65 O2 Sat by Pulse 94 L 94 L Oximetry - Reevaluation(s) Reevaluation #1: 05/02/18 21:35 There is suspicion for sepsis at 2135. Blood culture and lactic acid have been ordered. IV antibiotics will be ordered. EKG Findings - EKG Comments: EKG Findings:: Normal sinus rhythm 94. NE 150. QRS 90. QT 346. QTc 432. Normal axis. Normal QRS. No acute ST change. Medical Decision Making - Medical Decision Making Patient reevaluated and resting comfortably in bed. Secondary to patient's history patient will be admitted with IV antibiotics for further evaluation. Case was discussed in detail with Dr. alexandre, who will admit for Dr. Littlejohn. Patient and family updated. - Lab Data Result diagrams: 05/02/18 19:55 05/02/18 19:55 Lab Results 05/02/18 05/02/18 05/02/18 Range/Units 19:36 19:55 19:55 WBC 16.2 H (3.8-10.6) k/uL RBC 4.78 (4.30-5.90) m/uL Hgb 13.0 (13.0-17.5) gm/dL Hct 42.6 (39.0-53.0) % MCV 89.1 (80.0-100.0) fL MCH 27.3 (25.0-35.0) pg MCHC 30.6 L (31.0-37.0) g/dL RDW 15.8 H (11.5-15.5) % Plt Count 281 (150-450) k/uL Neutrophils % 80 % Lymphocytes % 13 % Monocytes % 4 % Eosinophils % 1 % Basophils % 0 % Neutrophils # 12.9 H (1.3-7.7) k/uL Lymphocytes # 2.1 (1.0-4.8) k/uL Monocytes # 0.7 (0-1.0) k/uL Eosinophils # 0.2 (0-0.7) k/uL Basophils # 0.1 (0-0.2) k/uL PT (9.0-12.0) sec INR (<1.2) APTT (22.0-30.0) sec Sodium 140 (137-145) mmol/L Potassium 4.8 (3.5-5.1) mmol/L Chloride 105 (98-107) mmol/L Carbon Dioxide 23 (22-30) mmol/L Anion Gap 12 mmol/L BUN 18 (9-20) mg/dL Creatinine 1.09 (0.66-1.25) mg/dL Est GFR (CKD-EPI)AfAm 90 (>60 ml/min/1.73 sqM) Est GFR (CKD-EPI)NonAf 78 (>60 ml/min/1.73 sqM) Glucose 141 H (74-99) mg/dL POC Glucose (mg/dL) 137 H (75-99) mg/dL POC Glu [employer] Rental Clerk Мария Stevens Plasma Lactic Acid Tomi (0.7-2.0) mmol/L Calcium 9.4 (8.4-10.2) mg/dL Total Bilirubin 1.0 (0.2-1.3) mg/dL AST 39 (17-59) U/L ALT 27 (21-72) U/L Alkaline Phosphatase 84 (38-126) U/L Total Creatine Kinase (55-170) U/L CK-MB (CK-2) (0.0-2.4) ng/mL CK-MB (CK-2) Rel Index Troponin I (0.000-0.034) ng/mL Total Protein 8.0 (6.3-8.2) g/dL Albumin 4.6 (3.5-5.0) g/dL Urine Color Urine Appearance (Clear) Urine pH (5.0-8.0) Ur Specific [place] (1.001-1.035) Urine Protein (Negative) Urine Glucose (UA) (Negative) Urine Ketones (Negative) Urine Blood (Negative) Urine Nitrite (Negative) Urine Bilirubin (Negative) Urine Urobilinogen (<2.0) mg/dL Ur Leukocyte Esterase (Negative) 05/02/18 05/02/18 05/02/18 Range/Units 19:55 19:55 19:55 WBC (3.8-10.6) k/uL RBC (4.30-5.90) m/uL Hgb (13.0-17.5) gm/dL Hct (39.0-53.0) % MCV (80.0-100.0) fL MCH (25.0-35.0) pg MCHC (31.0-37.0) g/dL RDW (11.5-15.5) % Plt Count (150-450) k/uL Neutrophils % % Lymphocytes % % Monocytes % % Eosinophils % % Basophils % % Neutrophils # (1.3-7.7) k/uL Lymphocytes # (1.0-4.8) k/uL Monocytes # (0-1.0) k/uL Eosinophils # (0-0.7) k/uL Basophils # (0-0.2) k/uL PT 13.9 H (9.0-12.0) sec INR 1.5 H (<1.2) APTT 35.5 H (22.0-30.0) sec Sodium (137-145) mmol/L Potassium (3.5-5.1) mmol/L Chloride (98-107) mmol/L Carbon Dioxide (22-30) mmol/L Anion Gap mmol/L BUN (9-20) mg/dL Creatinine (0.66-1.25) mg/dL Est GFR (CKD-EPI)AfAm (>60 ml/min/1.73 sqM) Est GFR (CKD-EPI)NonAf (>60 ml/min/1.73 sqM) Glucose (74-99) mg/dL POC Glucose (mg/dL) (75-99) mg/dL POC Glu Car Rental Clerk ID Plasma Lactic Acid Tomi 1.9 (0.7-2.0) mmol/L Calcium (8.4-10.2) mg/dL Total Bilirubin (0.2-1.3) mg/dL AST (17-59) U/L ALT (21-72) U/L Alkaline Phosphatase (38-126) U/L Total Creatine Kinase 32 L (55-170) U/L CK-MB (CK-2) <0.2 (0.0-2.4) ng/mL CK-MB (CK-2) Rel Index Troponin I <0.012 (0.000-0.034) ng/mL Total Protein (6.3-8.2) g/dL Albumin (3.5-5.0) g/dL Urine Color Urine Appearance (Clear) Urine pH (5.0-8.0) Ur Specific [place] (1.001-1.035) Urine Protein (Negative) Urine Glucose (UA) (Negative) Urine Ketones (Negative) Urine Blood (Negative) Urine Nitrite (Negative) Urine Bilirubin (Negative) Urine Urobilinogen (<2.0) mg/dL Ur Leukocyte Esterase (Negative) 05/02/18 Range/Units 21:15 WBC (3.8-10.6) k/uL RBC (4.30-5.90) m/uL Hgb (13.0-17.5) gm/dL Hct (39.0-53.0) % MCV (80.0-100.0) fL MCH (25.0-35.0) pg MCHC (31.0-37.0) g/dL RDW (11.5-15.5) % Plt Count (150-450) k/uL Neutrophils % % Lymphocytes % % Monocytes % % Eosinophils % % Basophils % % Neutrophils # (1.3-7.7) k/uL Lymphocytes # (1.0-4.8) k/uL Monocytes # (0-1.0) k/uL Eosinophils # (0-0.7) k/uL Basophils # (0-0.2) k/uL PT (9.0-12.0) sec INR (<1.2) APTT (22.0-30.0) sec Sodium (137-145) mmol/L Potassium (3.5-5.1) mmol/L Chloride (98-107) mmol/L Carbon Dioxide (22-30) mmol/L Anion Gap mmol/L BUN (9-20) mg/dL Creatinine (0.66-1.25) mg/dL Est GFR (CKD-EPI)AfAm (>60 ml/min/1.73 sqM) Est GFR (CKD-EPI)NonAf (>60 ml/min/1.73 sqM) Glucose (74-99) mg/dL POC Glucose (mg/dL) (75-99) mg/dL POC Glu Car Rental Clerk ID Plasma Lactic Acid Tomi (0.7-2.0) mmol/L Calcium (8.4-10.2) mg/dL Total Bilirubin (0.2-1.3) mg/dL AST (17-59) U/L ALT (21-72) U/L Alkaline Phosphatase (38-126) U/L Total Creatine Kinase (55-170) U/L CK-MB (CK-2) (0.0-2.4) ng/mL CK-MB (CK-2) Rel Index Troponin I (0.000-0.034) ng/mL Total Protein (6.3-8.2) g/dL Albumin (3.5-5.0) g/dL Urine Color Yellow Urine Appearance Clear (Clear) Urine pH 5.5 (5.0-8.0) Ur Specific [place] 1.020 (1.001-1.035) Urine Protein Trace H (Negative) Urine Glucose (UA) Negative (Negative) Urine Ketones Negative (Negative) Urine Blood Negative (Negative) Urine Nitrite Negative (Negative) Urine Bilirubin Negative (Negative) Urine Urobilinogen 2.0 (<2.0) mg/dL Ur Leukocyte Esterase Negative (Negative) - Radiology Data Radiology results: image reviewed (Chest x-ray shows no acute process) Disposition Clinical Impression: Fever Disposition: ADMITTED IP TO THIS [facility] Is patient prescribed a controlled substance at d/c from ED?: No Referrals: Alcon Snyder DO [REFERRING] - 1-2 days Decision Time: 21:35
[2018-05-02 20:12] LABS: Basophils # (A) 0.1 k/uL (0-0.2); Basophils % (A) 0 %; Eosinophils # (A) 0.2 k/uL (0-0.7); Eosinophils % (A) 1 %; HCT 42.6 % (39.0-53.0); Lymphocytes # (A) 2.1 k/uL (1.0-4.8); Lymphocytes % (A) 13 %; MCH 27.3 pg (25.0-35.0); MCHC 30.6 g/dL (31.0-37.0); MCV 89.1 fL (80.0-100.0); Mean Platelet Volume 8.3; Monocytes # (A) 0.7 k/uL (0-1.0); Monocytes % (A) 4 %; Neutrophils # (A) 12.9 k/uL (1.3-7.7); Neutrophils % (A) 80 %; Platelet Count 281 k/uL (150-450); RBC 4.78 m/uL (4.30-5.90); RDW 15.8 % (11.5-15.5); WBC 16.2 k/uL (3.8-10.6)
[2018-05-02 20:23] LABS: Albumin 4.6 g/dL (3.5-5.0); Calcium 9.4 mg/dL (8.4-10.2); Creatine Kinase 32 U/L (55-170)
[2018-05-02 20:24] LABS: INR 1.5 (<1.2); Partial Thromboplastin Time 35.5 sec (22.0-30.0); Prothrombin Time 13.9 sec (9.0-12.0)
[2018-05-02 20:27] LABS: Potassium 4.8 mmol/L (3.5-5.1)
[2018-05-02 20:36] LABS: Creatine Kinase MB <0.2 ng/mL (0.0-2.4); Troponin I <0.012 ng/mL (0.000-0.034)
--- NOTE | 2018-05-02 20:42 | XR ---
EXAMINATION: XR chest 2V DATE AND TIME: 05/02/2018 8:24 PM ORDERING PROVIDER: Taun Damian DO CLINICAL INDICATION: Fever TECHNIQUE: PA and lateral. The lateral view is nearly nondiagnostic due to the patient's upper extrem ities over the entire [id number]. COMPARISON: 05/13/2017 DESCRIPTION: The hemidiaphragms are both elevated consistent with low lung inflation at the moment of x-ray exposure. This factor crowds the pulmonary vasculature. Given this factor, the lungs appear to be clear. The pleural spaces are negative. The cardiac silhouette is at least mildly enlarged. The mediastinal and pleural silhouettes are unremarkable. The skeletal structures are intact without focal findings. The soft tissues are unremarkable. IMPRESSION: NO ACUTE PROCESS.
[2018-05-02 21:26] LABS: Appearance,Urine Clear (Clear); Bilirubin,Urine Negative (Negative); Blood,Urine Negative (Negative); Color,Urine Yellow; Glucose,Urine (UA) Negative (Negative); Ketones,Urine Negative (Negative); Leukocyte Esterase,Urine Negative (Negative); Nitrite,Urine Negative (Negative); PH, Urine 5.5 (5.0-8.0); Protein,Urine Trace (Negative)
[2018-05-02] MEDS ORDERED: AMPICILLIN-SULBACTAM 3 GM in SODIUM CHLORIDE 0.9% 100 ML IVPB STA (21:36)
[2018-05-02] MEDS ORDERED: NALOXONE 0.4 MG/ML 1 ML VIAL IV PRN (21:37)
[2018-05-02] MEDS ORDERED: IBUPROFEN 600 MG TAB PO STA (21:39)
[2018-05-02] MEDS: IBUPROFEN 400 MG TAB PO PRN (21:59)
[2018-05-02 23:38] VITALS: BMI 39.7
[2018-05-03] MEDS: SODIUM CHLORIDE 0.9% 1,000 ML IV SCH ×2 (05:20→21:06)
[2018-05-03] MEDS: ACETAMINOPHEN TAB 325 MG TAB PO PRN ×2 (06:33→15:50)
[2018-05-03 07:36] LABS: Basophils % (A) 0 %; Eosinophils # (A) 0.2 k/uL (0-0.7); Eosinophils % (A) 2 %; HCT 37.1 % (39.0-53.0); HGB 11.8 gm/dL (13.0-17.5); Lymphocytes # (A) 1.7 k/uL (1.0-4.8); Lymphocytes % (A) 12 %; MCHC 31.8 g/dL (31.0-37.0); MCV 88.1 fL (80.0-100.0); Mean Platelet Volume 8.2; Monocytes # (A) 0.8 k/uL (0-1.0); Monocytes % (A) 6 %; Neutrophils # (A) 11.6 k/uL (1.3-7.7); Neutrophils % (A) 80 %; Platelet Count 238 k/uL (150-450); RDW 15.7 % (11.5-15.5); WBC 14.6 k/uL (3.8-10.6)
[2018-05-03 07:52] LABS: Glucose,Whole Blood 193 mg/dL (75-99)
[2018-05-03 08:20] LABS: ALT 23 U/L (21-72); AST 10 U/L (17-59); Albumin 3.8 g/dL (3.5-5.0); Alkaline Phosphatase 84 U/L (38-126); Anion Gap 11 mmol/L; Blood Urea Nitrogen 18 mg/dL (9-20); Calcium 9.1 mg/dL (8.4-10.2); Carbon Dioxide 21 mmol/L (22-30); Chloride 107 mmol/L (98-107); Glucose 174 mg/dL (74-99); Potassium 3.9 mmol/L (3.5-5.1); Sodium 139 mmol/L (137-145); Total Protein 6.7 g/dL (6.3-8.2)
[2018-05-03] MEDS: AMPICILLIN-SULBACTAM 3 GM in SODIUM CHLORIDE 0.9% 100 ML IVPB SCH ×2 (09:09→16:02)
--- NOTE | 2018-05-03 09:33 | P.CONS ---
History of Present Illness - Reason for Consult Consult date: 05/03/18 Fever - History of Present Illness This is a 52-year-old male patient well known to ID service as he was seen previously in 2015. Patient had sudden onset of fever yesterday of 102 and fatigue and came into [facility] emergency center for evaluation. His temperature max has been 101.4, leukocytosis of 16.2. Troponin was normal, albumin 4.6, lactic acid 1.9. Urinalysis was clear nitrate and leukoesterase negative. Urine cultures and progress and blood cultures status received. He had a chest x-ray that showed no acute process. Patient was started on Unasyn and admitted to the [facility] floor. He does have a repeat chest x-ray ordered for today. Patient is status post 1 L of IV fluids in the ER. Patient has history of stroke with expressive aphasia. Patient is able to answer yes and no to questions and give only limited history. Patient was started on Pen-Vee K as an outpatient by Dr. Eric, dentist. Review of Systems All systems: negative Constitutional: Reports chills, Reports fever, Denies poor appetite, Denies weakness Eyes: denies blurred vision, denies pain Ears, nose, mouth and throat: Denies dental pain, Denies headache, Denies mouth pain, Denies sore throat, Denies vertigo Cardiovascular: Denies chest pain, Denies decreased exercise tolerance, Denies dyspnea on exertion, Denies edema, Denies leg edema, Denies lightheadedness, Denies shortness of breath, Denies syncope Respiratory: Denies cough, Denies cough with sputum, Denies dyspnea, Denies excessive sputum, Denies hemoptysis, Denies home oxygen, Denies wheezing Gastrointestinal: Denies abdominal pain, Denies diarrhea, Denies loss of appetite, Denies nausea, Denies vomiting Genitourinary: Denies dysuria Musculoskeletal: Denies myalgias Integumentary: Denies pruritus, Denies rash, Denies wounds Neurological: Denies numbness, Denies weakness Psychiatric: Denies anxiety, Denies depression Endocrine: Denies fatigue, Denies weight change Past Medical History Past Medical History: Coronary Artery Disease (CAD), Heart Failure, CVA/TIA, Diabetes Mellitus, GERD/Reflux, Hyperlipidemia, Hypertension Additional Past Medical History / Comment(s): 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 sepsis related to a fall-affected hip, had stroke 2015 after carotid surg.-partial paralysis right side, second stroke june 2016 affecting left side History of Any Multi-Drug Resistant Organisms: None Reported Past Surgical History: Joint Replacement Additional Past Surgical History / Comment(s): Right-sided carotid endarterectomy attempt, spouse states is blocked, left carotid x3, multiple surgeries hips-Right 4 times and left 1. mikey hip had a Roland resurfacing done- right hip I&D, mult times Past Anesthesia/Blood Transfusion Reactions: Previous Problems w/ Anesthesia Additional Past Anesthesia/Blood Transfusion Reaction / Comm: woke during a procedure, some kind of swelling in throat during a surgery post intubation- thinks it might have been due to having been intubated for procedures close together Past Psychological History: Depression Smoking Status: Former smoker Past Alcohol Use History: None Reported Additional Past Alcohol Use History / Comment(s): quit drinking and smoking 2015, Prior to that he was a 2.5 pack a day smoker and drank approximately 3 drinks per day. Patient was at home with his . There are 2 cats in the home and 3 dogs that are outside. No recent travel. He worked in the past at a [employer] in [place]. He denies any medical marijuana, marijuana or street drug use. Past Drug Use History: None Reported - Past Family History Sister(s) Family Medical History: Cancer, CVA/TIA Brother(s) Family Medical History: Cancer, CVA/TIA, Liver Disease Additional Family Medical History / Comment(s): lung cancer Father Family Medical History: Diabetes Mellitus, Myocardial Infarction ([place]) Mother Family Medical History: CVA/TIA Medications and Allergies Home Medications Medication Instructions Recorded Confirmed Type Rivaroxaban [Xarelto] 20 mg PO DAILY@1700 09/05/16 05/02/18 History Aspirin EC [Ecotrin Low Dose] 81 mg PO DAILY@04/04/17 05/02/18 History HYDROcodone/APAP 10-325MG [[place] 1 tab PO Q4HR PRN 04/04/17 05/02/18 History 10-325] LORazepam [Ativan] 1 mg PO BID PRN 04/04/17 05/02/18 History Potassium Chloride [Klor-Con 20] 20 meq PO DAILY@1700 04/04/17 05/02/18 History Atorvastatin [Lipitor] 40 mg PO HS@2100 04/13/17 05/02/18 History Furosemide [Lasix] 20 mg PO DAILY@1400 PRN 07/06/17 05/02/18 History metFORMIN HCL 1,000 mg PO BID@07/06/17 05/02/18 History Cholecalciferol (Vitamin D3) 2,000 unit PO DAILY@1700 05/02/18 05/02/18 History [Vitamin D3] Furosemide [Lasix] 40 mg PO DAILY@05/02/18 05/02/18 History Metoprolol Tartrate [Lopressor] 50 mg PO BID@05/02/18 05/02/18 History Pantoprazole Sodium [Protonix] 20 mg PO DAILY@05/02/18 05/02/18 History Penicillin V Potassium [Pen Vee K] 500 mg PO QID 05/02/18 05/02/18 History Allergies Allergy/AdvReac Type Severity Reaction Status Date / Time sitagliptin [From Janumet] Allergy GI UPSET Verified 05/02/18 20:09 hydromorphone [From Dilaudid] AdvReac Confusion Verified 05/02/18 20:09 Physical Exam Vitals: Vital Signs Temp Pulse Pulse Resp BP BP Pulse Ox 05/03/18 06:37 100.1 F H 115 H 18 137/80 97 05/02/18 23:22 98.6 F 87 18 107/56 95 05/02/18 22:20 98.0 F 87 18 126/60 97 05/02/18 21:10 101.4 F H 96 18 142/65 94 L 05/02/18 20:04 20 05/02/18 19:13 100.9 F H 100 24 114/79 94 L Intake and Output 05/02/18 05/03/18 05/03/18 22:59 06:59 14:59 Output Total 150 Balance -150 Output: Urine 150 Other: Voiding Method Urinal # Voids 2 Weight 122.016 kg Gen: This is a morbidly obese 52-year-old male patient. He is sitting up in bed and appears to be comfortable and in no acute distress. HEENT: Head is atraumatic, normocephalic. Pupils equal, round. Sclerae is anicteric. Conjunctiva pink. Mucous members of the mouth are moist. NECK: Supple. No JVD. No lymphadenopathy. No thyromegaly. LUNGS: Clear to auscultation. No wheezes or rhonchi. No intercostal retractions. HEART: Regular rate and rhythm. No murmur. ABDOMEN: Obese. Soft. Bowel sounds are present. No masses. No tenderness. EXTREMITIES: Trace bilateral pedal edema. No calf tenderness. NEUROLOGICAL: Patient is awake, alert and appears to be oriented x3. Right- sided hemiplegia and contractures noted to the right hand. Results Results: Laboratory Results WBC 14.6 k/uL (3.8-10.6) H 05/03/18 07:19 RBC 4.20 m/uL (4.30-5.90) L 05/03/18 07:19 Hgb 11.8 gm/dL (13.0-17.5) L 05/03/18 07:19 Hct 37.1 % (39.0-53.0) L 05/03/18 07:19 MCV 88.1 fL (80.0-100.0) 05/03/18 07:19 MCH 28.0 pg (25.0-35.0) 05/03/18 07:19 MCHC 31.8 g/dL (31.0-37.0) 05/03/18 07:19 RDW 15.7 % (11.5-15.5) H 05/03/18 07:19 Plt Count 238 k/uL (150-450) 05/03/18 07:19 Neutrophils % 80 % 05/03/18 07:19 Lymphocytes % 12 % 05/03/18 07:19 Monocytes % 6 % 05/03/18 07:19 Eosinophils % 2 % 05/03/18 07:19 Basophils % 0 % 05/03/18 07:19 Neutrophils # 11.6 k/uL (1.3-7.7) H 05/03/18 07:19 Lymphocytes # 1.7 k/uL (1.0-4.8) 05/03/18 07:19 Monocytes # 0.8 k/uL (0-1.0) 05/03/18 07:19 Eosinophils # 0.2 k/uL (0-0.7) 05/03/18 07:19 Basophils # 0.0 k/uL (0-0.2) 05/03/18 07:19 PT 13.9 sec (9.0-12.0) H 05/02/18 19:55 INR 1.5 (<1.2) H 05/02/18 19:55 APTT 35.5 sec (22.0-30.0) H 05/02/18 19:55 Sodium 139 mmol/L (137-145) 05/03/18 07:19 Potassium 3.9 mmol/L (3.5-5.1) 05/03/18 07:19 Chloride 107 mmol/L (98-107) 05/03/18 07:19 Carbon Dioxide 21 mmol/L (22-30) L 05/03/18 07:19 Anion Gap 11 mmol/L 05/03/18 07:19 BUN 18 mg/dL (9-20) 05/03/18 07:19 Creatinine 0.95 mg/dL (0.66-1.25) 05/03/18 07:19 Est GFR (CKD-EPI)AfAm >90 (>60 ml/min/1.73 sqM) 05/03/18 07:19 Est GFR (CKD-EPI)NonAf >90 (>60 ml/min/1.73 sqM) 05/03/18 07:19 Glucose 174 mg/dL (74-99) H 05/03/18 07:19 POC Glucose (mg/dL) 193 mg/dL (75-99) H 05/03/18 07:48 POC Glu Timber Selector MECHELLE Nan Xiong 05/03/18 07:48 Plasma Lactic Acid Tomi 1.9 mmol/L (0.7-2.0) 05/02/18 19:55 Calcium 9.1 mg/dL (8.4-10.2) 05/03/18 07:19 Total Bilirubin 1.0 mg/dL (0.2-1.3) 05/03/18 07:19 AST 10 U/L (17-59) L 05/03/18 07:19 ALT 23 U/L (21-72) 05/03/18 07:19 Alkaline Phosphatase 84 U/L (38-126) 05/03/18 07:19 Total Creatine Kinase 32 U/L (55-170) L 05/02/18 19:55 CK-MB (CK-2) <0.2 ng/mL (0.0-2.4) 05/02/18 19:55 CK-MB (CK-2) Rel Index 05/02/18 19:55 Troponin I <0.012 ng/mL (0.000-0.034) 05/02/18 19:55 Total Protein 6.7 g/dL (6.3-8.2) 05/03/18 07:19 Albumin 3.8 g/dL (3.5-5.0) 05/03/18 07:19 Urine Color Yellow 05/02/18 21:15 Urine Appearance Clear (Clear) 05/02/18 21:15 Urine pH 5.5 (5.0-8.0) 05/02/18 21:15 Ur Specific [place] 1.020 (1.001-1.035) 05/02/18 21:15 Urine Protein Trace (Negative) H 05/02/18 21:15 Urine Glucose (UA) Negative (Negative) 05/02/18 21:15 Urine Ketones Negative (Negative) 05/02/18 21:15 Urine Blood Negative (Negative) 05/02/18 21:15 Urine Nitrite Negative (Negative) 05/02/18 21:15 Urine Bilirubin Negative (Negative) 05/02/18 21:15 Urine Urobilinogen 2.0 mg/dL (<2.0) 05/02/18 21:15 Ur Leukocyte Esterase Negative (Negative) 05/02/18 21:15 CBC & Chem 7: 05/03/18 07:19 05/03/18 07:19 Labs: Abnormal Lab Results - Last 24 Hours (Table) 05/02/18 05/02/18 05/02/18 Range/Units 19:36 19:55 19:55 WBC 16.2 H (3.8-10.6) k/uL RBC (4.30-5.90) m/uL Hgb (13.0-17.5) gm/dL Hct (39.0-53.0) % MCHC 30.6 L (31.0-37.0) g/dL RDW 15.8 H (11.5-15.5) % Neutrophils # 12.9 H (1.3-7.7) k/uL PT (9.0-12.0) sec INR (<1.2) APTT (22.0-30.0) sec Carbon Dioxide (22-30) mmol/L Glucose 141 H (74-99) mg/dL POC Glucose (mg/dL) 137 H (75-99) mg/dL AST (17-59) U/L Total Creatine Kinase (55-170) U/L Urine Protein (Negative) 05/02/18 05/02/18 05/02/18 Range/Units 19:55 19:55 21:15 WBC (3.8-10.6) k/uL RBC (4.30-5.90) m/uL Hgb (13.0-17.5) gm/dL Hct (39.0-53.0) % MCHC (31.0-37.0) g/dL RDW (11.5-15.5) % Neutrophils # (1.3-7.7) k/uL PT 13.9 H (9.0-12.0) sec INR 1.5 H (<1.2) APTT 35.5 H (22.0-30.0) sec Carbon Dioxide (22-30) mmol/L Glucose (74-99) mg/dL POC Glucose (mg/dL) (75-99) mg/dL AST (17-59) U/L Total Creatine Kinase 32 L (55-170) U/L Urine Protein Trace H (Negative) 05/03/18 05/03/18 05/03/18 Range/Units 07:19 07:19 07:48 WBC 14.6 H (3.8-10.6) k/uL RBC 4.20 L (4.30-5.90) m/uL Hgb 11.8 L (13.0-17.5) gm/dL Hct 37.1 L (39.0-53.0) % MCHC (31.0-37.0) g/dL RDW 15.7 H (11.5-15.5) % Neutrophils # 11.6 H (1.3-7.7) k/uL PT (9.0-12.0) sec INR (<1.2) APTT (22.0-30.0) sec Carbon Dioxide 21 L (22-30) mmol/L Glucose 174 H (74-99) mg/dL POC Glucose (mg/dL) 193 H (75-99) mg/dL AST 10 L (17-59) U/L Total Creatine Kinase (55-170) U/L Urine Protein (Negative) Microbiology - Last 24 Hours (Table) 05/02/18 21:15 Urine Culture - Preliminary Urine,Catheterized Assessment and Plan Plan: This is a 52-year-old male patient who presented to hospital with signs of sepsis with fever and leukocytosis and urinary to tooth abscess. Urinalysis and chest x-ray have been negative for signs of infection. Blood culture is status received. He is currently on Unasyn which will be continued Continue supportive care. Further recommendations as patient progresses. The above dictated assessment and findings were discussed with Dr. Eric. The impression and plan of care have been directed as dictated. Gris Michelle nurse practitioner acting as scribe for Dr. Eric.
[2018-05-03] MEDS ORDERED: HYDROcodone/APAP 10-325MG 1 EACH TAB PO PRN (10:55)
[2018-05-03] MEDS ORDERED: LORazepam 1 MG TAB PO PRN (10:55)
[2018-05-03 11:30] LABS: Glucose,Whole Blood 229 mg/dL (75-99)
[2018-05-03] MEDS: METOPROLOL TARTRATE 50 MG TAB PO SCH ×2 (11:46→15:50)
[2018-05-03] MEDS: metFORMIN 500 MG TAB PO SCH ×2 (11:46→21:05)
[2018-05-03] MEDS: PANTOPRAZOLE 40 MG TABLET PO SCH (11:47)
[2018-05-03] MEDS: ASPIRIN 81 MG PO SCH (11:48)
[2018-05-03] MEDS ORDERED: PENICILLIN VK 500MG STARTER 4 TAB BTL PO SCH (13:00)
[2018-05-03] MEDS ORDERED: FUROSEMIDE 20 MG TAB PO PRN (14:00)
[2018-05-03] MEDS: RIVAROXABAN 20 MG TAB PO SCH (15:51)
[2018-05-03] MEDS: POTASSIUM CHLORIDE ER 20 MEQ TAB.ER PO SCH (15:52)
--- NOTE | 2018-05-03 16:05 | XR ---
EXAMINATION TYPE: XR chest 2V DATE OF EXAM: 05/03/2018 COMPARISON: Prior chest 05/02/2018 HISTORY: Fever TECHNIQUE: Frontal and lateral views of the chest are obtained. FINDINGS: Lung volumes are low and the patient is rotated. Prominence of the heart and central vascu larity again noted, interstitium is increased. No evident pneumothorax or IMPRESSION: Correlate to exclude pulmonary venous hypertension and interstitial edema, expiratory ro tated exam. Follow-up recommended.
[2018-05-03 16:53] LABS: Glucose,Whole Blood 171 mg/dL (75-99)
[2018-05-03] MEDS: INSULIN ASPART 100 UNIT/ML 1 ML 10 ML VIAL SQ SCH ×2 (17:29→21:06)
--- NOTE | 2018-05-03 17:53 | HP ---
HISTORY AND PHYSICAL DATE OF ADMISSION: May 03, 2018. DATE OF SERVICE: May 03, 2018. PRESENT COMPLAINT: Fever. HISTORY OF PRESENTING COMPLAINT: This is a pleasant 52-year-old patient follows with Dr. Grey. Chronic stable medical conditions include hypertension, hyperlipidemia, GERD, diabetes mellitus type 2, chronically occluded right carotid artery. Obesity. The patient chronically has got right arm weakness. Able to lift a little bit off the bed and some left-sided weakness from old stroke and the patient has limited vision in the right eye. The patient baseline dysarthria. The patient's is at the bedside. The patient presents with fever, tachycardia, fever up to 102.3, heart rate up to 125. No obvious cough. No obvious urinary symptoms. REVIEW OF SYSTEMS: CONSTITUTIONAL: Fever, tired. HEENT: Decreased vision in the right eye. RESPIRATORY none. CARDIOVASCULAR none. GASTROINTESTINAL none. GENITOURINARY none. MUSCULOSKELETAL: Some pain in the joints. DERMATOLOGICAL: None. HEMATOLOGICAL: None. LYMPHATICS: None. PSYCHIATRY: Depressed. NEUROLOGICAL: As above. PAST MEDICAL HISTORY: Past medical history of: 1. Right arm weakness from a prior stroke. 2. Chronically occluded right internal carotid artery. 3. Chronically decreased vision in the right eye. 4. Chronic dysarthria. 5. Diabetes mellitus type 2 on oral hypoglycemic. 6. Gastroesophageal reflux disease. 7. Hyperlipidemia. 8. Essential hypertension. 9. Depression. PAST SURGICAL HISTORY: Right-sided carotid endarterectomy attempt; multiple surgeries in the hips, right 4 times and left bilateral hip had a resurfacing done. PSYCH HISTORY: History of depression. SOCIAL HISTORY: Quit drinking and smoking in October 2005. Prior to that he was 2.5 pack a day smoker and drank approximately 3 drinks per day. Lives at home with his . He used to work in a plant. No history of recreational drugs. FAMILY HISTORY: Of diabetes, myocardial infarction, colon cancer. HOME MEDICATIONS: 1. Metformin 1000 mg b.i.d. 2. Xarelto 20 mg p.o. daily. 3. Klor-Con 20 mEq p.o. daily. 4. Penicillin V 500 mg q.i.d. 5. Protonix 20 mg p.o. daily. 6. Lopressor 50 mg p.o. b.i.d. 7. Ativan 1 mg p.o. b.i.d. 8. [place] 10 1 tab q.4h p.r.n. 9. Lasix 40 mg p.o. daily. 10.Lasix 20 mg p.o. daily. 11.Vitamin D3 2000 units p.o. daily. 12.Lipitor 40 mg p.o. q.h.s. 13.Aspirin 81 mg p.o. daily. ALLERGIES: TO JANUMET, DILAUDID. PHYSICAL EXAMINATION: VITAL SIGNS: On exam, temperature 102.3, pulse up to 125, respirations 16, blood pressure 109/67, pulse ox 97% on room air. GENERAL APPEARANCE: Well-built, BMI 39.7. Lying in bed, tired-appearing. EYES: Pupil equal, conjunctivae normal. HEENT: External appearance of nose and ears normal. Oral cavity a bit dry. NECK: JVD unable to assess. Mass not palpable. RESPIRATORY: Effort normal. LUNGS: Decreased breath sounds. CARDIOVASCULAR: 1st and second sounds normal. No edema. ABDOMEN: Soft, nontender. Liver and spleen not palpable. LYMPHATICS: No lymph palpable in the neck and axilla. PSYCHIATRY: The patient is able to answer simple questions. NEUROLOGICAL: The patient has decreased vision in the right eye. Speech is slow. Power in the right arm is 3/5, power in the left arm is 4/5 and left lower extremity power is 4/5, sensation grossly preserved. INVESTIGATIONS: White count 14.6, hemoglobin 11.8, potassium 3.9. BUN and creatinine is normal. Chest x-ray film interpreted by me shows a poor inspiratory film. Cannot detect much. EKG normal sinus rhythm. ASSESSMENT: 1. Sepsis in a patient with no obvious source of infection. Patient is outpatient started on penicillin for a tooth infection. Waiting for the nurse to determine if the patient has got any decubital ulcers and whenever she gets back to me. 2. Weakness in the right arm and weakness on the left arm 4/5 and in the left leg from prior stroke. 3. Chronically occluded right internal carotid artery. 4. Chronically decreased vision in the right eye. 5. Chronic dysarthria from stroke. 6. Essential hypertension. 7. Obesity; BMI greater than 30. 8. Depression not otherwise specified. 9. Chronic medical debility. PLAN: At this point, patient is on IV Unasyn. Home medications are resumed. Care was discussed with the patient and at the bedside. Awaiting from the nurse who helped look at the patient's backside and determine if there is any decub ulcers that could well be the source of sepsis. Infectious Disease was consulted. The patient gets a supervised diet. Copy to Dr. Grey. MMKIETL / IJN: [id number] /
[2018-05-03] MEDS: IBUPROFEN 400 MG TAB PO PRN (18:06)
[2018-05-03 20:21] LABS: Glucose,Whole Blood 194 mg/dL (75-99)
[2018-05-03] MEDS: ATORVASTATIN 40 MG TAB PO SCH (21:06)
--- NOTE | 2018-05-03 22:29 | XR ---
EXAMINATION TYPE: XR abdomen - 5V DATE OF EXAM: 05/03/2018 COMPARISON: NONE HISTORY: Abdominal distention TECHNIQUE: 4 supine views and one epigastric upright view FINDINGS: The visualized lung bases and pleural spaces are negative. There is no evidence of pneumoperitoneum or pneumatosis. No bowel obstruction, gas is seen in small and large bowel loops throughout the 4 quadrants. No definite acute skeletal or soft tissue findings. IMPRESSION: No acute radiographic process.
--- NOTE | 2018-05-03 23:21 | P.CON ---
Consult Note - . Consult date: 05/03/18 Assessment/Plan:: This is a 52-year-old male patient well known to ID service as he was seen previously in 2015. Patient had sudden onset of fever yesterday of 102 and fatigue and came into [facility] emergency center for evaluation. His temperature max has been 101.4, leukocytosis of 16.2. Troponin was normal, albumin 4.6, lactic acid 1.9. Urinalysis was clear nitrate and leukoesterase negative. Urine cultures and progress and blood cultures status received. He had a chest x-ray that showed no acute process. Patient was started on Unasyn and admitted to the [facility] floor. He does have a repeat chest x-ray ordered for today. Patient is status post 1 L of IV fluids in the ER. Patient has history of stroke with expressive aphasia. Patient is able to answer yes and no to questions and give only limited history. Patient was started on Pen-Vee K as an outpatient by Dr. Eric, dentist.please see the consult note as dictated by nurse practitioner Mrs. Gris Michelle. Patient with sepsis at admit likely from facial cellulitis and potential oral infection although doing much better already today. Cultures are in progress and will help direct antibiotic therapy. COntinue Unasyn given the good clinical response. I agree with the evaluation assessement and plan as dictated by PARK WORKER SUPERVISOR Mrs. Gris Michelle.
[2018-05-04] MEDS: AMPICILLIN-SULBACTAM 3 GM in SODIUM CHLORIDE 0.9% 100 ML IVPB SCH ×4 (00:12→23:22)
[2018-05-04 05:42] LABS: Hemoglobin A1C 7.5 % (4.0-6.0)
[2018-05-04 07:41] LABS: Glucose,Whole Blood 136 mg/dL (75-99)
[2018-05-04] MEDS: PANTOPRAZOLE 40 MG TABLET PO SCH (07:49)
[2018-05-04] MEDS: metFORMIN 500 MG TAB PO SCH ×2 (07:50→21:37)
[2018-05-04] MEDS: FUROSEMIDE 40 MG TAB PO SCH (07:50)
[2018-05-04] MEDS: METOPROLOL TARTRATE 50 MG TAB PO SCH ×2 (07:50→14:58)
[2018-05-04] MEDS: INSULIN ASPART 100 UNIT/ML 1 ML 10 ML VIAL SQ SCH ×4 (07:50→21:35)
[2018-05-04] MEDS: ASPIRIN 81 MG PO SCH (07:50)
[2018-05-04 12:05] LABS: Glucose,Whole Blood 173 mg/dL (75-99)
[2018-05-04 17:10] LABS: Glucose,Whole Blood 125 mg/dL (75-99)
[2018-05-04] MEDS: POTASSIUM CHLORIDE ER 20 MEQ TAB.ER PO SCH (17:41)
[2018-05-04] MEDS: RIVAROXABAN 20 MG TAB PO SCH (17:41)
--- NOTE | 2018-05-04 18:25 | NM ---
EXAMINATION TYPE: NM bone 3 phase DATE OF EXAM: 05/04/2018 COMPARISON: NONE HISTORY: Possible osteomyelitis of the pelvis Triple phase bone scintigraphy was performed following the injection of 27.0 mCi Tc 99m MDP. Immedia te images and 3 hours post injection images acquired. There is a flow study as well. FINDINGS: Flow study shows no hyperemia. Immediate and delayed images show no abnormal increased uptake involvi ng the bony pelvis. There is decreased activity at both hip joints related to the hip prostheses. The re is no uptake to suggest a fracture. The remainder of exam is unremarkable. IMPRESSION: Exam shows no evidence of osteomyelitis. No evidence of a fracture.
[2018-05-04 20:50] LABS: Glucose,Whole Blood 164 mg/dL (75-99)
[2018-05-04] MEDS: ACETAMINOPHEN TAB 325 MG TAB PO PRN (21:35)
[2018-05-04] MEDS: SODIUM CHLORIDE 0.9% 1,000 ML IV SCH (21:37)
[2018-05-04] MEDS: ATORVASTATIN 40 MG TAB PO SCH (21:37)
[2018-05-04 22:39] VITALS: RESP 18
--- NOTE | 2018-05-04 23:16 | PN ---
PROGRESS NOTE DATE OF SERVICE: 05/04/2018 PRESENTING COMPLAINT: Fever. INTERVAL HISTORY: This is a patient who presented with fever, probably resulting from orofacial fever, although infection workup has been negative, including a bone scan. Fever has started to come down. According to his , who was present at the bedside this afternoon, the patient is doing much better, tolerating a diet. REVIEW OF SYSTEMS: Done for constitutional, cardiovascular, GI, pulmonary; relevant findings as above. CURRENT MEDICATIONS: Reviewed. They include IV Unasyn. PHYSICAL EXAMINATION: Temperature 98.7, pulse 105, respiration 20, blood pressure 149/80, pulse ox 96% on room air. GENERAL APPEARANCE: Lying in bed, awake. EYES: Pupils equal. Conjunctivae normal. HEENT: External appearance of nose and ears normal. NECK: JVD unable to assess. Mass not palpable. RESPIRATORY: Effort normal. LUNGS: Decreased breath sounds. CARDIOVASCULAR: First and second sounds normal. No edema. ABDOMEN: Soft, non-tender. Liver and spleen not palpable. NEUROLOGICAL: Decreased vision in the right eye. Speech is slow. Power on the right arm 3/5. Power in the left arm 4/5 and left lower extremity 4/5. INVESTIGATIONS: Accu-Cheks are noted. Bone scan is negative. ASSESSMENT: 1. Sepsis in a patient, possibly from orofacial source, as discussed with Dr. Eric. 2. Chronic weakness in the right arm and weakness of the left arm 4/5 and left leg from prior stroke. 3. Chronically occluded right internal carotid artery. 4. Chronically decreased vision in the right eye. 5. Chronic dysarthria from stroke. 6. Essential hypertension. 7. Obesity; body mass index greater than 30. 8. Depression not otherwise specified. 9. Chronic medical debility. PLAN: Continue current medication and treatment plan. Keep the patient on IV Unasyn. Discussed with Dr. Eric. If no further fever, then probably can be discharged on Augmentin. MMODL / IJN: [id number] /
[2018-05-05 06:02] VITALS: BP 118/65; PULSE 89
[2018-05-05 07:01] LABS: Glucose,Whole Blood 146 mg/dL (75-99)
[2018-05-05 07:42] LABS: Basophils % (A) 0 %; Eosinophils # (A) 0.1 k/uL (0-0.7); Eosinophils % (A) 1 %; HCT 32.6 % (39.0-53.0); HGB 10.1 gm/dL (13.0-17.5); Lymphocytes # (A) 1.8 k/uL (1.0-4.8); Lymphocytes % (A) 14 %; MCHC 31.1 g/dL (31.0-37.0); MCV 90.1 fL (80.0-100.0); Mean Platelet Volume 8.1; Monocytes # (A) 0.9 k/uL (0-1.0); Monocytes % (A) 7 %; Neutrophils # (A) 9.1 k/uL (1.3-7.7); Neutrophils % (A) 75 %; Platelet Count 204 k/uL (150-450); RBC 3.62 m/uL (4.30-5.90); RDW 15.9 % (11.5-15.5); WBC 12.2 k/uL (3.8-10.6)
[2018-05-05 08:13] LABS: Anion Gap 10 mmol/L; Blood Urea Nitrogen 14 mg/dL (9-20); Calcium 8.8 mg/dL (8.4-10.2); Carbon Dioxide 23 mmol/L (22-30); Chloride 109 mmol/L (98-107); Glucose 138 mg/dL (74-99); Sodium 142 mmol/L (137-145)
[2018-05-05] MEDS: metFORMIN 500 MG TAB PO SCH (08:38)
[2018-05-05] MEDS: PANTOPRAZOLE 40 MG TABLET PO SCH (08:39)
[2018-05-05] MEDS: METOPROLOL TARTRATE 50 MG TAB PO SCH ×2 (08:39→13:07)
[2018-05-05] MEDS: ASPIRIN 81 MG PO SCH (08:39)
[2018-05-05] MEDS: FUROSEMIDE 40 MG TAB PO SCH (08:39)
[2018-05-05] MEDS: AMPICILLIN-SULBACTAM 3 GM in SODIUM CHLORIDE 0.9% 100 ML IVPB SCH (08:40)
[2018-05-05] MEDS: INSULIN ASPART 100 UNIT/ML 1 ML 10 ML VIAL SQ SCH ×2 (08:40→13:07)
[2018-05-05] MEDS ORDERED: POLYETHYLENE GLYCOL 3350 17 GM POWD.PACK PO SCH (09:00)
[2018-05-05 12:15] LABS: Glucose,Whole Blood 142 mg/dL (75-99)
[2018-05-05 12:18] VITALS: TEMP 99.1
--- NOTE | 2018-05-05 23:32 | DS ---
DISCHARGE SUMMARY DATE OF ADMISSION: 05/03/2018 DATE OF DISCHARGE: 05/05/2018 FINAL DIAGNOSES: 1. Steps in a patient probably with orofacial source. 2. Chronic weakness on the right side and weakness of the left arm, 4/5 in left leg from prior stroke. 3. Chronically occluded right internal carotid artery. 4. Chronically decreased vision in the right eye. 5. Chronic dysarthria from stroke. 6. Essential hypertension. 7. Obesity; BMI is greater than 30. 8. Depression, not otherwise specified. 9. Chronic medical debility. HOSPITAL COURSE: This patient who started off with a tooth infection was started on penicillin via outpatient, presented with more of a sepsis picture. The patient was treated with IV Unasyn, to which he responded well. Blood cultures were negative. I discussed with Dr. Eric, who decided to switch him to Augmentin. The patient's fever had come down and white count was also coming down nicely. Patient is tolerating a diet, overall looks much better. EXAMINATION: Afebrile, pulse 89, respirations 18, blood pressure 118/65, pulse 96% on room air. LUNGS: Diminished breath sounds. CARDIOVASCULAR: First and second sounds normal. Chronic right upper and left upper weakness. DISCHARGE MEDICATIONS: 1. Xarelto 10 mg p.o. daily at 5:00 p.m. 2. Aspirin 81 mg a day. 3. [place] 10 1 tablet q.4h p.r.n. 4. Ativan 1 mg p.o. b.i.d. p.r.n. 5. Klor-Con 20 mEq a day. 6. Lipitor 40 mg q.h.s. 7. Lasix 20 mg a day. 8. Metformin 1000 mg b.i.d. 9. Vitamin D3 2000 units p.o. daily. 10.Lasix 40 mg p.o. daily. 11.Lopressor 50 mg p.o. b.i.d. 12.Protonix 20 mg p.o. daily. 13.Augmentin 875 1 tablet q.12h, 14 tablets. 14.MiraLAX 17 g p.o. daily. FOLLOWUP: With Dr. Grey on 05/11/2018. Diet as before. Assistance with meals with aspiration precautions. MMODL / IJN: [id number] /
== END 2018-05-05 15:35 | disposition home health service (06) | DRG 872 ==
LOC: EC 19:06 → UNDOADMIN 21:35 → 4MS4W 21:35
PROVIDERS: ADMIT Hospitalist; ATTEND Hospitalist
DX: A41.9 Sepsis, unspecified organism (principal); I69.351 Hemiplegia and hemiparesis following cerebral infarction affecting right dominant side; L03.211 Cellulitis of face; I69.354 Hemiplegia and hemiparesis following cerebral infarction affecting left non-dominant side; E11.9 Type 2 diabetes mellitus without complications; Z68.39 Body mass index [BMI] 39.0-39.9, adult; E78.5 Hyperlipidemia, unspecified; F32.9 Major depressive disorder, single episode, unspecified; H54.61 Unqualified visual loss, right eye, normal vision left eye; I11.0 Hypertensive heart disease with heart failure; I25.10 Atherosclerotic heart disease of native coronary artery without angina pectoris; I50.9 Heart failure, unspecified; K04.7 Periapical abscess without sinus; I65.21 Occlusion and stenosis of right carotid artery; K21.9 Gastro-esophageal reflux disease without esophagitis; E66.01 Morbid (severe) obesity due to excess calories; L89.312 Pressure ulcer of right buttock, stage 2; Z96.643 Presence of artificial hip joint, bilateral; Z79.01 Long term (current) use of anticoagulants; I69.320 Aphasia following cerebral infarction; Z79.82 Long term (current) use of aspirin; Z79.84 Long term (current) use of oral hypoglycemic drugs; Z79.899 Other long term (current) drug therapy; Z80.0 Family history of malignant neoplasm of digestive organs; Z80.1 Family history of malignant neoplasm of trachea, bronchus and lung; Z82.49 Family history of ischemic heart disease and other diseases of the circulatory system; Z83.3 Family history of diabetes mellitus; Z87.891 Personal history of nicotine dependence; Z79.891 Long term (current) use of opiate analgesic; Z88.5 Allergy status to narcotic agent; Z88.8 Allergy status to other drugs, medicaments and biological substances; Z99.3 Dependence on wheelchair; I69.322 Dysarthria following cerebral infarction; I69.398 Other sequelae of cerebral infarction
CPT/HCPCS: 36415; 71046; 74019; 78315; 80048; 80053; 81003; 82550; 82553; 83036; 83605; 84484; 85025; 85610; 85730; 87040; 87086; 93005; 96365; 99285

== ENCOUNTER 2018-05-06 05:34 | Emergency (ER) | payer MEDICARE ==
[2018-05-06] MEDS ORDERED: ACETAMINOPHEN TAB 500 MG TAB PO STA (05:41)
[2018-05-06] MEDS ORDERED: VANCOMYCIN IV PER PHARMACY 1 EACH MISC MISCELLANE PRN (05:41)
[2018-05-06] MEDS ORDERED: SODIUM CHLORIDE 0.9% 500 ML IV SCH (05:45)
--- NOTE | 2018-05-06 06:07 | ED ---
General Adult HPI - General Chief complaint: Extremity Problem,Nontraumatic Stated complaint: Infection Source: EMS Mode of arrival: EMS Limitations: no limitations - History of Present Illness Initial comments: Dictation was produced using inthinc dictation software. please excuse any grammatical, word or spelling errors. Chief Complaint: 52-year-old male with multiple comorbidities presents with fever and right hip pain. History of Present Illness: Patient is a 52-year-old male with past medical history of coronary artery disease, [place], diabetes, chronic vessel occlusion presents with fever. Per chart review patient was recently admitted for dental sepsis he was discharged yesterday. Today presents with persistent fevers and right hip pain. The ROS documented in this emergency department record has been reviewed and confirmed by me. Those systems with pertinent positive or negative responses have been documented in the HPI. All other systems are other negative and/or noncontributory. - Related Data Home Medications Medication Instructions Recorded Confirmed Rivaroxaban [Xarelto] 20 mg PO DAILY@1700 09/05/16 05/02/18 Aspirin EC [Ecotrin Low Dose] 81 mg PO DAILY@04/04/17 05/02/18 HYDROcodone/APAP 10-325MG [[place] 1 tab PO Q4HR PRN 04/04/17 05/02/18 10-325] LORazepam [Ativan] 1 mg PO BID PRN 04/04/17 05/02/18 Potassium Chloride [Klor-Con 20] 20 meq PO DAILY@1700 04/04/17 05/02/18 Atorvastatin [Lipitor] 40 mg PO HS@2100 04/13/17 05/02/18 Furosemide [Lasix] 20 mg PO DAILY@1400 PRN 07/06/17 05/02/18 metFORMIN HCL 1,000 mg PO BID@07/06/17 05/02/18 Cholecalciferol (Vitamin D3) 2,000 unit PO DAILY@1700 05/02/18 05/02/18 [Vitamin D3] Furosemide [Lasix] 40 mg PO DAILY@05/02/18 05/02/18 Metoprolol Tartrate [Lopressor] 50 mg PO BID@,05/02/18 05/02/18 Pantoprazole Sodium [Protonix] 20 mg PO DAILY@05/02/18 05/02/18 Polyethylene Glycol 3350 [Miralax] 17 gm PO DAILY 05/05/18 05/05/18 Previous Rx's Medication Instructions Recorded Amoxicillin/Potassium Clav 1 tab PO Q12HR #14 tab 05/05/18 [Augmentin 875-125 Tablet] Allergies Allergy/AdvReac Type Severity Reaction Status Date / Time sitagliptin [From Janumet] Allergy GI UPSET Verified 05/06/18 05:41 hydromorphone [From Dilaudid] AdvReac Confusion Verified 05/06/18 05:41 Review of Systems ROS Statement: Those systems with pertinent positive or pertinent negative responses have been documented in the HPI. ROS Other: All systems not noted in ROS Statement are negative. 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 sepsis related to a fall-affected hip, had stroke 2015 after carotid surg.-partial paralysis right side, second stroke june 2016 affecting left side History of Any Multi-Drug Resistant Organisms: None Reported Past Surgical History: Joint Replacement Additional Past Surgical History / Comment(s): Right-sided carotid endarterectomy attempt, spouse states is blocked, left carotid x3, multiple surgeries hips-Right 4 times and left 1. mikey hip had a Roland resurfacing done- right hip I&D, mult times Past Anesthesia/Blood Transfusion Reactions: Previous Problems w/ Anesthesia Additional Past Anesthesia/Blood Transfusion Reaction / Comment(s): woke during a procedure, some kind of swelling in throat during a surgery post intubation- thinks it might have been due to having been intubated for procedures close together Past Psychological History: Depression Smoking Status: Former smoker Past Alcohol Use History: None Reported Past Drug Use History: None Reported - Past Family History Sister(s) Family Medical History: Cancer, CVA/TIA Brother(s) Family Medical History: Cancer, CVA/TIA, Liver Disease Additional Family Medical History / Comment(s): lung cancer Father Family Medical History: Diabetes Mellitus, Myocardial Infarction ([place]) Mother Family Medical History: CVA/TIA General Exam - General Exam Comments Initial Comments: PHYSICAL EXAM: General Impression: Alert and oriented x3, not in acute distress HEENT: Normocephalic atraumatic, extra-ocular movements intact, pupils equal and reactive to light bilaterally, mucous membranes moist. Cardiovascular: Heart regular rate and rhythm, S1&S2 audible, no murmurs, rubs or gallops Chest: Lungs clear to auscultation bilaterally, no rhonchi, no wheeze, no rales Abdomen: Bowel sounds present, abdomen soft, non-tender, non-distended, no organomegaly Musculoskeletal: Pulses present and equal in all extremities, no peripheral edema Motor: Power 5/5 bilaterally, no focal deficits noted Neurological: CN II-XII grossly intact, no focal motor or sensory deficits noted Skin: Large area of induration and erythema to the right hip Psych: Normal affect and mood Limitations: no limitations Course Vital Signs 05/06/18 05/06/18 05:35 07:06 Temperature 100.5 F H 98.7 F Pulse Rate 98 96 Respiratory 18 18 Rate Blood Pressure 143/80 144/75 O2 Sat by Pulse 95 95 Oximetry Medical Decision Making - Medical Decision Making ED course: 52-year-old male presents with clinical presentation suspicious for right hip cellulitis. Vital signs upon arrival shows temperature 100.5 oral, rest of vital signs within normal limits. Patient has large area of erythema and induration to the right hip. Laboratory evaluation obtained . CBC shows no leukocytosis. Coag panel unremarkable. Metabolic panel shows lactic acidosis of 2.2. Rest metabolic panel is unremarkable. Computed tomography scan of the hip did not demonstrate any signs of osteomyelitis or periprosthetic fluid collection to suggest abscess. [id number] bedside ultrasound showed free fluid just under the scar tracking down into the surgical site. There is significant induration around that area. Clinical presentation suspicious for skin infection. There is possibility that this infection is tracking down into where his hip replacement is. He has complex medical history with infections to his hip. Discussed patient case with Dr. Degroot. We will transfer patient to [facility] for further care given that his hip surgery and is located out of that facility. Patient and family member agreeable to transfer. She given 1 g of vancomycin. Currently is hemodynamically stable. Received intravenous fluids. EKG Interpretation: A 12 lead EKG was obtained. It was interpreted by myself and attending physician. There is a P wave before every QRS complex. Rate is 95. Rhythm is normal sinus rhythm,. Interval 1:30, QRS 88, QTc 434. QT is not prolonged. No ST segment depression or elevation. Overall this EKG is unremarkable - Lab Data Result diagrams: 05/06/18 06:25 18 06:25 Lab Results 05/06/18 05/06/18 05/06/18 Range/Units 06:25 06:25 06:25 WBC 9.0 (3.8-10.6) k/uL RBC 4.63 (4.30-5.90) m/uL Hgb 13.3 D (13.0-17.5) gm/dL Hct 41.2 (39.0-53.0) % MCV 89.0 (80.0-100.0) fL MCH 28.7 (25.0-35.0) pg MCHC 32.2 (31.0-37.0) g/dL RDW 15.8 H (11.5-15.5) % Plt Count 193 (150-450) k/uL Neutrophils % 72 % Lymphocytes % 17 % Monocytes % 6 % Eosinophils % 3 % Basophils % 0 % Neutrophils # 6.5 (1.3-7.7) k/uL Lymphocytes # 1.6 (1.0-4.8) k/uL Monocytes # 0.5 (0-1.0) k/uL Eosinophils # 0.3 (0-0.7) k/uL Basophils # 0.0 (0-0.2) k/uL PT (9.0-12.0) sec INR (<1.2) APTT (22.0-30.0) sec Sodium 138 (137-145) mmol/L Potassium 3.8 (3.5-5.1) mmol/L Chloride 104 (98-107) mmol/L Carbon Dioxide 23 (22-30) mmol/L Anion Gap 11 mmol/L BUN 17 (9-20) mg/dL Creatinine 0.90 (0.66-1.25) mg/dL Est GFR (CKD-EPI)AfAm >90 (>60 ml/min/1.73 sqM) Est GFR (CKD-EPI)NonAf >90 (>60 ml/min/1.73 sqM) Glucose 148 H (74-99) mg/dL Plasma Lactic Acid Tomi (0.7-2.0) mmol/L Calcium 8.7 (8.4-10.2) mg/dL Total Bilirubin 0.6 (0.2-1.3) mg/dL AST 20 (17-59) U/L ALT 25 (21-72) U/L Alkaline Phosphatase 67 (38-126) U/L Total Creatine Kinase 118 (55-170) U/L CK-MB (CK-2) 0.2 (0.0-2.4) ng/mL CK-MB (CK-2) Rel Index 0.2 Troponin I <0.012 (0.000-0.034) ng/mL Total Protein 6.5 (6.3-8.2) g/dL Albumin 3.5 (3.5-5.0) g/dL 05/06/18 05/06/18 Range/Units 06:25 06:25 WBC (3.8-10.6) k/uL RBC (4.30-5.90) m/uL Hgb (13.0-17.5) gm/dL Hct (39.0-53.0) % MCV (80.0-100.0) fL MCH (25.0-35.0) pg MCHC (31.0-37.0) g/dL RDW (11.5-15.5) % Plt Count (150-450) k/uL Neutrophils % % Lymphocytes % % Monocytes % % Eosinophils % % Basophils % % Neutrophils # (1.3-7.7) k/uL Lymphocytes # (1.0-4.8) k/uL Monocytes # (0-1.0) k/uL Eosinophils # (0-0.7) k/uL Basophils # (0-0.2) k/uL PT 11.3 (9.0-12.0) sec INR 1.2 H (<1.2) APTT 30.3 H (22.0-30.0) sec Sodium (137-145) mmol/L Potassium (3.5-5.1) mmol/L Chloride (98-107) mmol/L Carbon Dioxide (22-30) mmol/L Anion Gap mmol/L BUN (9-20) mg/dL Creatinine (0.66-1.25) mg/dL Est GFR (CKD-EPI)AfAm (>60 ml/min/1.73 sqM) Est GFR (CKD-EPI)NonAf (>60 ml/min/1.73 sqM) Glucose (74-99) mg/dL Plasma Lactic Acid Tomi 2.2 H* (0.7-2.0) mmol/L Calcium (8.4-10.2) mg/dL Total Bilirubin (0.2-1.3) mg/dL AST (17-59) U/L ALT (21-72) U/L Alkaline Phosphatase (38-126) U/L Total Creatine Kinase (55-170) U/L CK-MB (CK-2) (0.0-2.4) ng/mL CK-MB (CK-2) Rel Index Troponin I (0.000-0.034) ng/mL Total Protein (6.3-8.2) g/dL Albumin (3.5-5.0) g/dL Disposition Clinical Impression: Sepsis Disposition: OTHER INSTITUTION NOT DEFINED Condition: Fair Referrals: Waldemar Grey MD [Primary Care Provider] - 1-2 days - Out of Hospital Transfer - Req. Specs Out of Hospital Transfer - Requested Specifics: Other Emergency Center ([facility])
--- NOTE | 2018-05-06 06:22 | CT ---
EXAMINATION TYPE: CT hip RT wo con DATE OF EXAM: 05/06/2018 COMPARISON: None HISTORY: fever, hip pain, possible sepsis CT DLP: 1295.60 mGycm Automated exposure control for dose reduction was used. FINDINGS: Multiple axial sections were obtained from the level of the iliac crest to the bottom of the hip pros thesis without contrast. Exam is limited by metal artifact from the hip prosthesis. The acetabulum appears intact. The prosthe sis appears in anatomic position. Right sacroiliac joint appears intact. I see no bony destructive pr ocess. There is no evidence of a soft tissue mass. There is no pathologic fluid collection. There is cortical deformity on the medial acetabulum consistent with an old healed fracture. IMPRESSION: NEGATIVE EXAM. EXAM FAILS TO DEMONSTRATE EVIDENCE OF OSTEOMYELITIS OR ABSCESS. NO EVIDENCE OF LOOSENI NG OF THE PROSTHESIS. THERE IS EVIDENCE OF AN OLD HEALED FRACTURE OF THE MEDIAL CORTEX OF THE ACETABU LUM.
[2018-05-06] MEDS ORDERED: VANCOMYCIN 2,000 MG in SODIUM CHLORIDE 0.9% 500 ML IVPB ONE (06:30)
[2018-05-06 06:41] LABS: Basophils % (A) 0 %; Eosinophils # (A) 0.3 k/uL (0-0.7); Eosinophils % (A) 3 %; HCT 41.2 % (39.0-53.0); Lymphocytes # (A) 1.6 k/uL (1.0-4.8); Lymphocytes % (A) 17 %; MCH 28.7 pg (25.0-35.0); MCHC 32.2 g/dL (31.0-37.0); Monocytes # (A) 0.5 k/uL (0-1.0); Monocytes % (A) 6 %; Neutrophils # (A) 6.5 k/uL (1.3-7.7); Neutrophils % (A) 72 %; Platelet Count 193 k/uL (150-450); RBC 4.63 m/uL (4.30-5.90); RDW 15.8 % (11.5-15.5)
[2018-05-06 06:51] LABS: INR 1.2 (<1.2); Partial Thromboplastin Time 30.3 sec (22.0-30.0); Prothrombin Time 11.3 sec (9.0-12.0)
[2018-05-06 06:52] LABS: HGB 13.3 gm/dL (13.0-17.5)
[2018-05-06 06:55] LABS: ALT 25 U/L (21-72); AST 20 U/L (17-59); Albumin 3.5 g/dL (3.5-5.0); Alkaline Phosphatase 67 U/L (38-126); Anion Gap 11 mmol/L; Blood Urea Nitrogen 17 mg/dL (9-20); Calcium 8.7 mg/dL (8.4-10.2); Carbon Dioxide 23 mmol/L (22-30); Chloride 104 mmol/L (98-107); Glucose 148 mg/dL (74-99); Potassium 3.8 mmol/L (3.5-5.1); Sodium 138 mmol/L (137-145); Total Bilirubin 0.6 mg/dL (0.2-1.3); Total Protein 6.5 g/dL (6.3-8.2)
[2018-05-06 07:07] VITALS: TEMP 98.7
[2018-05-06 07:15] LABS: Creatine Kinase 118 U/L (55-170)
[2018-05-06 07:27] LABS: Creatine Kinase MB 0.2 ng/mL (0.0-2.4); Troponin I <0.012 ng/mL (0.000-0.034)
[2018-05-06] MEDS ORDERED: MORPHINE SULFATE 4 MG/ML SYRINGE IVP STA ×2 (07:56→09:24)
[2018-05-06 09:29] VITALS: BP 119/65; PULSE 86; RESP 16
== END 2018-05-06 09:32 | disposition short-term general hospital (02) ==
LOC: EC 05:34
DX: A41.9 Sepsis, unspecified organism (principal); E87.2 Acidosis; I11.0 Hypertensive heart disease with heart failure; I50.9 Heart failure, unspecified; E78.5 Hyperlipidemia, unspecified; I25.10 Atherosclerotic heart disease of native coronary artery without angina pectoris; E11.9 Type 2 diabetes mellitus without complications; I69.351 Hemiplegia and hemiparesis following cerebral infarction affecting right dominant side; K21.9 Gastro-esophageal reflux disease without esophagitis; Z87.891 Personal history of nicotine dependence; Z79.01 Long term (current) use of anticoagulants; Z79.82 Long term (current) use of aspirin; Z79.84 Long term (current) use of oral hypoglycemic drugs; Z79.899 Other long term (current) drug therapy; Z88.5 Allergy status to narcotic agent; Z88.8 Allergy status to other drugs, medicaments and biological substances; Z96.641 Presence of right artificial hip joint
CPT/HCPCS: 36415; 93005; 80053; 82550; 82553; 83605; 84484; 85025; 85610; 85730; 87040; 73700; 99285; 96365; 96366 ×2; 96375; 96376; J3370; J2270

== ENCOUNTER 2018-12-02 17:14 | Inpatient (IN) | payer MEDICARE ==
[2018-12-02] MEDS ORDERED: ACETAMINOPHEN TAB 500 MG TAB PO STA (17:18)
[2018-12-02] MEDS ORDERED: IBUPROFEN 600 MG TAB PO STA (17:18)
[2018-12-02] MEDS: SODIUM CHLORIDE 0.9% 500 ML 500 ML IV SCH ×3 (17:38→22:22)
[2018-12-02 17:45] LABS: Anisocytosis Slight; Basophils % (A) 0 %; Eosinophils # (A) 0.3 k/uL (0-0.7); Eosinophils % (A) 4 %; HCT 33.6 % (39.0-53.0); HGB 10.5 gm/dL (13.0-17.5); Hypochromasia Slight; Lymphocytes # (A) 1.1 k/uL (1.0-4.8); Lymphocytes % (A) 13 %; MCHC 31.4 g/dL (31.0-37.0); MCV 82.9 fL (80.0-100.0); Mean Platelet Volume 7.9; Microcytosis Slight; Monocytes # (A) 0.5 k/uL (0-1.0); Monocytes % (A) 6 %; Neutrophils # (A) 6.6 k/uL (1.3-7.7); Neutrophils % (A) 76 %; Platelet Count 327 k/uL (150-450); RBC 4.05 m/uL (4.30-5.90); RDW 18.2 % (11.5-15.5); WBC 8.8 k/uL (3.8-10.6)
[2018-12-02 17:46] LABS: Appearance,Urine Clear (Clear); Bilirubin,Urine Negative (Negative); Blood,Urine Negative (Negative); Color,Urine Yellow; Glucose,Urine (UA) Negative (Negative); Ketones,Urine Negative (Negative); Leukocyte Esterase,Urine Negative (Negative); Nitrite,Urine Negative (Negative); Protein,Urine Negative (Negative); Specific Gravity,Urine 1.011 (1.001-1.035); Urobilinogen,Urine <2.0 mg/dL (<2.0)
[2018-12-02 17:54] LABS: INR 1.1 (<1.2); Partial Thromboplastin Time 26.3 sec (22.0-30.0); Prothrombin Time 11.6 sec (9.0-12.0)
[2018-12-02 17:56] LABS: ALT 33 U/L (21-72); AST 16 U/L (17-59); Albumin 3.8 g/dL (3.5-5.0); Alkaline Phosphatase 141 U/L (38-126); Anion Gap 10 mmol/L; Blood Urea Nitrogen 15 mg/dL (9-20); Carbon Dioxide 25 mmol/L (22-30); Chloride 103 mmol/L (98-107); Glucose 105 mg/dL (74-99); Potassium 4.1 mmol/L (3.5-5.1); Sodium 138 mmol/L (137-145); Total Bilirubin 0.7 mg/dL (0.2-1.3); Total Protein 7.4 g/dL (6.3-8.2)
[2018-12-02] MEDS ORDERED: OSELTAMIVIR 75 MG CAP PO STA (18:06)
--- NOTE | 2018-12-02 18:20 | ED ---
General Adult HPI - General Chief complaint: Fever Stated complaint: Fever Time Seen by Provider: 12/02/18 17:14 Source: EMS, RN notes reviewed Mode of arrival: EMS Limitations: physical limitation - History of Present Illness Initial comments: This a 53-year-old male with past medical history significant for previous CVAs and almost complete right-sided paralysis. According to the he also has some significant weakness in the left leg from a second stroke. brings the patient in today because he spiked a fever at home. states the last couple of days she's noticed a cough and today he started coughing up some sputum. She was worried that the patient might have aspirated because that has occurred in the past. Patient has not complained of any chest pain or abdominal pain there's been no history of any vomiting or diarrhea according to the there are no wounds or areas of erythema that are of concern to her. Patient denies any headache. - Related Data Home Medications Medication Instructions Recorded Confirmed Rivaroxaban [Xarelto] 20 mg PO HS 09/05/16 12/02/18 Aspirin EC [Ecotrin Low Dose] 81 mg PO DAILY 04/04/17 12/02/18 HYDROcodone/APAP 10-325MG [[place] 1 tab PO Q4HR PRN 04/04/17 12/02/18 10-325] Potassium Chloride [Klor-Con 20] 20 meq PO HS 04/04/17 12/02/18 metFORMIN HCL 1,000 mg PO BID 07/06/17 12/02/18 Cholecalciferol (Vitamin D3) 2,000 unit PO HS 05/02/18 12/02/18 [Vitamin D3] Furosemide [Lasix] 40 mg PO DAILY 05/02/18 12/02/18 Polyethylene Glycol 3350 [Miralax] 17 gm PO BID 05/05/18 12/02/18 Atorvastatin [Lipitor] 20 mg PO HS 12/02/18 12/02/18 Cyclobenzaprine HCl 10 mg PO HS PRN 12/02/18 12/02/18 Ferrous Sulfate [Feosol] 325 mg PO DAILY 12/02/18 12/02/18 LORazepam [Ativan] 0.5 mg PO DAILY PRN 12/02/18 12/02/18 Lactulose 10 gm PO DAILY 12/02/18 12/02/18 Losartan Potassium [Cozaar] 25 mg PO DAILY 12/02/18 12/02/18 Metoprolol Tartrate [Lopressor] 12.5 mg PO BID 12/02/18 12/02/18 buPROPion XL [Wellbutrin Xl] 150 mg PO DAILY 12/02/18 12/02/18 busPIRone HCL 15 mg PO BID 12/02/18 12/02/18 Allergies Allergy/AdvReac Type Severity Reaction Status Date / Time sitagliptin [From Janumet] Allergy GI UPSET Verified 12/02/18 17:44 hydromorphone [From Dilaudid] AdvReac Confusion Verified 12/02/18 17:44 Review of Systems ROS Statement: Those systems with pertinent positive or pertinent negative responses have been documented in the HPI. ROS Other: All systems not noted in ROS Statement are negative. 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 sepsis related to a fall-affected hip, had stroke 2015 after carotid surg.-partial paralysis right side, second stroke june 2016 affecting left side History of Any Multi-Drug Resistant Organisms: None Reported Past Surgical History: Joint Replacement Additional Past Surgical History / Comment(s): Right-sided carotid endarterecto my attempt, spouse states is blocked, left carotid x3, multiple surgeries hips- Right 4 times and left 1. mikey hip had a Roland resurfacing done- right hip I&D, mult times Past Anesthesia/Blood Transfusion Reactions: Previous Problems w/ Anesthesia Additional Past Anesthesia/Blood Transfusion Reaction / Comment(s): woke during a procedure, some kind of swelling in throat during a surgery post intubation- thinks it might have been due to having been intubated for procedures close together Past Psychological History: Depression Smoking Status: Former smoker Past Alcohol Use History: None Reported Past Drug Use History: None Reported - Past Family History Sister(s) Family Medical History: Cancer, CVA/TIA Brother(s) Family Medical History: Cancer, CVA/TIA, Liver Disease Additional Family Medical History / Comment(s): lung cancer Father Family Medical History: Diabetes Mellitus, Myocardial Infarction (DE) Mother Family Medical History: CVA/TIA General Exam - General Exam Comments Initial Comments: GENERAL: Patient is well-developed and well-nourished. Patient is nontoxic and well- hydrated and is in mild distress. ENT: Neck is soft and supple. No significant lymphadenopathy is noted. Oropharynx is clear. Moist mucous membranes. Neck has full range of motion without eliciting any pain. EYES: The sclera were anicteric and conjunctiva were pink and moist. Extraocular movements were intact and pupils were equal round and reactive to light. Eyelids were unremarkable. PULMONARY: Unlabored respirations. Good breath sounds bilaterally. No audible rales rhonchi or wheezing was noted. CARDIOVASCULAR: Patient is tachycardic at 130 beats minute ABDOMEN: Soft and nontender with normal bowel sounds. No palpable organomegaly was noted. There is no palpable pulsatile mass. SKIN: Skin is clear with no lesions or rashes and otherwise unremarkable. NEUROLOGIC: Patient is alert and oriented x3. Cranial nerves II through XII are grossly intact. Patient some facial droop on the right which is normal. MUSCULOSKELETAL: Patient is able to move the left arm normally according to he is having difficulty moving any other extremity where he states that is normal. LYMPHATICS: No significant lymphadenopathy is noted PSYCHIATRIC: Normal psychiatric evaluation. Limitations: physical limitation Course Vital Signs 12/02/18 12/02/18 12/02/18 17:17 17:18 18:30 Temperature 102.9 F H Pulse Rate 139 H 128 H 130 H Respiratory 24 25 H 31 H Rate Blood Pressure 143/80 143/80 123/72 O2 Sat by Pulse 93 L 92 L 94 L Oximetry Medical Decision Making - Medical Decision Making EKG shows sinus tachycardia at [address] interval is on a 44 QRS is 92 QT interval is 276 QTC is 4:15. Patient's EKG shows no ST segment elevation or depression Patient is influenza A positive. I started the patient on Tamiflu Patient's chest x-ray showed no acute normalities I spoke with Dr. Ash he agreed to admit the patient admitted the patient I continued IV fluids and Tamiflu on the floor. - Lab Data Result diagrams: 12/02/18 17:34 12/02/18 17:34 Lab Results 12/02/18 12/02/18 12/02/18 Range/Units 17:34 17:34 17:34 WBC 8.8 (3.8-10.6) k/uL RBC 4.05 L (4.30-5.90) m/uL Hgb 10.5 L (13.0-17.5) gm/dL Hct 33.6 L (39.0-53.0) % MCV 82.9 (80.0-100.0) fL MCH 26.0 (25.0-35.0) pg MCHC 31.4 (31.0-37.0) g/dL RDW 18.2 H (11.5-15.5) % Plt Count 327 (150-450) k/uL Neutrophils % 76 % Lymphocytes % 13 % Monocytes % 6 % Eosinophils % 4 % Basophils % 0 % Neutrophils # 6.6 (1.3-7.7) k/uL Lymphocytes # 1.1 (1.0-4.8) k/uL Monocytes # 0.5 (0-1.0) k/uL Eosinophils # 0.3 (0-0.7) k/uL Basophils # 0.0 (0-0.2) k/uL Hypochromasia Slight Anisocytosis Slight Microcytosis Slight PT (9.0-12.0) sec INR (<1.2) APTT (22.0-30.0) sec Sodium 138 (137-145) mmol/L Potassium 4.1 (3.5-5.1) mmol/L Chloride 103 (98-107) mmol/L Carbon Dioxide 25 (22-30) mmol/L Anion Gap 10 mmol/L BUN 15 (9-20) mg/dL Creatinine 0.89 (0.66-1.25) mg/dL Est GFR (CKD-EPI)AfAm >90 (>60 ml/min/1.73 sqM) Est GFR (CKD-EPI)NonAf >90 (>60 ml/min/1.73 sqM) Glucose 105 H (74-99) mg/dL Plasma Lactic Acid Tomi (0.7-2.0) mmol/L Calcium 9.0 (8.4-10.2) mg/dL Total Bilirubin 0.7 (0.2-1.3) mg/dL AST 16 L (17-59) U/L ALT 33 (21-72) U/L Alkaline Phosphatase 141 H (38-126) U/L Troponin I (0.000-0.034) ng/mL Total Protein 7.4 (6.3-8.2) g/dL Albumin 3.8 (3.5-5.0) g/dL Urine Color Urine Appearance (Clear) Urine pH (5.0-8.0) Ur Specific [place] (1.001-1.035) Urine Protein (Negative) Urine Glucose (UA) (Negative) Urine Ketones (Negative) Urine Blood (Negative) Urine Nitrite (Negative) Urine Bilirubin (Negative) Urine Urobilinogen (<2.0) mg/dL Ur Leukocyte Esterase (Negative) Influenza Type A RNA Detected H (Not Detectd) Influenza Type B (PCR) Not Detected (Not Detectd) 12/02/18 12/02/18 12/02/18 Range/Units 17:34 17:34 17:34 WBC (3.8-10.6) k/uL RBC (4.30-5.90) m/uL Hgb (13.0-17.5) gm/dL Hct (39.0-53.0) % MCV (80.0-100.0) fL MCH (25.0-35.0) pg MCHC (31.0-37.0) g/dL RDW (11.5-15.5) % Plt Count (150-450) k/uL Neutrophils % % Lymphocytes % % Monocytes % % Eosinophils % % Basophils % % Neutrophils # (1.3-7.7) k/uL Lymphocytes # (1.0-4.8) k/uL Monocytes # (0-1.0) k/uL Eosinophils # (0-0.7) k/uL Basophils # (0-0.2) k/uL Hypochromasia Anisocytosis Microcytosis PT 11.6 (9.0-12.0) sec INR 1.1 (<1.2) APTT 26.3 (22.0-30.0) sec Sodium (137-145) mmol/L Potassium (3.5-5.1) mmol/L Chloride (98-107) mmol/L Carbon Dioxide (22-30) mmol/L Anion Gap mmol/L BUN (9-20) mg/dL Creatinine (0.66-1.25) mg/dL Est GFR (CKD-EPI)AfAm (>60 ml/min/1.73 sqM) Est GFR (CKD-EPI)NonAf (>60 ml/min/1.73 sqM) Glucose (74-99) mg/dL Plasma Lactic Acid Tomi 1.1 (0.7-2.0) mmol/L Calcium (8.4-10.2) mg/dL Total Bilirubin (0.2-1.3) mg/dL AST (17-59) U/L ALT (21-72) U/L Alkaline Phosphatase (38-126) U/L Troponin I <0.012 (0.000-0.034) ng/mL Total Protein (6.3-8.2) g/dL Albumin (3.5-5.0) g/dL Urine Color Urine Appearance (Clear) Urine pH (5.0-8.0) Ur Specific [place] (1.001-1.035) Urine Protein (Negative) Urine Glucose (UA) (Negative) Urine Ketones (Negative) Urine Blood (Negative) Urine Nitrite (Negative) Urine Bilirubin (Negative) Urine Urobilinogen (<2.0) mg/dL Ur Leukocyte Esterase (Negative) Influenza Type A RNA (Not Detectd) Influenza Type B (PCR) (Not Detectd) 12/02/18 Range/Units 17:34 WBC (3.8-10.6) k/uL RBC (4.30-5.90) m/uL Hgb (13.0-17.5) gm/dL Hct (39.0-53.0) % MCV (80.0-100.0) fL MCH (25.0-35.0) pg MCHC (31.0-37.0) g/dL RDW (11.5-15.5) % Plt Count (150-450) k/uL Neutrophils % % Lymphocytes % % Monocytes % % Eosinophils % % Basophils % % Neutrophils # (1.3-7.7) k/uL Lymphocytes # (1.0-4.8) k/uL Monocytes # (0-1.0) k/uL Eosinophils # (0-0.7) k/uL Basophils # (0-0.2) k/uL Hypochromasia Anisocytosis Microcytosis PT (9.0-12.0) sec INR (<1.2) APTT (22.0-30.0) sec Sodium (137-145) mmol/L Potassium (3.5-5.1) mmol/L Chloride (98-107) mmol/L Carbon Dioxide (22-30) mmol/L Anion Gap mmol/L BUN (9-20) mg/dL Creatinine (0.66-1.25) mg/dL Est GFR (CKD-EPI)AfAm (>60 ml/min/1.73 sqM) Est GFR (CKD-EPI)NonAf (>60 ml/min/1.73 sqM) Glucose (74-99) mg/dL Plasma Lactic Acid Tomi (0.7-2.0) mmol/L Calcium (8.4-10.2) mg/dL Total Bilirubin (0.2-1.3) mg/dL AST (17-59) U/L ALT (21-72) U/L Alkaline Phosphatase (38-126) U/L Troponin I (0.000-0.034) ng/mL Total Protein (6.3-8.2) g/dL Albumin (3.5-5.0) g/dL Urine Color Yellow Urine Appearance Clear (Clear) Urine pH 5.0 (5.0-8.0) Ur Specific [place] 1.011 (1.001-1.035) Urine Protein Negative (Negative) Urine Glucose (UA) Negative (Negative) Urine Ketones Negative (Negative) Urine Blood Negative (Negative) Urine Nitrite Negative (Negative) Urine Bilirubin Negative (Negative) Urine Urobilinogen <2.0 (<2.0) mg/dL Ur Leukocyte Esterase Negative (Negative) Influenza Type A RNA (Not Detectd) Influenza Type B (PCR) (Not Detectd) Disposition Clinical Impression: Influenza, Tachycardia Disposition: ADMITTED IP TO THIS HOSP Referrals: Waldemar Grey MD [Primary Care Provider] - 1-2 days Time of Disposition: 18:53
--- NOTE | 2018-12-02 18:55 | XR ---
EXAMINATION: XR chest 2V DATE AND TIME: 12/02/2018 6:06 PM CLINICAL INDICATION: PHH; Fever TECHNIQUE: Departmental protocol COMPARISON: 05/03/2018 FINDINGS: The overlying soft tissues are prominent in the upper extremities are over the field of view on the l ateral projection. The lungs appear to be clear, as seen. The pleural spaces are negative. The cardiac silhouette is mildly enlarged. The remainder of the mediastinal silhouette is unremarkabl e. The skeletal structures and despite these limitations the following observations are made. Soft tissu es are negative for acute findings. IMPRESSION: NO DEFINITE ACUTE PROCESS.
[2018-12-02] MEDS ORDERED: SODIUM CHLORIDE 0.9% 1,000 ML IV ONE (19:14)
[2018-12-02] MEDS ORDERED: LORazepam 0.5 MG TAB PO PRN (22:45)
[2018-12-02] MEDS ORDERED: CYCLOBENZAPRINE 10 MG TAB PO PRN (23:00)
--- NOTE | 2018-12-02 23:43 | HP ---
HISTORY AND PHYSICAL DATE OF ADMISSION: 12/02/2018. DATE OF SERVICE: 12/02/2018. PRESENTING COMPLAINT: Fever. HISTORY OF PRESENTING COMPLAINT: This is a pleasant 53-year-old patient of Dr. Grey. Chronic stable medical conditions include hypertension, hyperlipidemia, GERD, diabetes, chronically occluded right carotid artery, obesity. The patient has got chronic right arm weakness, chronic dysarthria, and limited vision in the right eye. The patient also has some weakness on the left side at baseline. The patient started off with fever that started yesterday. A bit of sneezing. No achiness. Minimal cough. All of this started yesterday. The patient in the ER was positive for influenza A. He was admitted to the hospital for the same. The patient is able to feed himself otherwise. REVIEW OF SYSTEMS: CONSTITUTIONAL: Tired. HEENT: None. RESPIRATORY: As above. Decreased vision in the right eye. CARDIOVASCULAR: None. GASTROINTESTINAL: None. MUSCULOSKELETAL: Pain in the joints. DERMATOLOGICAL: None. HEMATOLOGICAL: None. LYMPHATIC: None. PSYCHOLOGIC: Feels a bit down. NEUROLOGICAL: Contracture of the right arm and dysarthria. PAST MEDICAL HISTORY: Right arm weakness from prior stroke, chronically occluded right internal carotid artery, chronically decreased vision in the right eye, chronic dysarthria, diabetes mellitus type 2, GERD, hypertension, hyperlipidemia, depression. PAST SURGICAL HISTORY: Right carotid artery and endarterectomy attempt, multiple surgeries on the hips, right 4 times. PSYCH HISTORY: Anxiety and depression. SOCIAL HISTORY: Quit drinking and smoking in October 2005. Prior to that was a 2-1/2 pack per day smoker and drank about 3 drinks per day. Lives with his . The patient is now on disability. FAMILY HISTORY: Diabetes, myocardial infarction, colon cancer. HOME MEDICATIONS: 1. Vitamin D3, 2000 units at bedtime. 2. Lipitor 20 mg at bedtime. 3. Xarelto 20 mg at bedtime. 4. Potassium 20 mEq p.o. at bedtime. 5. Cyclobenzaprine 10 mg at bedtime p.r.n. 6. Ativan 0.5 p.o. daily p.r.n. 7. MiraLAX 17 grams p.o. b.i.d. 8. Lopressor 12.5 p.o. b.i.d. 9. Iron 325 p.o. daily. 10.Buspirone 50 mg p.o. b.i.d. 11.Lactulose 10 grams p.o. daily. 12.Metformin 1000 mg b.i.d. 13.Lasix 40 mg p.o. daily. 14.Aspirin 81 mg p.o. daily. 15.Cozaar 25 mg p.o. daily. 16.Wellbutrin XL 150 mg p.o. daily. 17.[place] 10 one tablet every 4 hours p.r.n. ALLERGIES: JANUVIA, DILAUDID. PHYSICAL EXAMINATION: VITAL SIGNS: On presentation, temperature 102.9, pulse 139, respirations 24, blood pressure 143/80, pulse ox 93 percent on room air. GENERAL APPEARANCE: Well built. BMI above 30. Lying in bed. EYES: Pupils equal. Conjunctivae normal. HEENT: External nose and ears normal. Oral cavity dry. JVD unable to assess. Mass not palpable. Respiratory effort normal. LUNGS: Diminished breath sounds. CARDIOVASCULAR: 1st and 2nd heart sounds. No edema. ABDOMEN: Soft, nontender. Liver and spleen not palpable. LYMPHATIC: No lymph node palpable in the neck or axillae. PSYCHIATRY: Patient is able to answer simple questions. NEUROLOGICAL: The patient has decreased vision in the right eye. Speech is dysarthric. Power in the right arm is 3/5, power in the on the left and left lower extremity is 4/5. INVESTIGATIONS: White count 8.8, hemoglobin 10.5, potassium 4.1. Influenza type A RNA positive. EKG tracing personally reviewed by me shows sinus tachycardia. Chest x-ray film personally reviewed by me shows cardiomegaly and possible infiltrate. ASSESSMENT: 1. Acute influenza A infection with upper respiratory tract and possible pneumonitis causing sepsis, present on admission. 2. Chronic weakness in the right upper extremity and weakness on the left arm 4/5 from prior stroke. 3. Chronically occluded right internal carotid artery. 4. Chronically decreased vision in the right eye. 5. Chronic dysarthria from stroke. 6. Essential hypertension. 7. Obesity; BMI greater than 30. 8. Depression, not otherwise specified. 9. Chronic medical debility. PLAN: The patient's home medications are resumed. Also was put on Tamiflu and IV fluids. Care was discussed with the patient. No family at the bedside. We will see how the patient fares. MMODL / IJN: [id number] /
[2018-12-02] MEDS ORDERED: IBUPROFEN 600 MG TAB PO PRN (23:55)
[2018-12-03] MEDS: POLYETHYLENE GLYCOL 3350 17 GM POWD.PACK PO SCH ×3 (00:23→20:46)
[2018-12-03] MEDS: busPIRone HCl 5 MG TAB PO SCH ×3 (00:23→20:42)
[2018-12-03] MEDS: ATORVASTATIN 20 MG TAB PO SCH ×2 (00:23→20:42)
[2018-12-03] MEDS: METOPROLOL TARTRATE 12.5 MG TAB PO SCH ×3 (00:24→20:42)
[2018-12-03] MEDS: POTASSIUM CHLORIDE ER 20 MEQ TAB.ER PO SCH ×2 (00:24→20:42)
[2018-12-03] MEDS: RIVAROXABAN 20 MG TAB PO SCH ×2 (00:24→22:37)
[2018-12-03] MEDS: HYDROcodone/APAP 10-325MG 1 EACH TAB PO PRN ×2 (00:25→08:40)
[2018-12-03 07:01] LABS: Glucose,Whole Blood 104 mg/dL (75-99)
[2018-12-03] MEDS: INSULIN ASPART (NovoLOG) 100 UNIT/ML VIAL SQ SCH ×4 (07:11→20:55)
[2018-12-03] MEDS: FERROUS SULFATE 325 MG TAB PO SCH (08:39)
[2018-12-03] MEDS: ASPIRIN 81 MG PO SCH (08:39)
[2018-12-03] MEDS: LACTULOSE 20 GM/30 ML CUP PO SCH (08:39)
[2018-12-03] MEDS: metFORMIN 500 MG TAB PO SCH ×2 (08:40→20:42)
[2018-12-03] MEDS: LOSARTAN 25 MG TAB PO SCH (08:40)
[2018-12-03] MEDS: buPROPion XL 150 MG TAB.ER.24H PO SCH (08:41)
[2018-12-03] MEDS: OSELTAMIVIR 75 MG CAP PO SCH ×2 (08:41→20:58)
[2018-12-03] MEDS ORDERED: FUROSEMIDE 40 MG TAB PO SCH (09:00)
[2018-12-03 11:36] LABS: Glucose,Whole Blood 215 mg/dL (75-99)
[2018-12-03] MEDS: ACETAMINOPHEN TAB 325 MG TAB PO PRN ×2 (14:24→23:52)
[2018-12-03 15:13] VITALS: BMI 33.7
[2018-12-03 16:48] LABS: Glucose,Whole Blood 126 mg/dL (75-99)
--- NOTE | 2018-12-03 17:38 | PN ---
PROGRESS NOTE DATE OF SERVICE: December 03, 2018. PRESENT COMPLAINT: Cough with sputum. INTERVAL HISTORY: Patient presented with acute influenza A with pneumonitis, sepsis picture, coughing up yellow-green sputum. is able to save it at the bedside. The patient did tolerate some diet. Does feel weak and tired. Lying in bed. REVIEW OF SYSTEMS: Done for constitutional, cardiovascular, GI, pulmonary and relevant findings as above. CURRENT MEDICATIONS: Reviewed that include Tamiflu and Ceftriaxone. PHYSICAL EXAMINATION: VITAL SIGNS: Temperature 102.8, pulse 101, respiration 16, blood pressure 155/79, pulse ox 95% on room air. GENERAL APPEARANCE: Lying in bed, awake. EYES: Pupils are equal. Conjunctivae normal. NECK: JVD not raised. Mass not palpable. RESPIRATORY: Effort increased. LUNGS: Decreased breath sounds. CARDIOVASCULAR: 1st and 2nd sounds normal. No edema. ABDOMEN: Soft, nontender. Liver and spleen not palpable. PSYCHIATRY: The patient is able answer some simple questions. NEUROLOGICAL: The patient has decreased vision in the right eye. Speech dysarthric. Power on the right arm is 3/5, on the left side it is 4/5. INVESTIGATIONS: Accu-Cheks are noted. ASSESSMENT: 1. Acute influenza A with upper respiratory tract pneumonitis causing sepsis present on admission. 2. Possible secondary bacterial infection patient has got yellow-green sputum. 3. Chronic weakness, right upper extremity and weakness left side from prior stroke. 4. Chronically occluded right internal carotid artery. 5. Chronically decreased vision in the right eye. 6. Chronic dysarthria from stroke. 7. Essential hypertension. 8. Obesity; BMI more than 30. 9. Depression, not otherwise specified. 10.Chronic medical debility. PLAN: Care was discussed with the and patient at bedside. Start the patient on IV ceftriaxone. Repeat labs in the morning. We will also give hydration. MMODL / IJN: [id number] /
[2018-12-03] MEDS: LACTATED RINGERS 1,000 ML IV SCH (18:14)
[2018-12-03 21:10] LABS: Glucose,Whole Blood 159 mg/dL (75-99)
[2018-12-04 07:00] LABS: Glucose,Whole Blood 178 mg/dL (75-99)
[2018-12-04] MEDS: LACTULOSE 20 GM/30 ML CUP PO SCH (07:48)
[2018-12-04] MEDS: LOSARTAN 25 MG TAB PO SCH (07:48)
[2018-12-04] MEDS: busPIRone HCl 5 MG TAB PO SCH ×2 (07:49→20:48)
[2018-12-04] MEDS: FERROUS SULFATE 325 MG TAB PO SCH (07:49)
[2018-12-04] MEDS: metFORMIN 500 MG TAB PO SCH ×2 (07:49→20:49)
[2018-12-04] MEDS: ASPIRIN 81 MG PO SCH (07:49)
[2018-12-04] MEDS: INSULIN ASPART (NovoLOG) 100 UNIT/ML VIAL SQ SCH ×4 (07:49→20:50)
[2018-12-04] MEDS: POLYETHYLENE GLYCOL 3350 17 GM POWD.PACK PO SCH ×2 (07:49→20:49)
[2018-12-04] MEDS: METOPROLOL TARTRATE 12.5 MG TAB PO SCH ×2 (07:49→20:49)
[2018-12-04] MEDS: buPROPion XL 150 MG TAB.ER.24H PO SCH (07:50)
[2018-12-04] MEDS: OSELTAMIVIR 75 MG CAP PO SCH ×2 (07:50→20:49)
[2018-12-04] MEDS: LACTATED RINGERS 1,000 ML IV SCH ×2 (07:51→20:55)
[2018-12-04 11:18] LABS: Glucose,Whole Blood 117 mg/dL (75-99)
--- NOTE | 2018-12-04 13:40 | XR ---
EXAMINATION TYPE: XR chest 1V portable DATE OF EXAM: 12/04/2018 COMPARISON: Prior chest x-ray 12/02/2017 HISTORY: Cough TECHNIQUE: Single frontal view of the chest is obtained. FINDINGS: Patient is rotated. Lung volumes are low. There is no focal air space opacity, pleural effu yolie, or pneumothorax seen. The cardiac silhouette size is stable accounting for rotation, technique . Aorta is dense. The osseous structures are intact. IMPRESSION: No acute process.
[2018-12-04 16:31] LABS: Glucose,Whole Blood 117 mg/dL (75-99)
[2018-12-04] MEDS: PIPERACILLIN-TAZOBACTAM 3.375 GM in SODIUM CHLORIDE 0.9% 100 ML IVPB SCH ×2 (16:56→23:35)
--- NOTE | 2018-12-04 18:05 | PN ---
PROGRESS NOTE DATE OF SERVICE: December 04, 2018. PRESENTING COMPLAINT: Cough with sputum. INTERVAL HISTORY: The patient admitted with influenza with pneumonitis, sepsis picture. The patient has been coughing up quite a good amount of yellow-green sputum still presenting. Patient is already on IV ceftriaxone. Did tolerate some diet. at the bedside. The patient has been having fevers. REVIEW OF SYSTEMS: Done for constitutional, cardiovascular, GI, pulmonary; relevant findings as above. CURRENT MEDICATIONS: Reviewed that include IV ceftriaxone and Tamiflu. PHYSICAL EXAMINATION: VITAL SIGNS: T-max 102, pulse 122, respiration 20, blood pressure 127/71, pulse ox 91 percent on room air. GENERAL APPEARANCE: Lying in bed, awake. EYES: Pupils equal. Conjunctivae normal. NECK: JVD not raised. Mass not palpable. RESPIRATORY: Effort increased. LUNGS: Diminished breath sounds. Some crackles. CARDIOVASCULAR: 1st and 2nd heart sounds normal. No edema. ABDOMEN: Soft, nontender. Liver and spleen not palpable. PSYCHIATRY: Awake, answering questions. NEUROLOGICAL: Patient has chronic decreased vision in the right eye. Speech is dysarthric. Power on the right arm is 3/5 and left side is 4/5. INVESTIGATIONS: Chest x-ray ordered today, reviewed by me personally shows some right basilar infiltrates. Accu-Cheks are noted. ASSESSMENT: 1. Acute influenza A with upper respiratory tract pneumonitis causing sepsis slow to respond. 2. Secondary bacterial infection suspected with yellow-green sputum, copious amount, slow to respond. 3. Chronic weakness right upper extremity and weakness on the left side from prior stroke. 4. Chronically occluded right internal carotid artery. 5. Chronically decreased vision in the right eye. 6. Chronic dysarthria from stroke. 7. Essential hypertension. 8. Obesity; BMI more than 30. 9. Depression, not otherwise specified. 10.Chronic medical debility. PLAN: We will DC IV ceftriaxone. Switch the patient to IV Zosyn. I told the nurse again to send out sputum for Gram stain and culture. The patient of course, slow to respond. We will see how he does. Repeat labs. MMKIETL / PAULAN: [id number] /
[2018-12-04] MEDS: HYDROcodone/APAP 10-325MG 1 EACH TAB PO PRN (19:39)
[2018-12-04 20:07] LABS: Glucose,Whole Blood 140 mg/dL (75-99)
[2018-12-04] MEDS: ATORVASTATIN 20 MG TAB PO SCH (20:48)
[2018-12-04] MEDS: POTASSIUM CHLORIDE ER 20 MEQ TAB.ER PO SCH (20:49)
[2018-12-04] MEDS: RIVAROXABAN 20 MG TAB PO SCH (20:50)
[2018-12-05 07:20] LABS: Glucose,Whole Blood 111 mg/dL (75-99)
[2018-12-05 07:52] LABS: HCT 41.2 % (39.0-53.0); HGB 13.2 gm/dL (13.0-17.5); MCH 31.4 pg (25.0-35.0); MCHC 32.1 g/dL (31.0-37.0); Mean Platelet Volume 6.5; Platelet Count 190 k/uL (150-450); RBC 4.21 m/uL (4.30-5.90); RDW 13.2 % (11.5-15.5); WBC 4.3 k/uL (3.8-10.6)
[2018-12-05] MEDS: INSULIN ASPART (NovoLOG) 100 UNIT/ML VIAL SQ SCH ×4 (07:56→20:52)
[2018-12-05] MEDS: metFORMIN 500 MG TAB PO SCH ×2 (08:01→20:51)
[2018-12-05] MEDS: ASPIRIN 81 MG PO SCH (08:01)
[2018-12-05] MEDS: POLYETHYLENE GLYCOL 3350 17 GM POWD.PACK PO SCH ×2 (08:01→20:52)
[2018-12-05] MEDS: LACTULOSE 20 GM/30 ML CUP PO SCH (08:01)
[2018-12-05] MEDS: HYDROcodone/APAP 10-325MG 1 EACH TAB PO PRN ×3 (08:01→19:50)
[2018-12-05] MEDS: METOPROLOL TARTRATE 12.5 MG TAB PO SCH ×2 (08:02→20:51)
[2018-12-05] MEDS: PIPERACILLIN-TAZOBACTAM 3.375 GM in SODIUM CHLORIDE 0.9% 100 ML IVPB SCH ×3 (08:02→23:50)
[2018-12-05] MEDS: FERROUS SULFATE 325 MG TAB PO SCH (08:02)
[2018-12-05] MEDS: buPROPion XL 150 MG TAB.ER.24H PO SCH (08:02)
[2018-12-05] MEDS: LOSARTAN 25 MG TAB PO SCH (08:02)
[2018-12-05] MEDS: busPIRone HCl 5 MG TAB PO SCH ×2 (08:02→20:51)
[2018-12-05] MEDS: LACTATED RINGERS 1,000 ML IV SCH (08:03)
[2018-12-05] MEDS: OSELTAMIVIR 75 MG CAP PO SCH ×2 (08:03→20:51)
[2018-12-05 08:06] LABS: Anion Gap 7 mmol/L; Blood Urea Nitrogen 18 mg/dL (9-20); Carbon Dioxide 31 mmol/L (22-30); Chloride 99 mmol/L (98-107); Glucose 106 mg/dL (74-99); Potassium 4.1 mmol/L (3.5-5.1); Sodium 137 mmol/L (137-145)
[2018-12-05 09:56] LABS: Eosinophils # (M) 0.04 k/uL (0-0.7); Lymphocytes # (M) 2.24 k/uL (1.0-4.8); Monocytes # (M) 0.39 k/uL (0-1.0); Neutrophils # (M) 1.63 k/uL (1.3-7.7); Neutrophils % (M) 38 %; Nucleated Red Blood Cells 0 /100 WBC (0-0); Total Cells Counted 100
[2018-12-05 11:41] LABS: Glucose,Whole Blood 127 mg/dL (75-99)
[2018-12-05 16:58] LABS: Glucose,Whole Blood 97 mg/dL (75-99)
[2018-12-05 20:05] LABS: Glucose,Whole Blood 157 mg/dL (75-99)
[2018-12-05] MEDS: ATORVASTATIN 20 MG TAB PO SCH (20:51)
[2018-12-05] MEDS: POTASSIUM CHLORIDE ER 20 MEQ TAB.ER PO SCH (20:51)
[2018-12-05] MEDS: RIVAROXABAN 20 MG TAB PO SCH (20:52)
[2018-12-05] MEDS: LOPERAMIDE 2 MG CAP PO SCH (23:50)
[2018-12-06] MEDS: LACTATED RINGERS 1,000 ML IV SCH ×2 (04:25→08:58)
[2018-12-06] MEDS: LOPERAMIDE 2 MG CAP PO SCH ×2 (06:45→08:53)
[2018-12-06 07:17] LABS: Glucose,Whole Blood 99 mg/dL (75-99)
[2018-12-06] MEDS: INSULIN ASPART (NovoLOG) 100 UNIT/ML VIAL SQ SCH ×4 (07:26→21:15)
[2018-12-06 08:42] LABS: Anion Gap 8 mmol/L; Blood Urea Nitrogen 15 mg/dL (9-20); Calcium 9.2 mg/dL (8.4-10.2); Carbon Dioxide 24 mmol/L (22-30); Chloride 108 mmol/L (98-107); Glucose 113 mg/dL (74-99); Potassium 4.5 mmol/L (3.5-5.1); Sodium 140 mmol/L (137-145)
[2018-12-06] MEDS: metFORMIN 500 MG TAB PO SCH ×2 (08:50→21:57)
[2018-12-06] MEDS: PIPERACILLIN-TAZOBACTAM 3.375 GM in SODIUM CHLORIDE 0.9% 100 ML IVPB SCH ×2 (08:51→16:39)
[2018-12-06] MEDS: FERROUS SULFATE 325 MG TAB PO SCH (08:51)
[2018-12-06] MEDS: LOSARTAN 25 MG TAB PO SCH (08:51)
[2018-12-06] MEDS: ASPIRIN 81 MG PO SCH (08:51)
[2018-12-06] MEDS: busPIRone HCl 5 MG TAB PO SCH ×2 (08:51→21:57)
[2018-12-06] MEDS: METOPROLOL TARTRATE 12.5 MG TAB PO SCH ×2 (08:51→21:57)
[2018-12-06] MEDS: OSELTAMIVIR 75 MG CAP PO SCH ×2 (08:52→21:57)
[2018-12-06] MEDS: buPROPion XL 150 MG TAB.ER.24H PO SCH (08:52)
[2018-12-06] MEDS: HYDROcodone/APAP 10-325MG 1 EACH TAB PO PRN ×2 (09:02→20:22)
[2018-12-06 09:54] LABS: Anisocytosis Slight; Basophils % (A) 0 %; Eosinophils # (A) 0.3 k/uL (0-0.7); Eosinophils % (A) 6 %; HCT 32.3 % (39.0-53.0); Hypochromasia Marked; Lymphocytes # (A) 1.5 k/uL (1.0-4.8); Lymphocytes % (A) 26 %; MCH 26.4 pg (25.0-35.0); MCHC 30.9 g/dL (31.0-37.0); Mean Platelet Volume 7.2; Monocytes # (A) 0.3 k/uL (0-1.0); Monocytes % (A) 5 %; Neutrophils # (A) 3.5 k/uL (1.3-7.7); Neutrophils % (A) 61 %; Platelet Count 284 k/uL (150-450); RBC 3.78 m/uL (4.30-5.90); WBC 5.7 k/uL (3.8-10.6)
[2018-12-06 09:59] LABS: MCV 85.4 fL (80.0-100.0)
[2018-12-06 12:31] LABS: Glucose,Whole Blood 98 mg/dL (75-99)
[2018-12-06 16:50] LABS: Glucose,Whole Blood 96 mg/dL (75-99)
[2018-12-06 20:52] LABS: Glucose,Whole Blood 88 mg/dL (75-99)
[2018-12-06] MEDS: ATORVASTATIN 20 MG TAB PO SCH (21:57)
[2018-12-06] MEDS: RIVAROXABAN 20 MG TAB PO SCH (21:57)
[2018-12-06] MEDS: POTASSIUM CHLORIDE ER 20 MEQ TAB.ER PO SCH (21:57)
[2018-12-07] MEDS: PIPERACILLIN-TAZOBACTAM 3.375 GM in SODIUM CHLORIDE 0.9% 100 ML IVPB SCH ×4 (00:35→23:16)
--- NOTE | 2018-12-07 05:31 | PN ---
PROGRESS NOTE DATE OF SERVICE: 12/05/2018 PRESENTING COMPLAINT: Cough with sputum. INTERVAL HISTORY: This patient is seen by me on 12/05/2018. Admitted with influenza A with pneumonitis versus secondary infection in a septic picture. The patient was switched over to IV Zosyn, feeling somewhat better. Still coughing up sputum. Did eat a bit better. at the bedside. REVIEW OF SYSTEMS: Done for constitutional, cardiovascular, GI, pulmonary; relevant findings as above. CURRENT MEDICATIONS: Current medications are reviewed that include IV Zosyn and Tamiflu. PHYSICAL EXAMINATION: On examination, temperature 98.2, pulse 91, respiration 16, blood pressure 99/67, pulse ox 95% on room air. GENERAL APPEARANCE: Lying in bed, awake. EYES: Pupils equal. Conjunctivae normal. NECK: JVD not raised. Mass not palpable. RESPIRATORY: Effort increased. LUNGS: Diminished breath sounds. Decreased crackles. CARDIOVASCULAR: First and second sounds normal. No edema. ABDOMEN: Soft, nontender. Liver and spleen not palpable. PSYCHIATRY: Answering questions. NEUROLOGICAL: Patient has chronic decreased vision in the right eye. Speech is dysarthric. Power on the right arm is 3/5 and left side is 4/5. INVESTIGATIONS: White count 4.3. Potassium 4.1. Cultures are pending. ASSESSMENT: 1. Acute influenza A with upper respiratory tract with pneumonitis causing sepsis. 2. Secondary bacterial infection suspected with yellow-green sputum, copious amounts, started to come down. Fevers have started to come down. 3. Chronic weakness of the right upper extremity and weakness on the left side from prior stroke. 4. Chronically occluded right internal carotid artery. 5. Chronically decreased vision in the right eye. 6. Chronic dysarthria from stroke. 7. Essential hypertension. 8. Obesity; body mass index more than 30. 9. Depression, not otherwise specified. 10.Chronic medical debility. PLAN: Continue patient on IV Zosyn. Patient still bringing up quite a good amount of sputum. Cultures have been sent off. Will follow. MMODL / IJN: [id number] /
--- NOTE | 2018-12-07 05:43 | PN ---
PROGRESS NOTE DATE OF SERVICE: 12/06/2018 PRESENTING COMPLAINT: Cough with sputum. INTERVAL HISTORY: The patient is seen by me on 12/06/2018. Admitted with influenza A with pneumonitis, septic picture and secondary bacterial infection. Fevers have come down. Appetite is improving. Still bringing up chunky sputum, though better than before. Overall looking better. REVIEW OF SYSTEMS: Done for constitutional, cardiovascular, GI, pulmonary; relevant findings as above. The patient did have diarrhea, laxatives were discontinued. The patient had no further diarrhea. CURRENT MEDICATIONS: Current medications are reviewed that include IV Zosyn and Tamiflu. PHYSICAL EXAMINATION: On examination, temperature 97.7 pulse 87, respiration 14, blood pressure 106/65, pulse ox 94%on room air. GENERAL APPEARANCE: Lying in bed, awake. EYES: Pupils equal. Conjunctivae normal. NECK: JVD not raised. Mass not palpable. RESPIRATORY: Effort increased. LUNGS: Diminished breath sounds. CARDIOVASCULAR: First and second sounds normal. No edema. ABDOMEN: Soft, nontender. Liver and spleen not palpable. PSYCHIATRY: Awake, answering questions. NEUROLOGICAL: Patient has chronically decreased vision in his right eye. Speech is dysarthric. Power on the right arm is 3/5, left side is 4/5. INVESTIGATIONS: Accu-Cheks are noted. Sputum culture is still pending though appears to be normal respiratory hero. ASSESSMENT: 1. Acute influenza A with upper respiratory tract pneumonitis causing sepsis on admission, now improved. 2. Secondary bacterial infection with yellow-green sputum, started to much improve. 3. Chronic weakness of right upper extremity and weakness on the left side from prior stroke. 4. Chronically occluded right internal carotid artery. 5. Chronically decreased vision in the right eye. 6. Chronic dysarthria from stroke. 7. Essential hypertension. 8. Obesity; body mass index more than 30. 9. Depression, not otherwise specified. 10.Chronic medical debility. PLAN: Care was discussed with at the bedside. The patient should be able to switch over to Augmentin tomorrow and should be able to be discharged tomorrow. Cultures were showing respiratory hero. Will discontinue the IV fluids tomorrow morning and patient can be discharged. MMODL / IJN: [id number] /
[2018-12-07 07:07] LABS: Glucose,Whole Blood 99 mg/dL (75-99)
[2018-12-07] MEDS: INSULIN ASPART (NovoLOG) 100 UNIT/ML VIAL SQ SCH ×4 (08:20→20:00)
[2018-12-07] MEDS: buPROPion XL 150 MG TAB.ER.24H PO SCH (08:20)
[2018-12-07] MEDS: OSELTAMIVIR 75 MG CAP PO SCH (08:21)
[2018-12-07] MEDS: busPIRone HCl 5 MG TAB PO SCH ×2 (08:37→20:00)
[2018-12-07] MEDS: METOPROLOL TARTRATE 12.5 MG TAB PO SCH ×2 (08:37→19:59)
[2018-12-07] MEDS: FERROUS SULFATE 325 MG TAB PO SCH (08:37)
[2018-12-07] MEDS: HYDROcodone/APAP 10-325MG 1 EACH TAB PO PRN ×3 (08:37→22:04)
[2018-12-07] MEDS: ASPIRIN 81 MG PO SCH (08:38)
[2018-12-07] MEDS: metFORMIN 500 MG TAB PO SCH ×2 (08:38→20:00)
[2018-12-07] MEDS: LOSARTAN 25 MG TAB PO SCH (08:38)
[2018-12-07 08:48] LABS: Anion Gap 10 mmol/L; Blood Urea Nitrogen 14 mg/dL (9-20); Calcium 9.2 mg/dL (8.4-10.2); Carbon Dioxide 22 mmol/L (22-30); Chloride 107 mmol/L (98-107); Glucose 88 mg/dL (74-99); Potassium 4.8 mmol/L (3.5-5.1); Sodium 139 mmol/L (137-145)
[2018-12-07 11:46] LABS: Glucose,Whole Blood 119 mg/dL (75-99)
--- NOTE | 2018-12-07 12:08 | XR ---
EXAMINATION TYPE: XR chest 1V portable DATE OF EXAM: 12/07/2018 COMPARISON: 12/04/2018 HISTORY: Influenza. Follow-up exam. TECHNIQUE: Single frontal view of the chest is obtained. FINDINGS: There is limited inspiration. There is no focal air space opacity, pleural effusion, or pn eumothorax seen. The cardiac silhouette size is within normal limits. The osseous structures are i ntact. IMPRESSION: Hypoventilatory lungs, otherwise no acute cardiopulmonary process.
--- NOTE | 2018-12-07 15:42 | P.PN ---
Subjective This is a pleasant 53 years old male who presents with generalized weakness and influenza a and tracheobronchitis. Patient is finish his course of Tamiflu. He's been afebrile for more than 48 hours. He still have some dyspnea as and coughing with phlegm. Repeat chest x-ray showing hypo-ventilations with no pneumonia. He is currently on Zosyn. Also patient has history of right hemiparesis secondary to stroke with cautery artery stenosis/obstruction. For this reason patient on anticoagulation he takes xeralto at home on the top of his aspirin. Patient cannot move his right side. Patient also is on metformin for his diabetes. He is still complaining of from dyspnea and coughing with yellow phlegm. No chest pain. Patient wants to go home however she agrees to stay one more night. Discharge planning in 24-48 hours. Objective - Vital Signs Vital signs: Vital Signs Temp 98.1 F 12/07/18 08:34 Pulse 79 12/07/18 08:34 Resp 16 12/07/18 00:10 BP 110/73 12/07/18 08:34 Pulse Ox 96 12/07/18 08:34 Intake & Output 12/06/18 12/07/18 12/07/18 18:59 06:59 18:59 Intake Total 850 Output Total 150 Balance 700 Intake: Intake, IV Titration 850 Amount Lactated Ringers 1,000 ml 750 @ 75 mls/hr IV .[id number] [facility] Rx#:[id number] Piperacillin-Tazobactam 3 100 .375 gm In Sodium Chloride 0.9% 100 ml @ 25 mls/hr IVPB Q8HR [facility] Rx# :[id number] Output: Urine 150 Other: Voiding Method Urinal Urinal Urinal Incontinent # Voids 2 2 # Bowel Movements 1 - Exam GENERAL: The patient is alert and oriented x3, not in any acute distress. HEENT: Pupils are round and equally reacting to light. EOMI. No scleral icterus. No conjunctival pallor. Normocephalic, atraumatic. No pharyngeal erythema. No thyromegaly. CARDIOVASCULAR: S1 and S2 present. No murmurs, rubs, or gallops. -PULMONARY: Chest is clear to auscultation, bilateral scattered wheezing or crackles. ABDOMEN: Soft, nontender, nondistended, normoactive bowel sounds. No palpable organomegaly. MUSCULOSKELETAL: No joint swelling or deformity. EXTREMITIES: No cyanosis, clubbing, or pedal edema. -NEUROLOGICAL: Gross neurological examination did not reveal any focal deficits. Right hemiparesis, he cannot move his right upper or lower extremity. He has dysarthria with slurred speech. He answers with 1-2 word sentences. Which looks as his baseline as per . SKIN: No rashes. - Labs CBC & Chem 7: 12/06/18 08:00 12/07/18 07:25 Labs: Abnormal Lab Results - Last 24 Hours (Table) 12/07/18 Range/Units 11:45 POC Glucose (mg/dL) 119 H (75-99) mg/dL Microbiology - Last 24 Hours (Table) 12/02/18 17:34 Blood Culture - Preliminary Blood No Growth after 96 hours 12/05/18 07:47 Gram Stain - Preliminary Sputum Sputum Culture - Preliminary Assessment and Plan Assessment: Acute influenza, with upper respiratory pneumonitis cholecystosis on admission, improving Secondary bacterial infection with acute tracheobronchitis Chronic weakness, generalized Chronic right-sided hemiparesis, severe. Secondary to stroke. History of coronary artery occlusion/stenosis. On anticoagulation Dysarthria secondary to above Decreased vision in the right eye secondary to above Essential hypertension The patient, not otherwise specified Plan: This is a pleasant 52 years old male who presents with upper respiratory tract symptoms, cause and tracheobronchitis. Continue with antibiotics. Continue with present treatment.Labs and medication were reviewed.. Continue same treatment. Continue with symptomatic treatment. Resume home medication. Monitor lytes and vitals. DVT and GI prophylaxis. Further recommendations of the clinical course of the patient DVT prophylaxis: on xarelto GI Prophylaxis: Pepcid PT/OT: I counseled patient with at bedside. Patient refused to do PT/OT or to go to rehab. Patient wants to go home with home health care. Prognosis is guarded
[2018-12-07 16:49] LABS: Glucose,Whole Blood 93 mg/dL (75-99)
[2018-12-07 16:55] LABS: Glucose,Whole Blood 93 mg/dL (75-99)
[2018-12-07 19:46] LABS: Glucose,Whole Blood 190 mg/dL (75-99)
[2018-12-07] MEDS: POTASSIUM CHLORIDE ER 20 MEQ TAB.ER PO SCH (20:00)
[2018-12-07] MEDS: ATORVASTATIN 20 MG TAB PO SCH (20:00)
[2018-12-07] MEDS: FAMOTIDINE 20 MG/2 ML VIAL IV SCH (20:00)
[2018-12-07] MEDS: RIVAROXABAN 20 MG TAB PO SCH (20:01)
[2018-12-08 00:04] VITALS: RESP 16
[2018-12-08 07:05] LABS: Glucose,Whole Blood 102 mg/dL (75-99)
[2018-12-08] MEDS: INSULIN ASPART (NovoLOG) 100 UNIT/ML VIAL SQ SCH ×2 (07:07→12:27)
[2018-12-08] MEDS: PIPERACILLIN-TAZOBACTAM 3.375 GM in SODIUM CHLORIDE 0.9% 100 ML IVPB SCH (07:49)
[2018-12-08 08:44] VITALS: BP 121/82; PULSE 74; TEMP 97.9
[2018-12-08 08:47] LABS: Potassium 4.8 mmol/L (3.5-5.1)
[2018-12-08 08:49] LABS: Anion Gap 11 mmol/L; Blood Urea Nitrogen 12 mg/dL (9-20); Calcium 9.5 mg/dL (8.4-10.2); Carbon Dioxide 22 mmol/L (22-30); Chloride 107 mmol/L (98-107); Glucose 94 mg/dL (74-99); Sodium 140 mmol/L (137-145)
[2018-12-08] MEDS: ASPIRIN 81 MG PO SCH (09:24)
[2018-12-08] MEDS: METOPROLOL TARTRATE 12.5 MG TAB PO SCH (09:24)
[2018-12-08] MEDS: LOSARTAN 25 MG TAB PO SCH (09:24)
[2018-12-08] MEDS: buPROPion XL 150 MG TAB.ER.24H PO SCH (09:24)
[2018-12-08] MEDS: metFORMIN 500 MG TAB PO SCH (09:24)
[2018-12-08] MEDS: FAMOTIDINE 20 MG/2 ML VIAL IV SCH (09:24)
[2018-12-08] MEDS: busPIRone HCl 5 MG TAB PO SCH (09:24)
[2018-12-08] MEDS: FERROUS SULFATE 325 MG TAB PO SCH (09:24)
--- NOTE | 2018-12-08 10:05 | P.DS ---
Providers Date of admission: 12/04/18 11:22 Attending physician: Tab Ash [facility] Hospital Course: Diagnoses: Acute influenza, with upper respiratory pneumonitis cholecystosis on admission, improving Secondary bacterial infection with acute tracheobronchitis Chronic weakness, generalized Chronic right-sided hemiparesis, severe. Secondary to stroke. History of coronary artery occlusion/stenosis. On anticoagulation Dysarthria secondary to above Decreased vision in the right eye secondary to above Essential hypertension Hyperlipidemia Diabetes mellitus History of heart failure, not an active tissue Hospital course: This is a pleasant 53 years old male who presents with generalized weakness and influenza a and tracheobronchitis. Patient is finish his course of Tamiflu. He's been afebrile for more than 48 hours. He still have some dyspnea as and coughing with phlegm. Repeat chest x-ray showing hypo-ventilations with no pneumonia. He is currently on Zosyn, which is finished Augmentin upon discharge. We'll continue short course of antibiotic.. Also patient has history of right hemiparesis secondary to stroke with coronary artery stenosis/obstruction. For this reason patient on anticoagulation he takes xeralto at home on the top of his aspirin. Patient cannot move his right side. Patient also is on metformin for his diabetes. His dyspnea and cough are resolved. No chest pain. Patient wants to go home . Patient is back to his baseline. Problems and management plan were discussed with the patient and at bedside and they verbalized understanding and acceptance Patient was found stable and can be discharged home and cards prognosis, however he needs follow-up as an outpatient. Patient was instructed to follow-up with his PCP Dr. Grey in 1 week physical exam Gen.: Patient alert awake and oriented X 3, NOT IN DISTRESS CVS: s1-s2, RRR, no murmur CHEST:bilateral CTA, no wheezing or crepitation Abdomen: Soft, no tenderness, no distention, positive bowel sounds Extremities: No leg edema or induration Neuro: Alert awake oriented exit 3, dysarthria, severe right hemiparesis, chronic. Time spent more than 35 minutes Plan - Discharge Summary Discharge Rx Participant: Yes New Discharge Prescriptions: New Amoxic-Pot Clav 875-125Mg [Augmentin 875-125] 1 tab PO Q12HR #10 tablet Acetaminophen Tab [Tylenol] 650 mg PO Q4HR PRN tab PRN Reason: Fever And/ Or Pain Continue Rivaroxaban [Xarelto] 20 mg PO HS Potassium Chloride [Klor-Con 20] 20 meq PO HS Aspirin EC [Ecotrin Low Dose] 81 mg PO DAILY HYDROcodone/APAP 10-325MG [[place] 10-325] 1 tab PO Q4HR PRN PRN Reason: Pain metFORMIN HCL 1,000 mg PO BID Cholecalciferol (Vitamin D3) [Vitamin D3] 2,000 unit PO HS Furosemide [Lasix] 40 mg PO DAILY LORazepam [Ativan] 0.5 mg PO DAILY PRN PRN Reason: Anxiety Cyclobenzaprine HCl 10 mg PO HS PRN PRN Reason: Muscle Spasm Atorvastatin [Lipitor] 20 mg PO HS Metoprolol Tartrate [Lopressor] 12.5 mg PO BID Ferrous Sulfate [Iron (65 MG Elemental)] 325 mg PO DAILY busPIRone HCL 15 mg PO BID Lactulose 10 gm PO DAILY Losartan Potassium [Cozaar] 25 mg PO DAILY buPROPion XL [Wellbutrin XL] 150 mg PO DAILY Discontinued Polyethylene Glycol 3350 [Miralax] 17 gm PO BID Discharge Medication List Rivaroxaban [Xarelto] 20 mg PO HS 09/05/16 [History] Aspirin EC [Ecotrin Low Dose] 81 mg PO DAILY 04/04/17 [History] HYDROcodone/APAP 10-325MG [[place] 10-325] 1 tab PO Q4HR PRN 04/04/17 [History] Potassium Chloride [Klor-Con 20] 20 meq PO HS 04/04/17 [History] metFORMIN HCL 1,000 mg PO BID 07/06/17 [History] Cholecalciferol (Vitamin D3) [Vitamin D3] 2,000 unit PO HS 05/02/18 [History] Furosemide [Lasix] 40 mg PO DAILY 05/02/18 [History] Atorvastatin [Lipitor] 20 mg PO HS 12/02/18 [History] Cyclobenzaprine HCl 10 mg PO HS PRN 12/02/18 [History] Ferrous Sulfate [Iron (65 MG Elemental)] 325 mg PO DAILY 12/02/18 [History] LORazepam [Ativan] 0.5 mg PO DAILY PRN 12/02/18 [History] Lactulose 10 gm PO DAILY 12/02/18 [History] Losartan Potassium [Cozaar] 25 mg PO DAILY 12/02/18 [History] Metoprolol Tartrate [Lopressor] 12.5 mg PO BID 12/02/18 [History] buPROPion XL [Wellbutrin XL] 150 mg PO DAILY 12/02/18 [History] busPIRone HCL 15 mg PO BID 12/02/18 [History] Acetaminophen Tab [Tylenol] 650 mg PO Q4HR PRN tab 12/08/18 [Rx] Amoxic-Pot Clav 875-125Mg [Augmentin 875-125] 1 tab PO Q12HR #10 tablet 12/08/18 [Rx] Follow up Appointment(s)/Referral(s): [facility], [NON-STAFF] - Waldemar Grey MD [Primary Care Provider] - 1-2 days Activity/Diet/Wound Care/Special Instructions: Cardiac diet Activity as tolerated
[2018-12-08 12:09] LABS: Glucose,Whole Blood 121 mg/dL (75-99)
[2018-12-08] MEDS ORDERED: FAMOTIDINE 20 MG TAB PO SCH (21:00)
== END 2018-12-08 13:20 | disposition home health service (06) | DRG 871 ==
LOC: EC 17:14 → 4SSUR 19:11 → OBSVTOIN 12-04 11:22
PROVIDERS: ADMIT Hospitalist; ATTEND Hospitalist
DX: A41.89 Other specified sepsis (principal); J10.00 Influenza due to other identified influenza virus with unspecified type of pneumonia; I69.351 Hemiplegia and hemiparesis following cerebral infarction affecting right dominant side; I11.0 Hypertensive heart disease with heart failure; I50.9 Heart failure, unspecified; J20.9 Acute bronchitis, unspecified; F41.9 Anxiety disorder, unspecified; I69.322 Dysarthria following cerebral infarction; I69.393 Ataxia following cerebral infarction; R40.2362 Coma scale, best motor response, obeys commands, at arrival to emergency department; R40.2142 Coma scale, eyes open, spontaneous, at arrival to emergency department; R40.2252 Coma scale, best verbal response, oriented, at arrival to emergency department; K21.9 Gastro-esophageal reflux disease without esophagitis; F32.9 Major depressive disorder, single episode, unspecified; E11.9 Type 2 diabetes mellitus without complications; E78.5 Hyperlipidemia, unspecified; H54.7 Unspecified visual loss; E66.9 Obesity, unspecified; Z71.3 Dietary counseling and surveillance; Z68.33 Body mass index [BMI] 33.0-33.9, adult; I25.10 Atherosclerotic heart disease of native coronary artery without angina pectoris; Z79.82 Long term (current) use of aspirin; Z79.84 Long term (current) use of oral hypoglycemic drugs; Z79.01 Long term (current) use of anticoagulants; Z79.899 Other long term (current) drug therapy; Z96.643 Presence of artificial hip joint, bilateral; Z87.891 Personal history of nicotine dependence; Z88.5 Allergy status to narcotic agent; Z88.8 Allergy status to other drugs, medicaments and biological substances; Z80.1 Family history of malignant neoplasm of trachea, bronchus and lung; Z82.49 Family history of ischemic heart disease and other diseases of the circulatory system; Z83.3 Family history of diabetes mellitus; Z80.0 Family history of malignant neoplasm of digestive organs; Z83.79 Family history of other diseases of the digestive system
CPT/HCPCS: 36415; 71045; 71046; 80048; 80053; 81003; 83605; 84484; 85025; 85610; 85730; 87040; 87070; 87086; 87205; 87502; 93005; 94760; 96361; 96365; 99285

== ENCOUNTER 2020-06-02 10:27 | Inpatient (IN) | payer MEDICARE, OTHER ==
[2020-06-02] MEDS ORDERED: ACETAMINOPHEN TAB 500 MG TAB PO STA (10:44)
--- NOTE | 2020-06-02 10:48 | ED ---
General Adult HPI - General Chief complaint: Fever Stated complaint: Fever Time Seen by Provider: 06/02/20 10:30 Source: patient, EMS, RN notes reviewed Mode of arrival: EMS Limitations: language barrier, altered mental status, physical limitation - History of Present Illness Initial comments: Patient is a pleasant 54-year-old male presenting to the emergency Department with reported fever. Patient is a poor historian but does answer yes and no appropriately. Onset of symptoms was today. Patient denies any symptoms other than fever. Patient denies myalgias or fatigue. No cough or dyspnea. No abdominal pain. No urinary symptoms. - Related Data Home Medications Medication Instructions Recorded Confirmed Rivaroxaban [Xarelto] 20 mg PO HS@2130 09/05/16 06/02/20 Aspirin EC [Ecotrin Low Dose] 81 mg PO DAILY@1700 04/04/17 06/02/20 Cholecalciferol (Vitamin D3) 2,000 unit PO DAILY@1700 05/02/18 06/02/20 [Vitamin D3] Atorvastatin [Lipitor] 20 mg PO HS@1700 12/02/18 06/02/20 Ferrous Sulfate [Iron (65 MG 325 mg PO DAILY@1700 12/02/18 06/02/20 Elemental)] Lactulose 10 gm PO BID@0800,1700 12/02/18 06/02/20 Losartan Potassium [Cozaar] 25 mg PO DAILY@0800 12/02/18 06/02/20 Metoprolol Tartrate [Lopressor] 12.5 mg PO BID@0800,1700 12/02/18 06/02/20 buPROPion XL [Wellbutrin XL] 150 mg PO DAILY@0800 12/02/18 06/02/20 busPIRone HCL 15 mg PO BID@0800,1700 12/02/18 06/02/20 Cyclobenzaprine [Flexeril] 5 mg PO TID PRN 12/20/19 06/02/20 Docusate [Colace] 100 mg PO DAILY PRN 12/20/19 06/02/20 Ketoconazole 2% Shampoo [Nizoral] 1 applic TOPICAL TUFR 12/20/19 06/02/20 Magnesium Hydroxide [Milk of 2,400 mg PO DAILY PRN 12/20/19 06/02/20 Magnesia] Melatonin 6 mg PO HS@2100 12/20/19 06/02/20 Na Phos,M-B/Na Phos,Di-Ba [Fleet 133 ml RECTAL DAILY PRN 12/20/19 06/02/20 Adult] Sennosides/Docusate Sodium 1 tab PO BID@0800,1700 12/20/19 06/02/20 [Senna-S Laxative Tablet] bisacodyL [Dulcolax] 10 mg RECTAL DAILY PRN 12/20/19 06/02/20 buPROPion HCL [Wellbutrin XL] 300 mg PO DAILY@0800 12/20/19 06/02/20 metFORMIN HCL [Glucophage] 500 mg PO BID@0800,1700 12/20/19 06/02/20 Ciprofloxacin HCl [Cipro] 750 mg PO DAILY@0800 06/02/20 06/02/20 Magic Butt Paste 1 applicate TOPICAL BID 06/02/20 06/02/20 Previous Rx's Medication Instructions Recorded HYDROcodone/APAP 7.5-325MG [[place] 1 tab PO Q4H PRN #14 tab 12/23/19 7.5-325] clonazePAM 0.5 mg PO BID@0800,1700 #6 tab 12/23/19 Allergies Allergy/AdvReac Type Severity Reaction Status Date / Time sitagliptin [From Janumet] Allergy GI UPSET Verified 06/02/20 11:11 hydromorphone [From Dilaudid] AdvReac Confusion Verified 06/02/20 11:11 Review of Systems ROS Statement: Those systems with pertinent positive or pertinent negative responses have been documented in the HPI. ROS Other: All systems not noted in ROS Statement are negative. Constitutional: Reports: fever. Denies: chills Eyes: Denies: eye pain ENT: Denies: ear pain Respiratory: Denies: cough, dyspnea Cardiovascular: Denies: chest pain Endocrine: Denies: fatigue Gastrointestinal: Denies: abdominal pain Genitourinary: Denies: dysuria Musculoskeletal: Denies: back pain, arthralgia (Patient denies hip pain) Skin: Denies: rash Neurological: Denies: weakness Past Medical History Past Medical History: Coronary Artery Disease (CAD), Heart Failure, CVA/TIA, Diabetes Mellitus, GERD/Reflux, Hyperlipidemia, Hypertension Additional Past Medical History / Comment(s): 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 sepsis related to a fall-affected hip, had stroke 2015 after carotid surg.-partial paralysis right side, second stroke june 2016 affecting left side History of Any Multi-Drug Resistant Organisms: ESBL Date of last positivie culture/infection: 12/19/19 MDRO Source:: ESBL URINE Past Surgical History: Joint Replacement Additional Past Surgical History / Comment(s): Right-sided carotid endarterectomy attempt, spouse states is blocked, left carotid x3, multiple surgeries hips-Right 4 times and left 1. mikey hip had a Roland resurfacing done- right hip I&D, mult times Past Anesthesia/Blood Transfusion Reactions: Previous Problems w/ Anesthesia Additional Past Anesthesia/Blood Transfusion Reaction / Comment(s): woke during a procedure, some kind of swelling in throat during a surgery post intubation- thinks it might have been due to having been intubated for procedures close together Past Psychological History: Depression Past Alcohol Use History: None Reported Past Drug Use History: None Reported - Past Family History Sister(s) Family Medical History: Cancer, CVA/TIA Brother(s) Family Medical History: Cancer, CVA/TIA, Liver Disease Additional Family Medical History / Comment(s): lung cancer Father Family Medical History: Diabetes Mellitus, Myocardial Infarction ([place]) Mother Family Medical History: CVA/TIA General Exam Limitations: language barrier, altered mental status, physical limitation General appearance: alert, in no apparent distress Head exam: Present: normocephalic Eye exam: Present: normal appearance ENT exam: Present: normal exam Neck exam: Present: normal inspection. Absent: meningismus Respiratory exam: Present: normal lung sounds bilaterally Cardiovascular Exam: Present: regular rate, normal rhythm GI/Abdominal exam: Present: soft. Absent: tenderness Extremities exam: Present: normal inspection Neurological exam: Present: alert Psychiatric exam: Present: normal affect, normal mood Skin exam: Present: normal color. Absent: rash Course Vital Signs 06/02/20 10:32 Temperature 100.2 F H Pulse Rate 105 H Respiratory 16 Rate Blood Pressure 120/75 O2 Sat by Pulse 97 Oximetry - Reevaluation(s) Reevaluation #1: 09/06/20 12:37 Patient does meet sepsis criteria diagnosed at 12:30 PM. Blood culture and lactic acid ordered. IV antibiotics will be ordered. EKG Findings - EKG Comments: EKG Findings:: Sinus tachycardia 106. DC 172. QRS 90. QT 328. QTC 435. Normal axis. Normal QRS. No acute ST change. Medical Decision Making - Medical Decision Making Patient reevaluated and updated. Case was discussed in detail with Dr. Ash, who is familiar with this patient and will admit for Dr. Patiño. - Lab Data Result diagrams: 06/02/20 10:53 06/02/20 10:53 Lab Results 06/02/20 06/02/20 06/02/20 Range/Units 10:53 10:53 10:53 WBC 24.1 H (3.8-10.6) k/uL RBC 4.48 (4.30-5.90) m/uL Hgb 13.2 (13.0-17.5) gm/dL Hct 41.9 (39.0-53.0) % MCV 93.6 (80.0-100.0) fL MCH 29.5 (25.0-35.0) pg MCHC 31.5 (31.0-37.0) g/dL RDW 15.4 (11.5-15.5) % Plt Count 195 (150-450) k/uL Neutrophils % 89 % Lymphocytes % 5 % Monocytes % 4 % Eosinophils % 1 % Basophils % 0 % Neutrophils # 21.4 H (1.3-7.7) k/uL Lymphocytes # 1.1 (1.0-4.8) k/uL Monocytes # 1.1 H (0-1.0) k/uL Eosinophils # 0.3 (0-0.7) k/uL Basophils # 0.1 (0-0.2) k/uL PT 11.5 (9.0-12.0) sec INR 1.1 (<1.2) APTT 27.3 (22.0-30.0) sec Sodium (137-145) mmol/L Potassium (3.5-5.1) mmol/L Chloride (98-107) mmol/L Carbon Dioxide (22-30) mmol/L Anion Gap mmol/L BUN (9-20) mg/dL Creatinine (0.66-1.25) mg/dL Est GFR (CKD-EPI)AfAm (>60 ml/min/1.73 sqM) Est GFR (CKD-EPI)NonAf (>60 ml/min/1.73 sqM) Glucose (74-99) mg/dL Plasma Lactic Acid Tomi (0.7-2.0) mmol/L Calcium (8.4-10.2) mg/dL Total Bilirubin (0.2-1.3) mg/dL AST (17-59) U/L ALT (4-49) U/L Alkaline Phosphatase (38-126) U/L Total Protein (6.3-8.2) g/dL Albumin (3.5-5.0) g/dL Urine Color Yellow Urine Appearance Clear (Clear) Urine pH 6.0 (5.0-8.0) Ur Specific [place] 1.019 (1.001-1.035) Urine Protein Negative (Negative) Urine Glucose (UA) Negative (Negative) Urine Ketones Negative (Negative) Urine Blood Negative (Negative) Urine Nitrite Positive (Negative) Urine Bilirubin Negative (Negative) Urine Urobilinogen <2.0 (<2.0) mg/dL Ur Leukocyte Esterase Moderate H (Negative) Urine RBC 2 (0-5) /hpf Urine WBC 43 H (0-5) /hpf Urine Bacteria Many H (None) /hpf Urine Mucus Rare H (None) /hpf 06/02/20 06/02/20 Range/Units 10:53 10:53 WBC (3.8-10.6) k/uL RBC (4.30-5.90) m/uL Hgb (13.0-17.5) gm/dL Hct (39.0-53.0) % MCV (80.0-100.0) fL MCH (25.0-35.0) pg MCHC (31.0-37.0) g/dL RDW (11.5-15.5) % Plt Count (150-450) k/uL Neutrophils % % Lymphocytes % % Monocytes % % Eosinophils % % Basophils % % Neutrophils # (1.3-7.7) k/uL Lymphocytes # (1.0-4.8) k/uL Monocytes # (0-1.0) k/uL Eosinophils # (0-0.7) k/uL Basophils # (0-0.2) k/uL PT (9.0-12.0) sec INR (<1.2) APTT (22.0-30.0) sec Sodium 137 (137-145) mmol/L Potassium 4.2 (3.5-5.1) mmol/L Chloride 105 (98-107) mmol/L Carbon Dioxide 23 (22-30) mmol/L Anion Gap 9 mmol/L BUN 11 (9-20) mg/dL Creatinine 0.76 (0.66-1.25) mg/dL Est GFR (CKD-EPI)AfAm >90 (>60 ml/min/1.73 sqM) Est GFR (CKD-EPI)NonAf >90 (>60 ml/min/1.73 sqM) Glucose 193 H (74-99) mg/dL Plasma Lactic Acid Tomi 2.5 H* (0.7-2.0) mmol/L Calcium 8.9 (8.4-10.2) mg/dL Total Bilirubin 0.8 (0.2-1.3) mg/dL AST 19 (17-59) U/L ALT 25 (4-49) U/L Alkaline Phosphatase 65 (38-126) U/L Total Protein 6.3 (6.3-8.2) g/dL Albumin 3.7 (3.5-5.0) g/dL Urine Color Urine Appearance (Clear) Urine pH (5.0-8.0) Ur Specific [place] (1.001-1.035) Urine Protein (Negative) Urine Glucose (UA) (Negative) Urine Ketones (Negative) Urine Blood (Negative) Urine Nitrite (Negative) Urine Bilirubin (Negative) Urine Urobilinogen (<2.0) mg/dL Ur Leukocyte Esterase (Negative) Urine RBC (0-5) /hpf Urine WBC (0-5) /hpf Urine Bacteria (None) /hpf Urine Mucus (None) /hpf - Radiology Data Radiology results: image reviewed (Chest x-ray shows no acute process) Critical Care Time Critical Care Time: Yes Total Critical Care Time: 33 Disposition Clinical Impression: Sepsis, Urinary tract infection Disposition: ADMITTED IP TO THIS [facility] Is patient prescribed a controlled substance at d/c from ED?: No Referrals: Arnoldo Patiño MD [Primary Care Provider] - 1-2 days Decision Time: 12:37
[2020-06-02 11:08] LABS: Basophils # (A) 0.1 k/uL (0-0.2); Basophils % (A) 0 %; Eosinophils # (A) 0.3 k/uL (0-0.7); Eosinophils % (A) 1 %; HCT 41.9 % (39.0-53.0); HGB 13.2 gm/dL (13.0-17.5); Lymphocytes # (A) 1.1 k/uL (1.0-4.8); Lymphocytes % (A) 5 %; MCH 29.5 pg (25.0-35.0); MCHC 31.5 g/dL (31.0-37.0); MCV 93.6 fL (80.0-100.0); Mean Platelet Volume 8.5; Monocytes # (A) 1.1 k/uL (0-1.0); Monocytes % (A) 4 %; Neutrophils # (A) 21.4 k/uL (1.3-7.7); Neutrophils % (A) 89 %; Platelet Count 195 k/uL (150-450); RBC 4.48 m/uL (4.30-5.90); RDW 15.4 % (11.5-15.5); WBC 24.1 k/uL (3.8-10.6)
[2020-06-02 11:22] LABS: ALT 25 U/L (4-49); AST 19 U/L (17-59); African American GFR (CKD) >90 (>60 ml/min/1.73 sqM); Albumin 3.7 g/dL (3.5-5.0); Alkaline Phosphatase 65 U/L (38-126); Anion Gap 9 mmol/L; Blood Urea Nitrogen 11 mg/dL (9-20); Calcium 8.9 mg/dL (8.4-10.2); Carbon Dioxide 23 mmol/L (22-30); Chloride 105 mmol/L (98-107); Glucose 193 mg/dL (74-99); INR 1.1 (<1.2); Non-African American GFR(CKD) >90 (>60 ml/min/1.73 sqM); Partial Thromboplastin Time 27.3 sec (22.0-30.0); Potassium 4.2 mmol/L (3.5-5.1); Prothrombin Time 11.5 sec (9.0-12.0); Sodium 137 mmol/L (137-145); Total Bilirubin 0.8 mg/dL (0.2-1.3); Total Protein 6.3 g/dL (6.3-8.2)
--- NOTE | 2020-06-02 11:32 | XR ---
EXAMINATION TYPE: XR chest 2V DATE OF EXAM: 06/02/2020 CLINICAL HISTORY: Fever TECHNIQUE: Frontal and lateral views of the chest are obtained. COMPARISON: 12/19/2019 chest radiograph FINDINGS: The cardiomediastinal silhouette is within normal limits for size. Pulmonary vasculature i s normal. There is no focal air space opacity, pleural effusion, or pneumothorax seen. No evidence of displaced fracture. Lateral radiograph is significantly limited due to overlapping soft tissue. IMPRESSION: No acute cardiopulmonary process.
[2020-06-02] MEDS: SODIUM CHLORIDE 0.9% 1,000 ML IV SCH ×2 (11:42→17:34)
[2020-06-02 12:07] LABS: Appearance,Urine Clear (Clear); Bacteria,Urine Many /hpf; Bilirubin,Urine Negative (Negative); Blood,Urine Negative (Negative); Color,Urine Yellow; Glucose,Urine (UA) Negative (Negative); Ketones,Urine Negative (Negative); Leukocyte Esterase,Urine Moderate (Negative); Mucus,Urine Rare /hpf; Nitrite,Urine Positive (Negative); Protein,Urine Negative (Negative); RBC,Urine 2 /hpf (0-5); Specific Gravity,Urine 1.019 (1.001-1.035); Urobilinogen,Urine <2.0 mg/dL (<2.0); WBC,Urine 43 /hpf (0-5)
[2020-06-02] MEDS ORDERED: NALOXONE 0.4 MG/ML 1 ML VIAL IV PRN (12:38)
[2020-06-02] MEDS ORDERED: cefTRIAXone IN SWFI 1,000 MG/10 ML SYRINGE IVP STA (12:38)
[2020-06-02] MEDS ORDERED: DOCUSATE 100 MG CAP PO PRN (12:40)
[2020-06-02] MEDS ORDERED: CYCLOBENZAPRINE 5 MG TAB PO PRN (12:40)
[2020-06-02] MEDS ORDERED: bisacodyL 10 MG SUPP RECTAL PRN (12:40)
[2020-06-02] MEDS ORDERED: MAGNESIUM HYDROXIDE 2,400 MG/10 ML CUP PO PRN (12:40)
[2020-06-02] MEDS: clonazePAM 0.5 MG TAB PO SCH (17:28)
[2020-06-02] MEDS: CHOLECALCIFEROL 1,000 UNIT TAB PO SCH (17:28)
[2020-06-02] MEDS: SENNOSIDES-DOCUSATE SODIUM 1 EACH TAB PO SCH (17:28)
[2020-06-02] MEDS: ATORVASTATIN 20 MG TAB PO SCH (17:28)
[2020-06-02] MEDS: ASPIRIN 81 MG PO SCH (17:28)
[2020-06-02] MEDS: FERROUS SULFATE 325 MG TAB PO SCH (17:28)
[2020-06-02] MEDS: METOPROLOL TARTRATE 12.5 MG TAB PO SCH (17:28)
[2020-06-02] MEDS: metFORMIN 500 MG TAB PO SCH (17:28)
[2020-06-02] MEDS: busPIRone HCl 5 MG TAB PO SCH (17:28)
--- NOTE | 2020-06-02 21:38 | P.HPIM ---
History of Present Illness H&P Date: 06/02/20 Chief Complaint: fever History of presenting complaint: This is a pleasant 54-year-old patient of Dr. Holly of [facility].. Chronic stable medical conditions include hypertension, hyperlipidemia, GERD, diabetes, chronically occluded right carotid artery, obesity. Patient is a chronic right arm weakness chronic dysarthria and limited vision in the right eye. Also has some weakness on the left side at baseline. patient not able to communicate. Does make some sounds. Sent in for fever. In the ER found to have infected appearing urine. No respiratory symptoms reported. Patient himself is not able to communicate. Review of systems: GEN.: Fever tired EYES: Decreased vision in the right eye HEENT: None NECK: None RESPIRATORY: None CARDIOVASCULAR: None GASTROINTESTINAL: None GENITOURINARY: None MUSCULOSKELETAL: Joint pains LYMPHATICS: None HEMATOLOGICAL: None PSYCHIATRY: Decreased mentation NEUROLOGICAL: Contractured the right arm and dysarthria Past medical history to include: Right arm weakness from prior stroke with contractured, chronically occluded right internal carotid artery, chronically decreased vision on the right eye, chronic dysarthria, diabetes mellitus type 2, GERD, hypertension, hyperlipidemia, depression Social history: Quit drinking and smoking patient quit drinking and smoking in October 2005. Used to smoke 2 packs per day and washad about 3 drinks per day. Physical examination: VITAL SIGNS: 100.2, 105, 16, 120/75, 97% room air GENERAL: BMI 34.4, laying in bed tired but responding. EYES: Pupils equal. Conjunctiva normal. HEENT: External appearance of nose and ears normal, oral cavity-dry. NECK: JVD not raised; masses not palpable. HEART: First and second heart sounds are normal; no edema. LUNGS: Respiratory rate normal; decreased breath sounds. ABDOMEN: Soft, nontender, liver spleen not palpable, no masses palpable. Loja catheter PSYCH: Unable to assess . NEUROLOGICAL: Decreased vision in the right eye, dysarthric, power in the right arm is 3/5, power in the left lower extremity is 4/5. LYMPHATICS: No lymph nodes palpable in the axilla and neck INVESTIGATIONS, reviewed in the clinical context: white count 24hemoglobin 13.2 platelets 195 potassium 4.2 creatinine 0.76 lactic acid 2.5 UApositive for leukoesterase WBC Chest x-ray film personally reviewed by me-underpenetrated no obvious infiltrate Assessment: -Acute UTIfrom cystitis secondary to Loja catheter with sepsis, POA -Chronic weakness on the right upper extremity and the left side from prior stroke -Chronically occluded right internal carotid artery -Chronically decreased vision in the right eye -Chronic dysarthria from prior stroke -Essential hypertension -Obesity BMI 31.3 -Depression otherwise specified -Chronic medical debility -Full code Plan: Patient started IV ceftriaxone and IV fluids. Home medications resumed. Lovenox for DVT prophylaxis.currently no family at the bedside. 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 sepsis related to a fall-affected hip, had stroke 2015 after carotid surg.-partial paralysis right side, second stroke june affecting left side History of Any Multi-Drug Resistant Organisms: ESBL Date of last positivie culture/infection: 12/19/19 MDRO Source:: ESBL URINE Past Surgical History: Joint Replacement Additional Past Surgical History / Comment(s): Right-sided carotid endarterectomy attempt, spouse states is blocked, left carotid x3, multiple surgeries hips-Right 4 times and left 1. mikey hip had a Roland resurfacing done- right hip I&D, mult times Past Anesthesia/Blood Transfusion Reactions: Previous Problems w/ Anesthesia Additional Past Anesthesia/Blood Transfusion Reaction / Comment(s): woke during a procedure, some kind of swelling in throat during a surgery post intubation- thinks it might have been due to having been intubated for procedures close together Past Psychological History: Depression Smoking Status: Former smoker Past Alcohol Use History: None Reported Additional Past Alcohol Use History / Comment(s): quit drinking and smoking 2015, Prior to that he was a 2.5 pack a day smoker and drank approximately 3 drinks per day. Patient was at home with his . There are 2 cats in the home and 3 dogs that are outside. No recent travel. He worked in the past at a [employer] in [place]. He denies any medical marijuana, marijuana or street drug use. Past Drug Use History: None Reported - Past Family History Sister(s) Family Medical History: Cancer, CVA/TIA Brother(s) Family Medical History: Cancer, CVA/TIA, Liver Disease Additional Family Medical History / Comment(s): lung cancer Father Family Medical History: Diabetes Mellitus, Myocardial Infarction (MD) Mother Family Medical History: CVA/TIA Medications and Allergies Home Medications Medication Instructions Recorded Confirmed Type Rivaroxaban [Xarelto] 20 mg PO HS@2130 09/05/16 06/02/20 History Aspirin EC [Ecotrin Low Dose] 81 mg PO DAILY@17004/04/17 06/02/20 History Cholecalciferol (Vitamin D3) 2,000 unit PO DAILY@169905/02/18 06/02/20 History [Vitamin D3] Atorvastatin [Lipitor] 20 mg PO HS@17012/02/18 06/02/20 History Ferrous Sulfate [Iron (65 MG 325 mg PO DAILY@17012/02/18 06/02/20 History Elemental)] Lactulose 10 gm PO BID@0800,1700 12/02/18 06/02/20 History Losartan Potassium [Cozaar] 25 mg PO DAILY@0800 12/02/18 06/02/20 History Metoprolol Tartrate [Lopressor] 12.5 mg PO BID@0800,1700 12/02/18 06/02/20 History buPROPion XL [Wellbutrin XL] 150 mg PO DAILY@0800 12/02/18 06/02/20 History busPIRone HCL 15 mg PO BID@0800,1700 12/02/18 06/02/20 History Cyclobenzaprine [Flexeril] 5 mg PO TID PRN 12/20/19 06/02/20 History Docusate [Colace] 100 mg PO DAILY PRN 12/20/19 06/02/20 History Ketoconazole 2% Shampoo [Nizoral] 1 applic TOPICAL TUFR 12/20/19 06/02/20 History Magnesium Hydroxide [Milk of 2,400 mg PO DAILY PRN 12/20/19 06/02/20 History Magnesia] Melatonin 6 mg PO HS@2100 12/20/19 06/02/20 History Na Phos,M-B/Na Phos,Di-Ba [Fleet 133 ml RECTAL DAILY PRN 12/20/19 06/02/20 History Adult] Sennosides/Docusate Sodium 1 tab PO BID@0800,1700 12/20/19 06/02/20 History [Senna-S Laxative Tablet] bisacodyL [Dulcolax] 10 mg RECTAL DAILY PRN 12/20/19 06/02/20 History buPROPion HCL [Wellbutrin XL] 300 mg PO DAILY@0800 12/20/19 06/02/20 History metFORMIN HCL [Glucophage] 500 mg PO BID@0800,1700 12/20/19 06/02/20 History HYDROcodone/APAP 7.5-325MG [[place] 1 tab PO Q4H PRN #14 tab 12/23/19 06/02/20 Rx 7.5-325] clonazePAM 0.5 mg PO BID@0800,1700 #6 tab 12/23/19 06/02/20 Rx Ciprofloxacin HCl [Cipro] 750 mg PO DAILY@0800 06/02/20 06/02/20 History Magic Butt Paste 1 applicate TOPICAL BID 06/02/20 06/02/20 History Allergies Allergy/AdvReac Type Severity Reaction Status Date / Time sitagliptin [From Janumet] Allergy GI UPSET Verified 06/02/20 11:11 hydromorphone [From Dilaudid] AdvReac Confusion Verified 06/02/20 11:11 Physical Exam Vitals: Vital Signs Temp Pulse Pulse Resp BP BP Pulse Ox 06/02/20 13:50 100.6 F H 112 H 26 H 120/76 96 06/02/20 13:37 98.3 F 115 H 18 131/83 96 06/02/20 12:53 98.2 F 105 H 16 139/76 97 06/02/20 10:32 100.2 F H 105 H 16 120/75 97 Intake and Output 06/02/20 06/02/20 06/02/20 06:59 14:59 22:59 Other: Weight 108.862 kg Results CBC & Chem 7: 06/02/20 10:53 06/02/20 10:53 Labs: Abnormal Lab Results - Last 24 Hours (Table) 06/02/20 06/02/20 06/02/20 Range/Units 10:53 10:53 10:53 WBC 24.1 H (3.8-10.6) k/uL Neutrophils # 21.4 H (1.3-7.7) k/uL Monocytes # 1.1 H (0-1.0) k/uL Glucose 193 H (74-99) mg/dL Plasma Lactic Acid Tomi (0.7-2.0) mmol/L Ur Leukocyte Esterase Moderate H (Negative) Urine WBC 43 H (0-5) /hpf Urine Bacteria Many H (None) /hpf Urine Mucus Rare H (None) /hpf 06/02/20 Range/Units 10:53 WBC (3.8-10.6) k/uL Neutrophils # (1.3-7.7) k/uL Monocytes # (0-1.0) k/uL Glucose (74-99) mg/dL Plasma Lactic Acid Tomi 2.5 H* (0.7-2.0) mmol/L Ur Leukocyte Esterase (Negative) Urine WBC (0-5) /hpf Urine Bacteria (None) /hpf Urine Mucus (None) /hpf Microbiology - Last 24 Hours (Table) 06/02/20 10:53 Urine Culture - Preliminary Urine,Voided Thrombosis Risk Factor Assmnt - Choose All That Apply Any of the Below Risk Factors Present?: Yes Each Factor Represents 1 point: Age 41-60 years, Obesity (BMI >25) Thrombosis Risk Factor Assessment Total Risk Factor Score: 2 Thrombosis Risk Factor Assessment Level: Low Risk
[2020-06-02] MEDS: MELATONIN 3 MG TABLET PO SCH (21:41)
[2020-06-02] MEDS: RIVAROXABAN 20 MG TAB PO SCH (21:41)
[2020-06-03] MEDS: SODIUM CHLORIDE 0.9% 1,000 ML IV SCH ×3 (01:49→17:18)
[2020-06-03 06:56] LABS: Glucose,Whole Blood 111 mg/dL (75-99)
[2020-06-03] MEDS: clonazePAM 0.5 MG TAB PO SCH ×2 (07:08→17:18)
[2020-06-03] MEDS: LOSARTAN 25 MG TAB PO SCH (07:08)
[2020-06-03] MEDS: metFORMIN 500 MG TAB PO SCH ×2 (07:08→17:18)
[2020-06-03] MEDS: buPROPion XL 150 MG TAB.ER.24H PO SCH (07:08)
[2020-06-03] MEDS: SENNOSIDES-DOCUSATE SODIUM 1 EACH TAB PO SCH ×2 (07:08→17:18)
[2020-06-03] MEDS: METOPROLOL TARTRATE 12.5 MG TAB PO SCH ×2 (07:08→17:18)
[2020-06-03] MEDS: busPIRone HCl 5 MG TAB PO SCH ×2 (07:08→17:17)
[2020-06-03] MEDS: buPROPion XL 300 MG TAB.ER.24H PO SCH (07:08)
[2020-06-03] MEDS: HYDROcodone/APAP 7.5-325MG 1 EACH TAB PO PRN ×2 (15:01→19:56)
--- NOTE | 2020-06-03 15:06 | P.PN ---
Progress Note - Text Progress Note Date: 06/03/20 Chief Complaint: fever History of presenting complaint: This is a pleasant 54-year-old patient of Dr. Holly of [facility].. Chronic stable medical conditions include hypertension, hyperlipidemia, GERD, diabetes, chronically occluded right carotid artery, obesity. Patient is a chronic right arm weakness chronic dysarthria and limited vision in the right eye. Also has some weakness on the left side at baseline. patient not able to communicate. Does make some sounds. Sent in for fever. In the ER found to have infected appearing urine. No respiratory symptoms reported. Patient himself is not able to communicate. Admitted with-acute UTI with cystitis secondary to Loja catheter causing sepsis. Started IV ceftriaxone. Today-appears more restful. More relaxed. Consume 100% breakfast. Review of systems cannot be done as patient nonverbal Active Medications Hydrocodone Bitart/Acetaminophen ([place] 7.5-325) 1 each PO Q4H PRN PRN Reason: Pain Last Admin: 06/03/20 15:01 Dose: 1 each Documented by: Aspirin (Aspirin) 81 mg PO DAILY@1700 [facility] Last Admin: 06/02/20 17:28 Dose: 81 mg Documented by: Atorvastatin Calcium (Lipitor) 20 mg PO HS@1700 [facility] Last Admin: 06/02/20 17:28 Dose: 20 mg Documented by: Bisacodyl (Dulcolax) 10 mg RECTAL DAILY PRN PRN Reason: Constipation Bupropion HCl (Wellbutrin Xl) 300 mg PO DAILY@0800 [facility] Last Admin: 06/03/20 07:08 Dose: 300 mg Documented by: Bupropion HCl (Wellbutrin Xl) 150 mg PO DAILY@0800 [facility] Last Admin: 06/03/20 07:08 Dose: 150 mg Documented by: Buspirone HCl (Buspar) 15 mg PO BID@0800,1700 [facility] Last Admin: 06/03/20 07:08 Dose: 15 mg Documented by: Cholecalciferol (Vitamin D3 (25 Mcg = 1000 Iu)) 2,000 unit PO DAILY@1700 [facility] Last Admin: 06/02/20 17:28 Dose: 2,000 unit Documented by: Clonazepam (Klonopin) 0.5 mg PO BID@0800,1700 [facility] Last Admin: 06/03/20 07:08 Dose: 0.5 mg Documented by: Cyclobenzaprine HCl (Flexeril) 5 mg PO TID PRN PRN Reason: Muscle Spasm Docusate Sodium (Colace) 100 mg PO DAILY PRN PRN Reason: Constipation Ferrous Sulfate (Feosol) 325 mg PO DAILY@1700 [facility] Last Admin: 06/02/20 17:28 Dose: 325 mg Documented by: Sodium Chloride (Saline 0.9%) 1,000 mls @ 130 mls/hr IV .Q7H42M [facility] Last Admin: 06/03/20 07:07 Dose: 130 mls/hr Documented by: Ceftriaxone Sodium 1 gm/ (Sodium Chloride) 50 mls @ 100 mls/hr IVPB Q12HR [facility] Last Admin: 06/03/20 07:07 Dose: 100 mls/hr Documented by: Losartan Potassium (Cozaar) 25 mg PO DAILY@0800 [facility] Last Admin: 06/03/20 07:08 Dose: 25 mg Documented by: Magnesium Hydroxide (Milk Of Magnesia) 2,400 mg PO DAILY PRN PRN Reason: Constipation Melatonin (Melatonin) 6 mg PO HS@2100 [facility] Last Admin: 06/02/20 21:41 Dose: 6 mg Documented by: Metformin HCl (Glucophage) 500 mg PO BID@0800,1700 [facility] Last Admin: 06/03/20 07:08 Dose: 500 mg Documented by: Metoprolol Tartrate (Lopressor) 12.5 mg PO BID@0800,1700 [facility] Last Admin: 06/03/20 07:08 Dose: 12.5 mg Documented by: Naloxone HCl (Narcan) 0.2 mg IV Q2M PRN PRN Reason: Opioid Reversal Rivaroxaban (Xarelto) 20 mg PO HS@2130 [facility] Last Admin: 06/02/20 21:41 Dose: 20 mg Documented by: Senna/Docusate Sodium (Senokot-S) 1 each PO BID@0800,1700 [facility] Last Admin: 06/03/20 07:08 Dose: 1 each Documented by: Physical examination: VITAL SIGNS: T-max 100.6, today 97.6, 104, 17, 100/65, 94% room air GENERAL: in bed, awake EYES: Pupils equal. Conjunctiva normal. HEENT: External appearance of nose and ears normal, oral cavity-dry. NECK: JVD not raised; masses not palpable. HEART: First and second heart sounds are normal; no edema. LUNGS: Respiratory rate normal; decreased breath sounds. ABDOMEN: Soft, nontender, liver spleen not palpable, no masses palpable. Loja catheter PSYCH: Unable to assess . NEUROLOGICAL: Decreased vision in the right eye, dysarthric, power in the right arm is 3/5, power in the left lower extremity is 4/5. LYMPHATICS: No lymph nodes palpable in the axilla and neck INVESTIGATIONS, reviewed in the clinical context: Urine [id number]-[id number]-ngpcnjey bacilli Admission testing white count 24hemoglobin 13.2 platelets 195 potassium 4.2 creatinine 0.76 lactic acid 2.5 UApositive for leukoesterase WBC Chest x-ray film personally reviewed by me-underpenetrated no obvious infiltrate Assessment: -Acute UTIfrom cystitis secondary to Loja catheter with sepsis, POA -Chronic weakness on the right upper extremity and the left side from prior stroke -Chronically occluded right internal carotid artery -Chronically decreased vision in the right eye -Chronic dysarthria from prior stroke -Essential hypertension -Obesity BMI 31.3 -Depression otherwise specified -Chronic medical debility -Full code Plan: Continue IV ceftriaxone and IV fluids. Repeat labs. Other medications to continue.
[2020-06-03 16:41] LABS: Glucose,Whole Blood 126 mg/dL (75-99)
[2020-06-03] MEDS: ASPIRIN 81 MG PO SCH (17:18)
[2020-06-03] MEDS: ATORVASTATIN 20 MG TAB PO SCH (17:18)
[2020-06-03] MEDS: CHOLECALCIFEROL 1,000 UNIT TAB PO SCH (17:18)
[2020-06-03] MEDS: FERROUS SULFATE 325 MG TAB PO SCH (17:18)
[2020-06-03 19:48] LABS: Hemoglobin A1C 6.3 % (4.0-6.0)
[2020-06-03] MEDS: MELATONIN 3 MG TABLET PO SCH (19:55)
[2020-06-03] MEDS: RIVAROXABAN 20 MG TAB PO SCH (19:57)
[2020-06-04] MEDS: SODIUM CHLORIDE 0.9% 1,000 ML IV SCH ×3 (02:48→16:22)
[2020-06-04 07:22] LABS: Glucose,Whole Blood 123 mg/dL (75-99)
[2020-06-04 09:23] LABS: HCT 38.6 % (39.0-53.0); HGB 11.9 gm/dL (13.0-17.5); Hypochromasia Moderate; MCH 29.9 pg (25.0-35.0); MCV 96.6 fL (80.0-100.0); Mean Platelet Volume 8.8; Platelet Count 171 k/uL (150-450); RBC 3.99 m/uL (4.30-5.90); RDW 15.7 % (11.5-15.5)
[2020-06-04] MEDS: busPIRone HCl 5 MG TAB PO SCH ×2 (09:40→16:44)
[2020-06-04] MEDS: buPROPion XL 300 MG TAB.ER.24H PO SCH (09:40)
[2020-06-04] MEDS: SENNOSIDES-DOCUSATE SODIUM 1 EACH TAB PO SCH ×2 (09:42→16:44)
[2020-06-04] MEDS: LOSARTAN 25 MG TAB PO SCH (09:42)
[2020-06-04] MEDS: metFORMIN 500 MG TAB PO SCH ×2 (09:43→16:44)
[2020-06-04] MEDS: clonazePAM 0.5 MG TAB PO SCH ×2 (09:43→16:44)
[2020-06-04] MEDS: METOPROLOL TARTRATE 12.5 MG TAB PO SCH ×2 (09:44→16:44)
[2020-06-04] MEDS: buPROPion XL 150 MG TAB.ER.24H PO SCH (09:52)
[2020-06-04 10:53] LABS: ALT 18 U/L (4-49); AST 38 U/L (17-59); African American GFR (CKD) >90 (>60 ml/min/1.73 sqM); Albumin 3.2 g/dL (3.5-5.0); Alkaline Phosphatase 49 U/L (38-126); Anion Gap 8 mmol/L; Blood Urea Nitrogen 8 mg/dL (9-20); Calcium 8.1 mg/dL (8.4-10.2); Carbon Dioxide 20 mmol/L (22-30); Chloride 111 mmol/L (98-107); Glucose 119 mg/dL (74-99); Non-African American GFR(CKD) >90 (>60 ml/min/1.73 sqM); Sodium 139 mmol/L (137-145); Total Protein 6.3 g/dL (6.3-8.2)
[2020-06-04 11:13] LABS: Potassium 4.9 mmol/L (3.5-5.1)
--- NOTE | 2020-06-04 12:42 | P.DS ---
Providers Date of admission: 06/02/20 12:39 54-year-old patient of Dr. Holly of [facility].. Chronic stable medical conditions include hypertension, hyperlipidemia, GERD, diabetes, chronically occluded right carotid artery, obesity. Patient is a chronic right arm weakness chronic dysarthria and limited vision in the right eye. Also has some weakness on the left side at baseline. patient not able to communicate. Does make some sounds. Sent in for fever. In the ER found to have infected appearing urine. No respiratory symptoms reported. Patient himself is not able to communicate. Admitted with-acute UTI with cystitison IV ceftriaxone. Today-appears more restful. More relaxed. Consume 100% breakfast. 06/04/2020 Patient doesn't have a Loja catheter but does have an external catheter. Patient was treated for UTI and found to have E. coli which is a sensitive to cephalosporins but resistant to fluoroquinolones. Patient will be discharged on 5 more days of antibody comparing total 7 day of therapy. Patient's UTI may be related to the external catheter. PHYSICAL EXAMINATION: GENERAL: The patient is alert and oriented x3, not in any acute distress. Well developed, well nourished. HEENT: Pupils are round and equally reacting to light. EOMI. No scleral icterus. No conjunctival pallor. Normocephalic, atraumatic. No pharyngeal erythema. No thyromegaly. CARDIOVASCULAR: S1 and S2 present. No murmurs, rubs, or gallops. PULMONARY: Chest is clear to auscultation, no wheezing or crackles. ABDOMEN: Soft, nontender, nondistended, normoactive bowel sounds. No palpable organomegaly. MUSCULOSKELETAL: No joint swelling or deformity. EXTREMITIES: No cyanosis, clubbing, or pedal edema. NEUROLOGICAL: Gross neurological examination did not reveal any new focal deficits. She does have weakness in the right side SKIN: No rashes. Assessment: -Acute UTIfrom cystitis leading to sepsis patient has E. coli which is sensitive to cephalosporin's as mentioned above -Chronic weakness on the right upper extremity and the left side from prior stroke -Chronically occluded right internal carotid artery -Chronically decreased vision in the right eye -Chronic dysarthria from prior stroke -Essential hypertension -Obesity BMI 31.3 -Depression -Chronic medical debility -Full code Attending physician: Tab Ash Primary care physician: Arnoldo Patiño Plan - Discharge Summary Discharge Rx Participant: Yes New Discharge Prescriptions: New Cefuroxime Axetil [Ceftin] 500 mg PO BID 5 Days #10 tab Continue Rivaroxaban [Xarelto] 20 mg PO HS@2130 Aspirin EC [Ecotrin Low Dose] 81 mg PO DAILY@1700 Cholecalciferol (Vitamin D3) [Vitamin D3] 2,000 unit PO DAILY@1700 Atorvastatin [Lipitor] 20 mg PO HS@1700 Metoprolol Tartrate [Lopressor] 12.5 mg PO BID@0800,1700 Ferrous Sulfate [Iron (65 MG Elemental)] 325 mg PO DAILY@1700 busPIRone HCL 15 mg PO BID@0800,1700 Lactulose 10 gm PO BID@0800,1700 Losartan Potassium [Cozaar] 25 mg PO DAILY@0800 buPROPion XL [Wellbutrin XL] 150 mg PO DAILY@0800 Na Phos,M-B/Na Phos,Di-Ba [Fleet Adult] 133 ml RECTAL DAILY PRN PRN Reason: Constipation Magnesium Hydroxide [Milk of Magnesia] 2,400 mg PO DAILY PRN PRN Reason: Constipation bisacodyL [Dulcolax] 10 mg RECTAL DAILY PRN PRN Reason: Constipation Docusate [Colace] 100 mg PO DAILY PRN PRN Reason: Constipation Cyclobenzaprine [Flexeril] 5 mg PO TID PRN PRN Reason: Muscle Spasm Sennosides/Docusate Sodium [Senna-S Laxative Tablet] 1 tab PO BID@0800,1700 metFORMIN HCL [Glucophage] 500 mg PO BID@0800,1700 buPROPion HCL [Wellbutrin XL] 300 mg PO DAILY@0800 Ketoconazole 2% Shampoo [Nizoral] 1 applic TOPICAL TUFR Melatonin 6 mg PO HS@2100 Magic Butt Paste 1 applicate TOPICAL BID clonazePAM 0.5 mg PO BID@0800,1700 #6 tab HYDROcodone/APAP 7.5-325MG [[place] 7.5-325] 1 tab PO Q4H PRN #14 tab PRN Reason: Pain Discontinued Ciprofloxacin HCl [Cipro] 750 mg PO DAILY@0800 Discharge Medication List Rivaroxaban [Xarelto] 20 mg PO HS@2130 09/05/16 [History] Aspirin EC [Ecotrin Low Dose] 81 mg PO DAILY@169904/04/17 [History] Cholecalciferol (Vitamin D3) [Vitamin D3] 2,000 unit PO DAILY@169905/02/18 [History] Atorvastatin [Lipitor] 20 mg PO HS@169912/02/18 [History] Ferrous Sulfate [Iron (65 MG Elemental)] 325 mg PO DAILY@169912/02/18 [History] Lactulose 10 gm PO BID@0800,169912/02/18 [History] Losartan Potassium [Cozaar] 25 mg PO DAILY@0812/02/18 [History] Metoprolol Tartrate [Lopressor] 12.5 mg PO BID@0800,169912/02/18 [History] buPROPion XL [Wellbutrin XL] 150 mg PO DAILY@0812/02/18 [History] busPIRone HCL 15 mg PO BID@0800,169912/02/18 [History] Cyclobenzaprine [Flexeril] 5 mg PO TID PRN 12/20/19 [History] Docusate [Colace] 100 mg PO DAILY PRN 12/20/19 [History] Ketoconazole 2% Shampoo [Nizoral] 1 applic TOPICAL TUFR 12/20/19 [History] Magnesium Hydroxide [Milk of Magnesia] 2,400 mg PO DAILY PRN 12/20/19 [History] Melatonin 6 mg PO HS@2100 12/20/19 [History] Na Phos,M-B/Na Phos,Di-Ba [Fleet Adult] 133 ml RECTAL DAILY PRN 12/20/19 [History] Sennosides/Docusate Sodium [Senna-S Laxative Tablet] 1 tab PO BID@0800,1700 12/20/19 [History] bisacodyL [Dulcolax] 10 mg RECTAL DAILY PRN 12/20/19 [History] buPROPion HCL [Wellbutrin XL] 300 mg PO DAILY@0800 12/20/19 [History] metFORMIN HCL [Glucophage] 500 mg PO BID@0800,1700 12/20/19 [History] Magic Butt Paste 1 applicate TOPICAL BID 06/02/20 [History] Cefuroxime Axetil [Ceftin] 500 mg PO BID 5 Days #10 tab 06/04/20 [Rx] HYDROcodone/APAP 7.5-325MG [[place] 7.5-325] 1 tab PO Q4H PRN #14 tab 06/04/20 [Rx] clonazePAM 0.5 mg PO BID@0800,1700 #6 tab 06/04/20 [Rx] Follow up Appointment(s)/Referral(s): Arnoldo Patiño MD [Primary Care Provider] - 1-2 Days Discharge Disposition: HOME SELF-CARE
[2020-06-04 15:49] VITALS: BP 132/85; PULSE 97; RESP 18; TEMP 98
[2020-06-04] MEDS: ASPIRIN 81 MG PO SCH (16:44)
[2020-06-04] MEDS: CHOLECALCIFEROL 1,000 UNIT TAB PO SCH (16:44)
[2020-06-04] MEDS: FERROUS SULFATE 325 MG TAB PO SCH (16:44)
[2020-06-04] MEDS: ATORVASTATIN 20 MG TAB PO SCH (16:45)
[2020-06-04 16:57] LABS: Glucose,Whole Blood 120 mg/dL (75-99)
== END 2020-06-04 17:19 | DRG 698 ==
LOC: EC 10:27 → 4SSUR 12:39
PROVIDERS: ADMIT Hospitalist; ATTEND Hospitalist
DX: T83.511A Infection and inflammatory reaction due to indwelling urethral catheter, initial encounter (principal); A41.9 Sepsis, unspecified organism; I69.351 Hemiplegia and hemiparesis following cerebral infarction affecting right dominant side; R47.01 Aphasia; Z16.24 Resistance to multiple antibiotics; I69.354 Hemiplegia and hemiparesis following cerebral infarction affecting left non-dominant side; E11.9 Type 2 diabetes mellitus without complications; E66.9 Obesity, unspecified; E78.5 Hyperlipidemia, unspecified; F32.9 Major depressive disorder, single episode, unspecified; H54.7 Unspecified visual loss; I11.0 Hypertensive heart disease with heart failure; I25.10 Atherosclerotic heart disease of native coronary artery without angina pectoris; I50.9 Heart failure, unspecified; I65.21 Occlusion and stenosis of right carotid artery; K21.9 Gastro-esophageal reflux disease without esophagitis; K59.00 Constipation, unspecified; N30.90 Cystitis, unspecified without hematuria; Z20.828 Contact with and (suspected) exposure to other viral communicable diseases; Z68.31 Body mass index [BMI] 31.0-31.9, adult; Z79.01 Long term (current) use of anticoagulants; B96.20 Unspecified Escherichia coli [E. coli] as the cause of diseases classified elsewhere; Z79.82 Long term (current) use of aspirin; Z79.84 Long term (current) use of oral hypoglycemic drugs; Z79.899 Other long term (current) drug therapy; Z80.1 Family history of malignant neoplasm of trachea, bronchus and lung; Z82.49 Family history of ischemic heart disease and other diseases of the circulatory system; Z83.3 Family history of diabetes mellitus; Z87.891 Personal history of nicotine dependence; Z88.5 Allergy status to narcotic agent; Z88.8 Allergy status to other drugs, medicaments and biological substances
CPT/HCPCS: 36415; 71046; 80053; 81001; 83036; 83605; 85025; 85027; 85610; 85730; 87040; 87077; 87086; 87186; 93005; 96374; 99291

== ENCOUNTER 2021-03-12 07:11 | Day surgery (SDC) | payer MEDICARE, OTHER ==
[2021-03-11 10:10] VITALS: BMI 33.2
[~2021-03-12 07:11] MED LIST changes: -HEPARIN SODIUM,PORCINE 5,000 UNIT/ML 1 ML VIAL SQ ONE; +LACTATED RINGERS 1,000 ML IV SCH; -ceFAZolin 2 GM in SODIUM CHLORIDE 0.9% 100 ML IVPB ONE
[2021-03-12 08:15] VITALS: RESP 16; TEMP 97.7
[2021-03-12 08:36] LABS: Glucose,Whole Blood 114 mg/dL (75-99)
[2021-03-12] MEDS ORDERED: PROPOFOL 10 MG/ML 20 ML VIAL IV ONE (08:58)
--- NOTE | 2021-03-12 09:29 | P.PCN ---
Date of Procedure: 03/12/21 Procedure(s) Performed: BRIEF HISTORY: Patient is a 55-year-old pleasant male scheduled for an elective colonoscopy as a part of evaluation of intermittent rectal bleeding for the last few months duration. He also has prior history of colon polyps. PROCEDURE PERFORMED: Colonoscopy with biopsy. PREOPERATIVE DIAGNOSIS: Intermittent rectal bleeding and prior history of colon polyps. IV sedation per Anesthesia. PROCEDURE: After informed consent was obtained, the patient, was brought into the endoscopy unit. IV sedation was administered by Anesthesia under continuous monitoring. Digital rectal examination was normal. Initially the Olympus CF-160 flexible video colonoscope was then inserted in the rectum, gradually advanced into the cecum without any difficulty. Careful examination was performed as the scope was gradually being withdrawn. Ileocecal valve and the appendiceal orifice were visualized and appeared normal. Prep was poor and several areas of the colon. Large amount of retained liquid stool noted throughout the colon which was thoroughly irrigated. The visualized portions of mucosa of the cecum, ascending colon, transverse colon, descending colon, sigmoid colon, and rectum appeared normal. In the proximal rectum there were 2 small polyps measuring 2 mm in size that were removed by cold biopsy. Retroflexion was performed in the rectum and grade 2 internal hemorrhoids were seen. The patient tolerated the procedure well. IMPRESSION: Grade 2 internal hemorrhoids 2 mm times rectal polyps status post biopsy Poor prep RECOMMENDATIONS: Findings of this examination were discussed with the patient well as his family. He was advised to follow with the biopsy results and have a repeat colonoscopy in 5 years.
[2021-03-12 09:46] VITALS: BP 110/70; PULSE 76
== END 2021-03-12 10:45 | disposition home or self-care (01) ==
LOC: ORWHC2ENDO 07:11
PROVIDERS: ATTEND Internal Medicine Gastroenterology
DX: K62.1 Rectal polyp (principal); K64.1 Second degree hemorrhoids; Z86.010 Personal history of colon polyps; K62.5 Hemorrhage of anus and rectum; I25.10 Atherosclerotic heart disease of native coronary artery without angina pectoris; K21.9 Gastro-esophageal reflux disease without esophagitis; I10 Essential (primary) hypertension; E78.5 Hyperlipidemia, unspecified; E66.9 Obesity, unspecified; Z68.33 Body mass index [BMI] 33.0-33.9, adult; Z87.891 Personal history of nicotine dependence; E11.9 Type 2 diabetes mellitus without complications; I69.398 Other sequelae of cerebral infarction; Z96.60 Presence of unspecified orthopedic joint implant; Z98.890 Other specified postprocedural states; Z79.01 Long term (current) use of anticoagulants; Z79.84 Long term (current) use of oral hypoglycemic drugs; Z79.82 Long term (current) use of aspirin; Z79.899 Other long term (current) drug therapy
CPT/HCPCS: 88305; 45380; J2704

== ENCOUNTER → 2025-03-23 | Outpatient (CLI) | payer MEDICARE, OTHER ==
--- NOTE | 2025-03-25 19:08 | CT ---
EXAMINATION TYPE: CT urogram wo/w con DATE OF EXAM: 03/23/2025 12:19 PM COMPARISON: 12/19/2019 CLINICAL INDICATION: Male, 59 years old with history of R31.0 GROSS HEMATURIA, gross hematuria TECHNIQUE: Axial images were obtained from above the diaphragm to the pubic rami in the axial plane a t 5 mm thick sections. 2-D Reconstructed images are reviewed on the computer in the coronal and sagi ttal planes. 3-D reconstruction images through the renal collecting system are performed. CONTRAST: 100 mL of Isovue 300. Study performed DLP: 4986 mGycm, Automated exposure control for dose reduction was used. FINDINGS: Limited CT sections are obtained the lung bases. The lung bases are clear. CT ABDOMEN: Liver: Normal Spleen: Normal Pancreas: Normal Adrenal glands: 1.8 cm right adrenal gland. Left adrenal gland appears normal Gallbladder: Surgically absent Kidneys: No masses are evident. No hydronephrosis is present. There is a nonobstructing 1.0 cm calc ification mid-upper pole right kidney. This is new from 2019. No cysts are present. Delayed images w ere obtained through the kidneys, which remain unremarkable. No longer delayed images were obtained. Three-D reconstructed images performed through the renal collecting system are reviewed. There is banks itation within the pelvis due to beam hardening artifact. Urinary bladder is poorly visualized. Aorta: Vascular calcification is within the aorta. Inferior vena cava: Normal. CT PELVIS: Loops of bowel within the abdomen and pelvis are normal. Fecal debris is throughout the colon. A l arge fecal bolus is at the rectum. Correlate for fecal impaction. This study is without oral contrast limiting bowel evaluation. Appendix: Normal as visualized. Urinary bladder: Limited in evaluation. No obvious masses identified. Genitourinary structures: Prostate contains calcification. Osseous structures: No suspicious lytic or sclerotic lesions. IMPRESSION: 1. Nonobstructing upper pole left renal stone. No hydronephrosis or hydroureter. 2. Limited evaluation due to beam hardening artifact from bilateral hip prostheses. 3. Moderate fecal retention. 4. Thickening of the right adrenal gland [facility], Workstation: [email or web address], 03/25/2025 7:05 PM
== END | disposition home or self-care (01) ==
LOC: RADCTMAIN 10:49
PROVIDERS: ATTEND Urology
DX: N20.0 Calculus of kidney (principal); E27.8 Other specified disorders of adrenal gland
CPT/HCPCS: 74178; 74400; Q9967